=== PATIENT | female | born 1980 | race Two or more races ===

== ENCOUNTER → 2020-01-17 10:19 | Outpatient (BNVA) | payer MEDICARE, MEDICAID, SELFPAY | PROVIDERS: PCP Internal Medicine; Referring Provider Internal Medicine; Visit Provider Internal Medicine Endocrinology, Diabetes & Metabolism | DX: E10.65 Type 1 diabetes mellitus with hyperglycemia (principal); E10.21 Type 1 diabetes mellitus with diabetic nephropathy; E78.5 Hyperlipidemia, unspecified; E55.9 Vitamin D deficiency, unspecified; N91.2 Amenorrhea, unspecified; Z96.41 Presence of insulin pump (external) (internal) | CPT/HCPCS: 82947; 99214 ==

== ENCOUNTER → 2020-01-31 11:15 | Outpatient (BNVA) | payer MEDICARE, MEDICAID, SELFPAY | PROVIDERS: PCP Internal Medicine; Referring Provider Internal Medicine; Visit Provider Nurse Practitioner | DX: K58.2 Mixed irritable bowel syndrome (principal); K21.9 Gastro-esophageal reflux disease without esophagitis; R13.10 Dysphagia, unspecified; R63.4 Abnormal weight loss; Z79.899 Other long term (current) drug therapy | CPT/HCPCS: 99212 ==

== ENCOUNTER → 2020-02-08 11:01 | Outpatient (BNVA) | payer MEDICARE, MEDICAID, SELFPAY | PROVIDERS: PCP Internal Medicine; Referring Provider Internal Medicine; Visit Provider Dietitian, Registered | DX: Z76.89 Persons encountering health services in other specified circumstances (principal) ==

== ENCOUNTER → 2020-04-17 09:56 | Outpatient (BNVA) | payer MEDICARE, MEDICAID, SELFPAY | PROVIDERS: PCP Internal Medicine; Visit Provider Internal Medicine Endocrinology, Diabetes & Metabolism | DX: E10.65 Type 1 diabetes mellitus with hyperglycemia (principal); E10.21 Type 1 diabetes mellitus with diabetic nephropathy; E78.5 Hyperlipidemia, unspecified; E55.9 Vitamin D deficiency, unspecified; N91.2 Amenorrhea, unspecified | CPT/HCPCS: 82947; 99212 ==

== ENCOUNTER 2020-04-24 14:56 | Outpatient (REF) | payer MEDICARE, MEDICAID, SELFPAY ==
--- NOTE | 2020-04-24 | MM_ITS ---
EXAMINATION: MM SCREENING DIGITAL BREAST TOMOSYNTHESIS, BILATERAL CLINICAL INFORMATION: Screening. Asymptomatic. Baseline, no prior breast imaging. Age 39. No known family history breast cancer. History benign right breast excisional biopsy 1999. The lifetime risk of breast cancer based on the Tyrer-Cuzick Model is 7%. COMPARISON: None (current study represents initial baseline exam). TECHNIQUE: Digital breast tomosynthesis is performed in both the craniocaudal and mediolateral oblique views along with computer-aided detection (CAD). Synthesized 2D images are generated from the tomosynthesis. FINDINGS: The breasts are heterogeneously dense, which may obscure small masses (ACR BI-RADS breast composition Category c). There are no significant masses, abnormal calcifications, or other abnormalities. The axilla and skin contours are unremarkable. MM/MM tomosynthesis screening BI IMPRESSION: No mammographic evidence of malignancy. ASSESSMENT: BI-RADS 1: Negative RECOMMENDATION: Routine annual mammography screening. This patient's information was entered into a reminder system with a target due date for their next mammogram.
== END 2020-04-24 14:57 | disposition home or self-care (01) ==
LOC: HO.MAMMO 14:56
PROVIDERS: PCP Internal Medicine; Visit Provider Internal Medicine
DX: Z12.31 Encounter for screening mammogram for malignant neoplasm of breast (principal)
CPT/HCPCS: 77063; 77067

== ENCOUNTER → 2020-04-26 09:47 | Outpatient (BNVA) | payer MEDICARE, MEDICAID, SELFPAY | PROVIDERS: PCP Internal Medicine; Visit Provider Internal Medicine | DX: R00.2 Palpitations (principal); R06.02 Shortness of breath; R07.2 Precordial pain; R00.0 Tachycardia, unspecified; E10.65 Type 1 diabetes mellitus with hyperglycemia | CPT/HCPCS: 93005; 99202 ==

== ENCOUNTER → 2020-05-10 11:39 | Outpatient (BNVA) | payer MEDICARE, MEDICAID, SELFPAY | PROVIDERS: PCP Internal Medicine; Visit Provider Dietitian, Registered ==

== ENCOUNTER → 2020-05-15 11:04 | Outpatient (REF) | payer MEDICARE, MEDICAID, SELFPAY ==
--- NOTE | 2020-05-15 11:08 | CA_ITS ---
Acquisition Time: 2020-05-15 11:17:47 Total Exercise Time: 00:08:53 Test Indications: CP Medications: SEE CHART Protocol: YINKA Max HR: 157 BPM 87% of Pred: 180 BPM Max BP: 160/078 mmHG Max Work Load: 10.1 METS Exercise stress ECHO total of 8 min 53 sec. Pt tolerated well. METS 10.10 and TAPHR up to 87%. Pt denies any anginal sx, EKG without any arrhythmias. no ischemic changes seen during exercise or in recovery period. Images taken at rest and immediately after peak exercise. Definity contrast used. Normotensive response to exercise. Test reviewed with Dr. Barone Referred By: Donovan Barone Overread By: Blu Link
== END ==
LOC: HO.CARD 11:04
PROVIDERS: PCP Internal Medicine; Visit Provider Internal Medicine
DX: R07.2 Precordial pain (principal)
CPT/HCPCS: 93350; Q9957

== ENCOUNTER → 2020-05-30 09:34 | Outpatient (REF) | payer MEDICARE, MEDICAID, SELFPAY ==
--- NOTE | 2020-05-30 09:38 | CA_ITS ---
Transthoracic Echocardiogram Patient (Last, First, Middle): Renae Roman L Gender: Female Date of : 1980 Age: 39 Procedure Date: 05/30/2020 Procedure Type: Transthoracic Echocardiogram Location: OP Height: 157.48 cm Weight: 58.97 kg BSA: 1.59 m2 Heart Rate: bpm BP: 118 / 76 mmHg Associate Music Professor: DSKarla Referring MD: Donovan Barone MD Symptoms: R06.02 - Shortness of breath Study Quality: Good ECG Rhythm: Sinus Conclusions: - The left ventricular systolic function is mildly decreased. The visually estimated ejection fraction is between 45-50%. - No obvious valvular pathology seen on this study. Findings Left Ventricle Normal left ventricular cavity size. There is normal left ventricular wall thickness. The left ventricular systolic function is mildly decreased. The visually estimated ejection fraction is between 45-50%. There is no evidence of regional wall motion abnormalities. Diastolic function is normal for age. Right Ventricle Normal right ventricular cavity size and systolic function. Atria Both atria are normal in size. Aortic Valve There is a normal trileaflet aortic valve. There is no aortic valve stenosis. There is no aortic valve regurgitation. Mitral Valve There is mild anterior mitral leaflet thickening. There is trace mitral valve regurgitation. There is no mitral valve stenosis. Pulmonic Valve The pulmonic valve was not well visualized. Tricuspid Valve Normal tricuspid valve structure. There is trace tricuspid valve regurgitation. The pulmonary artery systolic pressure is normal. Great Vessels The aortic annulus, sinuses of valsalva, and asc aorta are normal in size. Venous The inferior vena cava is normal in size and collapses greater than 50% with inspiration. Pericardium/Pleural There is no evidence of pericardial effusion. Prior Study Comparison No prior study available for comparison. Recommendations, Care & Conclusions No obvious valvular pathology seen on this study. Measurements 2D Linear Measurements IVSd: 0.97 0.6-0.9/0.6-1.0 cm LVIDd: 4.58 3.9-5.3/4.2-5.9 cm LVIDd Index: 2.88 2.4-3.2/2.2-3.1 cm/m2 LVIDs: 3.42 2.0-3.6 cm LVPWd: 0.84 0.7-1.1 cm Ao Root: 2.80 2.1-3.5 cm LA Diam: 3.20 2.7-3.8/3.0-4.0 cm LAIDs Index: 2.01 1.5-2.3 cm/m2 LV Mass: 171.82 67-162/88-224 g LV Mass Index: 108.06 43-95/49-115 g/m2 LVOT Diam: 1.90 3.0+(-)1.3 cm 2D Systolic Function EF 4C: 56.70 >55% EF 2C: 61.40 >55% Mitral Valve MV PK A: 0.42 MV Decel Time: 67.00 E'Lateral: 7.83 E'Medial: 6.20 PHT: 19.00 MVA PHT: 11.58 Decel George: 12.05 Aortic Valve AoV Pk Zackary: 1.28 AoV Pk Grad: 7.00 LVOT LVOT Pk Zackary: 0.88 LVOT Mn Zackary: 0.59 LVOT VTI: 0.16 LVOT Pk Grad: 3.00 LVOT Mn Grad: 2.00 LVOT Diam: 1.90 LVOT Area: 2.84 Diastolic Function MV Pk A: 0.42 E'Medial: 6.20 E' Laterial: 7.83 Tricuspid Valve TR Pk Zackary: 2.24 TR Pk Grad: 20.00 RA Press: 3.00 RVSP: 23.00 Great Vessels Aorta Ao Root-2D: 2.80 2.0-3.7 cm Ao Asc: 3.10 2.1-3.4 cm Updated in Other Vendor System with Status of Final Donovan Barone MD electronically signed on 05/31/2020 12:02:22 PM with status of Final
--- NOTE | 2020-05-30 09:38 | ECG_ITS ---
Hook-up date: 2020-05-30 10:47:00 Duration: 26:18:00 Test Indications: PALPITATIONS Medications: [id number] QRS complexes 1 Ventricular ectopics which represent <1 % of total QRS comp. 3 Supraventricular ectopics which represent <1 % of total QRS comp. * Paced QRS complexs which represent % of total QRS comp. VENTRICULAR ECTOPY 1 Isolated 0 Bigeminal Cycles 0 Couplets 0 Runs 0 Beats in Runs * Beats LONGEST at * BPM at :: -- * Beats FASTEST at * BPM at :: -- SUPRAVENTRICULAR ECTOPY 3 Isolated 0 Couplets 0 Runs 0 Beats in Runs * Beats LONGEST at * BPM at :: -- * Beats FASTEST at * BPM at :: -- HEART RATES 87 MIN at 05:16:30 2020-05-31 105 AVG 130 MAX at 21:52:19 2020-05-30 LONGEST RR 0.7040 secs at 22:17:59 2020-05-30 S-T LEVELS Channel 1 - 128 mm at 10:47:00 2020-05-30 - 128 mm at 10:47:00 2020-05-30 Channel 2 - 128 mm at 10:47:00 2020-05-30 - 128 mm at 10:47:00 2020-05-30 Channel 3 - 128 mm at 03:00:61 -- - 128 mm at 03:00:61 Underlying rhythm is sinus; Average ventricular rate 105/min; range 87-130/min; About 75% of the time, ventricular rate >100/min; No other arrhythmias noted; Chest pain in patient diary without correlating findings on holter. Referred By: Tommy Julien Overread By: TOMMY JULIEN
== END ==
LOC: HO.CARD 09:34
PROVIDERS: Visit Provider Internal Medicine
DX: R07.2 Precordial pain (principal); R00.2 Palpitations; R06.02 Shortness of breath
CPT/HCPCS: 93225; 93226; 93306

== ENCOUNTER → 2020-06-04 15:02 | Outpatient (BNVA) | payer MEDICARE, MEDICAID, SELFPAY | PROVIDERS: PCP Internal Medicine; Visit Provider Nurse Practitioner | DX: Z13.89 Encounter for screening for other disorder (principal) | CPT/HCPCS: 99212 ==

== ENCOUNTER 2020-06-06 08:57 | Outpatient (REF) | payer MEDICARE, MEDICAID, SELFPAY ==
--- NOTE | ~2020-06-06 | CT_ITS ---
EXAMINATION: CT SINUS WITHOUT CONTRAST CLINICAL INFORMATION: Sinonasal polyposis. Deviated septum. COMPARISON: None TECHNIQUE: Axial 2 mm thin and reformatted 2 mm thin sagittal and coronal images of sinuses were obtained. DLP 112 mGy/cm. This CT examination was performed using dose optimization techniques as appropriate, variously including the following: *Automated exposure control *Adjustment of mA and/or kV according to patient size (this includes techniques or standardized protocols for targeted exams where dose is matched to indication/reason for exam; i.e. extremities or head) *Use of iterative reconstruction technique FINDINGS: FRONTAL SINUSES AND DRAINAGE PATHWAYS: Normal. MAXILLARY SINUSES AND DRAINAGE PATHWAYS: There is mild mucoperiosteal thickening left maxillary sinus. Rest of the paranasal sinuses are well aerated. Bilateral ostiomeatal complexes are well aerated as well. ETHMOID SINUSES: Normal. The ethmoid roofs are symmetric, with olfactory fossa depth of 0.5 cm on the right and 0.4 cm on the left. SPHENOID SINUSES AND DRAINAGE PATHWAYS: Normal. The sphenoid ostia are patent. The carotid canals are covered by bone. NASAL CAVITY/NASOPHARYNX: The nasal cavity is clear. There is mild anterior nasal septal deviation to the left. The nasopharynx is symmetric. ADDITIONAL RELEVANT FINDINGS: No periapical disease is seen. The TMJs articulate normally. The orbits and skull base soft tissues are unremarkable. The middle ear cavities and mastoid air cells are clear. Limited evaluation demonstrates no acute intracranial findings. CT/CT sinus wo con IMPRESSION: Mild mucoperiosteal thickening left maxillary sinus. Otherwise the rest of the paranasal sinuses and mastoid air cells are well aerated. The drainage pathways are widely patent. There is no nasal polyps
== END 2020-06-06 08:58 | disposition home or self-care (01) ==
LOC: HO.CT 08:57
PROVIDERS: PCP Internal Medicine; Visit Provider Otolaryngology
DX: J33.0 Polyp of nasal cavity (principal); J34.2 Deviated nasal septum
CPT/HCPCS: 70486

== ENCOUNTER → 2020-06-07 10:03 | Outpatient (BNVA) | payer MEDICARE, MEDICAID, SELFPAY | PROVIDERS: PCP Internal Medicine; Visit Provider Internal Medicine | DX: R00.0 Tachycardia, unspecified (principal); I42.8 Other cardiomyopathies; E10.65 Type 1 diabetes mellitus with hyperglycemia; Z79.899 Other long term (current) drug therapy; Z79.4 Long term (current) use of insulin | CPT/HCPCS: 99212 ==

== ENCOUNTER → 2020-08-15 11:17 | Outpatient (BNVA) | payer MEDICARE, MEDICAID, SELFPAY | PROVIDERS: PCP Internal Medicine; Visit Provider Internal Medicine Endocrinology, Diabetes & Metabolism | DX: E10.65 Type 1 diabetes mellitus with hyperglycemia (principal); E10.21 Type 1 diabetes mellitus with diabetic nephropathy; E78.5 Hyperlipidemia, unspecified; E55.9 Vitamin D deficiency, unspecified; N91.2 Amenorrhea, unspecified | CPT/HCPCS: 82947; 99212 ==

== ENCOUNTER 2020-08-22 06:37 | Outpatient (REF) | payer MEDICARE, MEDICAID, SELFPAY ==
[2020-08-22 08:10] LABS: Alanine Aminotransferase 9 U/L (0-31); Albumin Level 3.9 g/dL (3.5-5.0); Alkaline Phosphatase 102 U/L (39-117); Anion Gap 11 (12-20); Aspartate Amino Transferase 13 U/L (5-31); Bilirubin Total 0.4 mg/dL (0.0-1.0); Blood Urea Nitrogen 22 mg/dL (9-16); Calcium 8.8 mg/dL (8.4-10.2); Carbon Dioxide 25 mmol/L (22-29); Chloride 107 mmol/L (96-108); Cholesterol 95 mg/dL; Estimated Glomerular Filt Rate 47; Glucose Fasting 160 mg/dL (60-99); HDL Cholesterol 31 mg/dL; LDL Cholesterol Calculated 51 mg/dl; Potassium 4.5 mmol/L (3.3-5.1); Sodium 138 mmol/L (135-145); Total Protein 6.7 g/dL (6.5-8.0); Triglycerides 65 mg/dL
[2020-08-22 08:30] LABS: Free T4 (Free Thyroxine) 0.91 ng/dL (0.71-1.85)
[2020-08-22 08:43] LABS: Creatinine Urine 283.73 mg/dL; Microalbum/Creatinine Ratio Ur 127.5 ug/mg cr
[2020-08-22 08:52] LABS: Vitamin B12 344 pg/mL (200-900)
[2020-08-23 05:42] LABS: Follicle Stimulating Hormone 7.4 mIU/mL; LDL Cholesterol Direct 50 mg/dL (<100); Lutenizing Hormone 2.5 mIU/mL; Prolactin 19.3 ng/mL
[2020-08-23 09:41] LABS: DHEA Sulfate 17 mcg/dL (23-266); Sex Hormone Binding Globulin 51 nmol/L (17-124)
[2020-08-28 16:47] LABS: Testosterone, Free 0.4 pg/mL (0.1-6.4); Testosterone, Total 4 ng/dL (2-45)
[2020-08-29 20:07] LABS: Estrogen 141.1 pg/mL
[2020-08-30 12:37] LABS: Androstenedione 19 ng/dL
[2020-08-30 18:42] LABS: Estradiol Ultra Sensitive 39 pg/mL
[2020-08-30 21:57] LABS: Estradiol Free 0.78 pg/mL; Estradiol, Ultrasensitive 36 pg/mL
== END 2020-08-22 06:38 | disposition home or self-care (01) ==
LOC: HO.LAB 06:37
PROVIDERS: PCP Internal Medicine; Visit Provider Internal Medicine Endocrinology, Diabetes & Metabolism
DX: E10.65 Type 1 diabetes mellitus with hyperglycemia (principal); N91.2 Amenorrhea, unspecified
CPT/HCPCS: 36415; 80053; 80061; 82043; 82157; 82607; 82627; 82670; 82672; 82681; 83001; 83002; 83498; 83721; 84146; 84270; 84402; 84403; 84439; 84443

== ENCOUNTER 2020-09-13 09:50 | Outpatient (REF) | payer MEDICARE, MEDICAID, SELFPAY ==
[2020-09-13 15:54] LABS: CT PCR NOT DETECTED (Not Detect.); NG PCR NOT DETECTED (Not Detect.)
[2020-09-14 08:40] LABS: BV Int Neg Control Negative (Negative); BV Int Pos Control Positive (Positive)
== END 2020-09-13 09:51 | disposition home or self-care (01) ==
LOC: HO.LAB 09:50
PROVIDERS: PCP Internal Medicine; Visit Provider Advanced Practice Midwife
DX: Z01.411 Encounter for gynecological examination (general) (routine) with abnormal findings (principal); Z11.3 Encounter for screening for infections with a predominantly sexual mode of transmission; R10.2 Pelvic and perineal pain; R25.2 Cramp and spasm; R35.0 Frequency of micturition; Z20.2 Contact with and (suspected) exposure to infections with a predominantly sexual mode of transmission
CPT/HCPCS: 87480; 87491; 87510; 87591; 87660

== ENCOUNTER 2020-09-14 11:10 | Outpatient (REF) | payer MEDICARE, MEDICAID, SELFPAY ==
[2020-09-14 14:27] LABS: Syphilis Screen Nonreactive (Nonreactive)
[2020-09-17 07:57] LABS: HIV AB/AG Nonreactive (Nonreactive); HIV Num 1 0.06 S/CO (0.00-0.99); Hepatitis B Core Antibody Nonreactive (Nonreactive); ~HepC Num1 0.15 S/CO (0.00-0.79); ~Hepatitis C Antibody Nonreactive (Nonreactive)
== END 2020-09-14 11:11 | disposition home or self-care (01) ==
LOC: HO.10HDL 11:10
PROVIDERS: Internal Medicine Endocrinology, Diabetes & Metabolism; Visit Provider Advanced Practice Midwife
DX: Z01.84 Encounter for antibody response examination (principal); Z11.4 Encounter for screening for human immunodeficiency virus [HIV]; Z11.59 Encounter for screening for other viral diseases; N92.1 Excessive and frequent menstruation with irregular cycle; E10.65 Type 1 diabetes mellitus with hyperglycemia; Z20.2 Contact with and (suspected) exposure to infections with a predominantly sexual mode of transmission
CPT/HCPCS: 36415; 80053; 80061; 86704; 86780; 86803; 87389; G0499

== ENCOUNTER 2020-09-25 10:51 | Outpatient (REF) | payer MEDICARE, MEDICAID, SELFPAY ==
--- NOTE | ~2020-09-25 | US_ITS ---
EXAMINATION: US DIAGNOSTIC ULTRASOUND BREAST, LEFT CLINICAL INFORMATION: Pain upper outer quadrant and axilla. COMPARISON: Mammography of same day and April 24, 2020. TECHNIQUE: Ultrasound of the breast is performed with real-time monahan scale imaging and color Doppler. FINDINGS: There is no focal suspicious finding. There is no solid mass, architectural abnormality, duct ectasia, or edema in the soft tissue planes. Results are discussed with the patient at time of visit. US/US breast LT limited IMPRESSION: No ultrasound findings to suggest malignancy. ASSESSMENT: BI-RADS 1: Negative RECOMMENDATION: Routine annual mammography screening. This patient's information was entered into a reminder system with a target due date for their next mammogram.
--- NOTE | ~2020-09-25 | MM_ITS ---
EXAMINATION: MM DIAGNOSTIC DIGITAL BREAST TOMOSYNTHESIS, LEFT CLINICAL INFORMATION: Mastodynia COMPARISON: Mammography: April 24, 2020 TECHNIQUE: Digital breast tomosynthesis is performed in both the craniocaudal and mediolateral oblique views along with computer-aided detection (CAD). Synthesized 2D images are generated from the tomosynthesis. Targeted left breast ultrasound FINDINGS: The breasts are extremely dense, which lowers the sensitivity of mammography (ACR BI-RADS breast composition Category d). There are no significant masses, abnormal calcifications, or other abnormalities. Targeted left breast ultrasound to region of pain was performed. No abnormal cystic or solid masses identified. No region of abnormal distal sound shadowing. No edematous change within the tissues noted. Results are discussed with the patient at time of visit. MM/MM tomosynthesis diagnostic LT IMPRESSION: No specific mammographic or ultrasound findings to suggest malignancy of the left breast. ASSESSMENT: BI-RADS 1: Negative RECOMMENDATION: Routine annual mammography screening. This patient's information was entered into a reminder system with a target due date for their next mammogram.
== END 2020-09-25 10:52 | disposition home or self-care (01) ==
LOC: HO.MAMMO 10:51
PROVIDERS: Visit Provider Advanced Practice Midwife
DX: N63.21 Unspecified lump in the left breast, upper outer quadrant (principal)
CPT/HCPCS: 76642; 77061; 77065

== ENCOUNTER 2020-09-26 16:30 | Outpatient (REF) | payer MEDICARE, MEDICAID, SELFPAY ==
--- NOTE | ~2020-09-26 | MR_ITS ---
EXAMINATION: MR BRAIN WITHOUT AND WITH CONTRAST CLINICAL INFORMATION: Hypopituitarism. COMPARISON: CT scan of the sinuses 06/06/2020. TECHNIQUE: Multiplanar MR imaging of the brain was performed without and with contrast. A total of 3 mL Gadavist was utilized for this examination. FINDINGS: Dedicated imaging through the sella turcica reveals no identifiable intrasellar mass. There is no suprasellar mass effect or chiasmatic compression. The pituitary stalk is midline and there is no abnormal infundibular thickening. Cavernous sinuses enhance symmetrically. Cavernous internal carotid artery flow voids are maintained. Postcontrast images of the whole brain reveal no abnormal mass or enhancement within the intracranial compartment. No intracranial mass effect or midline shift. No abnormal extra-axial collection. Lateral and third ventricles are proportionate to the subarachnoid spaces. No hydrocephalus. Midline structures including the cervicomedullary junction are normal. No acute bone marrow signal changes. There are a few scattered nonspecific foci of T2 FLAIR signal hyperintensity within the periventricular white matter. No acute territorial infarct. Intracranial vascular flow voids are maintained. There is no mastoid or middle ear effusion. Mild mucosal thickening within ethmoid air cells. Globes and orbits are symmetric. MR/MR head/brain wo/w con IMPRESSION: Unremarkable brain MRI.
== END 2020-09-26 16:31 | disposition home or self-care (01) ==
LOC: HO.MRI 16:30
PROVIDERS: PCP Internal Medicine; Visit Provider Internal Medicine Endocrinology, Diabetes & Metabolism
DX: E23.0 Hypopituitarism (principal)
CPT/HCPCS: 70553; A9585

== ENCOUNTER → 2020-10-09 11:28 | Outpatient (BNVA) | payer MEDICARE, MEDICAID, SELFPAY | PROVIDERS: PCP Internal Medicine; Visit Provider Advanced Practice Midwife | DX: N64.4 Mastodynia (principal); R10.2 Pelvic and perineal pain; E22.1 Hyperprolactinemia; M79.605 Pain in left leg; E10.65 Type 1 diabetes mellitus with hyperglycemia; E10.21 Type 1 diabetes mellitus with diabetic nephropathy; E55.9 Vitamin D deficiency, unspecified; Z98.51 Tubal ligation status; Z71.2 Person consulting for explanation of examination or test findings | CPT/HCPCS: Q3014 ==

== ENCOUNTER → 2020-11-05 08:51 | Outpatient (REF) | payer MEDICARE, MEDICAID, SELFPAY ==
--- NOTE | 2020-11-05 11:33 | ECG_ITS ---
Hook-up date: 2020-11-05 09:08:00 Duration: 47:59:00 Test Indications: PAF Medications: [id number] QRS complexes * Ventricular ectopics which represent % of total QRS comp. 2 Supraventricular ectopics which represent <1 % of total QRS comp. * Paced QRS complexs which represent % of total QRS comp. VENTRICULAR ECTOPY * Isolated * Bigeminal Cycles * Couplets * Runs * Beats in Runs * Beats LONGEST at * BPM at :: -- * Beats FASTEST at * BPM at :: -- SUPRAVENTRICULAR ECTOPY 2 Isolated 0 Couplets 0 Runs 0 Beats in Runs * Beats LONGEST at * BPM at :: -- * Beats FASTEST at * BPM at :: -- HEART RATES 87 MIN at 08:06:48 2020-11-06 99 AVG 123 MAX at 12:56:52 2020-11-05 LONGEST RR 0.6880 secs at 09:39:17 2020-11-06 S-T LEVELS Channel 1 - 128 mm at 09:08:00 2020-11-05 - 128 mm at 09:08:00 2020-11-05 Channel 2 - 128 mm at 09:08:00 2020-11-05 - 128 mm at 09:08:00 2020-11-05 Channel 3 - 128 mm at 02:82:71 -- - 128 mm at 02:82:71 Underlying rhythm is sinus; Average ventricular rate 99/min; range 87-123/min; About 45% of the time, rate>100/min; No significant arrhythmias. Referred By: Tommy Julien Overread By: TOMMY JULIEN
== END ==
LOC: HO.CARD 08:51
PROVIDERS: PCP Internal Medicine; Referring Provider Internal Medicine; Visit Provider Internal Medicine
DX: E10.21 Type 1 diabetes mellitus with diabetic nephropathy (principal); R00.0 Tachycardia, unspecified; I48.0 Paroxysmal atrial fibrillation; Z71.3 Dietary counseling and surveillance
CPT/HCPCS: 93226; 97803

== ENCOUNTER 2020-11-07 16:09 | Outpatient (REF) | payer MEDICARE, MEDICAID, SELFPAY ==
--- NOTE | ~2020-11-07 | US_ITS ---
EXAMINATION: US PELVIS CLINICAL INFORMATION: Pelvic and perineal pain. COMPARISON: Ultrasound pelvis 10/25/2019. TECHNIQUE: Ultrasound of the pelvis is performed using both transabdominal and transvaginal transducers along with Doppler. Transvaginal imaging is performed due to inadequate visualization transabdominally. FINDINGS: Uterus: The uterus is anteverted and anteflexed and measures 6.5 cm in length, 4.0 cm AP and 4.5 cm in transverse dimension. The double wall endometrial thickness is 0.4 cm. The uterus is smooth in contour and has normal myometrial echogenicity. There are 2 lesions visualized. The lesion in the upper anterior body of the uterus measures 1.2 x 1.6 x 1.8 cm. The lesion in the upper posterior body of the uterus measures 1.1 x 1.2 x 1.2 cm. There are small anechoic nabothian cysts in the cervix. Adnexa: Both ovaries are visualized. There is normal color flow to the adnexa. There is no ovarian torsion. There is no pelvic ascites or fluid collection. There is no free fluid in the adnexa. Right ovary measures 2.2 x 1.6 x 1.1 cm and volume 2.0 mL. No focal lesion seen. Previously right ovary measured 1.7 x 2.2 x 1.5 cm and volume 3.0 mL. Left ovary measures 2.5 x 2.5 x 1.3 cm and volume 4.3 mL. No focal lesion seen. Previously left ovary measured 2. 601.6 x 2.1 cm and 4.7 mL volume. US/US pelvic and transvaginal IMPRESSION: Two small uterine fibroids as described above. Unremarkable endometrium. Small nabothian cysts in the cervix. The ovaries are unremarkable.
== END 2020-11-07 16:10 | disposition home or self-care (01) ==
LOC: HO.US 16:09
PROVIDERS: Visit Provider Advanced Practice Midwife
DX: R10.2 Pelvic and perineal pain (principal)
CPT/HCPCS: 76830; 76856

== ENCOUNTER → 2020-11-21 10:06 | Outpatient (BNVA) | payer MEDICARE, MEDICAID, SELFPAY | PROVIDERS: PCP Internal Medicine; Visit Provider Internal Medicine | DX: E10.65 Type 1 diabetes mellitus with hyperglycemia (principal); E10.21 Type 1 diabetes mellitus with diabetic nephropathy; I10 Essential (primary) hypertension; E78.5 Hyperlipidemia, unspecified; E55.9 Vitamin D deficiency, unspecified; N91.2 Amenorrhea, unspecified; Z87.891 Personal history of nicotine dependence; Z96.41 Presence of insulin pump (external) (internal); Z46.81 Encounter for fitting and adjustment of insulin pump; Z88.6 Allergy status to analgesic agent; Z79.4 Long term (current) use of insulin; Z79.899 Other long term (current) drug therapy | CPT/HCPCS: 82947; 99212 ==

== ENCOUNTER → 2020-11-22 15:21 | Outpatient (BNVA) | payer MEDICARE, MEDICAID, SELFPAY | PROVIDERS: Visit Provider Advanced Practice Midwife | DX: D21.9 Benign neoplasm of connective and other soft tissue, unspecified (principal); I10 Essential (primary) hypertension; E10.21 Type 1 diabetes mellitus with diabetic nephropathy; E10.65 Type 1 diabetes mellitus with hyperglycemia; E78.5 Hyperlipidemia, unspecified; E55.9 Vitamin D deficiency, unspecified; Z71.2 Person consulting for explanation of examination or test findings; Z87.891 Personal history of nicotine dependence | CPT/HCPCS: Q3014 ==

== ENCOUNTER → 2020-11-27 11:02 | Outpatient (BNVA) | payer MEDICARE, MEDICAID, SELFPAY | PROVIDERS: PCP Internal Medicine; Referring Provider Internal Medicine; Visit Provider Internal Medicine | DX: R00.2 Palpitations (principal); R07.9 Chest pain, unspecified; I42.8 Other cardiomyopathies; E10.65 Type 1 diabetes mellitus with hyperglycemia; E10.21 Type 1 diabetes mellitus with diabetic nephropathy; E78.5 Hyperlipidemia, unspecified; E55.9 Vitamin D deficiency, unspecified | CPT/HCPCS: 99212 ==

== ENCOUNTER → 2020-12-07 13:13 | Outpatient (BNVA) | payer MEDICARE, MEDICAID, SELFPAY | PROVIDERS: PCP Internal Medicine; Visit Provider Nurse Practitioner | CPT/HCPCS: Q3014 ==

== ENCOUNTER 2020-12-26 10:21 | Outpatient (REF) | payer MEDICARE, MEDICAID, SELFPAY ==
--- NOTE | ~2020-12-26 | US_ITS ---
EXAMINATION: US THYROID CLINICAL INFORMATION: Nontoxic goiter, unspecified COMPARISON: None TECHNIQUE: Linear transducer grayscale and color Doppler examination with attention to the region of the thyroid. FINDINGS: SIZE: Measurements of the thyroid lobes and nodules are given in sagittal, anteroposterior and transverse dimensions respectively. Right Thyroid Lobe: 5.0 x 1.3 x 1.6 cm, volume 5.5 mL. Parenchyma: The gland echotexture is homogeneous. Thyroid vascularity is normal. Left Thyroid Lobe: 4.8 x 1.4 x 1.5 cm, volume 5.3 mL. Parenchyma: The gland echotexture is homogeneous. Thyroid vascularity is normal. Isthmus: 0.2 cm in maximum AP dimension. No focal thyroid nodule is seen. NODES: No lymphadenopathy is seen in the tissue surrounding the thyroid gland. US/US thyroid IMPRESSION: Unremarkable examination. ACR TI-RADS RECOMMENDATION REFERENCE: Ultrasound-guided fine-needle aspiration, followup ultrasound, no further follow up. * TR1 (0 point) and TR 2 (2 points): No FNA or follow up * TR3 (3 points): FNA if more than or equal to 2.5 cm in maximum dimension, followup ultrasound in 1, 3 and 5 years if 1.5 to 2.4 cm in maximum dimension. * TR4 (4-6 points): FNA if more than or equal to 1.5 cm in maximum dimension, followup ultrasound in 1, 2, 3 and 5 years if 1 to 1.4 cm in maximum dimension. * TR5 (more than or equal to 7 points): FNA if more than or equal to 1 cm in maximum dimension, followup ultrasound every year for 5 years if 0.5 to 0.9 cm in maximum dimension. * TR3, TR4 or TR5 nodules that are below the size threshold for follow up receive no follow up.
== END 2020-12-26 10:22 | disposition home or self-care (01) ==
LOC: HO.US 10:21
PROVIDERS: Visit Provider Internal Medicine
DX: E04.9 Nontoxic goiter, unspecified (principal)
CPT/HCPCS: 76536

== ENCOUNTER → 2021-05-01 12:08 | Outpatient (BNVA) | payer MEDICARE, MEDICAID, SELFPAY | PROVIDERS: PCP Internal Medicine; Visit Provider Internal Medicine | DX: E10.9 Type 1 diabetes mellitus without complications (principal); E78.5 Hyperlipidemia, unspecified; E55.9 Vitamin D deficiency, unspecified; I10 Essential (primary) hypertension; N91.2 Amenorrhea, unspecified | CPT/HCPCS: 82947; 83036; 99212 ==

== ENCOUNTER → 2021-05-08 09:31 | Outpatient (BNVA) | payer MEDICARE, MEDICAID, SELFPAY | PROVIDERS: PCP Internal Medicine; Visit Provider Dietitian, Registered | DX: E10.21 Type 1 diabetes mellitus with diabetic nephropathy (principal) | CPT/HCPCS: 97803 ==

== ENCOUNTER → 2021-05-09 08:48 | Outpatient (REF) | payer MEDICARE, MEDICAID, SELFPAY ==
--- NOTE | 2021-05-09 08:52 | HM_ITS ---
Total monitoring time 3 days and 2 hours. Underlying rhythm is sinus. Average heart rate 100/Min. Ranged 83-133/Min. About 52% of the time, rate greater than 100/Min. No atrial fibrillation or flutter or AV blocks or pauses. Very rare supraventricular/ventricular ectopy with minimal burden. No patient events. MTDD
--- NOTE | 2021-05-09 08:52 | CA_ITS ---
Transthoracic Echocardiogram Patient (Last, First, Middle): Renae Roman L Gender: Female Date of : 1980 Age: 40 Procedure Date: 05/09/2021 Procedure Type: Transthoracic Echocardiogram Location: OP Height: 157.48 cm Weight: 64.41 kg BSA: 1.65 m2 Heart Rate: bpm BP: 120 / 80 mmHg Credit Correspondence Clerk: SAMMY Collazo MD: Donovan Barone MD Bin Operator: Shiv Ch MD Symptoms: I42.8 - Other cardiomyopathies Study Quality: Fair ECG Rhythm: Sinus Conclusions: - 1. Mild LV systolic dysfunction with LVEF of 45-50% with impaired relaxation filling pattern 2. Normal cardiac valvular Doppler 3. No gross pericardial effusion Findings Left Ventricle Normal left ventricular cavity size. There is normal left ventricular wall thickness. The left ventricular systolic function is mildly decreased. The visually estimated ejection fraction is between 45-50%. There is mild global hypokinesis. Spectral Doppler is indicative of an impaired relaxation filling pattern. E/E prime ratio is <8, consistent with normal filling pressures. Evidence suggests grade I (mild) diastolic dysfunction. Right Ventricle Normal right ventricular cavity size and systolic function. Atria Both atria are normal in size. There is no evidence of interatrial shunt. Aortic Valve Normal aortic valve structure and function. There is no aortic valve stenosis. There is no aortic valve regurgitation. Mitral Valve Normal mitral valve structure and function. There is trace mitral valve regurgitation. There is no mitral valve stenosis. Pulmonic Valve The pulmonic valve is likely normal. Tricuspid Valve Normal tricuspid valve structure. There is trace tricuspid valve regurgitation. The right ventricular systolic pressure is normal. The right ventricular systolic pressure is 10 mmHg. Normal right atrial pressure. There is no evidence of pulmonary hypertension. Great Vessels All visible segments of the aorta are normal in size. The pulmonary artery was not well visualized. Venous The inferior vena cava is normal in size and collapses greater than 50% with inspiration. Pericardium/Pleural There is no evidence of pericardial effusion. Prior Study Comparison No significant change compared to prior study dated: 05/30/2020. Measurements 2D Linear Measurements IVSd: 0.93 0.6-0.9/0.6-1.0 cm LVIDd: 4.73 3.9-5.3/4.2-5.9 cm LVIDd Index: 2.87 2.4-3.2/2.2-3.1 cm/m2 LVIDs: 3.33 2.0-3.6 cm LVPWd: 0.86 0.7-1.1 cm Ao Root: 2.70 2.1-3.5 cm LA Diam: 3.10 2.7-3.8/3.0-4.0 cm LAIDs Index: 1.88 1.5-2.3 cm/m2 LV Mass: 177.40 67-162/88-224 g LV Mass Index: 107.52 43-95/49-115 g/m2 LVOT Diam: 2.00 3.0+(-)1.3 cm 2D Systolic Function EF 4C: 45.00 >55% EF 2C: 54.10 >55% EF BiP: 48.10 >55% Mitral Valve MV Pk E: 0.51 MV PK A: 0.53 MV Decel Time: 177.00 E/A: 1.00 E'Lateral: 7.83 E'Medial: 4.68 E/E' Med: 10.80 E/E' Lat: 6.50 PHT: 52.00 MVA PHT: 4.23 Decel [place]: 2.86 Aortic Valve AoV Pk Zackary: 1.08 AoV Mn Zackary: 0.73 AoV VTI: 0.19 AoV Pk Grad: 5.00 Aov Mn Grad: 3.00 ALVARO Cont.VTI: 2.38 LVOT LVOT Pk Zackary: 0.68 LVOT Mn Zackary: 0.54 LVOT VTI: 0.14 LVOT Pk Grad: 2.00 LVOT Mn Grad: 1.00 LVOT Diam: 2.00 LVOT Area: 3.14 Diastolic Function MV Pk E: 0.51 MV Pk A: 0.53 E/A: 1.00 E'Medial: 4.68 E/E' Med: 10.80 E' Laterial: 7.83 E/E' Lat: 6.50 Right Ventricle TAPSE (mm): 21.00 TVS' Zackary: 9.68 Tricuspid Valve TR Pk Zackary: 1.32 TR Pk Grad: 7.00 RA Press: 3.00 RVSP: 10.00 Great Vessels Aorta Ao Root-2D: 2.70 2.0-3.7 cm Ao Asc: 3.10 2.1-3.4 cm Ao Arch: 2.60 Updated in Other Vendor System with Status of Final Shiv Ch MD electronically signed on 05/09/2021 1:38:10 PM with status of Final
== END ==
LOC: HO.CARD 08:48
PROVIDERS: PCP Internal Medicine; Visit Provider Internal Medicine
DX: I42.8 Other cardiomyopathies (principal); R00.0 Tachycardia, unspecified
CPT/HCPCS: 93242; 93306

== ENCOUNTER → 2021-05-15 10:55 | Outpatient (BNVA) | payer MEDICARE, MEDICAID, SELFPAY | PROVIDERS: PCP Internal Medicine; Visit Provider Registered Nurse Diabetes Educator | DX: E10.9 Type 1 diabetes mellitus without complications (principal); Z79.4 Long term (current) use of insulin; Z96.41 Presence of insulin pump (external) (internal) | CPT/HCPCS: 99211 ==

== ENCOUNTER → 2021-05-27 10:05 | Outpatient (BNVA) | payer MEDICARE, MEDICAID, SELFPAY | PROVIDERS: PCP Internal Medicine; Referring Provider Internal Medicine; Visit Provider Internal Medicine | DX: I42.8 Other cardiomyopathies (principal); E10.65 Type 1 diabetes mellitus with hyperglycemia; R00.0 Tachycardia, unspecified | CPT/HCPCS: 93005; 99212 ==

== ENCOUNTER → 2021-06-06 10:04 | Outpatient (BNVA) | payer MEDICARE, MEDICAID, SELFPAY | PROVIDERS: PCP Internal Medicine; Referring Provider Internal Medicine; Visit Provider Nurse Practitioner | DX: K58.2 Mixed irritable bowel syndrome (principal); K21.9 Gastro-esophageal reflux disease without esophagitis; R13.11 Dysphagia, oral phase; R11.0 Nausea; Z79.899 Other long term (current) drug therapy | CPT/HCPCS: 99212 ==

== ENCOUNTER → 2021-06-10 13:25 | Outpatient (BNVA) | payer MEDICARE, MEDICAID, SELFPAY | PROVIDERS: PCP Internal Medicine; Visit Provider Registered Nurse Diabetes Educator | DX: E10.9 Type 1 diabetes mellitus without complications (principal) | CPT/HCPCS: 99211 ==

== ENCOUNTER 2021-06-18 09:24 | Outpatient (REF) | payer MEDICARE, MEDICAID, SELFPAY ==
[2021-06-18 10:18] LABS: Estimated Average Glucose 194 mg/dL; Hemoglobin A1c % 8.4 %
[2021-06-18 10:52] LABS: Alanine Aminotransferase 15 U/L (0-31); Alkaline Phosphatase 119 U/L (39-117); Anion Gap 15 (12-20); Aspartate Amino Transferase 14 U/L (5-31); Bilirubin Total 0.7 mg/dL (0.0-1.0); Blood Urea Nitrogen 13 mg/dL (9-16); Calcium 9.1 mg/dL (8.4-10.2); Carbon Dioxide 24 mmol/L (22-29); Chloride 104 mmol/L (96-108); Cholesterol 110 mg/dL; Estimated Glomerular Filt Rate 38; Glucose Random 248 mg/dL (60-115); HDL Cholesterol 29 mg/dL; LDL Cholesterol Calculated 59 mg/dl; Sodium 139 mmol/L (135-145); Total Protein 7.1 g/dL (6.5-8.0); Triglycerides 112 mg/dL
[2021-06-18 11:16] LABS: Free T4 (Free Thyroxine) 1.07 ng/dL (0.71-1.85); HCG Quantitative < 2 mIU/mL; Thyroid Stimulating Hormone 1.61 uIU/mL (0.32-4.0)
[2021-06-18 12:39] LABS: Creatinine Urine 176.91 mg/dL
[2021-06-18 12:43] LABS: Microalbum/Creatinine Ratio Ur 387.7 ug/mg cr
[2021-06-19 13:06] LABS: DHEA Sulfate 27 mcg/dL (15-205); Sex Hormone Binding Globulin 41 nmol/L (17-124)
[2021-06-19 15:37] LABS: Adrenocorticotropic Hormone 16 pg/mL (6-50)
[2021-06-19 16:01] LABS: LDL Cholesterol Direct 62 mg/dL (<100)
[2021-06-19 17:58] LABS: Lutenizing Hormone 16.1 mIU/mL; Prolactin 11.2 ng/mL
[2021-06-20 14:07] LABS: Vitamin D 25-OH Total 34.9 ng/mL (>30)
[2021-06-23 19:11] LABS: Testosterone, Free 1.5 pg/mL (0.1-6.4); Testosterone, Total 11 ng/dL (2-45)
[2021-06-24 14:36] LABS: Androstenedione 27 ng/dL
[2021-06-29 23:42] LABS: Estradiol Free 0.09 pg/mL; Estradiol, Ultrasensitive 5 pg/mL
== END 2021-06-18 09:25 | disposition home or self-care (01) ==
LOC: HO.LAB 09:24
PROVIDERS: PCP Internal Medicine; Visit Provider Internal Medicine
DX: N91.2 Amenorrhea, unspecified (principal); E55.9 Vitamin D deficiency, unspecified; E10.9 Type 1 diabetes mellitus without complications
CPT/HCPCS: 36415; 80053; 80061; 82024; 82043; 82157; 82306; 82627; 82670; 82681; 83001; 83002; 83036; 83498; 83721; 84146; 84270; 84402; 84403; 84439; 84443; 84702

== ENCOUNTER → 2021-06-19 12:12 | Outpatient (BNVA) | payer MEDICARE, MEDICAID, SELFPAY | PROVIDERS: PCP Internal Medicine; Visit Provider Internal Medicine | DX: E10.9 Type 1 diabetes mellitus without complications (principal) | CPT/HCPCS: 82947; 99212 ==

== ENCOUNTER → 2021-06-28 14:08 | Outpatient (BNVA) | payer MEDICARE, MEDICAID, SELFPAY | PROVIDERS: PCP Internal Medicine; Visit Provider Registered Nurse Diabetes Educator | DX: E10.9 Type 1 diabetes mellitus without complications (principal); Z79.4 Long term (current) use of insulin; Z46.81 Encounter for fitting and adjustment of insulin pump | CPT/HCPCS: 99211 ==

== ENCOUNTER → 2021-07-16 14:11 | Outpatient (BNVA) | payer MEDICARE, MEDICAID, SELFPAY | PROVIDERS: PCP Internal Medicine; Visit Provider Registered Nurse Diabetes Educator | DX: E10.65 Type 1 diabetes mellitus with hyperglycemia (principal); Z96.41 Presence of insulin pump (external) (internal); Z71.89 Other specified counseling | CPT/HCPCS: 99211 ==

== ENCOUNTER → 2021-07-18 08:49 | Outpatient (BNVA) | payer MEDICARE, MEDICAID, SELFPAY | PROVIDERS: PCP Internal Medicine; Visit Provider Internal Medicine Endocrinology, Diabetes & Metabolism | DX: E10.65 Type 1 diabetes mellitus with hyperglycemia (principal); E10.22 Type 1 diabetes mellitus with diabetic chronic kidney disease; G47.52 REM sleep behavior disorder; Z96.41 Presence of insulin pump (external) (internal) | CPT/HCPCS: 82947; 99212 ==

== ENCOUNTER 2021-07-22 08:29 | Outpatient (REF) | payer MEDICARE, MEDICAID, SELFPAY ==
--- NOTE | ~2021-07-22 | US_ITS ---
EXAMINATION: NONINVASIVE ASSESSMENT OF THE ARTERIES OF BOTH LOWER EXTREMITIES INCLUDING PVR EXAM CLINICAL INFORMATION: Peripheral vascular disease, unspecified COMPARISON: None TECHNIQUE: Ankle pulse volume recordings, ankle pressure measurements and ankle brachial indices were obtained of the lower extremity arterial system bilaterally. The study was performed only at rest. FINDINGS: RIGHT LEG 1. Right Ankle-Brachial Index: 1.14 (higher of the DP/PT) >0.97-1.25 = normal - no significant arterial disease 0.75-0.96 = mild peripheral arterial disease 0.5-0.74 = moderate peripheral arterial disease <0.50 = severe peripheral arterial disease <0.30 = critical arterial disease 2. Segmental Pressures (mmHg): Brachial: 138 Ankle: PT 153, DP 158 3. PVR Waveforms: Ankle: Normal LEFT LE. Left Ankle-Brachial Index: 1.16 (higher of the DP/PT) >0.97-1.25 = normal - no significant arterial disease 0.75-0.96 = mild peripheral arterial disease 0.5-0.74 = moderate peripheral arterial disease <0.50 = severe peripheral arterial disease <0.30 = critical arterial disease 2. Segmental Pressures: Brachial: 126 Ankle: PT 160, DP 154 3. PVR Waveforms: Ankle: Normal US/US ALPA complete IMPRESSION: The right ALPA is 1.14 and the left ALPA is 1.16. There is no ALPA or PVR evidence of significant vascular disease.
== END 2021-07-22 08:30 | disposition home or self-care (01) ==
LOC: HO.US 08:29
PROVIDERS: PCP Internal Medicine; Visit Provider Internal Medicine
DX: I73.9 Peripheral vascular disease, unspecified (principal)
CPT/HCPCS: 93923

== ENCOUNTER → 2021-08-05 10:21 | Outpatient (BNVA) | payer MEDICARE, MEDICAID, SELFPAY | PROVIDERS: PCP Internal Medicine; Visit Provider Dietitian, Registered | DX: E10.21 Type 1 diabetes mellitus with diabetic nephropathy (principal) | CPT/HCPCS: 97803 ==

== ENCOUNTER → 2021-08-15 09:31 | Outpatient (BNVA) | payer MEDICARE, MEDICAID, SELFPAY | PROVIDERS: PCP Internal Medicine; Visit Provider Registered Nurse Diabetes Educator | DX: E10.9 Type 1 diabetes mellitus without complications (principal); Z79.4 Long term (current) use of insulin; Z46.81 Encounter for fitting and adjustment of insulin pump | CPT/HCPCS: 99211 ==

== ENCOUNTER → 2021-10-11 08:56 | Outpatient (BNVA) | payer MEDICARE, MEDICAID, SELFPAY | PROVIDERS: PCP Internal Medicine; Visit Provider Registered Nurse Diabetes Educator | DX: E10.65 Type 1 diabetes mellitus with hyperglycemia (principal); Z79.4 Long term (current) use of insulin; Z46.81 Encounter for fitting and adjustment of insulin pump | CPT/HCPCS: 99211 ==

== ENCOUNTER → 2021-10-17 10:09 | Outpatient (BNVA) | payer MEDICARE, MEDICAID, SELFPAY | PROVIDERS: PCP Internal Medicine; Visit Provider Internal Medicine Endocrinology, Diabetes & Metabolism | DX: E10.65 Type 1 diabetes mellitus with hyperglycemia (principal); E10.21 Type 1 diabetes mellitus with diabetic nephropathy; G47.52 REM sleep behavior disorder; Z96.41 Presence of insulin pump (external) (internal) | CPT/HCPCS: 82947; 99212 ==

== ENCOUNTER → 2021-11-14 11:01 | Outpatient (BNVA) | payer MEDICARE, MEDICAID, SELFPAY | PROVIDERS: PCP Internal Medicine; Visit Provider Registered Nurse Diabetes Educator | DX: E10.65 Type 1 diabetes mellitus with hyperglycemia (principal) | CPT/HCPCS: 99211 ==

== ENCOUNTER → 2021-11-28 08:03 | Outpatient (BNVA) | payer MEDICARE, MEDICAID, SELFPAY | PROVIDERS: PCP Internal Medicine; Referring Provider Internal Medicine; Visit Provider Internal Medicine | DX: I42.8 Other cardiomyopathies (principal); R00.0 Tachycardia, unspecified; E10.65 Type 1 diabetes mellitus with hyperglycemia; Z79.899 Other long term (current) drug therapy | CPT/HCPCS: 99212 ==

== ENCOUNTER → 2021-12-18 08:53 | Outpatient (BNVA) | payer MEDICARE, MEDICAID, SELFPAY | PROVIDERS: PCP Internal Medicine; Visit Provider Dietitian, Registered | DX: E10.21 Type 1 diabetes mellitus with diabetic nephropathy (principal); Z96.41 Presence of insulin pump (external) (internal) | CPT/HCPCS: 97803 ==

== ENCOUNTER → 2021-12-26 10:32 | Outpatient (BNVA) | payer MEDICARE, MEDICAID, SELFPAY | PROVIDERS: PCP Internal Medicine; Visit Provider Registered Nurse Diabetes Educator | DX: E10.65 Type 1 diabetes mellitus with hyperglycemia (principal) | CPT/HCPCS: 99211 ==

== ENCOUNTER → 2022-01-28 10:44 | Outpatient (BNVA) | payer MEDICARE, MEDICAID, SELFPAY | PROVIDERS: PCP Internal Medicine; Visit Provider Internal Medicine Endocrinology, Diabetes & Metabolism | DX: E10.65 Type 1 diabetes mellitus with hyperglycemia (principal); Z79.4 Long term (current) use of insulin; Z96.41 Presence of insulin pump (external) (internal) | CPT/HCPCS: 82947; 83036; 99212 ==

== ENCOUNTER 2022-02-05 14:42 | Emergency (ER) | payer MEDICARE, MEDICAID, SELFPAY ==
[2022-02-05 15:07] VITALS: BP 108/67; PULSE 82; RESP 18; TEMP 36.9; O2SAT 97; BMI 26.5
[2022-02-05 15:41] LABS: Hematocrit 40.4 % (37.0-47.0); Hemoglobin 12.4 g/dl (12.0-16.0); Mean Corpuscular HGB Conc 30.7 g/dl (31.0-35.0); Mean Corpuscular Hemoglobin 26.1 pg (27.0-33.0); Mean Corpuscular Volume 85.1 fL (80.0-98.0); Mean Platelet Volume 10.1 fL (9.4-12.3); Platelet Count 255 X10*3/uL (160-400); Red Blood Count 4.75 X10*6/uL (4.20-5.50); Red Cell Distribution Width 13.2 % (11.0-16.0); White Blood Count 7.7 X10*3/uL (4.8-10.8)
[2022-02-05 16:04] LABS: Alanine Aminotransferase 19 U/L (0-31); Albumin Level 4.2 g/dL (3.5-5.0); Alkaline Phosphatase 125 U/L (39-117); Anion Gap 14 (12-20); Aspartate Amino Transferase 17 U/L (5-31); Bilirubin Total 0.5 mg/dL (0.0-1.0); Blood Urea Nitrogen 14 mg/dL (9-16); Calcium 9.1 mg/dL (8.4-10.2); Carbon Dioxide 26 mmol/L (22-29); Chloride 105 mmol/L (96-108); Creatinine Clr Calc Pharmacy 56.7; Estimated Glomerular Filt Rate 52; Glucose Random 294 mg/dL (60-115); Potassium 4.4 mmol/L (3.3-5.1); Sodium 141 mmol/L (135-145); Total Protein 7.3 g/dL (6.5-8.0)
[2022-02-05 16:10] LABS: Acetone, serum QL Negative (Negative)
[2022-02-05 18:58] LABS: Glucose, Whole Blood 262 mg/dL (60-115)
--- NOTE | 2022-02-05 21:16 | ED.GENADULT ---
HPI - General Adult General Chief complaint: General Medical Stated complaint: Ketoacidosis Time Seen by Provider: 02/05/22 20:42 Source: patient Mode of arrival: ambulatory Limitations: no limitations History of Present Illness HPI narrative: 41-year-old female with a past medical history of insulin-dependent diabetes presents to the emergency department today with complaints of feeling weak and tired, stating that she smelled her breath and she thought it was ketotic. This has been going on for approximately 1 day. Admits to occasional dark urine, and perhaps polyuria. Denies fevers, shaking chills, altered mental status, change in medications. Onset (ago): day(s) (1) Severity: moderate Associated symptoms: denies other symptoms Related Data Home Medications Medication Instructions Recorded Confirmed methylcellulose (laxative) 500 mg 500 mg PO BID 01/30/20 11/28/21 tablet (Citrucel) fluticasone propionate 50 1 spray intranasal DAILY 06/04/20 11/28/21 mcg/actuation nasal spray,suspension (Allergy Relief (fluticasone)) cetirizine 10 mg tablet 10 mg PO DAILY PRN allergies 08/15/20 11/28/21 Previous Rx's Medication Instructions Recorded simethicone 180 mg capsule (Gas 180 mg PO .Q.i.d. PRN abdominal 06/04/20 Relief (simethicone)) distention #90 caps lipase 3,000-protease 1 cap PO QID 30 days #140 caps 06/05/20 9,500-amylase 15,000 unit capsule, delayed rel (Creon) diltiazem HCl 120 mg 120 mg PO BEDTIME #90 caps 12/25/20 capsule,extended release 24 hr megestrol 40 mg tablet 40 mg PO DAILY #90 tabs 04/02/21 blood sugar diagnostic (Freestyle #200 ea 06/06/21 In[employer] Test Strips) docusate sodium 100 mg capsule 100 mg PO DAILY #30 caps 06/06/21 omeprazole 40 mg capsule,delayed 40 mg PO BID #180 caps 06/06/21 release sennosides 8.6 mg tablet (Senna 17.2 mg PO BEDTIME #60 tabs 06/17/21 Laxative) losartan 25 mg tablet 25 mg PO DAILY #30 tabs 07/03/21 atorvastatin 20 mg tablet 20 mg PO BEDTIME 90 days #90 tabs 07/18/21 Humalog U-100 Insulin 100 unit/mL See Rx Instructions subcut DAILY 09/04/21 subcutaneous solution (insulin 30 days #30 mL lispro) metoprolol succinate 100 mg 100 mg PO DAILY #90 tabs 09/25/21 tablet,extended release 24 hr glucagon 3 mg/actuation nasal 3 mg intranasal ONCE #2 ea 10/17/21 spray (Baqsimi) amitriptyline 150 mg tablet 150 mg PO BEDTIME #90 tabs 12/17/21 cholecalciferol (vitamin D3) 50 50 mcg PO DAILY 30 days #30 caps 01/22/22 mcg (2,000 unit) capsule Allergies Allergy/AdvReac Type Severity Reaction Status Date / Time oxycodone [Percocet] AdvReac Unknown chills Verified 01/28/22 10:53 Review of Systems Review of Systems: Yes all other systems are reviewed and are negative Constitutional: Constitutional: Denies chills, Denies fatigue, Denies fever(s), Denies increased appetite, Reports lethargy, Reports malaise, Denies weight gain and Denies weight loss Eyes: Eyes: Denies blurry vision, Denies change in vision and Denies loss of vision ENT: Reports system reviewed and no additional complaints, except as documented Cardiovascular: Cardiovascular: Denies chest pain, Denies lightheadedness, Denies Loss of Consciousness and Denies dyspnea Respiratory: Respiratory: Denies cough, Denies dyspnea and Denies wheezing Gastrointestinal: Gastrointestinal: Denies abdominal pain, Denies diarrhea and Denies vomiting Genitourinary: Genitourinary: Denies hematuria, Denies difficulty voiding and Denies urinary urgency Musculoskeletal: Musculoskeletal: Denies abnormal gait, Denies muscle cramps, Denies numbness and Denies tingling Neurologic: Denies Abnormal speech present, Denies abnormal gait, Denies focal weakness, Denies loss of vision, Denies numbness and Denies tingling Endocrine: Endocrine: Denies fatigue Hematologic/Lymphatic: Hematologic/Lymphatic: Reports no additional hematologic/lymphatic complaints Allergic/Immunologic: Allergic/Immunologic: Denies wheezing PMFSH Past Medical History Medical History Amenorrhea Depression Diabetes type 1, uncontrolled Diabetic nephropathy associated with type 1 diabetes mellitus Dyslipidemia Fibroids Goiter HLD (hyperlipidemia) Hypertension Hypogonadotropic hypogonadism Leg cramping Nausea and vomiting Oral phase dysphagia Premature ovarian failure Sinus tachycardia Sleep behavior disorder, REM Vitamin D deficiency Surgical History Hx of esophagogastroduodenoscopy Hx of tubal ligation Family History Family History Father No problems noted. Mother Hypertension Social History Social History Household Members: Children Household Members Other:: 2 children Housing: Apartment Alcohol intake: current Alcohol intake frequency: does not drink Patient Tobacco Use Status: Former Tobacco user Quit Date: 2018 e-Cigarette/Vaping Use: Never Used Advance Directives: No Advance Directives Information Provided: Yes service: No Current occupational status: unemployed Cognitive needs: No Hearing needs: No Vision needs: No Physical Exam ED Vital Signs: Vital Signs - 24 hr 02/05/22 15:07 Temperature 98.4 F Pulse Rate 82 Respiratory Rate 18 Blood Pressure 108/67 Pulse Oximetry 97 Oxygen Delivery Method Room Air BMI result Body Mass Index 26.5 Vital signs normal Const General: cooperative, healthy appearing, comfortable and no acute distress Nutritional Appearance: average body habitus Orientation/consciousness: patient oriented x3 HENMT Head: Yes normal to inspection, Yes normocephalic and Yes atraumatic Ears: hearing grossly normal bilaterally General nose exam: Normal external nose present Face and sinus: Yes normal facial exam Mouth: Normal oral and palatal mucosa present Eyes Eyelids: Yes eyelids normal Conjunctivae: conjunctivae normal Sclerae: sclerae normal Pupils: Equal, round and reactive pupils present EOM: EOMs intact bilaterally Neck Neck: Yes normal visual inspection and Yes full ROM Chest Chest palpation & inspection: normal inspection of the chest Resp Effort & Inspection: normal respiratory effort, no cough and not tachypneic Cardio Rate: regular rate Rhythm: regular rhythm Peripheral pulses: Peripheral pulses 2+ throughout GI Inspection: Yes normal to inspection, No Abdominal wall edema and No distended Back/Spine/Pelvis Cervical Spine: normal cervical lordosis and cervical ROM normal Thoracic/Lumbar Spine: thoracic and lumbar spine normal to inspection Skin General skin exam: skin not dry, no erythema and no mottling Neuro General: patient oriented x3, no focal motor deficits and CN's II-XI intact bilaterally Cranial nerves: Yes Equal, round and reactive pupils present and Yes Bilaterally intact EOM present Cognition (Neuro): normal cognition Speech: No Abnormal speech present Gait exam (Neuro): Normal gait present Medical Decision Making MDM Narrative Medical decision making narrative: 41-year-old female with a past medical history of diabetes on insulin, presents with multiple symptoms. Laboratory studies reviewed below. The patient was observed in the emergency department for several hours with no incidents. The patient does relate additionally that she has had some orthostatic dizziness, but also admits to drinking 8-10 oz of fluid per day. I encouraged her to follow up with her primary care doctor, and stated that she should be drinking at least 75-85 oz of fluids daily, sugar free. She understands this and will follow up with her primary care doctor tomorrow. Lab Data Lab results reviewed: Yes I reviewed the patient's lab results. Lab results narrative: Laboratory studies reviewed. Glucose noted to be 255, however the patient was eating breakfast shortly prior to obtaining this blood work. Additionally acetone and CO2 are negative or normal. Result diagrams: 02/05/22 15:34 02/05/22 15:34 Labs: Lab Results 02/05/22 02/05/22 02/05/22 Range/Units 15:16 15:34 15:34 WBC 7.7 (4.8-10.8) X10*3/uL RBC 4.75 (4.20-5.50) X10*6/uL Hgb 12.4 (12.0-16.0) g/dl Hct 40.4 (37.0-47.0) % MCV 85.1 (80.0-98.0) fL MCH 26.1 L (27.0-33.0) pg MCHC 30.7 L (31.0-35.0) g/dl RDW 13.2 (11.0-16.0) % Plt Count 255 (160-400) X10*3/uL MPV 10.1 (9.4-12.3) fL Absolute Nucleated RBC 0.000 (0.0-0.012) X10*3/uL Nucleated RBC % (auto) 0.0 (0.0-0.2) /100WBC Sodium 141 (135-145) mmol/L Potassium 4.4 (3.3-5.1) mmol/L Chloride 105 (96-108) mmol/L Carbon Dioxide 26 (22-29) mmol/L Anion Gap 14 (12-20) BUN 14 (9-16) mg/dL Creatinine 1.15 (0.5-1.4) mg/dL Estim Creat Clear Calc 56.7 Estimated GFR 52 POC Glucose 262 H (60-115) mg/dL Random Glucose 294 H (60-115) mg/dL Calcium 9.1 (8.4-10.2) mg/dL Total Bilirubin 0.5 (0.0-1.0) mg/dL AST 17 (5-31) U/L ALT 19 (0-31) U/L Alkaline Phosphatase 125 H (39-117) U/L Total Protein 7.3 (6.5-8.0) g/dL Albumin 4.2 (3.5-5.0) g/dL Acetone, Qual (Negative) 02/05/22 Range/Units 15:34 WBC (4.8-10.8) X10*3/uL RBC (4.20-5.50) X10*6/uL Hgb (12.0-16.0) g/dl Hct (37.0-47.0) % MCV (80.0-98.0) fL MCH (27.0-33.0) pg MCHC (31.0-35.0) g/dl RDW (11.0-16.0) % Plt Count (160-400) X10*3/uL MPV (9.4-12.3) fL Absolute Nucleated RBC (0.0-0.012) X10*3/uL Nucleated RBC % (auto) (0.0-0.2) /100WBC Sodium (135-145) mmol/L Potassium (3.3-5.1) mmol/L Chloride (96-108) mmol/L Carbon Dioxide (22-29) mmol/L Anion Gap (12-20) BUN (9-16) mg/dL Creatinine (0.5-1.4) mg/dL Estim Creat Clear Calc Estimated GFR POC Glucose (60-115) mg/dL Random Glucose (60-115) mg/dL Calcium (8.4-10.2) mg/dL Total Bilirubin (0.0-1.0) mg/dL AST (5-31) U/L ALT (0-31) U/L Alkaline Phosphatase (39-117) U/L Total Protein (6.5-8.0) g/dL Albumin (3.5-5.0) g/dL Acetone, Qual Negative (Negative) Discharge Plan Discharge Clinical Impression: Dehydration, Acute hyperglycemia Patient Disposition: Home, Self-Care Instructions: Diabetic Hyperglycemia (ED) Additional Instructions: Increase your daily fluid intake to at least 80 ounces a day of any sugar free drink/water/etc. Prescriptions: No Action Creon 3,000-9,500- 15,000 unit capsule,delayed release(DR/EC) 1 cap PO QID 30 Days Qty: 140 6RF diltiazem HCl 120 mg capsule,extended release 24hr 120 mg PO BEDTIME Qty: 90 2RF megestrol 40 mg tablet 40 mg PO DAILY Qty: 90 1RF (DME) Freestyle [employer] Test Strips Strip See Rx Instructions .Route Qty: 200 11RF Rx Instructions: 4x daily sennosides [Senna Laxative] 8.6 mg tablet 17.2 mg PO BEDTIME Qty: 60 6RF losartan 25 mg tablet 25 mg PO DAILY Qty: 30 5RF insulin lispro [Humalog U-100 Insulin] 100 unit/mL solution See Rx Instructions subcut DAILY 30 Days Qty: 30 6RF Rx Instructions: Up to 100 units daily via insulin pump subcut daily; metoprolol succinate 100 mg tablet extended release 24 hr 100 mg PO DAILY Qty: 90 3RF amitriptyline 150 mg tablet 150 mg PO BEDTIME Qty: 90 1RF cholecalciferol (vitamin D3) 50 mcg (2,000 unit) capsule 50 mcg PO DAILY 30 Days Qty: 30 6RF cetirizine 10 mg tablet 10 mg PO DAILY PRN (Reason: allergies) fluticasone propionate [Allergy Relief (fluticasone)] 50 mcg/actuation spray,suspension 1 spray intranasal DAILY Rx Instructions: administer into each nostril simethicone [Gas Relief (simethicone)] 180 mg capsule 180 mg PO .Q.i.d. PRN (Reason: abdominal distention) Qty: 90 6RF Citrucel 500 mg tablet 500 mg PO BID omeprazole 40 mg capsule,delayed release(DR/EC) 40 mg PO BID Qty: 180 6RF docusate sodium 100 mg capsule 100 mg PO DAILY Qty: 30 6RF atorvastatin 20 mg tablet 20 mg PO BEDTIME 90 Days Qty: 90 2RF Baqsimi 3 mg/actuation spray,non-aerosol 3 mg intranasal ONCE Qty: 2 5RF Referrals: Liv Soni MD [Primary Care Provider] - 1 day Interventions: ED Discharge Assessment Last Done: 02/05/22 21:25 Discharge Date/Time: 02/05/22 21:26
== END 2022-02-05 21:26 | disposition home or self-care (01) ==
PROVIDERS: Emergency Provider Emergency Medicine; PCP Internal Medicine
DX: E11.65 Type 2 diabetes mellitus with hyperglycemia (principal); E11.10 Type 2 diabetes mellitus with ketoacidosis without coma; E86.0 Dehydration; Z79.4 Long term (current) use of insulin; Z79.899 Other long term (current) drug therapy; Z87.891 Personal history of nicotine dependence
CPT/HCPCS: 36415; 80053; 82009; 82947; 85027; 99282; 99283

== ENCOUNTER 2022-03-17 11:43 | Outpatient (REF) | payer MEDICARE, MEDICAID, SELFPAY ==
[2022-03-17 14:19] LABS: CT PCR NOT DETECTED (Not Detect.); NG PCR NOT DETECTED (Not Detect.)
[2022-03-18 09:16] LABS: BV Int Neg Control Negative (Negative); BV Int Pos Control Positive (Positive)
[2022-03-20 07:20] LABS: HPV mRNA E6/E7 rflx Detected (Not Detected)
[2022-03-20 07:23] LABS: HPV 16 RNA NOT DETECTED (NOT DETECTED)
== END 2022-03-17 11:44 | disposition home or self-care (01) ==
LOC: HO.LNP 11:43
PROVIDERS: Visit Provider Advanced Practice Midwife
DX: Z01.419 Encounter for gynecological examination (general) (routine) without abnormal findings (principal); Z11.51 Encounter for screening for human papillomavirus (HPV); Z11.3 Encounter for screening for infections with a predominantly sexual mode of transmission; N64.4 Mastodynia
CPT/HCPCS: 87480; 87491; 87510; 87591; 87624; 87625; 87660; 88142; 99212

== ENCOUNTER 2022-03-19 12:45 | Outpatient (REF) | payer MEDICARE, MEDICAID, SELFPAY ==
--- NOTE | ~2022-03-19 | MM_ITS ---
EXAMINATION: MM DIAGNOSTIC DIGITAL BREAST TOMOSYNTHESIS, BILATERAL US TARGETED LEFT BREAST ULTRASOUND CLINICAL INFORMATION: Mastodynia. Left axillary pain. The lifetime risk of breast cancer based on the Tyrer-Cuzick Model is 5%. COMPARISON: Mammography: 09/25/2020 and 04/24/2020. TECHNIQUE: Digital breast tomosynthesis is performed in both the craniocaudal and mediolateral oblique views along with computer-aided detection (CAD). Synthesized 2D images are generated from the tomosynthesis. Targeted left breast ultrasound in region of pain within the left axilla. FINDINGS: The breasts are extremely dense, which lowers the sensitivity of mammography (ACR BI-RADS breast composition Category d). There are no significant masses, abnormal calcifications, or other abnormalities. Targeted left breast ultrasound to the left axilla did not demonstrate any abnormal cystic or solid masses. No region of abnormal distal sound shadowing. No edematous change seen. Results are discussed with the patient at time of visit. MM/MM tomosynthesis diagnostic BI IMPRESSION: There are no significant changes from prior study. ASSESSMENT: BI-RADS 1: Negative. RECOMMENDATION: Routine annual mammography screening due in 12 months. Clinical follow-up for left axillary complaints. This patient's information was entered into a reminder system with a target due date for their next mammogram.
== END 2022-03-19 12:46 | disposition home or self-care (01) ==
LOC: HO.MAMMO 12:45
PROVIDERS: PCP Internal Medicine; Visit Provider Advanced Practice Midwife
DX: N64.4 Mastodynia (principal)
CPT/HCPCS: 76642; 77062; 77066

== ENCOUNTER → 2022-03-27 11:12 | Outpatient (BNVA) | payer MEDICARE, MEDICAID, SELFPAY | PROVIDERS: PCP Internal Medicine; Visit Provider Registered Nurse Diabetes Educator | DX: Z46.81 Encounter for fitting and adjustment of insulin pump (principal); E10.65 Type 1 diabetes mellitus with hyperglycemia; Z79.4 Long term (current) use of insulin | CPT/HCPCS: 99211 ==

== ENCOUNTER 2022-04-16 15:23 | Emergency (ER) | payer MEDICARE, MEDICAID, SELFPAY ==
--- NOTE | ~2022-04-16 | CT_ITS ---
EXAMINATION: CT HEAD WITHOUT CONTRAST CLINICAL INFORMATION: Lightheadedness and headaches with visual changes. COMPARISON: MR brain 09/26/2020. CT head 10/20/2013. TECHNIQUE: Contiguous axial imaging was performed from the skull base to vertex without intravenous administration of contrast. This CT examination was performed using dose optimization techniques as appropriate, variously including the following: *Automated exposure control *Adjustment of mA and/or kV according to patient size (this includes techniques or standardized protocols for targeted exams where dose is matched to indication/reason for exam; i.e. extremities or head) *Use of iterative reconstruction technique DLP: 613 mGy-cm FINDINGS: There is no evidence of acute intracranial hemorrhage or edematous territorial infarction. A few foci of hypoattenuation in the periventricular and deep white matter are consistent with mild microangiopathy. [place]-white matter differentiation is preserved. The ventricles are normal in size and configuration. No evidence for obstructive hydrocephalus. No abnormal mass effect or midline shift. No extra-axial fluid collections. No acute soft tissue or osseous abnormalities. The mastoid air cells and paranasal sinuses are clear. CT/CT head/brain wo IV con IMPRESSION: No evidence of acute intracranial hemorrhage or edematous territorial infarction.
--- NOTE | ~2022-04-16 | CT_ITS ---
EXAMINATION: CT ANGIOGRAM HEAD CT ANGIOGRAM NECK CLINICAL INFORMATION: Headache. Intermittent vision changes/loss. COMPARISON: CT head from 04/16/2022. Brain MRI from 09/26/2020. TECHNIQUE: Initial noncontrast over short and damage clerk imaging of the head and neck was performed. Comparison is made with noncontrast head CT from earlier today. Test bolus sequences followed by intravenous administration 70 mL of Omnipaque 350. Helical imaging was performed in the axial plane from the aortic arch to the skull vertex. Delayed postcontrast imaging of the head was also performed. The data was processed at the learning technologist's workstation for generation of MIP sequences. Angled MIPs and volume rendered reformatted images were also generated at an offline 3D workstation. Stenoses are assessed in accordance with NASCET criteria unless otherwise indicated. This CT examination was performed using dose optimization techniques as appropriate, variously including the following: *Automated exposure control. *Adjustment of mA and/or kV according to patient size (this includes techniques or standardized protocols for targeted exams where dose is matched to indication/reason for exam; i.e. extremities or head). *Use of iterative reconstruction technique. DLP: 1416 mGy-cm FINDINGS: CT Head: There is no evidence of acute intracranial hemorrhage or edematous territorial infarction. Few nonspecific foci of hypoattenuation in the periventricular and deep white matter. No new parenchymal attenuation abnormalities. [place]re-white matter differentiation is preserved. The ventricles are normal in size and configuration. Chronic mild leftward deviation of the septum pellucidum. No evidence for obstructive hydrocephalus. No abnormal mass effect or midline shift. No extra-axial fluid collections. No pathologic intra-axial enhancement. No acute soft tissue or osseous abnormalities. Mild mucosal thickening of the paranasal sinuses. The mastoid air cells and middle ear cavities are clear. Moderate degenerative arthropathy of the right temporomandibular joint. The patient is edentulous. No demonstrated abnormalities of the orbits. CT Neck: The thyroid gland and remaining cervical soft tissues are within normal limits. Mild reversal the normal cervical lordosis. No additional significant abnormalities of the cervical spine. CT Upper Chest: The visualized lung apices and upper mediastinum are within normal limits. Neck CTA: Aortic Arch: Normal contour and caliber. Two vessel branching pattern of the arch with left common carotid artery arising from the brachiocephalic trunk. Great Vessel Origins: No significant stenosis of the branch origins. Right Common Carotid Artery: No focal stenosis or occlusion. Cervical Right Internal Carotid Artery: Normal opacification without focal stenosis or occlusion. Left Common Carotid Artery: No focal stenosis or occlusion. Cervical Left Internal Carotid Artery: Normal opacification without focal stenosis or occlusion. Cervical Right Vertebral Artery: Co-dominant. No focal stenosis or occlusion. Cervical Left Vertebral Artery: Co-dominant. No focal stenosis or occlusion. Brain CTA: Intracranial Internal Carotid Arteries: No focal stenosis or occlusion. This exam was not specifically tailored to evaluate the ophthalmic arteries. Within the limitations of this exam, there is normal opacification of the superior ophthalmic arteries bilaterally. Right Anterior Cerebral Artery: Normal A1 segment. Normal opacification of the distal TAZ segments. Left Anterior Cerebral Artery: Normal A1 segment. Normal opacification of the distal TAZ segments. Anterior Communicating Artery: Normal. Right Middle Cerebral Artery: Normal M1 segment of the MCA without focal stenosis or occlusion. Normal arborization of the distal segments. Left Middle Cerebral Artery: Normal M1 segment of the MCA without focal stenosis or occlusion. Normal arborization of the distal segments. Right Vertebral Artery: Normal V4 segment. Normal opacification of the proximal segments of the posterior inferior cerebellar artery. Left Vertebral Artery: Normal V4 segment. Normal opacification of the proximal segments of the posterior inferior cerebellar artery. Basilar Artery: Normal without focal stenosis or occlusion. Normal appearance of the proximal superior cerebellar arteries. Right Posterior Cerebral Artery: Normal P1 segment. Normal opacification of the distal [employer] segments. Left Posterior Cerebral Artery: Normal P1 segment. Normal opacification of the distal [employer] segments. Normal opacification of the superior sagittal, straight, transverse, and sigmoid sinuses. CT/CT angio head neck IMPRESSION: 1. No evidence of acute intracranial hemorrhage or edematous territorial infarction. Mild nonspecific white matter changes. 2. CTA of the head and neck without proximal occlusion or flow-limiting stenosis.
[2022-04-16 15:33] VITALS: BP 134/78; PULSE 86; RESP 18; TEMP 37; O2SAT 96; BMI 26.3
--- NOTE | 2022-04-16 15:43 | ED.GENADULT ---
HPI - General Adult General Chief complaint: Eye Problems <LYNDON Jones - Last Filed: 04/16/22 15:54> Stated complaint: Dizzy Lightheaded Sent by PCP <LYNDON Jones - Last Filed: 04/16/22 15:54> Time Seen by Provider: 04/16/22 16:07 <LYNDON Jones - Last Filed: 04/16/22 15:54> Source: patient <LYNDON Jacobo - Last Filed: 04/17/22 01:16> Mode of arrival: ambulatory <LYNDON Jacobo - Last Filed: 04/17/22 01:16> History of Present Illness HPI narrative: 41-year-old female with past medical history CKD, depression, diabetes, HLD, HTN, intermittent claudication, presenting to ED sent in by PCP/stem lead former for intermittent visual field blackouts and headaches since February. Describes visual loss as brief, bilateral, & with position changes, quickly returns. Admits saw her stem lead former today who diagnosed patient with cataracts, & recommended patient present to the ED, admit eye pressures/exam otherwise within normal limits. Reports intermittent lightheadedness/dizziness, not at present and nausea. Denies neck pain, CP/SOB, numbness/tingling, weakness, LOC. Denies take anticoagulation <LYNDON Jacobo Last Filed: 04/17/22 01:16> Onset (ago): month(s) <LYNDON Jacobo - Last Filed: 04/17/22 01:16> Related Data Home medications: Home Medications Medication Instructions Recorded Confirmed fluticasone propionate 50 1 spray intranasal DAILY 06/04/20 11/28/21 mcg/actuation nasal spray,suspension (Allergy Relief (fluticasone)) cetirizine 10 mg tablet 10 mg PO DAILY PRN allergies 08/15/20 11/28/21 Previous Rx's Medication Instructions Recorded megestrol 40 mg tablet 40 mg PO DAILY #90 tabs 04/02/21 blood sugar diagnostic (Freestyle #200 ea 06/06/21 InsuLinx Test Strips) Humalog U-100 Insulin 100 unit/mL See Rx Instructions subcut DAILY 09/04/21 subcutaneous solution (insulin 30 days #30 mL lispro) metoprolol succinate 100 mg 100 mg PO DAILY #90 tabs 09/25/21 tablet,extended release 24 hr glucagon 3 mg/actuation nasal 3 mg intranasal ONCE #2 ea 10/17/21 spray (Baqsimi) amitriptyline 150 mg tablet 150 mg PO BEDTIME #90 tabs 12/17/21 cholecalciferol (vitamin D3) 50 50 mcg PO DAILY 30 days #30 caps 01/22/22 mcg (2,000 unit) capsule diltiazem HCl 120 mg 120 mg PO BEDTIME #90 caps 02/19/22 capsule,extended release 24 hr docusate sodium 100 mg capsule 100 mg PO DAILY #30 caps 02/19/22 lipase 3,000-protease 1 cap PO QID 30 days #140 caps 02/19/22 9,500-amylase 15,000 unit capsule, delayed rel (Creon) methylcellulose (laxative) 500 mg 500 mg PO BID #60 tabs 02/19/22 tablet (Citrucel) omeprazole 40 mg capsule,delayed 40 mg PO BID #180 caps 02/19/22 release sennosides 8.6 mg tablet (Senna 17.2 mg PO BEDTIME #60 tabs 02/19/22 Laxative) simethicone 180 mg capsule (Gas 180 mg PO .Q.i.d. PRN abdominal 02/19/22 Relief (simethicone)) distention #90 caps atorvastatin 20 mg tablet 20 mg PO BEDTIME #90 tabs 03/03/22 losartan 25 mg tablet 25 mg PO DAILY #90 tabs 03/03/22 cephalexin 500 mg capsule 500 mg PO BID 5 days #10 caps 04/20/22 <LYNDON Jones - Last Filed: 04/16/22 15:54> Allergies/adverse reactions: Allergies Allergy/AdvReac Type Severity Reaction Status Date / Time oxycodone [Percocet] AdvReac Unknown chills Verified 03/17/22 11:19 <LYNDON Jones - Last Filed: 04/16/22 15:54> Review of Systems Review of Systems: Constitutional: No Fever, No Chills, No Fatigue, No Malaise ENT/Mouth: No Ear Pain, No Nasal Congestion, No Sinus Pain, No Hoarseness, No sore throat, No Rhinorrhea, No Swallowing Difficulty Eyes: No Eye Pain, No Swelling, No Redness, No Foreign Body, No Discharge, +Vision Changes Cardiovascular: No Chest Pain, No SOB, No Edema, No Palpitations Respiratory: No Cough, No Sputum, No Dyspnea Gastrointestinal: No Nausea, No Vomiting, No Diarrhea, No Constipation, No Abdominal pain Genitourinary: No Dysuria, No Urinary Frequency, No Hematuria, No Urinary Incontinence/retention, No Flank Pain, No Urinary Flow Changes, No Hesitancy Musculoskeletal: No joint pain, No Myalgias, No Joint Swelling Skin: No Skin Lesions, No rash Neuro: No Weakness, No Numbness, No Paresthesias, No Loss of Consciousness, +Lightheaded/ Dizziness(resolved), + Headache <LYNDON Jacobo - Last Filed: 04/17/22 01:16> Yes all other systems are reviewed and are negative <LYNDON Jacobo - Last Filed: 04/17/22 01:16> Constitutional: Constitutional: Reports as per HPI <LYNDON Jacobo - Last Filed: 04/17/22 01:16> Neurologic: Denies Abnormal speech present <LYNDON Jacobo - Last Filed: 04/17/22 01:16> [facility] Past Medical History Attestation statement: The following information was validated with the patient. <LYNDON Jacobo - Last Filed: 04/17/22 01:16> Medical History: Medical History Abnormal Pap smear of cervix Amenorrhea Chronic kidney disease, stage 3, mod decreased GFR Depression Diabetes type 1, uncontrolled Diabetic nephropathy associated with type 1 diabetes mellitus Dyslipidemia Fibroids Goiter HLD (hyperlipidemia) Hypertension Hypogonadotropic hypogonadism Intermittent claudication Leg cramping Nausea and vomiting Oral phase dysphagia Premature ovarian failure Sinus tachycardia Sleep behavior disorder, REM Vitamin D deficiency <LYNDON Jones - Last Filed: 04/16/22 15:54> Surgical History: Surgical History Hx of esophagogastroduodenoscopy Hx of tubal ligation <LYNDON Jones - Last Filed: 04/16/22 15:54> Family History Family History: Family History Father No problems noted. Mother Hypertension <LYNDON Jones - Last Filed: 04/16/22 15:54> Social History Social History: Social History Household Members: Children Household Members Other:: 2 children Housing: Apartment Alcohol intake: current Alcohol intake frequency: does not drink Patient Tobacco Use Status: Former Tobacco user Quit Date: 2018 e-Cigarette/Vaping Use: Never Used Advance Directives: No Advance Directives Information Provided: No service: No Current occupational status: unemployed Cognitive needs: No Hearing needs: No Vision needs: No <LYNDON Jones - Last Filed: 04/16/22 15:54> Physical Exam ED Vital Signs: Vital Signs - 24 hr 04/16/22 15:33 04/16/22 17:49 04/16/22 17:50 Temperature 98.6 F 98.3 F Pulse Rate 86 87 83 Respiratory Rate 18 14 Blood Pressure 134/78 127/77 135/76 Pulse Oximetry 96 98 Oxygen Delivery Method Room Air Room Air 04/16/22 17:51 04/16/22 17:53 Temperature Pulse Rate 84 87 Respiratory Rate Blood Pressure 136/81 121/81 Pulse Oximetry Oxygen Delivery Method BMI result Body Mass Index 26.3 <LYNDON Jones - Last Filed: 04/16/22 15:54> Vital Signs - 24 hr 04/16/22 15:33 04/16/22 17:49 04/16/22 17:50 Temperature 98.6 F 98.3 F Pulse Rate 86 87 83 Respiratory Rate 18 14 Blood Pressure 134/78 127/77 135/76 Pulse Oximetry 96 98 Oxygen Delivery Method Room Air Room Air 04/16/22 17:51 04/16/22 17:53 Temperature Pulse Rate 84 87 Respiratory Rate Blood Pressure 136/81 121/81 Pulse Oximetry Oxygen Delivery Method BMI result Body Mass Index 26.3 <LYNDON Jacobo - Last Filed: 04/17/22 01:16> Vital Signs - 24 hr 04/16/22 15:33 04/16/22 17:49 04/16/22 17:50 Temperature 98.6 F 98.3 F Pulse Rate 86 87 83 Respiratory Rate 18 14 Blood Pressure 134/78 127/77 135/76 Pulse Oximetry 96 98 Oxygen Delivery Method Room Air Room Air 04/16/22 17:51 04/16/22 17:53 Temperature Pulse Rate 84 87 Respiratory Rate Blood Pressure 136/81 121/81 Pulse Oximetry Oxygen Delivery Method BMI result Body Mass Index 26.3 <NARA Meza Last Filed: 04/20/22 09:36> Const General: cooperative, healthy appearing, comfortable, no acute distress, well developed, alert and awake <LYNDON Jacobo Last Filed: 04/17/22 01:16> Orientation/consciousness: patient oriented x3 <LYNDON Jacobo Last Filed: 04/17/22 01:16> Limitations: no limitations <LYNDON Jacobo Last Filed: 04/17/22 01:16> HENMT Head: Yes normal to inspection and Yes atraumatic <LYNDON Jacobo Last Filed: 04/17/22 01:16> Ears: hearing grossly normal bilaterally and external ears normal <LYNDON Jacobo - Last Filed: 04/17/22 01:16> General nose exam: Normal external nose present <LYNDON Jacobo Last Filed: 04/17/22 01:16> Face and sinus: Yes normal facial exam <LYNDON Jacobo Last Filed: 04/17/22 01:16> Mouth: Normal oral and palatal mucosa present <LYNDON Jacobo Last Filed: 04/17/22 01:16> Throat: Yes posterior oropharynx normal, Yes tonsils normal and Yes uvula midline <LYNDON Jacobo Last Filed: 04/17/22 01:16> Eyes Other: IOP wnl bilaterally <LYNDON Jacobo Last Filed: 04/17/22 01:16> General: appearance normal, both eyes and all related structures <LYNDON Jacobo Last Filed: 04/17/22 01:16> Periorbital: periorbital findings normal <LYNDON Jacobo Last Filed: 04/17/22 01:16> Eyelids: Yes eyelids normal <LYNDON Jacobo Last Filed: 04/17/22 01:16> Conjunctivae: conjunctivae normal <Era Robles PA - Last Filed: 04/17/22 01:16> Corneas: corneas normal <Era Robles PA - Last Filed: 04/17/22 01:16> Pupils: Equal, round and reactive pupils present <Era Robles PA - Last Filed: 04/17/22 01:16> EOM: EOMs intact bilaterally <Era Robles OR - Last Filed: 04/17/22 01:16> Direct Ophthalmoscopy: normal light reflex and no photophobia <Era Robles OR - Last Filed: 04/17/22 01:16> Neck Neck: Yes normal visual inspection, Yes no meningeal signs, Yes supple and No anterior neck swelling <Era Robles OR - Last Filed: 04/17/22 01:16> Resp Effort & Inspection: normal respiratory effort and no respiratory distress <Era Robles OR - Last Filed: 04/17/22 01:16> Auscultation: clear to auscultation bilaterally, no crackles, no rales, no rhonchi and no wheezes <Era Robles OR - Last Filed: 04/17/22 01:16> Cardio Rate: regular rate <Era Robles OR - Last Filed: 04/17/22 01:16> Heart sounds: S1 normal heart sound present and S2 normal heart sound present <Era Robles OR - Last Filed: 04/17/22 01:16> GI Inspection: Yes normal to inspection <Era Robles OR - Last Filed: 04/17/22 01:16> Palpation (GI): Soft to palpation, nontender, no guarding and not rigid <Era Robles OR - Last Filed: 04/17/22 01:16> Skin Rashes: no rashes <Era Robles PA - Last Filed: 04/17/22 01:16> Wounds: no wounds <Era Robles PA - Last Filed: 04/17/22 01:16> Neuro General: patient oriented x3, gait normal, tone normal, moves all extremities, no meningeal signs, no focal motor deficits and CN's II-XI intact bilaterally <LYNDON Jacobo - Last Filed: 04/17/22 01:16> Cranial nerves: Yes CN's II-XII intact bilaterally and Yes Equal, round and reactive pupils present <LYNDON Jacobo - Last Filed: 04/17/22 01:16> Cognition (Neuro): normal cognition <LYNDON Jacobo - Last Filed: 04/17/22 01:16> Speech: No Abnormal speech present <LYNDON Jcaobo - Last Filed: 04/17/22 01:16> Gait exam (Neuro): Normal gait present <LYNDON Jacobo - Last Filed: 04/17/22 01:16> Motor exam (neuro): 5/5 motor strength present throughout, Pronator motor function not present and no tremor noted <LYNDON Jacobo - Last Filed: 04/17/22 01:16> Coordination: [id number] test normal <LYNDON Jacobo - Last Filed: 04/17/22 01:16> Romberg Test: Negative <LYNDON Jacobo Last Filed: 04/17/22 01:16> Extrem General: Yes normal to inspection <LYNDON Jacobo - Last Filed: 04/17/22 01:16> Course Course Course Narrative: RME-15:43PM - 41yoF c PMHx of Type I DM on insulin pump, CKD and HTN who is presenting to the ER with complaints of lightheadedness, headaches, ?blacked out visual changes for the past few months since February. Reports that she went to her eye doctor and they told her that she has cataracts and they told her she should come here for further evaluation treatment. She reports taking her medications as prescribed. She reports she was just referred to a kidney doctor. She denies any other symptoms complaints or concerns at this time. Plan: Labs, CT scan of brain, EKG, chest x-ray patient will be sent back to the waiting room to be evaluated in the ED. <LYNDON Jones - Last Filed: 04/16/22 15:54> RME-15:43PM - 41yoF c PMHx of Type I DM on insulin pump, CKD and HTN who is presenting to the ER with complaints of lightheadedness, headaches, ?blacked out visual changes for the past few months since February. Reports that she went to her eye doctor and they told her that she has cataracts and they told her she should come here for further evaluation treatment. She reports taking her medications as prescribed. She reports she was just referred to a kidney doctor. She denies any other symptoms complaints or concerns at this time. Plan: Labs, CT scan of brain, EKG, chest x-ray patient will be sent back to the waiting room to be evaluated in the ED. -1655--no leukocytosis. H&H stable. ESR WNL. Labs otherwise reassuring - troponin negative CT head/brain wo IV con IMPRESSION: No evidence of acute intracranial hemorrhage or edematous territorial infarction. CT angio head neck IMPRESSION: 1.? No evidence of acute intracranial hemorrhage or edematous territorial infarction. Mild nonspecific white matter changes. 2.? CTA of the head and neck without proximal occlusion or flow-limiting stenosis. ? >> results discussed with patient. Recommended close follow-up with PCP/neurology. Results discussed with patient including worrisome signs and symptoms and strict return precautions, and when to return to the emergency department. They verbalized understanding and feel safe for discharge at this time. <LYNDON Jacobo - Last Filed: 04/17/22 01:16> RME-15:43PM - 41yoF c PMHx of Type I DM on insulin pump, CKD and HTN who is presenting to the ER with complaints of lightheadedness, headaches, ?blacked out visual changes for the past few months since February. Reports that she went to her eye doctor and they told her that she has cataracts and they told her she should come here for further evaluation treatment. She reports taking her medications as prescribed. She reports she was just referred to a kidney doctor. She denies any other symptoms complaints or concerns at this time. Plan: Labs, CT scan of brain, EKG, chest x-ray patient will be sent back to the waiting room to be evaluated in the ED. -1655--no leukocytosis. H&H stable. ESR WNL. Labs otherwise reassuring - troponin negative CT head/brain wo IV con IMPRESSION: No evidence of acute intracranial hemorrhage or edematous territorial infarction. CT angio head neck IMPRESSION: 1.? No evidence of acute intracranial hemorrhage or edematous territorial infarction. Mild nonspecific white matter changes. 2.? CTA of the head and neck without proximal occlusion or flow-limiting stenosis. ? >> results discussed with patient. Recommended close follow-up with PCP/neurology. Results discussed with patient including worrisome signs and symptoms and strict return precautions, and when to return to the emergency department. They verbalized understanding and feel safe for discharge at this time. 04/20/22 0930: Spoke with pt regarding urine culture results. Antibiotics sent to preferred pharmacy for coverage of UTI <Lanie Carrasco NP - Last Filed: 04/20/22 09:36> Medications Administered Discontinued Medications Generic Name Dose Route Start Last Admin Trade Name Freq PRN Reason Stop Dose Admin Sodium Chloride 500 mls @ 999 mls/hr 04/16/22 17:00 04/16/22 18:53 Ns IV 04/16/22 17:30 Infused .Q31M WARREN Infusion Iohexol 100 ml 04/16/22 17:41 04/16/22 17:41 Iohexol 350 Mg/Ml 100 Ml Infus..Btl IV 04/16/22 17:42 70 ml ONCE ONE Administration <LYNDON Jones - Last Filed: 04/16/22 15:54> Medications Administered Discontinued Medications Generic Name Dose Route Start Last Admin Trade Name Freq PRN Reason Stop Dose Admin Sodium Chloride 500 mls @ 999 mls/hr 04/16/22 17:00 04/16/22 18:53 Ns IV 04/16/22 17:30 Infused .Q31M WARREN Infusion Iohexol 100 ml 04/16/22 17:41 04/16/22 17:41 Iohexol 350 Mg/Ml 100 Ml Infus..Btl IV 04/16/22 17:42 70 ml ONCE ONE Administration <LYNDON Jacobo - Last Filed: 04/17/22 01:16> Medications Administered Discontinued Medications Generic Name Dose Route Start Last Admin Trade Name Freq PRN Reason Stop Dose Admin Sodium Chloride 500 mls @ 999 mls/hr 04/16/22 17:00 04/16/22 18:53 Ns IV 04/16/22 17:30 Infused .Q31M WARREN Infusion Iohexol 100 ml 04/16/22 17:41 04/16/22 17:41 Iohexol 350 Mg/Ml 100 Ml Infus..Btl IV 04/16/22 17:42 70 ml ONCE ONE Administration <Lanie Carrasco NP - Last Filed: 04/20/22 09:36> Medical Decision Making Medical Decision Making [facility] Narrative: 41-year-old female with past medical history CKD, depression, diabetes, HLD, HTN, intermittent claudication, presenting to ED sent in by PCP/stem lead former for intermittent visual field blackouts and headaches since February. On exam vital signs stable, NAD, nontoxic appearing, no focal neuro deficits, IOP's WNL. Concern for Amaurosis Fugax vs vertebral artery occlusion or dissection vs complicated migraine DA SILVA. Sx atypical for ACS/PE or CVA/TIA Plan: EKG, labs, UA, CTA head and neck, orthostatics Please refer to course for remaining clinical decision making, interpretation of labs/imaging results, and discussions with consultants and/or family members. <LYNDON Jacobo - Last Filed: 04/17/22 01:16> Differential Diagnosis Differential Diagnoses: The differential diagnosis associated with the presentation includes <LYNDON Jacobo - Last Filed: 04/17/22 01:16> as above <LYNDON Jacobo - Last Filed: 04/17/22 01:16> Admission/Observation Consideration of admission/observation: Escalation of care including admission/observation considered <LYNDON Jacobo - Last Filed: 04/17/22 01:16> Lab Data [facility] Lab Attestation statement: I reviewed the patient's lab results. <LYNDON Jacobo - Last Filed: 04/17/22 01:16> Result Diagrams: 04/16/22 16:06 04/16/22 16:06 <LYNDON Jones - Last Filed: 04/16/22 15:54> Labs: Lab Results 04/16/22 04/16/22 04/16/22 Range/Units 16:05 16:06 16:06 WBC 6.7 (4.8-10.8) X10*3/uL RBC 4.40 (4.20-5.50) X10*6/uL Hgb 11.7 L (12.0-16.0) g/dl Hct 37.3 (37.0-47.0) % MCV 84.8 (80.0-98.0) fL MCH 26.6 L (27.0-33.0) pg MCHC 31.4 (31.0-35.0) g/dl RDW 14.0 (11.0-16.0) % Plt Count 256 (160-400) X10*3/uL MPV 10.2 (9.4-12.3) fL Immature Gran % (Auto) 0.1 (0.0-0.4) % Neut % (Auto) 48.1 (45-73) % Lymph % (Auto) 41.8 H (20-40) % [place] % (Auto) 5.2 (2-11) % Eos % (Auto) 4.2 H (0-4) % Baso % (Auto) 0.6 (0-2) % Lymph # (Auto) 2.8 (1.2-4.9) X10*3/uL [place] # (Auto) 0.4 (0.1-1.2) X10*3/uL Eos # (Auto) 0.3 (0.0-0.4) X10*3/uL Baso # (Auto) 0.0 (0.0-0.2) X10*3/uL Abs Immat Gran (auto) 0.01 (0.00-0.03) X10*3/uL Absolute Neuts (auto) 3.2 (2.0-8.3) x10*3/uL Absolute Nucleated RBC 0.000 (0.0-0.012) X10*3/uL Nucleated RBC % (auto) 0.0 (0.0-0.2) /100WBC ESR 14 (0-20) MM/HR PT 12.3 (10.0-13.1) SEC INR 1.1 (0.9-1.1) Sodium (135-145) mmol/L Potassium (3.3-5.1) mmol/L Chloride (96-108) mmol/L Carbon Dioxide (22-29) mmol/L Anion Gap (12-20) BUN (9-16) mg/dL Creatinine (0.5-1.4) mg/dL Estim Creat Clear Calc Estimated GFR Random Glucose (60-115) mg/dL Estimat Average Glucose mg/dL Hemoglobin A1c % % Calcium (8.4-10.2) mg/dL Magnesium (1.6-2.6) mg/dL Total Bilirubin (0.0-1.0) mg/dL AST (5-31) U/L ALT (0-31) U/L Alkaline Phosphatase (39-117) U/L Troponin I High Sens (<3.5-17.0) ng/L C-Reactive Protein (< or = 0.50) mg/dL Total Protein (6.5-8.0) g/dL Albumin (3.5-5.0) g/dL Beta HCG, Quant mIU/mL Urine Color Urine Appearance Urine pH (5.0-9.0) Ur Specific [place] (1.005-1.025) Urine Protein (Neg-Trace) mg/dL Urine Glucose (UA) (Negative) mg/dL Urine Ketones (Negative) mg/dL Urine Blood (Negative) Urine Nitrite (Negative) Ur Leukocyte Esterase (Negative) Urine RBC (0-2) /HPF Urine WBC (0-5) /HPF Ur Squamous Epith Cells (0-2) /HPF Urine Bacteria (None Seen) Hyaline Casts (0-2) /LPF 04/16/22 04/16/22 04/16/22 Range/Units 16:06 16:06 17:16 WBC (4.8-10.8) X10*3/uL RBC (4.20-5.50) X10*6/uL Hgb (12.0-16.0) g/dl Hct (37.0-47.0) % MCV (80.0-98.0) fL MCH (27.0-33.0) pg MCHC (31.0-35.0) g/dl RDW (11.0-16.0) % Plt Count (160-400) X10*3/uL MPV (9.4-12.3) fL Immature Gran % (Auto) (0.0-0.4) % Neut % (Auto) (45-73) % Lymph % (Auto) (20-40) % [place] % (Auto) (2-11) % Eos % (Auto) (0-4) % Baso % (Auto) (0-2) % Lymph # (Auto) (1.2-4.9) X10*3/uL [place] # (Auto) (0.1-1.2) X10*3/uL Eos # (Auto) (0.0-0.4) X10*3/uL Baso # (Auto) (0.0-0.2) X10*3/uL Abs Immat Gran (auto) (0.00-0.03) X10*3/uL Absolute Neuts (auto) (2.0-8.3) x10*3/uL Absolute Nucleated RBC (0.0-0.012) X10*3/uL Nucleated RBC % (auto) (0.0-0.2) /100WBC ESR (0-20) MM/HR PT (10.0-13.1) SEC INR (0.9-1.1) Sodium 138 (135-145) mmol/L Potassium 3.8 (3.3-5.1) mmol/L Chloride 103 (96-108) mmol/L Carbon Dioxide 29 (22-29) mmol/L Anion Gap 10 L (12-20) BUN 12 (9-16) mg/dL Creatinine 0.85 (0.5-1.4) mg/dL Estim Creat Clear Calc 76.4 Estimated GFR > 60 Random Glucose 155 H (60-115) mg/dL Estimat Average Glucose 154 mg/dL Hemoglobin A1c % 7.0 % Calcium 8.6 (8.4-10.2) mg/dL Magnesium 1.8 (1.6-2.6) mg/dL Total Bilirubin 0.4 (0.0-1.0) mg/dL AST 18 (5-31) U/L ALT 18 (0-31) U/L Alkaline Phosphatase 129 H (39-117) U/L Troponin I High Sens < 3.5 (<3.5-17.0) ng/L C-Reactive Protein < 0.10 (< or = 0.50) mg/dL Total Protein 6.6 (6.5-8.0) g/dL Albumin 3.9 (3.5-5.0) g/dL Beta HCG, Quant < 2 mIU/mL Urine Color Urine Appearance Urine pH (5.0-9.0) Ur Specific [place] (1.005-1.025) Urine Protein (Neg-Trace) mg/dL Urine Glucose (UA) (Negative) mg/dL Urine Ketones (Negative) mg/dL Urine Blood (Negative) Urine Nitrite (Negative) Ur Leukocyte Esterase (Negative) Urine RBC (0-2) /HPF Urine WBC (0-5) /HPF Ur Squamous Epith Cells (0-2) /HPF Urine Bacteria (None Seen) Hyaline Casts (0-2) /LPF 04/16/22 Range/Units 17:16 WBC (4.8-10.8) X10*3/uL RBC (4.20-5.50) X10*6/uL Hgb (12.0-16.0) g/dl Hct (37.0-47.0) % MCV (80.0-98.0) fL MCH (27.0-33.0) pg MCHC (31.0-35.0) g/dl RDW (11.0-16.0) % Plt Count (160-400) X10*3/uL MPV (9.4-12.3) fL Immature Gran % (Auto) (0.0-0.4) % Neut % (Auto) (45-73) % Lymph % (Auto) (20-40) % [place] % (Auto) (2-11) % Eos % (Auto) (0-4) % Baso % (Auto) (0-2) % Lymph # (Auto) (1.2-4.9) X10*3/uL [place] # (Auto) (0.1-1.2) X10*3/uL Eos # (Auto) (0.0-0.4) X10*3/uL Baso # (Auto) (0.0-0.2) X10*3/uL Abs Immat Gran (auto) (0.00-0.03) X10*3/uL Absolute Neuts (auto) (2.0-8.3) x10*3/uL Absolute Nucleated RBC (0.0-0.012) X10*3/uL Nucleated RBC % (auto) (0.0-0.2) /100WBC ESR (0-20) MM/HR PT (10.0-13.1) SEC INR (0.9-1.1) Sodium (135-145) mmol/L Potassium (3.3-5.1) mmol/L Chloride (96-108) mmol/L Carbon Dioxide (22-29) mmol/L Anion Gap (12-20) BUN (9-16) mg/dL Creatinine (0.5-1.4) mg/dL Estim Creat Clear Calc Estimated GFR Random Glucose (60-115) mg/dL Estimat Average Glucose mg/dL Hemoglobin A1c % % Calcium (8.4-10.2) mg/dL Magnesium (1.6-2.6) mg/dL Total Bilirubin (0.0-1.0) mg/dL AST (5-31) U/L ALT (0-31) U/L Alkaline Phosphatase (39-117) U/L Troponin I High Sens (<3.5-17.0) ng/L C-Reactive Protein (< or = 0.50) mg/dL Total Protein (6.5-8.0) g/dL Albumin (3.5-5.0) g/dL Beta HCG, Quant mIU/mL Urine Color Yellow Urine Appearance Clear Urine pH 7.0 (5.0-9.0) Ur Specific [place] 1.020 (1.005-1.025) Urine Protein Trace (Neg-Trace) mg/dL Urine Glucose (UA) Negative (Negative) mg/dL Urine Ketones Negative (Negative) mg/dL Urine Blood Negative (Negative) Urine Nitrite Negative (Negative) Ur Leukocyte Esterase Trace H (Negative) Urine RBC 3-5 H (0-2) /HPF Urine WBC 11-20 H (0-5) /HPF Ur Squamous Epith Cells 6-10 (0-2) /HPF Urine Bacteria 2+ (None Seen) Hyaline Casts 0-2 (0-2) /LPF <LYNDON Jones - Last Filed: 04/16/22 15:54> Lab Results 04/16/22 04/16/22 04/16/22 Range/Units 16:05 16:06 16:06 WBC 6.7 (4.8-10.8) X10*3/uL RBC 4.40 (4.20-5.50) X10*6/uL Hgb 11.7 L (12.0-16.0) g/dl Hct 37.3 (37.0-47.0) % MCV 84.8 (80.0-98.0) fL MCH 26.6 L (27.0-33.0) pg MCHC 31.4 (31.0-35.0) g/dl RDW 14.0 (11.0-16.0) % Plt Count 256 (160-400) X10*3/uL MPV 10.2 (9.4-12.3) fL Immature Gran % (Auto) 0.1 (0.0-0.4) % Neut % (Auto) 48.1 (45-73) % Lymph % (Auto) 41.8 H (20-40) % [place] % (Auto) 5.2 (2-11) % Eos % (Auto) 4.2 H (0-4) % Baso % (Auto) 0.6 (0-2) % Lymph # (Auto) 2.8 (1.2-4.9) X10*3/uL [place] # (Auto) 0.4 (0.1-1.2) X10*3/uL Eos # (Auto) 0.3 (0.0-0.4) X10*3/uL Baso # (Auto) 0.0 (0.0-0.2) X10*3/uL Abs Immat Gran (auto) 0.01 (0.00-0.03) X10*3/uL Absolute Neuts (auto) 3.2 (2.0-8.3) x10*3/uL Absolute Nucleated RBC 0.000 (0.0-0.012) X10*3/uL Nucleated RBC % (auto) 0.0 (0.0-0.2) /100WBC ESR 14 (0-20) MM/HR PT 12.3 (10.0-13.1) SEC INR 1.1 (0.9-1.1) Sodium (135-145) mmol/L Potassium (3.3-5.1) mmol/L Chloride (96-108) mmol/L Carbon Dioxide (22-29) mmol/L Anion Gap (12-20) BUN (9-16) mg/dL Creatinine (0.5-1.4) mg/dL Estim Creat Clear Calc Estimated GFR Random Glucose (60-115) mg/dL Estimat Average Glucose mg/dL Hemoglobin A1c % % Calcium (8.4-10.2) mg/dL Magnesium (1.6-2.6) mg/dL Total Bilirubin (0.0-1.0) mg/dL AST (5-31) U/L ALT (0-31) U/L Alkaline Phosphatase (39-117) U/L Troponin I High Sens (<3.5-17.0) ng/L C-Reactive Protein (< or = 0.50) mg/dL Total Protein (6.5-8.0) g/dL Albumin (3.5-5.0) g/dL Beta HCG, Quant mIU/mL Urine Color Urine Appearance Urine pH (5.0-9.0) Ur Specific [place] (1.005-1.025) Urine Protein (Neg-Trace) mg/dL Urine Glucose (UA) (Negative) mg/dL Urine Ketones (Negative) mg/dL Urine Blood (Negative) Urine Nitrite (Negative) Ur Leukocyte Esterase (Negative) Urine RBC (0-2) /HPF Urine WBC (0-5) /HPF Ur Squamous Epith Cells (0-2) /HPF Urine Bacteria (None Seen) Hyaline Casts (0-2) /LPF 04/16/22 04/16/22 04/16/22 Range/Units 16:06 16:06 17:16 WBC (4.8-10.8) X10*3/uL RBC (4.20-5.50) X10*6/uL Hgb (12.0-16.0) g/dl Hct (37.0-47.0) % MCV (80.0-98.0) fL MCH (27.0-33.0) pg MCHC (31.0-35.0) g/dl RDW (11.0-16.0) % Plt Count (160-400) X10*3/uL MPV (9.4-12.3) fL Immature Gran % (Auto) (0.0-0.4) % Neut % (Auto) (45-73) % Lymph % (Auto) (20-40) % [place] % (Auto) (2-11) % Eos % (Auto) (0-4) % Baso % (Auto) (0-2) % Lymph # (Auto) (1.2-4.9) X10*3/uL [place] # (Auto) (0.1-1.2) X10*3/uL Eos # (Auto) (0.0-0.4) X10*3/uL Baso # (Auto) (0.0-0.2) X10*3/uL Abs Immat Gran (auto) (0.00-0.03) X10*3/uL Absolute Neuts (auto) (2.0-8.3) x10*3/uL Absolute Nucleated RBC (0.0-0.012) X10*3/uL Nucleated RBC % (auto) (0.0-0.2) /100WBC ESR (0-20) MM/HR PT (10.0-13.1) SEC INR (0.9-1.1) Sodium 138 (135-145) mmol/L Potassium 3.8 (3.3-5.1) mmol/L Chloride 103 (96-108) mmol/L Carbon Dioxide 29 (22-29) mmol/L Anion Gap 10 L (12-20) BUN 12 (9-16) mg/dL Creatinine 0.85 (0.5-1.4) mg/dL Estim Creat Clear Calc 76.4 Estimated GFR > 60 Random Glucose 155 H (60-115) mg/dL Estimat Average Glucose 154 mg/dL Hemoglobin A1c % 7.0 % Calcium 8.6 (8.4-10.2) mg/dL Magnesium 1.8 (1.6-2.6) mg/dL Total Bilirubin 0.4 (0.0-1.0) mg/dL AST 18 (5-31) U/L ALT 18 (0-31) U/L Alkaline Phosphatase 129 H (39-117) U/L Troponin I High Sens < 3.5 (<3.5-17.0) ng/L C-Reactive Protein < 0.10 (< or = 0.50) mg/dL Total Protein 6.6 (6.5-8.0) g/dL Albumin 3.9 (3.5-5.0) g/dL Beta HCG, Quant < 2 mIU/mL Urine Color Urine Appearance Urine pH (5.0-9.0) Ur Specific [place] (1.005-1.025) Urine Protein (Neg-Trace) mg/dL Urine Glucose (UA) (Negative) mg/dL Urine Ketones (Negative) mg/dL Urine Blood (Negative) Urine Nitrite (Negative) Ur Leukocyte Esterase (Negative) Urine RBC (0-2) /HPF Urine WBC (0-5) /HPF Ur Squamous Epith Cells (0-2) /HPF Urine Bacteria (None Seen) Hyaline Casts (0-2) /LPF 04/16/22 Range/Units 17:16 WBC (4.8-10.8) X10*3/uL RBC (4.20-5.50) X10*6/uL Hgb (12.0-16.0) g/dl Hct (37.0-47.0) % MCV (80.0-98.0) fL MCH (27.0-33.0) pg MCHC (31.0-35.0) g/dl RDW (11.0-16.0) % Plt Count (160-400) X10*3/uL MPV (9.4-12.3) fL Immature Gran % (Auto) (0.0-0.4) % Neut % (Auto) (45-73) % Lymph % (Auto) (20-40) % [place] % (Auto) (2-11) % Eos % (Auto) (0-4) % Baso % (Auto) (0-2) % Lymph # (Auto) (1.2-4.9) X10*3/uL [place] # (Auto) (0.1-1.2) X10*3/uL Eos # (Auto) (0.0-0.4) X10*3/uL Baso # (Auto) (0.0-0.2) X10*3/uL Abs Immat Gran (auto) (0.00-0.03) X10*3/uL Absolute Neuts (auto) (2.0-8.3) x10*3/uL Absolute Nucleated RBC (0.0-0.012) X10*3/uL Nucleated RBC % (auto) (0.0-0.2) /100WBC ESR (0-20) MM/HR PT (10.0-13.1) SEC INR (0.9-1.1) Sodium (135-145) mmol/L Potassium (3.3-5.1) mmol/L Chloride (96-108) mmol/L Carbon Dioxide (22-29) mmol/L Anion Gap (12-20) BUN (9-16) mg/dL Creatinine (0.5-1.4) mg/dL Estim Creat Clear Calc Estimated GFR Random Glucose (60-115) mg/dL Estimat Average Glucose mg/dL Hemoglobin A1c % % Calcium (8.4-10.2) mg/dL Magnesium (1.6-2.6) mg/dL Total Bilirubin (0.0-1.0) mg/dL AST (5-31) U/L ALT (0-31) U/L Alkaline Phosphatase (39-117) U/L Troponin I High Sens (<3.5-17.0) ng/L C-Reactive Protein (< or = 0.50) mg/dL Total Protein (6.5-8.0) g/dL Albumin (3.5-5.0) g/dL Beta HCG, Quant mIU/mL Urine Color Yellow Urine Appearance Clear Urine pH 7.0 (5.0-9.0) Ur Specific [place] 1.020 (1.005-1.025) Urine Protein Trace (Neg-Trace) mg/dL Urine Glucose (UA) Negative (Negative) mg/dL Urine Ketones Negative (Negative) mg/dL Urine Blood Negative (Negative) Urine Nitrite Negative (Negative) Ur Leukocyte Esterase Trace H (Negative) Urine RBC 3-5 H (0-2) /HPF Urine WBC 11-20 H (0-5) /HPF Ur Squamous Epith Cells 6-10 (0-2) /HPF Urine Bacteria 2+ (None Seen) Hyaline Casts 0-2 (0-2) /LPF <LYNDON Jacobo - Last Filed: 04/17/22 01:16> Lab Results 04/16/22 04/16/22 04/16/22 Range/Units 16:05 16:06 16:06 WBC 6.7 (4.8-10.8) X10*3/uL RBC 4.40 (4.20-5.50) X10*6/uL Hgb 11.7 L (12.0-16.0) g/dl Hct 37.3 (37.0-47.0) % MCV 84.8 (80.0-98.0) fL MCH 26.6 L (27.0-33.0) pg MCHC 31.4 (31.0-35.0) g/dl RDW 14.0 (11.0-16.0) % Plt Count 256 (160-400) X10*3/uL MPV 10.2 (9.4-12.3) fL Immature Gran % (Auto) 0.1 (0.0-0.4) % Neut % (Auto) 48.1 (45-73) % Lymph % (Auto) 41.8 H (20-40) % [place] % (Auto) 5.2 (2-11) % Eos % (Auto) 4.2 H (0-4) % Baso % (Auto) 0.6 (0-2) % Lymph # (Auto) 2.8 (1.2-4.9) X10*3/uL [place] # (Auto) 0.4 (0.1-1.2) X10*3/uL Eos # (Auto) 0.3 (0.0-0.4) X10*3/uL Baso # (Auto) 0.0 (0.0-0.2) X10*3/uL Abs Immat Gran (auto) 0.01 (0.00-0.03) X10*3/uL Absolute Neuts (auto) 3.2 (2.0-8.3) x10*3/uL Absolute Nucleated RBC 0.000 (0.0-0.012) X10*3/uL Nucleated RBC % (auto) 0.0 (0.0-0.2) /100WBC ESR 14 (0-20) MM/HR PT 12.3 (10.0-13.1) SEC INR 1.1 (0.9-1.1) Sodium (135-145) mmol/L Potassium (3.3-5.1) mmol/L Chloride (96-108) mmol/L Carbon Dioxide (22-29) mmol/L Anion Gap (12-20) BUN (9-16) mg/dL Creatinine (0.5-1.4) mg/dL Estim Creat Clear Calc Estimated GFR Random Glucose (60-115) mg/dL Estimat Average Glucose mg/dL Hemoglobin A1c % % Calcium (8.4-10.2) mg/dL Magnesium (1.6-2.6) mg/dL Total Bilirubin (0.0-1.0) mg/dL AST (5-31) U/L ALT (0-31) U/L Alkaline Phosphatase (39-117) U/L Troponin I High Sens (<3.5-17.0) ng/L C-Reactive Protein (< or = 0.50) mg/dL Total Protein (6.5-8.0) g/dL Albumin (3.5-5.0) g/dL Beta HCG, Quant mIU/mL Urine Color Urine Appearance Urine pH (5.0-9.0) Ur Specific [place] (1.005-1.025) Urine Protein (Neg-Trace) mg/dL Urine Glucose (UA) (Negative) mg/dL Urine Ketones (Negative) mg/dL Urine Blood (Negative) Urine Nitrite (Negative) Ur Leukocyte Esterase (Negative) Urine RBC (0-2) /HPF Urine WBC (0-5) /HPF Ur Squamous Epith Cells (0-2) /HPF Urine Bacteria (None Seen) Hyaline Casts (0-2) /LPF 04/16/22 04/16/22 04/16/22 Range/Units 16:06 16:06 17:16 WBC (4.8-10.8) X10*3/uL RBC (4.20-5.50) X10*6/uL Hgb (12.0-16.0) g/dl Hct (37.0-47.0) % MCV (80.0-98.0) fL MCH (27.0-33.0) pg MCHC (31.0-35.0) g/dl RDW (11.0-16.0) % Plt Count (160-400) X10*3/uL MPV (9.4-12.3) fL Immature Gran % (Auto) (0.0-0.4) % Neut % (Auto) (45-73) % Lymph % (Auto) (20-40) % [place] % (Auto) (2-11) % Eos % (Auto) (0-4) % Baso % (Auto) (0-2) % Lymph # (Auto) (1.2-4.9) X10*3/uL [place] # (Auto) (0.1-1.2) X10*3/uL Eos # (Auto) (0.0-0.4) X10*3/uL Baso # (Auto) (0.0-0.2) X10*3/uL Abs Immat Gran (auto) (0.00-0.03) X10*3/uL Absolute Neuts (auto) (2.0-8.3) x10*3/uL Absolute Nucleated RBC (0.0-0.012) X10*3/uL Nucleated RBC % (auto) (0.0-0.2) /100WBC ESR (0-20) MM/HR PT (10.0-13.1) SEC INR (0.9-1.1) Sodium 138 (135-145) mmol/L Potassium 3.8 (3.3-5.1) mmol/L Chloride 103 (96-108) mmol/L Carbon Dioxide 29 (22-29) mmol/L Anion Gap 10 L (12-20) BUN 12 (9-16) mg/dL Creatinine 0.85 (0.5-1.4) mg/dL Estim Creat Clear Calc 76.4 Estimated GFR > 60 Random Glucose 155 H (60-115) mg/dL Estimat Average Glucose 154 mg/dL Hemoglobin A1c % 7.0 % Calcium 8.6 (8.4-10.2) mg/dL Magnesium 1.8 (1.6-2.6) mg/dL Total Bilirubin 0.4 (0.0-1.0) mg/dL AST 18 (5-31) U/L ALT 18 (0-31) U/L Alkaline Phosphatase 129 H (39-117) U/L Troponin I High Sens < 3.5 (<3.5-17.0) ng/L C-Reactive Protein < 0.10 (< or = 0.50) mg/dL Total Protein 6.6 (6.5-8.0) g/dL Albumin 3.9 (3.5-5.0) g/dL Beta HCG, Quant < 2 mIU/mL Urine Color Urine Appearance Urine pH (5.0-9.0) Ur Specific [place] (1.005-1.025) Urine Protein (Neg-Trace) mg/dL Urine Glucose (UA) (Negative) mg/dL Urine Ketones (Negative) mg/dL Urine Blood (Negative) Urine Nitrite (Negative) Ur Leukocyte Esterase (Negative) Urine RBC (0-2) /HPF Urine WBC (0-5) /HPF Ur Squamous Epith Cells (0-2) /HPF Urine Bacteria (None Seen) Hyaline Casts (0-2) /LPF 04/16/22 Range/Units 17:16 WBC (4.8-10.8) X10*3/uL RBC (4.20-5.50) X10*6/uL Hgb (12.0-16.0) g/dl Hct (37.0-47.0) % MCV (80.0-98.0) fL MCH (27.0-33.0) pg MCHC (31.0-35.0) g/dl RDW (11.0-16.0) % Plt Count (160-400) X10*3/uL MPV (9.4-12.3) fL Immature Gran % (Auto) (0.0-0.4) % Neut % (Auto) (45-73) % Lymph % (Auto) (20-40) % [place] % (Auto) (2-11) % Eos % (Auto) (0-4) % Baso % (Auto) (0-2) % Lymph # (Auto) (1.2-4.9) X10*3/uL [place] # (Auto) (0.1-1.2) X10*3/uL Eos # (Auto) (0.0-0.4) X10*3/uL Baso # (Auto) (0.0-0.2) X10*3/uL Abs Immat Gran (auto) (0.00-0.03) X10*3/uL Absolute Neuts (auto) (2.0-8.3) x10*3/uL Absolute Nucleated RBC (0.0-0.012) X10*3/uL Nucleated RBC % (auto) (0.0-0.2) /100WBC ESR (0-20) MM/HR PT (10.0-13.1) SEC INR (0.9-1.1) Sodium (135-145) mmol/L Potassium (3.3-5.1) mmol/L Chloride (96-108) mmol/L Carbon Dioxide (22-29) mmol/L Anion Gap (12-20) BUN (9-16) mg/dL Creatinine (0.5-1.4) mg/dL Estim Creat Clear Calc Estimated GFR Random Glucose (60-115) mg/dL Estimat Average Glucose mg/dL Hemoglobin A1c % % Calcium (8.4-10.2) mg/dL Magnesium (1.6-2.6) mg/dL Total Bilirubin (0.0-1.0) mg/dL AST (5-31) U/L ALT (0-31) U/L Alkaline Phosphatase (39-117) U/L Troponin I High Sens (<3.5-17.0) ng/L C-Reactive Protein (< or = 0.50) mg/dL Total Protein (6.5-8.0) g/dL Albumin (3.5-5.0) g/dL Beta HCG, Quant mIU/mL Urine Color Yellow Urine Appearance Clear Urine pH 7.0 (5.0-9.0) Ur Specific [place] 1.020 (1.005-1.025) Urine Protein Trace (Neg-Trace) mg/dL Urine Glucose (UA) Negative (Negative) mg/dL Urine Ketones Negative (Negative) mg/dL Urine Blood Negative (Negative) Urine Nitrite Negative (Negative) Ur Leukocyte Esterase Trace H (Negative) Urine RBC 3-5 H (0-2) /HPF Urine WBC 11-20 H (0-5) /HPF Ur Squamous Epith Cells 6-10 (0-2) /HPF Urine Bacteria 2+ (None Seen) Hyaline Casts 0-2 (0-2) /LPF <Lanie Carrasco NP - Last Filed: 04/20/22 09:36> Independent Interpretation I performed an independent interpretation of an: EKG <LYNDON Jacobo - Last Filed: 04/17/22 01:16> Radiology Impression Discussion of test interpretation with radiology: I have reviewed the radiologist's reading. <LYNDON Jacobo - Last Filed: 04/17/22 01:16> External Record Review External record reviewed: Office record, Outpatient record and Prior outpatient labs <LYNDON Jacobo - Last Filed: 04/17/22 01:16> Chronic Conditions Patient?s care impacted by: Diabetes and Hypertension <LYNDON Jacobo - Last Filed: 04/17/22 01:16> Discharge Plan Discharge Clinical Impression: Changes in vision, Headache <LYNDON Jones - Last Filed: 04/16/22 15:54> Patient Disposition: Home, Self-Care <LYNDON Jones - Last Filed: 04/16/22 15:54> Instructions: Acute Headache (ED) <LYNDON Jones - Last Filed: 04/16/22 15:54> Additional Instructions: Your blood work and imaging studies are reassuring today in the emergency department. Please close follow-up with her doctor and Neurology If symptoms persist or worsen, become more constant, you develop weakness, numbness please return to the emergency department <LYNDON Jones - Last Filed: 04/16/22 15:54> Prescriptions: New cephalexin 500 mg capsule 500 mg PO BID 5 Days Qty: 10 0RF No Action megestrol 40 mg tablet 40 mg PO DAILY Qty: 90 1RF (DME) Freestyle [employer] Test Strips Strip See Rx Instructions .Route Qty: 200 11RF Rx Instructions: 4x daily insulin lispro [Humalog U-100 Insulin] 100 unit/mL solution See Rx Instructions subcut DAILY 30 Days Qty: 30 6RF Rx Instructions: Up to 100 units daily via insulin pump subcut daily; metoprolol succinate 100 mg tablet extended release 24 hr 100 mg PO DAILY Qty: 90 3RF amitriptyline 150 mg tablet 150 mg PO BEDTIME Qty: 90 1RF cholecalciferol (vitamin D3) 50 mcg (2,000 unit) capsule 50 mcg PO DAILY 30 Days Qty: 30 6RF Creon 3,000-9,500- 15,000 unit capsule,delayed release(DR/EC) 1 cap PO QID 30 Days Qty: 140 6RF omeprazole 40 mg capsule,delayed release(DR/EC) 40 mg PO BID Qty: 180 6RF Citrucel 500 mg tablet 500 mg PO BID Qty: 60 6RF sennosides [Senna Laxative] 8.6 mg tablet 17.2 mg PO BEDTIME Qty: 60 6RF simethicone [Gas Relief (simethicone)] 180 mg capsule 180 mg PO .Q.i.d. PRN (Reason: abdominal distention) Qty: 90 6RF docusate sodium 100 mg capsule 100 mg PO DAILY Qty: 30 6RF diltiazem HCl 120 mg capsule,extended release 24hr 120 mg PO BEDTIME Qty: 90 2RF atorvastatin 20 mg tablet 20 mg PO BEDTIME Qty: 90 2RF losartan 25 mg tablet 25 mg PO DAILY Qty: 90 1RF cetirizine 10 mg tablet 10 mg PO DAILY PRN (Reason: allergies) fluticasone propionate [Allergy Relief (fluticasone)] 50 mcg/actuation spray,suspension 1 spray intranasal DAILY Rx Instructions: administer into each nostril Baqsimi 3 mg/actuation spray,non-aerosol 3 mg intranasal ONCE Qty: 2 5RF <LYNDON Jones - Last Filed: 04/16/22 15:54> Referrals: [facility] [place] Neuro/Sleep [Provider Group] Liv Soni MD [Primary Care Provider] - <LYNDON Jones - Last Filed: 04/16/22 15:54> Interventions: ED Discharge Assessment Last Done: 04/16/22 18:53 <LYNDON Jones - Last Filed: 04/16/22 15:54> Discharge Date/Time: 04/16/22 18:54 <LYNDON Jones - Last Filed: 04/16/22 15:54>
--- NOTE | 2022-04-16 15:48 | ECG_ITS ---
Test Reason : lightheadness Blood Pressure : / mmHG Vent. Rate : 087 BPM Atrial Rate : 087 BPM P-R Int : 152 ms QRS Dur : 076 ms QT Int : 362 ms P-R-T Axes : 043 033 051 degrees QTc Int : 435 ms Normal sinus rhythm Normal ECG When compared to the previous EKG of No significant changes seen Referred By: Crissy Colvin Electronically Signed By:GOPI OCASIO MD
[2022-04-16 16:18] LABS: MANUAL DIFF FLAG NO
[2022-04-16 16:21] LABS: Basophils Percent Auto 0.6 % (0-2); Eosinophils Absolute Auto 0.3 X10*3/uL (0.0-0.4); Eosinophils Percent Auto 4.2 % (0-4); Hematocrit 37.3 % (37.0-47.0); Hemoglobin 11.7 g/dl (12.0-16.0); Imm Gran Abs Auto 0.01 X10*3/uL (0.00-0.03); Imm Gran Pct Auto 0.1 % (0.0-0.4); Lymphocytes Absolute Auto 2.8 X10*3/uL (1.2-4.9); Lymphocytes Percent Auto 41.8 % (20-40); Mean Corpuscular HGB Conc 31.4 g/dl (31.0-35.0); Mean Corpuscular Hemoglobin 26.6 pg (27.0-33.0); Mean Corpuscular Volume 84.8 fL (80.0-98.0); Mean Platelet Volume 10.2 fL (9.4-12.3); Monocytes Absolute Auto 0.4 X10*3/uL (0.1-1.2); Monocytes Percent Auto 5.2 % (2-11); Neutrophils Absolute Auto 3.2 x10*3/uL (2.0-8.3); Neutrophils Percent Auto 48.1 % (45-73); Platelet Count 256 X10*3/uL (160-400); White Blood Count 6.7 X10*3/uL (4.8-10.8)
[2022-04-16 16:29] LABS: Estimated Average Glucose 154 mg/dL; INTERNATIONAL NORM RATIO 1.1 (0.9-1.1); Prothrombin Time 12.3 SEC (10.0-13.1)
[2022-04-16 16:41] LABS: Alanine Aminotransferase 18 U/L (0-31); Albumin Level 3.9 g/dL (3.5-5.0); Alkaline Phosphatase 129 U/L (39-117); Anion Gap 10 (12-20); Aspartate Amino Transferase 18 U/L (5-31); Bilirubin Total 0.4 mg/dL (0.0-1.0); Blood Urea Nitrogen 12 mg/dL (9-16); C Reactive Protein < 0.10 mg/dL (< or = 0.50); Calcium 8.6 mg/dL (8.4-10.2); Carbon Dioxide 29 mmol/L (22-29); Chloride 103 mmol/L (96-108); Creatinine Clr Calc Pharmacy 76.4; Estimated Glomerular Filt Rate > 60; Glucose Random 155 mg/dL (60-115); Magnesium 1.8 mg/dL (1.6-2.6); Potassium 3.8 mmol/L (3.3-5.1); Sodium 138 mmol/L (135-145); Total Protein 6.6 g/dL (6.5-8.0)
[2022-04-16 16:46] LABS: HCG Quantitative < 2 mIU/mL
[2022-04-16 16:54] LABS: Erythrocyte Sedimentation Rate 14 MM/HR (0-20)
[2022-04-16 17:25] LABS: Appearance Urine Clear; Color Urine Yellow; Glucose Urine UA Negative (Negative); Leukocyte Esterase Urine Trace (Negative); Nitrite Urine Negative (Negative); UMIC TRIGGER UACC YES; Urine Blood Negative (Negative); Urine Ketones Negative (Negative); Urine Protein Trace mg/dL (Neg-Trace)
[2022-04-16 17:30] LABS: Bacteria Urine 2+ (None Seen); Hyaline Casts Urine 0-2 /LPF (0-2); UACC Culture Trigger YES
[2022-04-16] MEDS: iohexoL 350 MG/ML 100 ML INFUS..BTL IV (17:41)
[2022-04-16] MEDS: 0.9 % Sodium Chloride 500 ML 999 ML IV (17:42)
[2022-04-16 17:49] VITALS: BP 127/77; PULSE 87; RESP 14; TEMP 36.8; O2SAT 98
[2022-04-16 17:50] VITALS: BP 135/76; PULSE 83
[2022-04-16 17:51] VITALS: BP 136/81; PULSE 84
[2022-04-16 17:53] VITALS: BP 121/81; PULSE 87
[2022-04-16 17:54] LABS: Troponin-I High Sensitivity < 3.5 ng/L (<3.5-17.0)
--- NOTE | 2022-04-16 18:20 | PC.NURSE ---
IV established, fluids running. Awaiting ct scan results. Ambulating with steady gait.
== END 2022-04-16 18:54 | disposition home or self-care (01) ==
PROVIDERS: Physician Assistant; Physician Assistant Medical; Emergency Provider Emergency Medicine Emergency Medical Services; PCP Internal Medicine
DX: H53.8 Other visual disturbances (principal); R51.9 Headache, unspecified; R42 Dizziness and giddiness; N39.0 Urinary tract infection, site not specified; B96.1 Klebsiella pneumoniae [K. pneumoniae] as the cause of diseases classified elsewhere; E10.22 Type 1 diabetes mellitus with diabetic chronic kidney disease; I12.9 Hypertensive chronic kidney disease with stage 1 through stage 4 chronic kidney disease, or unspecified chronic kidney disease; N18.30 Chronic kidney disease, stage 3 unspecified; E78.5 Hyperlipidemia, unspecified; Z87.891 Personal history of nicotine dependence; Z79.4 Long term (current) use of insulin; Z79.02 Long term (current) use of antithrombotics/antiplatelets; Z79.899 Other long term (current) drug therapy; Z96.41 Presence of insulin pump (external) (internal)
CPT/HCPCS: 36415; 70450; 70496; 70498; 80053; 81001; 83036; 83735; 84484; 84702; 85025; 85610; 85652; 86140; 87086; 87088; 87186; 93005; 96360; 99284; 99285; Q9967

== ENCOUNTER 2022-04-29 10:23 | Outpatient (REF) | payer MEDICARE, MEDICAID, SELFPAY | END 2022-04-29 10:24 | disposition home or self-care (01) | LOC: HO.LNP 10:23 | PROVIDERS: PCP Internal Medicine; Visit Provider Obstetrics & Gynecology | DX: R87.610 Atypical squamous cells of undetermined significance on cytologic smear of cervix (ASC-US) (principal); R87.810 Cervical high risk human papillomavirus (HPV) DNA test positive | CPT/HCPCS: 57456; 88305 ==

== ENCOUNTER 2022-05-02 17:30 | Emergency (ER) | payer MEDICARE, MEDICAID, SELFPAY ==
[2022-05-02 18:01] VITALS: BP 123/79; PULSE 80; RESP 16; TEMP 36.6; O2SAT 98; BMI 26.5
--- NOTE | 2022-05-02 18:14 | ED.GENADULT ---
HPI - General Adult General Chief complaint: Wound/Laceration Stated complaint: Lac to L pinky/Diabetic Time Seen by Provider: 05/02/22 18:18 Source: patient Mode of arrival: ambulatory Limitations: no limitations History of Present Illness HPI narrative: Patient is a 41 year old assigned female at with a history of CKD and DM presenting to the emergency department today with a laceration to her left 5th finger. Patient states that she cut her left 5th finger on a broken coffee mug. Patient states that she does not know when her last tetanus shot was. Patient denies any dizziness, lightheadedness, abdominal pain, nausea, vomiting, fever, chills, blurry vision, double vision, loss of vision, chest pain, difficulty breathing, shortness of breath, back pain, night sweats, pain with urination, increased urinary frequency, increased urinary urgency, blood in her urine or stool, syncope or a near syncopal episode, bowel incontinence, bladder incontinence, bowel retention, bladder retention, or any other complaints at this time. Onset (ago): minute(s) Location: left (5th finger) Radiation: non-radiation Severity: mild Severity scale (1-10): 2 Quality: dull Pain Consistency: constant Relieving factors: none Exacerbating factors: none Associated symptoms: denies other symptoms Treatments prior to arrival: none Related Data Home Medications Medication Instructions Recorded Confirmed fluticasone propionate 50 1 spray intranasal DAILY 06/04/20 11/28/21 mcg/actuation nasal spray,suspension (Allergy Relief (fluticasone)) cetirizine 10 mg tablet 10 mg PO DAILY PRN allergies 08/15/20 11/28/21 Previous Rx's Medication Instructions Recorded megestrol 40 mg tablet 40 mg PO DAILY #90 tabs 04/02/21 blood sugar diagnostic (Freestyle #200 ea 06/06/21 Insu[employer]x Test Strips) Humalog U-100 Insulin 100 unit/mL See Rx Instructions subcut DAILY 09/04/21 subcutaneous solution (insulin 30 days #30 mL lispro) metoprolol succinate 100 mg 100 mg PO DAILY #90 tabs 09/25/21 tablet,extended release 24 hr glucagon 3 mg/actuation nasal 3 mg intranasal ONCE #2 ea 10/17/21 spray (Baqsimi) amitriptyline 150 mg tablet 150 mg PO BEDTIME #90 tabs 12/17/21 cholecalciferol (vitamin D3) 50 50 mcg PO DAILY 30 days #30 caps 01/22/22 mcg (2,000 unit) capsule diltiazem HCl 120 mg 120 mg PO BEDTIME #90 caps 02/19/22 capsule,extended release 24 hr docusate sodium 100 mg capsule 100 mg PO DAILY #30 caps 02/19/22 lipase 3,000-protease 1 cap PO QID 30 days #140 caps 02/19/22 9,500-amylase 15,000 unit capsule, delayed rel (Creon) methylcellulose (laxative) 500 mg 500 mg PO BID #60 tabs 02/19/22 tablet (Citrucel) omeprazole 40 mg capsule,delayed 40 mg PO BID #180 caps 02/19/22 release sennosides 8.6 mg tablet (Senna 17.2 mg PO BEDTIME #60 tabs 02/19/22 Laxative) simethicone 180 mg capsule (Gas 180 mg PO .Q.i.d. PRN abdominal 02/19/22 Relief (simethicone)) distention #90 caps atorvastatin 20 mg tablet 20 mg PO BEDTIME #90 tabs 03/03/22 losartan 25 mg tablet 25 mg PO DAILY #90 tabs 03/03/22 cephalexin 500 mg capsule 500 mg PO Q6H 7 days #28 caps 05/02/22 Allergies Allergy/AdvReac Type Severity Reaction Status Date / Time oxycodone [Percocet] AdvReac Unknown chills Verified 05/02/22 18:03 Review of Systems Constitutional: Constitutional: Reports no additional constitutional complaints, Denies chills, Denies fever(s) and Denies night sweats Eyes: Eyes: Reports no additional eye complaints, Denies blurry vision, Denies change in vision, Denies diplopia, Denies eye discharge, Denies loss of vision and Denies eye pain ENT: Denies dizziness Cardiovascular: Cardiovascular: Reports no additional cardiovascular complaints, Denies chest pain, Denies lightheadedness, Denies Loss of Consciousness and Denies dyspnea Respiratory: Respiratory: Reports no additional respiratory complaints and Denies dyspnea Gastrointestinal: Gastrointestinal: Reports no additional gastrointestinal complaints, Denies abdominal pain, Denies melena, Denies hematochezia, Denies change in bowel habits and Denies change in stool character Genitourinary: Genitourinary: Denies hematuria, Denies urinary frequency, Denies dysuria, Denies urinary incontinence, Denies urinary hesitancy and Denies urinary urgency Musculoskeletal: Musculoskeletal: Reports no additional musculoskeletal complaints, Denies numbness and Denies tingling Integumentary/Breasts: Comments: laceration to the left 5th finger Neurologic: Denies dizziness, Denies loss of vision, Denies numbness and Denies tingling Psychiatric: Psychiatric: Reports no additional psychiatric complaints Endocrine: Endocrine: Reports no additional endocrine complaints Hematologic/Lymphatic: Hematologic/Lymphatic: Reports no additional hematologic/lymphatic complaints Allergic/Immunologic: Allergic/Immunologic: Reports no additional allergic/immunologic complaints PMFSH Past Medical History Attestation statement: The following information was validated with the patient. Source: old records reviewed and nursing notes reviewed Medical History Abnormal Pap smear of cervix Amenorrhea Chronic kidney disease, stage 3, mod decreased GFR Depression Diabetes type 1, uncontrolled Diabetic nephropathy associated with type 1 diabetes mellitus Dyslipidemia Fibroids Goiter HLD (hyperlipidemia) Hypertension Hypogonadotropic hypogonadism Intermittent claudication Leg cramping Nausea and vomiting Oral phase dysphagia Premature ovarian failure Sinus tachycardia Sleep behavior disorder, REM Vitamin D deficiency Surgical History Hx of esophagogastroduodenoscopy Hx of tubal ligation Family History Family History Father No problems noted. Mother Hypertension Social History Social History Household Members: Children Household Members Other:: 2 children Housing: Apartment Alcohol intake: current Alcohol intake frequency: does not drink Patient Tobacco Use Status: Former Tobacco user Quit Date: 2018 e-Cigarette/Vaping Use: Never Used Advance Directives: No Advance Directives Information Provided: No service: No Current occupational status: unemployed Cognitive needs: No Hearing needs: No Vision needs: No Physical Exam ED Vital Signs: Vital Signs - 24 hr 05/02/22 18:01 Temperature 98 F Pulse Rate 80 Respiratory Rate 16 Blood Pressure 123/79 Pulse Oximetry 98 Oxygen Delivery Method Room Air BMI result Body Mass Index 26.5 Const General: cooperative, no acute distress, alert and awake Nutritional Appearance: well nourished Orientation/consciousness: patient oriented x3 Limitations: no limitations HENMT Head: Yes normal to inspection and Yes atraumatic Ears: hearing grossly normal bilaterally and external ears normal General nose exam: Normal external nose present, no nasal discharge noted and no epistaxis Face and sinus: Yes normal facial exam, No abrasion and No laceration Mouth: Normal oral and palatal mucosa present, no drooling and no muffled voice Eyes General: appearance normal, both eyes and all related structures Periorbital: periorbital findings normal Eyelids: Yes eyelids normal Conjunctivae: conjunctivae normal Pupils: Equal, round and reactive pupils present EOM: EOMs intact bilaterally Neck Neck: Yes normal visual inspection, Yes full ROM and Yes no lymphadenopathy Chest Chest palpation & inspection: normal inspection of the chest Resp Effort & Inspection: normal respiratory effort and able to speak in complete sentences Auscultation: clear to auscultation bilaterally Cardio Rate: regular rate Rhythm: regular rhythm GI Inspection: Yes normal to inspection Skin Other: 2cm superficial laceration to the ulnar dorsal aspect of the left 5th finger with no active bleeding or gaping areas Neuro General: patient oriented x3 and moves all extremities Cranial nerves: Yes Equal, round and reactive pupils present Cognition (Neuro): normal cognition Motor exam (neuro): 5/5 motor strength present throughout Sensory Exam: Normal double simultaneous stimulation for sensation Coordination: [id number] test normal Extrem General: Yes normal to inspection, Yes full ROM and Yes capillary refill normal Psych Appearance: grossly normal Mental Status: mental status grossly normal Affect: normal affect Attitude: cooperative Thought process: Normal thought process present Thought content: Normal thought content present Insight: Good insight present (Psych) Medications Administered Discontinued Medications Generic Name Dose Route Start Last Admin Trade Name Freq PRN Reason Stop Dose Admin Diphtheria/Tetanus/Acell Pertussis 0.5 ml 05/02/22 18:15 05/02/22 18:20 Diphth,Pertus(Acell),Tet Adult 0.5 Ml Syringe IM 05/02/22 18:16 0.5 ml .ONCE ONE Administration Procedures Laceration Laceration 1: Site: other (5th finger) Side (If applicable): left Size (cm): 2 Description: linear Depth: simple, single layer Pre-repair: deep structures intact Skin layer closed with: other (dermabond) Technique: other (dermabond) Medical Decision Making Medical Decision Making MDM Narrative: Patient is a 41 year old assigned female at with a history of CKD and DM presenting to the emergency department today with a left 5th finger laceration. Patient's physical exam showed a 2cm superficial laceration to the ulnar dorsal aspect of the left 5th finger with no active bleeding. I explained my physical exam findings to the patient. I answered all questions asked by the patient. Patient's laceration was repaired with dermabond, without incident. Patient's PMS was in tact prior to and after laceration repair. Patient's wound was dressed with non-adherent gauze and loose gauze roll. Patient was brought up to date on tetanus. Antibiotics were sent to prophylactically. I stressed the importance of the patient taking her medication as prescribed. I stressed the importance of the patient following up with her primary care provider. I stressed the importance of the patient performing daily wound checks and dressing changes. I stressed the importance of the patient not getting the repaired area wet for AT LEAST 7 days. I stressed the importance of the patient returning to the emergency department immediately if her symptoms were to worsen or if she were to develop any dizziness, shortness of breath, difficulty breathing, chest pain, blurry vision, loss of vision, nausea, vomiting, abdominal pain, fever, chills, back pain, or any other complaints. Patient verbalized agreement and understanding with this treatment plan and discharge. Differential Diagnosis Differential Diagnoses: The differential diagnosis associated with the presentation includes laceration, abrasion Chronic Conditions Patient?s care impacted by: Diabetes Discharge Plan Discharge Clinical Impression: Finger laceration Patient Disposition: Home, Self-Care Instructions: Finger Laceration (ED), Skin Adhesive Care (ED) Additional Instructions: Keep the area dry for 7 days. Perform daily wound checks and dressing changes. Take your ABX as perscribed. Follow up with your primary care provider. Return to the emergency department immediately if your symptoms worsen or if you develop any dizziness, shortness of breath, difficulty breathing, chest pain, blurry vision, loss of vision, nausea, vomiting, abdominal pain, fever, chills, back pain, or any other complaints. Prescriptions: New cephalexin 500 mg capsule 500 mg PO Q6H 7 Days Qty: 28 0RF No Action megestrol 40 mg tablet 40 mg PO DAILY Qty: 90 1RF (DME) Freestyle [employer] Test Strips Strip See Rx Instructions .Route Qty: 200 11RF Rx Instructions: 4x daily insulin lispro [Humalog U-100 Insulin] 100 unit/mL solution See Rx Instructions subcut DAILY 30 Days Qty: 30 6RF Rx Instructions: Up to 100 units daily via insulin pump subcut daily; metoprolol succinate 100 mg tablet extended release 24 hr 100 mg PO DAILY Qty: 90 3RF amitriptyline 150 mg tablet 150 mg PO BEDTIME Qty: 90 1RF cholecalciferol (vitamin D3) 50 mcg (2,000 unit) capsule 50 mcg PO DAILY 30 Days Qty: 30 6RF Creon 3,000-9,500- 15,000 unit capsule,delayed release(DR/EC) 1 cap PO QID 30 Days Qty: 140 6RF omeprazole 40 mg capsule,delayed release(DR/EC) 40 mg PO BID Qty: 180 6RF Citrucel 500 mg tablet 500 mg PO BID Qty: 60 6RF sennosides [Senna Laxative] 8.6 mg tablet 17.2 mg PO BEDTIME Qty: 60 6RF simethicone [Gas Relief (simethicone)] 180 mg capsule 180 mg PO .Q.i.d. PRN (Reason: abdominal distention) Qty: 90 6RF docusate sodium 100 mg capsule 100 mg PO DAILY Qty: 30 6RF diltiazem HCl 120 mg capsule,extended release 24hr 120 mg PO BEDTIME Qty: 90 2RF atorvastatin 20 mg tablet 20 mg PO BEDTIME Qty: 90 2RF losartan 25 mg tablet 25 mg PO DAILY Qty: 90 1RF cetirizine 10 mg tablet 10 mg PO DAILY PRN (Reason: allergies) fluticasone propionate [Allergy Relief (fluticasone)] 50 mcg/actuation spray,suspension 1 spray intranasal DAILY Rx Instructions: administer into each nostril Baqsimi 3 mg/actuation spray,non-aerosol 3 mg intranasal ONCE Qty: 2 5RF Referrals: Liv Soni MD [Primary Care Provider] - Interventions: ED Discharge Assessment Last Done: 05/02/22 18:38 Discharge Date/Time: 05/02/22 18:39 Print Language: Cameroonian
[2022-05-02] MEDS: Diphth,Pertus(ACell),Tet Adult 0.5 ML SYRINGE IM (18:20)
== END 2022-05-02 18:39 | disposition home or self-care (01) ==
PROVIDERS: Emergency Provider Internal Medicine; PCP Internal Medicine
DX: S61.217A Laceration without foreign body of left little finger without damage to nail, initial encounter (principal); S60.512A Abrasion of left hand, initial encounter; W26.9XXA Contact with unspecified sharp object(s), initial encounter; Y93.9 Activity, unspecified; Y92.9 Unspecified place or not applicable; Y99.9 Unspecified external cause status; Z79.899 Other long term (current) drug therapy; Z23 Encounter for immunization
CPT/HCPCS: 12001; 90471; 90715; 99282; 99284

== ENCOUNTER 2022-05-26 14:11 | Outpatient (REF) | payer MEDICARE, MEDICAID, SELFPAY ==
--- NOTE | ~2022-05-26 | FL_ITS ---
EXAMINATION: XR BARIUM SWALLOW CLINICAL INFORMATION: Dysphagia. COMPARISON: None. TECHNIQUE: Modified barium swallow was performed in presence of speech therapist. FINDINGS: On oral administration of various consistencies of barium under lateral fluoroscopy there is normal propagation of bolus from the oral cavity through the pharynx into esophagus without obstruction or narrowing. No retention of barium in the valleculae or piriform sinuses. No laryngeal penetration or aspiration. FLUOROSCOPY TIME: 2.0 minutes DOSE AREA PRODUCT: 1.688 uGy-m2 (microgray-meter squared) FL/FL barium swallow modified IMPRESSION: 1. Unremarkable modified barium swallow exam. 2. Correlate with speech therapy results.
[2022-05-26 16:44] LABS: Free T4 (Free Thyroxine) 1.11 ng/dL (0.71-1.85); Thyroid Stimulating Hormone 0.86 uIU/mL (0.32-4.0)
[2022-05-26 16:46] LABS: Cortisol Random 5.3 ug/dL
[2022-05-27 14:06] LABS: HBc Num1 0.11 S/CO (0.00-0.79); HIV AB/AG Nonreactive (Nonreactive); HIV Num 1 0.07 S/CO (0.00-0.99); Hepatitis B Core Antibody Nonreactive (Nonreactive); ~Hepatitis C Antibody Nonreactive (Nonreactive)
[2022-05-27 14:26] LABS: Syphilis Screen Nonreactive (Nonreactive)
--- NOTE | 2022-05-27 15:12 | MHC.SL.IMP ---
Date of Plan of Treatment: 05/26/22 Onset of Symptoms/Illness: 06/06/21 Date Treatment Started: 05/26/22 Admitting Diagnosis: Medical History Abnormal Pap smear of cervix Amenorrhea Chronic kidney disease, stage 3, mod decreased GFR Depression Diabetes type 1, uncontrolled Diabetic nephropathy associated with type 1 diabetes mellitus Dyslipidemia Fibroids Goiter HLD (hyperlipidemia) Hypertension Hypogonadotropic hypogonadism Intermittent claudication Leg cramping Nausea and vomiting Oral phase dysphagia Premature ovarian failure Sinus tachycardia Sleep behavior disorder, REM Vitamin D deficiency Primary Speech & Language Diagnosis: R13.12 Oropharyngeal Phase Dysphagia Reason for Today's Visit: 30676 Modified Barium Swallow Study Pre-evaluation Dietary Consistencies: Regular Pre-evaluation Liquid Consistency: Thin Pre-evaluation Medication Administration: Whole with Liquid Medical History: Modified Barium Swallow Study Fluoroscopic Evaluation of Swallowing Function CPT Code 08640 Evaluation Year: 2022 Reason for Study: Patient reports globus sensation and coughing when eating. Referring Physician: Carline Keller NP Evaluating Clinician: Batool Enriquez MA, CCC-GEOPHYSICAL DRAFTER Study Number: 1 Patient Name: Renae Gudino Status: Outpatient, Ambulatory Age: 41 Gender: Female MEDICAL HISTORY: Medical History Abnormal Pap smear of cervix Amenorrhea Chronic kidney disease, stage 3, mod decreased GFR Depression Diabetes type 1, uncontrolled Diabetic nephropathy associated with type 1 diabetes mellitus Dyslipidemia Fibroids Goiter HLD (hyperlipidemia) Hypertension Hypogonadotropic hypogonadism Intermittent claudication Leg cramping Nausea and vomiting Oral phase dysphagia Premature ovarian failure Sinus tachycardia Sleep behavior disorder, REM Vitamin D deficiency Surgical History Hx of esophagogastroduodenoscopy Hx of tubal ligation Current (pre-evaluation) Intake/Diet: Route: PO Diet Grade: Regular Liquid Consistencies: Thin Pre-Study Functional Oral Intake Scale (FOIS): 7- Total oral intake with no restrictions Pain: None reported at time of study SUBJECTIVE: Pt is a 41 year old female referred for a modified barium swallow study by Carline Keller NP of [facility]. When seen by G.I. specialists, pt reported that she coughs and gags when swallowing. She reported these difficulties recently worsened, with liquids not ?passing the glottis.? Pt reported that the type and temperature of liquid does not seem to matter. Pt reported having difficulty swallowing very dry foods. If foods touch the back of her throat, she stated she cannot stop coughing. During today?s exam, pt endorsed that she has not had relief from these symptoms and that it seems to occur at random with both solids and liquids. Oral Motor Exam Facial Symmetry: Symmetrical Mouth Occlusion: Normal Oral-Facial Teeth Characteristics: Dentures Oral-Facial Lip Pucker Description: Normal Oral-Facial Smile (Lips) Description: Normal Oral-Facial Puff Cheeks Description: Normal Tongue Size: Normal Tongue Excursion Description: Normal Tongue Range of Movement Description: Normal Tongue Speed of Movement Description: Normal Tongue Strength of Movement (against opposing pressure): Normal Tongue Movement Characteristics: Normal/Absent Is patient able to manage secretions?: Yes Food and Liquid Trials: Oral Impairment: Lip Closure: 0=No labial escape Oral Impairment: Tongue Control During Bolus Hold: 1=Escape to lateral buccal cavity/floor of mouth (FOM) Oral Impairment: Bolus Preparation/Mastication: 1=Slow prolonged chewing/mashing with complete re-collection Oral Impairment: Bolus Transport/Lingual Motion: 0=Brisk tongue motion Oral Impairment: Oral Residue: 2=Residue collection on oral structures Oral Impairment:Initiation of Pharyngeal Swallow: 0=Bolus head at posterior angle of ramus (first hyoid excursion) Pharyngeal Impairment: Soft Palate Elevation: 0=No bolus between soft palate (SP)/pharyngeal wall (PW) Pharyngeal Impairment: Laryngeal Elevation: 1=Partial thyroid cartilage/arytenoids to epiglottic petiole movement Pharyngeal Impairment: Anterior Hyoid Excursion: 1=Partial anterior movement Pharyngeal Impairment: Epiglottic Movement: 0=Complete inversion Pharyngeal Impairment: Laryngeal Vestibular Closure:: 0=Complete: no air/contrast in laryngeal vestibule Pharyngeal Impairment: Pharyngeal Stripping Wave: 0=Present: complete Pharyngeal Impairment: Pharyngeal Contraction: Did not test Pharyngeal Impairment: Pharyngoesophageal Segment Openin=Partial distention/partial duration: partial obstruction of flow Pharyngeal Impairment: Tongue Base (TB) Retraction: 1=Trace column of contrast/air between TB and posterior PW Pharyngeal Impairment: Pharyngeal Residue: 2=Collection of residue within or on pharyngeal structures Pharyngeal Impairment: Esophageal Clearance Upright Position: Did not test Impressions and Recommendations OBJECTIVE: Time-out: performed at 02:45 Evaluation Start: 02:30; Stop: 02:36 Patient Positioning: Seated 70-90 degrees Viewing Planes: LATERAL ONLY Contrast: MBSImP? Standardized Protocol using commercially prepared, standardized Barium viscosities, including: Varibar? THIN LIQUID (40% w/v, <15 cps) , 1/2 Shortbread Cookie (1 x1 x.25 ) MBSImP ID: [id number] MBSImP Results: Lip closure for intraoral bolus containment resulted in no labial escape. Tongue control during bolus hold allowed bolus escape to the lateral buccal cavity/floor of mouth. Bolus preparation and mastication resulted in slow, prolonged chewing/mashing but with complete re-collection. Bolus transport/lingual motion was with brisk tongue motion. Oral residue was a collection on oral structures. Initiation of the pharyngeal swallow occurred as the bolus head reached the posterior angle of the mandibular ramus. Soft palate elevation resulted in no bolus between the soft palate and the pharyngeal wall. Laryngeal elevation was decreased, with partial superior movement of the thyroid cartilage/partial approximation of the arytenoids to the epiglottic petiole. Anterior hyoid excursion demonstrated partial anterior movement. Epiglottic movement resulted in complete inversion. Laryngeal vestibular closure was complete, as indicated by no air or contrast within the laryngeal vestibule at the height of the swallow. Pharyngeal stripping wave was present and complete. Pharyngeal contraction could not be determined due to logistical reasons not related to physiologic impairment. Pharyngoesophageal segment opening demonstrated partial distension/partial duration, with partial obstruction of bolus flow. Tongue base retraction allowed a trace column of contrast or air between the retracted tongue base and the posterior pharyngeal wall. Pharyngeal residue was a collection of residue within or on pharyngeal structures. Esophageal clearance in the upright position could not be assessed due to logistical reasons not related to physiologic impairment. Oral Impairment Score: 4 Pharyngeal Impairment Score: 5 (absence of score, component 13) Esophageal Impairment Score: --- (absence of score, component 17) Laryngeal Penetration and Aspiration: Neither penetration nor aspiration was observed in today's study with Cookie, Thin. ASSESSMENT: Clinician Assessment: This exam was conducted by a multidisciplinary team, which included a speech pathologist, radiologist, and optics test technician. Pt was able to feed herself without difficulty. Pt trialed the following liquid and solid consistencies: 5 mL thin liquid barium, individual cup sip with bolus hold thin liquid barium, sequential cup sips thin liquid barium, pureed solid (mixture applesauce with barium paste), ground solid (mixture chicken salad with barium paste), regular solid (Fannie Doone cookie coated with barium paste), whole barium pill tablet with sips of water by cup. Pt demonstrated good labial seal. There was escape of bolus to the floor of mouth. No premature posterior escape prior to productive lingual movement. Posterior lingual movements were brisk and timely for the transport of bolus. Mastication was mildly slowed and prolonged. There was mild residue on the palate and tongue. Oral residue was cleared with dry swallow and liquid wash. Pharyngeal swallow trigger was timely, initiated as bolus head reached the posterior angle of ramus. There was no nasopharyngeal reflux. Partial laryngeal elevation with partial anterior hyoid excursion. Epiglottic inversion was complete. Complete laryngeal vestibular closure. There was no evidence of aspiration or penetration during this exam. There was trace residue on the tongue base with liquids and pureed solids, which cleared with a dry swallow. With harder solids (ground and regular textures), there was an increase in pharyngeal residue, with mild collection on the tongue base, in the valleculae, and on the posterior pharyngeal wall after the initial swallow. Pt reduced residue with multiple dry swallows. After dry swallows, pt took sip of thin liquid, which was even more effective in reducing pharyngeal residue. Pt swallowed barium pill tablet with sips of water. Tablet passed through the pharynx and esophagus with no hang up. Liquid Intake Recommendation: Thin Liquid Intake Strategies: Small Sips, Double Swallow Dietary Recommendations: Regular Medication Administration: Whole with Liquid Please contact the pharmacy regarding appropriate crushable or liquid drug formulations that are available whenever modified delivery is recommended. Compensatory Strategies Recommended: Sitting Upright (90 deg), Double Swallow, Small Bites and Sips, Alternate Liquids/Solids, Rate of Ingestion Change Supervision during eating and or drinking: None Needed Recommendation for Speech Therapy: NA:Typical Evaluation PLAN: Intake Recommendations: Route: PO Diet Grade: Regular Liquid Consistencies: Thin Post-Study Functional Oral Intake Scale (FOIS): 7- Total oral intake with no restrictions This exam revealed mild oropharyngeal phase dysphagia, characterized by mildly prolonged oral preparatory phase and mild oral and pharyngeal residuals, which could be possibly contributing to pt?s complaints of feeling globus sensation. Pt was able to reduce pharyngeal retention with multiple dry swallows and sips of liquid. No evidence of aspiration or penetration during this exam. After the exam, GEOPHYSICAL DRAFTER discussed with pt recommended compensatory strategies to promote oral and pharyngeal clearance: -Take small bites of food, chew well -Moisten food with sauces and gravies, ensuring sauces are mixed and blended in well with food -Avoid sticky textures and dry foods -Follow each bite with additional dry swallows -Alternate bites of food with sips of liquid -Maintain upright 90 degree position while eating and drinking Further ST intervention is not indicated at this time. Recommend pt to follow-up with G.I. Recommend pt to continue monitoring her dysphagia. If there are any changes or worsening of symptoms, consult with hospitalist or PCP, at which point a re-evaluation may be indicated. Therapy Recommendations: Therapy will be discontinued Prognosis for Improvement: The prognosis for the patient to meet nutritional needs by mouth is excellent based on degree of impairment. Clinician - Supplemental, Miscellaneous Communication: It is important to note MBSS objective studies are snapshots in time and Patient function might vary with factors such as time of day or concomitant medical conditions. For this reason, the final treatment plan for this patient should rest with their medical care team. Additional recommendations should be considered with the totality of the Patient in mind. Thank for the opportunity to participate in the care of this patient. If you have any questions about the content of this report, please contact the [facility] at [facility]. Education: Education regarding findings from today's study and plans for therapy were provided to Patient only through Verbal Instruction. Understanding was expressed by the Patient only. Chimney Builder Helper Clinician/Clinical Fellow: No Supervisory Statement: N/A Speech Language Pathologist: Batool Enriquez M.A., [facility]-GEOPHYSICAL DRAFTER
== END 2022-05-26 14:12 | disposition home or self-care (01) ==
LOC: HO.XRAY 14:11
PROVIDERS: Advanced Practice Midwife; Absent Provider Internal Medicine Endocrinology, Diabetes & Metabolism; PCP Internal Medicine; Visit Provider Nurse Practitioner
DX: E10.65 Type 1 diabetes mellitus with hyperglycemia (principal); R13.12 Dysphagia, oropharyngeal phase; Z20.2 Contact with and (suspected) exposure to infections with a predominantly sexual mode of transmission
CPT/HCPCS: 36415; 74230; 82533; 84439; 84443; 86704; 86780; 86803; 87389; 92611

== ENCOUNTER → 2022-05-30 10:55 | Outpatient (BNVA) | payer MEDICARE, MEDICAID, SELFPAY | PROVIDERS: PCP Internal Medicine; Visit Provider Internal Medicine Endocrinology, Diabetes & Metabolism | DX: E10.65 Type 1 diabetes mellitus with hyperglycemia (principal); E10.21 Type 1 diabetes mellitus with diabetic nephropathy; E10.22 Type 1 diabetes mellitus with diabetic chronic kidney disease; I12.9 Hypertensive chronic kidney disease with stage 1 through stage 4 chronic kidney disease, or unspecified chronic kidney disease; N18.30 Chronic kidney disease, stage 3 unspecified; Z79.4 Long term (current) use of insulin; Z96.41 Presence of insulin pump (external) (internal) | CPT/HCPCS: 82947; 99212 ==

== ENCOUNTER 2022-06-04 11:45 | Outpatient (REF) | payer MEDICARE, MEDICAID, SELFPAY ==
[2022-06-04 15:50] LABS: CT PCR NOT DETECTED (Not Detect.); NG PCR NOT DETECTED (Not Detect.)
== END 2022-06-04 11:46 | disposition home or self-care (01) ==
LOC: HO.LNP 11:45
PROVIDERS: PCP Internal Medicine; Visit Provider Obstetrics & Gynecology
DX: R10.2 Pelvic and perineal pain (principal); R87.610 Atypical squamous cells of undetermined significance on cytologic smear of cervix (ASC-US); R87.810 Cervical high risk human papillomavirus (HPV) DNA test positive
CPT/HCPCS: 0353U; 81025; 99212

== ENCOUNTER 2022-06-18 08:04 | Outpatient (REF) | payer MEDICARE, MEDICAID, SELFPAY ==
[2022-06-21 02:14] LABS: Cortisol 30 Minute 17.1 mcg/dL; Cortisol 60 Minute Time 3 1025; Cortisol Baseline 6.1 mcg/dL
== END 2022-06-18 08:05 | disposition home or self-care (01) ==
LOC: HO.MDS 08:04
PROVIDERS: Visit Provider Internal Medicine Endocrinology, Diabetes & Metabolism
DX: E27.40 Unspecified adrenocortical insufficiency (principal)
CPT/HCPCS: 36415; 82533; 96374; J0834

== ENCOUNTER → 2022-06-20 09:20 | Outpatient (BNVA) | payer MEDICARE, MEDICAID, SELFPAY | PROVIDERS: PCP Internal Medicine; Visit Provider Dietitian, Registered | DX: E10.65 Type 1 diabetes mellitus with hyperglycemia (principal); Z96.41 Presence of insulin pump (external) (internal); Z79.4 Long term (current) use of insulin | CPT/HCPCS: 97803 ==

== ENCOUNTER 2022-07-31 10:38 | Outpatient (REF) | payer MEDICARE, MEDICAID, SELFPAY ==
[2022-07-31 10:47] LABS: MANUAL DIFF FLAG NO
--- NOTE | 2022-07-31 10:48 | ECG_ITS ---
Test Reason : PREOP Blood Pressure : / mmHG Vent. Rate : 082 BPM Atrial Rate : 082 BPM P-R Int : 146 ms QRS Dur : 074 ms QT Int : 360 ms P-R-T Axes : 057 060 053 degrees QTc Int : 420 ms Normal sinus rhythm Normal ECG When compared with ECG of 16-APR-2022 15:52, No significant change was found Referred By: Liv Soni Electronically Signed By:GOPI OCASIO MD
[2022-07-31 11:02] LABS: Basophils Absolute Auto 0.1 X10*3/uL (0.0-0.2); Basophils Percent Auto 0.8 % (0-2); Eosinophils Absolute Auto 0.3 X10*3/uL (0.0-0.4); Hematocrit 38.9 % (37.0-47.0); Imm Gran Abs Auto 0.02 X10*3/uL (0.00-0.03); Imm Gran Pct Auto 0.3 % (0.0-0.4); Lymphocytes Percent Auto 38.5 % (20-40); Mean Corpuscular HGB Conc 30.8 g/dl (31.0-35.0); Mean Corpuscular Hemoglobin 26.7 pg (27.0-33.0); Mean Corpuscular Volume 86.4 fL (80.0-98.0); Mean Platelet Volume 10.1 fL (9.4-12.3); Monocytes Absolute Auto 0.5 X10*3/uL (0.1-1.2); Monocytes Percent Auto 6.2 % (2-11); Neutrophils Absolute Auto 3.9 x10*3/uL (2.0-8.3); Neutrophils Percent Auto 50.2 % (45-73); Platelet Count 294 X10*3/uL (160-400); Red Cell Distribution Width 14.5 % (11.0-16.0); White Blood Count 7.8 X10*3/uL (4.8-10.8)
[2022-07-31 12:27] LABS: Alanine Aminotransferase 10 U/L (0-31); Albumin Level 4.1 g/dL (3.5-5.0); Alkaline Phosphatase 107 U/L (39-117); Anion Gap 8 (12-20); Aspartate Amino Transferase 13 U/L (5-31); Bilirubin Total 0.5 mg/dL (0.0-1.0); Blood Urea Nitrogen 17 mg/dL (9-16); Carbon Dioxide 28 mmol/L (22-29); Chloride 108 mmol/L (96-108); Cholesterol 89 mg/dL; Estimated Glomerular Filt Rate 54; Glucose Fasting 183 mg/dL (60-99); HDL Cholesterol 29 mg/dL; LDL Cholesterol Calculated 52 mg/dl; Potassium 4.1 mmol/L (3.3-5.1); Sodium 140 mmol/L (135-145); Total Protein 6.8 g/dL (6.5-8.0); Triglycerides 41 mg/dL
[2022-07-31 12:54] LABS: Vitamin D 25-OH Total 42.1 ng/mL (>30)
== END 2022-07-31 10:39 | disposition home or self-care (01) ==
LOC: HO.LAB 10:38
PROVIDERS: PCP Internal Medicine; Visit Provider Internal Medicine
DX: Z01.818 Encounter for other preprocedural examination (principal); K21.9 Gastro-esophageal reflux disease without esophagitis; E10.65 Type 1 diabetes mellitus with hyperglycemia; I42.8 Other cardiomyopathies; E78.5 Hyperlipidemia, unspecified
CPT/HCPCS: 36415; 80053; 80061; 82306; 85025; 93005

== ENCOUNTER → 2022-09-03 09:08 | Outpatient (BNVA) | payer MEDICARE, MEDICAID, SELFPAY | PROVIDERS: PCP Internal Medicine; Visit Provider Internal Medicine Endocrinology, Diabetes & Metabolism ==

== ENCOUNTER → 2022-09-12 10:11 | Outpatient (BNVA) | payer MEDICARE, MEDICAID, SELFPAY | PROVIDERS: PCP Internal Medicine; Visit Provider Registered Nurse Diabetes Educator | DX: Z46.81 Encounter for fitting and adjustment of insulin pump (principal); E10.65 Type 1 diabetes mellitus with hyperglycemia | CPT/HCPCS: 99211 ==

== ENCOUNTER 2022-10-07 08:51 | Outpatient (AMB) | payer MEDICARE, MEDICAID, SELFPAY ==
--- NOTE | 2022-10-07 08:53 | A.OFFVIS_ITS ---
Intake Vital Signs 10/07/22 08:54 Height 5 ft 2 in Weight 147 lb 7.828 oz BMI 27.0 BP 104/66 Blood Pressure Location Rt brachial Position Sitting Pulse 81 Pulse Source Pulse Oximeter Pulse Oximetry (%) 99 Oxygen Delivery Method Room Air Intake Visit Reasons: f/UP T1DM Intake Note: Patient present today to follow up on Type 1 Diabetes Mellitus. Patient receives DME and pump supplies through: [facility] Medical Last Diabetic Eye exam: 2022 Last Podiatry Visit: September 09, 2022 Random Glucose: 95 mg/dl HgA1C: 7.5% 08/06/2022 Allergies oxycodone [Percocet] Adverse Reaction (Unknown, Verified 10/07/22 08:57) chills HPI HPI Comments History of Present Illness Details 41 YO F with PMHx T1DM who is seen in F/U for T1DM. Initially diagnosed with T1DM at the age of 24. Current regimen: Humalog via Tandem insulin pump. Pump/Sensor: Currently using the Tandem insulin pump with DEXCOM G6. Basal rate(s) (units/hour) : 12 AM to 4A 1.2 units / hr 4AM to 8 AM ? 1.2 units / hr 8A-12P?? 1.1 12 P 0.7 4 P 1.2 8 P 1.5 9P 1.3 11 P 1.5 Bolus setting Insulin Carbohydrate Ratio (s) 12 AM to 4 AM 1:13 4 AM to 4 PM 1:12 4 PM to 8PM 1:14?New 4 PM to 8PM 1:12 8 PM to 9 PM 1:15?New 8 PM to 9 PM 1:13 9 PM to 11P 1:13 11 P 1:14 Correction Factor / Sensitivity Factor 12 AM to 8 AM 1:50 8 AM to 12 AM 1:40 Active Insulin Time:? 5 hours Target(s): 12 AM to 12 AM 110 mg/dL ISF: 12 am - 60 4A- 60 8AM = 50 8P =53 9P =50 Target: 110 Duration of insulin action: 5 hours Her average daily dose of insulin is 54.2 units/day, with 61% basal, and 39% bolus. Correction bolus is 98% and Control-IQ order bolus 0.5 % She changes her site every 4 days. She is using the Control IQ setting 98% of the time. 14 days of DEXCOM Data reviewed from 09/24/2022 to 10/07/2022 This reveals an average blood glucose of 204 ., GMI of 8.2 with a range of -. She is at goal 47% of the time, above goal 52% of the time, and below goal 1% of the time. Pattern involves rising blood sugars overnight and after dinner Reports no low sugars Treats lows with juice and fruit. Checks sugar after to ensure it is rising. Follows the rule of 15's. Does not have eyes checked yearly, last eye exam yr ago , denies retinopathy.Needs to make appt Denies neuropathy. Has nephropathy, on Losartan 12.5 mg PO daily. No recent UAC on file. Has HLD, on Atorvastatin 20 mg PO daily. No recent LDL on file. Denies history of CAD. Had diabetes education. Diet/Carb counting: Does not count carbs accurately. had optho appt on 06/02/2022 Labs: Laboratory Tests 06/18/21 06/18/21 06/18/21 10:03 10:03 10:04 Creatinine 1.52 H Estimated GFR 38 Hemoglobin A1c % 8.4 LDL Cholesterol, C alc 59 TSH 1.61 Free T4 1.07 Microalb/Creat Rat io 387.7 PFSH Medical History Abnormal Pap smear of cervix Amenorrhea Depression Diabetes type 1, uncontrolled Diabetic nephropathy associated with type 1 diabetes mellitus Dyslipidemia Fibroids Goiter HLD (hyperlipidemia) Hypertension Hypogonadotropic hypogonadism Intermittent claudication Nausea and vomiting Oral phase dysphagia Premature ovarian failure Sinus tachycardia Sleep behavior disorder, REM Vitamin D deficiency Surgical History Hx of esophagogastroduodenoscopy Hx of tubal ligation Family History Father No problems noted. Mother Hypertension Social History Household Members: Children Household Members Other:: 2 children Housing: Apartment Alcohol intake: current Alcohol intake frequency: does not drink Patient Tobacco Use Status: Former Tobacco user Quit Date: 2018 e-Cigarette/Vaping Use: Never Used service: No Current occupational status: unemployed Cognitive needs: No Hearing needs: No Vision needs: No Female Reproductive History Menstrual Age of Menarche: 13 Physical Exam Vital Signs: Last Vital Signs Pulse 81 10/07/22 08:54 BP 104/66 10/07/22 08:54 Pulse Ox 99 10/07/22 08:54 Oxygen Delivery Method Room Air 10/07/22 08:54 BMI result Body Mass Index 27.0 Absence of Cushingoid features. Absence of acromegalic features. Neck exam reveals nl size thyroid about 15 gms. No thyroid nodules palpable. No carotid bruits present. Lungs CTA. Heart S1 S2, Reg R/R. No M/R/ G. Skin exam reveals absence of vitiligo or acanthosis nigricans. Abdominal exam reveals Soft NT/ND with NA BS. No organomegaly present. Extrem Other: Visual exam of foot performed. No ulcerations or open lesions. No onchomycosis, no callouses.Pulses 2 + distally. Sensation intact to monofilament exam. Vibratory sensation sensed 10 seconds in right, 10 seconds in left with 128 Hz tuning fork Assessment & Plan Assessment & Plan (1) Diabetes type 1, uncontrolled: Code(s): E10.65 - Type 1 diabetes mellitus with hyperglycemia Qualifiers: Glycemic state: with hyperglycemia Qualified Code(s): E10.65 - Type 1 diabetes mellitus with hyperglycemia Plan: This is a 41-year-old female with a history of longstanding type 1 diabetes being managed with the tandem pump with less than optimal glycemic control and known microvascular complications namely CKD. The plan is to increase the basal rate at 00:00 to 1.4 units per hr and at 12:00 to 1.0 units per hr . Patient was told to call to report frequent episodes of hypoglycemia. She will follow-up with the childbirth educator Coding Level of Care Code Est Pt Level 4 (73911) Diagnoses Diabetes type 1, uncontrolled E10.65 Glycemic state: with hyperglycemia
[2022-10-07 08:54] VITALS: BP 104/66; PULSE 81; O2SAT 99; BMI 27.0
[2022-10-07 09:04] LABS: Glucose, Whole Blood 95 mg/dL (60-115)
== END 2022-10-07 09:34 | disposition home or self-care (01) ==
PROVIDERS: PCP Internal Medicine; Visit Provider Internal Medicine Endocrinology, Diabetes & Metabolism
DX: E10.65 Type 1 diabetes mellitus with hyperglycemia (principal)
CPT/HCPCS: 99214

== ENCOUNTER → 2022-10-07 08:51 | Outpatient (BNVA) | payer MEDICARE, MEDICAID, SELFPAY | PROVIDERS: PCP Internal Medicine; Visit Provider Internal Medicine Endocrinology, Diabetes & Metabolism | DX: E10.65 Type 1 diabetes mellitus with hyperglycemia (principal); Z96.41 Presence of insulin pump (external) (internal) | CPT/HCPCS: 82947; 99212 ==

== ENCOUNTER 2022-10-23 15:13 | Outpatient (REF) | payer MEDICARE, MEDICAID, SELFPAY ==
[2022-10-23 16:39] LABS: Anion Gap 12 (12-20); Calcium 8.8 mg/dL (8.4-10.2); Carbon Dioxide 23 mmol/L (22-29); Chloride 108 mmol/L (96-108); Estimated Glomerular Filt Rate 49; Glucose Random 192 mg/dL (60-115); Sodium 139 mmol/L (135-145)
[2022-10-23 17:16] LABS: Blood Urea Nitrogen 19 mg/dL (9-16)
== END 2022-10-23 15:14 | disposition home or self-care (01) ==
LOC: HO.LAB 15:13
PROVIDERS: PCP Internal Medicine; Visit Provider Internal Medicine Hypertension Specialist
DX: N18.31 Chronic kidney disease, stage 3a (principal)
CPT/HCPCS: 36415; 80048

== ENCOUNTER → 2022-11-20 07:36 | Outpatient (REF) | payer MEDICARE, MEDICAID, SELFPAY ==
--- NOTE | 2022-11-20 07:39 | CA_ITS ---
Transthoracic Echocardiogram Patient (Last, First, Middle): Renae Roman L Gender: Female Date of : 1980 Age: 42 Procedure Date: 11/20/2022 Procedure Type: Transthoracic Echocardiogram Location: OP Height: 157.48 cm Weight: 67.59 kg BSA: 1.69 m2 Heart Rate: bpm BP: 120 / 76 mmHg Caterer'S Aide: TO Referring MD: Donovan Barone MD Symptoms: I42.8 - Other cardiomyopathies Study Quality: Adequate Conclusions: - The left ventricular systolic function is mildly decreased. The calculated ejection fraction is 50% by biplane method. - No obvious valvular pathology seen on this study. Findings Left Ventricle Normal left ventricular cavity size. There is normal left ventricular wall thickness. The left ventricular systolic function is mildly decreased. The calculated ejection fraction is 50% by biplane method. There is mild global hypokinesis. Diastolic function is normal for age. LV peak GLS -15.9%. Right Ventricle Normal right ventricular cavity size and systolic function. Atria Both atria are normal in size. Aortic Valve There is a normal trileaflet aortic valve. There is no aortic valve stenosis. There is no aortic valve regurgitation. Mitral Valve The mitral valve appears normal. There is no mitral valve regurgitation. There is no mitral valve stenosis. Pulmonic Valve The pulmonic valve is likely normal. Tricuspid Valve Normal tricuspid valve structure. There is trace tricuspid valve regurgitation. There is no evidence of pulmonary hypertension. Great Vessels The asc aorta is normal in size. Venous The inferior vena cava is normal in size and collapses greater than 50% with inspiration. Pericardium/Pleural There is a trivial pericardial effusion. Prior Study Comparison No significant change compared to prior study dated: 05/09/2021. Recommendations, Care & Conclusions No obvious valvular pathology seen on this study. Measurements 2D Linear Measurements IVSd: 0.81 0.6-0.9/0.6-1.0 cm LVIDd: 4.63 3.9-5.3/4.2-5.9 cm LVIDd Index: 2.74 2.4-3.2/2.2-3.1 cm/m2 LVIDs: 3.39 2.0-3.6 cm LVPWd: 0.87 0.7-1.1 cm LA Diam: 3.20 2.7-3.8/3.0-4.0 cm LAIDs Index: 1.89 1.5-2.3 cm/m2 LV Mass: 158.69 67-162/88-224 g LV Mass Index: 93.90 43-95/49-115 g/m2 LVOT Diam: 2.00 3.0+(-)1.3 cm 2D Systolic Function EF 4C: 52.10 >55% EF 2C: 50.50 >55% EF BiP: 50.00 >55% Mitral Valve MV Pk E: 0.59 MV PK A: 0.51 MV Decel Time: 189.00 E/A: 1.20 E'Lateral: 9.57 E'Medial: 5.22 E/E' Med: 11.20 E/E' Lat: 6.10 PHT: 64.00 MVA PHT: 3.44 Decel Warrick: 2.40 Aortic Valve AoV Pk Zackary: 1.22 AoV Mn Zackary: 0.88 AoV VTI: 0.25 AoV Pk Grad: 6.00 Aov Mn Grad: 3.00 ALVARO Cont.VTI: 2.00 LVOT LVOT Pk Zackary: 0.74 LVOT Mn Zackary: 0.54 LVOT VTI: 0.16 LVOT Pk Grad: 2.00 LVOT Mn Grad: 1.00 LVOT Diam: 2.00 LVOT Area: 3.14 Diastolic Function MV Pk E: 0.59 MV Pk A: 0.51 E/A: 1.20 E'Medial: 5.22 E/E' Med: 11.20 E' Laterial: 9.57 E/E' Lat: 6.10 Right Ventricle TAPSE (mm): 19.20 TVS' Zackary: 10.60 Tricuspid Valve TR Pk Zackary: 1.87 TR Pk Grad: 14.00 RA Press: 3.00 RVSP: 17.00 Great Vessels Aorta Sinus of Valsalva: 2.96 2.0-3.5 cm Ao Asc: 3.20 2.1-3.4 cm Ao Arch: 2.70 Updated in Other Vendor System with Status of Final Donovan Barone MD electronically signed on 11/22/2022 10:22:06 AM with status of Final
== END ==
LOC: HO.CARD 07:36
PROVIDERS: PCP Internal Medicine; Visit Provider Internal Medicine
DX: I42.8 Other cardiomyopathies (principal); Z13.9 Encounter for screening, unspecified
CPT/HCPCS: 87086; 87088; 87186; 93306; 93356

== ENCOUNTER → 2022-11-20 07:39 | Outpatient (BNV) | payer MEDICARE, MEDICAID, SELFPAY | PROVIDERS: PCP Internal Medicine; Visit Provider Internal Medicine | DX: I42.8 Other cardiomyopathies (principal) | CPT/HCPCS: 93306 ==

== ENCOUNTER 2022-11-20 09:06 | Outpatient (AMB) | payer MEDICARE, MEDICAID, SELFPAY ==
--- NOTE | 2022-11-20 09:17 | A.OFFPC_ITS ---
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 [employer] Skins Required: No Accompanied by: Self / Same As Patient Allergies oxycodone [Percocet] Adverse Reaction (Unknown, Verified 01/13/23 02:17) chills Medication List - Last Reconciled 11/20/22 by Liv Soni MD amitriptyline 150 mg PO BEDTIME atorvastatin 20 mg PO BEDTIME blood sugar diagnostic (Freestyle InsuLinx Test Strips) 4x daily cetirizine 10 mg PO DAILY PRN cholecalciferol (vitamin D3) 50 mcg PO DAILY 30 days diltiazem HCl 120 mg PO BEDTIME docusate sodium 100 mg PO DAILY fluticasone propionate 50 mcg/actuation (Allergy Relief (fluticasone)) 1 spray intranasal DAILY glucagon 3 mg/actuation (Baqsimi) 3 mg intranasal ONCE Humalog U-100 Insulin (insulin lispro) Up to 130 units per day via insulin pump subcutaneously subcutaneously; NS lancing device with lancets (Accu-Chek Multiclix Lancet kit) As directed checks 6X/day [id number] 3,000-9,500- 15,000 unit (Creon) 1 cap PO QID 30 days losartan 25 mg PO DAILY megestrol 40 mg PO DAILY methylcellulose (laxative) (Citrucel) 500 mg PO BID metoprolol succinate ER 100 mg PO DAILY omeprazole 40 mg PO BID sennosides (Senna Laxative) 17.2 mg (2 x 8.6 mg) PO BEDTIME simethicone (Gas Relief (simethicone)) 180 mg PO .Q.i.d. PRN Tobacco use date assessed: 08/06/22 Dental Screening Dental Screen Date: 11/20/22 Did you have a dental visit in the last 12 months?: Yes Did you have a dental problem in the last 6 months where you did not have access to dental care?: No Was dental information given to patient?: Patient has dentist HPI Annual Physical HPI Details 42-year-old lady here today for physical exam. She has type 1 diabetes mellitus, currently insulin pump, followed by endocrine clinic at [facility]. She has chronic GERD and irritable bowel syndrome, currently controlled on omeprazole and simethicone respectively. She has history of abnormal Pap smears, currently being followed by [facility] for her routine Pap pelvic exam.. She is up-to-date with her screening mammogram due again later this year. Complains low back pain accompanied by dysuria and urinary frequency present now for the last 2 weeks. No accompanying fever, no nausea or vomiting reported. [facility] Medical History UTI (urinary tract infection) Abnormal Pap smear of cervix Intermittent claudication Sleep behavior disorder, REM Oral phase dysphagia Fibroids Goiter HLD (hyperlipidemia) Hypogonadotropic hypogonadism Premature ovarian failure Sinus tachycardia Nausea and vomiting Amenorrhea Depression Vitamin D deficiency Dyslipidemia Diabetic nephropathy associated with type 1 diabetes mellitus Diabetes type 1, uncontrolled Hypertension Surgical History S/P bunionectomy S/P cataract surgery Hx of esophagogastroduodenoscopy Hx of tubal ligation Family History Father No problems noted. Mother Hypertension Social History Household Members: Children Household Members Other:: 2 children Housing: Apartment Alcohol intake: current Alcohol intake frequency: does not drink Patient Tobacco Use Status: Former Tobacco user Quit Date: 2018 e-Cigarette/Vaping Use: Never Used service: No Current occupational status: unemployed Cognitive needs: No Hearing needs: No Vision needs: No Female Reproductive History Menstrual Age of Menarche: 13 Questionnaire Thrive Questionnaire Date Thrive assessed: 06/30/22 JUVENTINO-7 AMB Questionnaire JUVENTINO-7 Date JUVENTINO - 7 assessed: 06/30/22 Source: Developed by Drs. Kelton Dixon, Kim Powell, Junior Adan and colleagues, with an educational marlene from [employer] Review of Systems Const Denies fatigue, Denies fever(s), Denies frequent falls and Denies headache(s) Eyes Details: Has blurred vision, currently sees eye doctor who referred her to [facility] for further evaluation, has an appointment scheduled for February 2023 ENT Denies dizziness, Denies dry mouth, Denies headache(s), Denies nasal congestion, Denies nasal discharge, Denies sinus pain, Denies sinus pressure and Denies sore throat Card Denies chest pain, Denies lightheadedness, Denies palpitations and Denies dyspnea Resp Denies cough and Denies dyspnea GI Denies change in bowel habits Reports as per HPI Musc Denies abnormal gait, Denies numbness, Reports stiffness and Denies tingling Skin/Breast Denies breast pain and Denies breast mass Neuro Denies abnormal gait, Denies dizziness, Denies frequent falls, Denies headache(s), Denies numbness and Denies tingling Psych Details: Currently being followed by Psychiatry and therapist regularly Reports no additional complaints Endo Denies fatigue and Denies palpitations Garry/Lymph Reports no additional complaints Aller/Immun Reports no additional complaints Physical exam (Primary Care) Vital Signs: Last Vital Signs Pulse 80 11/20/22 09:18 BP 102/64 11/20/22 09:18 Pulse Ox 98 11/20/22 09:18 BMI result Body Mass Index 26.7 Tobacco/Smoking Status: Tobacco use Status Tobacco use date assessed 08/06/22 11/20/22 09:20 Patient Tobacco Use Status Former Tobacco user 11/20/22 09:20 e-Cigarette/Vaping Use Never Used 11/20/22 09:20 Thrive Assessment: Date of Thrive Assessment Date Thrive assessed 06/30/22 11/20/22 09:20 Const Other: Alert oriented x3, no acute distress noted ambulatory with normal gait [facility] Mouth: Normal oral and palatal mucosa present and moist mucous membranes Eyes General: appearance normal, both eyes and all related structures Neck Neck: Yes full ROM, Yes no lymphadenopathy and Yes supple Chest Chest palpation & inspection: normal inspection of the chest Breast/axilla palpation: normal palpation of the breasts Resp Auscultation: clear to auscultation bilaterally Cardio Other: S1-S2 present regular rate and rhythm GI Palpation (GI): Soft to palpation, nontender and no guarding General: Yes no CVA tenderness Back/Spine/Pelvis Back: no CVA tenderness and No back tenderness Skin General skin exam: no rashes or lesions noted Neuro General: gait normal, moves all extremities, Normal light touch and pain sensation, no focal motor deficits and CN's II-XI intact bilaterally Extrem Other: Bunion right big toe General: Yes full ROM, Yes no pedal edema, Yes no calf tenderness and Yes normal gait Psych Appearance: grossly normal and well kempt Mental Status: mental status grossly normal Speech and movement: Normal speech and movement present Affect: normal affect Attitude: cooperative Thought process: Normal thought process present Thought content: Normal thought content present Results AMB Urinalysis, Automated UA Leukoctes 125 Arnol/uL Last Edit by Shoaib Ojeda CMA on 11/20/22 09:4 2 UA Nitrite Positive Last Edit by Shoaib Ojeda CMA on 11/20/22 09:42 UA Urobilinogen 0.2 mg/dL Last Edit by Shoaib Ojeda CMA on 11/20/22 09 :42 UA Protein 30 mg/dL Last Edit by Shoaib Ojeda CMA on 11/20/22 09:42 UA pH 6.0 Last Edit by Shoaib Ojeda CMA on 11/20/22 09:42 UA Blood 10 Joshua/uL Last Edit by Shoaib Ojeda CMA on 11/20/22 09:42 UA Specific Tyner 1.030 Last Edit by Shoaib Ojeda CMA on 11/20/22 09:42 UA Ketone Negative Last Edit by Shoaib Ojeda CMA on 11/20/22 09:42 UA Bilirubin 1 mg/dL Last Edit by Shoaib Ojeda CMA on 11/20/22 09:42 UA Glucose 0 mg/dL Last Edit by Shoaib Ojeda CMA on 11/20/22 09:42 Results Reviewed Results Reviewed: Laboratory Last Values Urine pH (Auto) 6.0 11/20/22 09:41 Specific Tyner (Auto) 1.030 11/20/22 09:41 Urine Protein (Auto) 30 mg/dL 11/20/22 09:41 Glucose (UA)(Auto) 0 mg/dL 11/20/22 09:41 Urine Ketones (Auto) Negative 11/20/22 09:41 Urine Blood (Auto) 10 Joshua/uL 11/20/22 09:41 Urine Nitrite (Auto) Positive 11/20/22 09:41 Urine Bilirubin (Auto) 1 mg/dL 11/20/22 09:41 Urine Urobilinogen (Auto) 0.2 mg/dL 11/20/22 09:41 Leukocyte Esterase (Auto) 125 Arnol/uL 11/20/22 09:41 ENTERED: 10/23/22-1516 HR AGUILAR: ORDERED: BMP Test Result Flag Reference Site Sodium 139 135-145 mmol/L Potassium 4.0 3.3-5.1 mmol/L CL 108 96-108 mmol/L CO2 23 22-29 mmol/L Gap 12 12-20 BUN 19 H 9-16 mg/dL Creat 1.20 0.5-1.4 mg/dL EGFR 49 NOTE: For -Citizen Of [place] individuals, multiply the result by 1.210. Chronic Kidney Disease: Estimated GFR < 60 mL/min/1.73m2 Severe Kidney Disease: Estimated GFR < 15 mL/m in/1.73m2 Glucose, Random 192 H 60-115 mg/dL CA 8.8 8.4-10.2 mg/dL ORDERED: CMP Fast, Lipid Panel, Vitamin D 25-OH Test Result Flag Reference Site Sodium 140 135-145 mmol/L Potassium 4.1 3.3-5.1 mmol/L CL 108 96-108 mmol/L CO2 28 22-29 mmol/L Gap 8 L 12-20 BUN 17 H 9-16 mg/dL Creat 1.11 0.5-1.4 mg/dL EGFR 54 NOTE: For -Citizen Of [place] individuals, multiply the result by 1.210. Chronic Kidney Disease: Estimated GFR < 60 mL/min/1.73m2 Severe Kidney Disease: Estimated GFR < 15 mL/min/1.73m2 FBS 183 H 60-99 mg/dL A fasting glucose of 126 mg/dl or greater on more than one occasion is considered diagnostic of diabetes. CA 9.0 8.4-10.2 mg/dL Total Bili 0.5 0.0-1.0 mg/dL AST (GOT) 13 5-31 U/L ALT (GPT) 10 0-31 U/L Protein, Total 6.8 6.5-8.0 g/dL Alb 4.1 3.5-5.0 g/dL Triglyceride 41 mg/dL Desirable Triglyceride: less than 150 mg/dL Borderline High Triglyceride 150-199 mg/dL High Triglyceride: 200-499 mg/dL Very High Triglyceride: greater than or equal to 5OO mg/dL Chol 89 mg/dL Desirable Cholesterol: less than 200 mg/dL Borderline High Cholesterol: 200-239 mg/dL High Cholesterol: greater than 239 mg/dL LDL Calculated 52 mg/dl Desirable LDL: less than 100 mg/dL Near Optimal/Above Optimal LDL: 110-129 mg/dL Borderline High LDL: 130-159 mg/dL High LDL: 160-189 mg/dL Very High LDL: greater than or equal to 190 mg/dL HDL 29 mg/dL Desirable HDL: greater than 40 mg/dL Note: This HDL assay may give artificially low results in patients with liver disease. Alk Phos 107 39-117 U/L Vit D 25-OH Tot 42.1 >30 ng/mL Health Based Reference Values* < 20 ng/mL Deficient 20-30 ng/mL Insufficient > 30 ng/mL Sufficient Laboratory Tests 08/06/22 10/07/22 12:51 09:01 Glucose (Clinic) 95 Hgb A1c (Clinic) 7.5 H Assessment and Plan Assessment & Plan (1) Annual visit for general adult medical examination with abnormal findings: Code(s): Z00.01 - Encounter for general adult medical examination with abnormal findings Plan: Reviewed recent fasting labs with patient. Recommended dental visit every 6 months and currently being seen by her eye doctor, who has referred her to [facility] for further evaluation. Take adequate calcium in diet and vitamin-D 3 at 2000 IU per cap once a day, in addition to weight-bearing exercises to help maintain good muscle tone and weight control. Instructed to do self-breast exam, and continue to get yearly mammogram, due again in February 2023. Reminded to get her COVID booster and yearly flu vaccine, up-to-date with Tdap and pneumococcal vaccination. (2) UTI (urinary tract infection): Code(s): N39.0 - Urinary tract infection, site not specified Qualifiers: Urinary tract infection type: acute cystitis Hematuria presence: with hematuria Qualified Code(s): N30.01 - Acute cystitis with hematuria Plan: Started on nitrofurantoin 100 mg per capsule to take 1 every 12 hours for 10 day s. Urine culture sent (3) ASCUS with positive high risk HPV cervical: Code(s): R87.610 - Atypical squamous cells of undetermined significance on cytologic smear of cervix (ASC-US); R87.810 - Cervical high risk human papillomavirus (HPV) DNA test positive Plan: Followed by Dr. Wen (4) Diabetes type 1, uncontrolled: Code(s): E10.65 - Type 1 diabetes mellitus with hyperglycemia Qualifiers: Glycemic state: with hyperglycemia Qualified Code(s): E10.65 - Type 1 diabetes mellitus with hyperglycemia Plan: Followed by Dr. Eaton, currently on insulin pump, up-to-date with her diabetes retinopathy screening, has been referred to [facility] for further evaluation by her eye doctor, up-to-date with her pneumococcal vaccination, reminded to get her COVID booster and her yearly flu vaccine. (5) Irritable bowel syndrome with both constipation and diarrhea: Code(s): K58.2 - Mixed irritable bowel syndrome Plan: Followed by GI clinic, currently on simethicone (6) GERD (gastroesophageal reflux disease): Code(s): K21.9 - Gastro-esophageal reflux disease without esophagitis Qualifiers: Esophagitis presence: without esophagitis Qualified Code(s): K21.9 - Gastro-esophageal reflux disease without esophagitis Plan: Followed by GI, currently on omeprazole (7) Dyslipidemia: Code(s): E78.5 - Hyperlipidemia, unspecified Plan: Reviewed recent fasting lipid profile with patient with levels within normal . Continue with atorvastatin , in addition to adherence to low-cholesterol diet and regular exercise, at least 30 minutes 3 to 4 times a week. Advised patient to make healthy food choices, eat more fruits, vegetables, whole grains, wild caught fish and low-fat dairy. Limit amount of meat and fried or fatty food products, as well as processed foods and fast foods. Orders: Orders AMB Urinalysis Automated 11/20/22 Z13.9 - Encounter for screening, unspecified Urine Culture 11/20/22 N39.0 - Urinary tract infection, site not specified Medications: New nitrofurantoin monohyd/m-cryst 100 mg must administer with a meal/food 100 mg PO Q12H 20 caps 0RF 10 days Coding Level of Care Code Est Pt Prev Care 40-64y(78369) Diagnoses Annual visit for general adult medical examination with abnormal findings Z00.01 Acute cystitis with hematuria N30.01 Urinary tract infection type: acute cystitis Hematuria presence: with hematuria ASCUS with positive high risk HPV cervical R87.610; R87.810 Uncontrolled type 1 diabetes mellitus with hyperglycemia E10.65 Glycemic state: with hyperglycemia Irritable bowel syndrome with both constipation and diarrhea K58.2 Gastroesophageal reflux disease without esophagitis K21.9 Esophagitis presence: without esophagitis Dyslipidemia E78.5
[2022-11-20 09:18] VITALS: BP 102/64; PULSE 80; O2SAT 98; BMI 26.7
== END 2022-11-20 10:38 | disposition home or self-care (01) ==
PROVIDERS: PCP Internal Medicine; Visit Provider Internal Medicine
DX: Z00.00 Encounter for general adult medical examination without abnormal findings (principal); E10.65 Type 1 diabetes mellitus with hyperglycemia; R87.610 Atypical squamous cells of undetermined significance on cytologic smear of cervix (ASC-US); R87.810 Cervical high risk human papillomavirus (HPV) DNA test positive; N30.01 Acute cystitis with hematuria; K58.2 Mixed irritable bowel syndrome; K21.9 Gastro-esophageal reflux disease without esophagitis; E78.5 Hyperlipidemia, unspecified
CPT/HCPCS: 81003; 99396

== ENCOUNTER 2022-11-20 10:28 | Outpatient (REF) | payer MEDICARE, MEDICAID, SELFPAY | END 2022-11-20 10:29 | disposition home or self-care (01) | LOC: HO.LAB 10:28 | PROVIDERS: Visit Provider Internal Medicine | DX: Z13.89 Encounter for screening for other disorder (principal) | CPT/HCPCS: 87086 ==

== ENCOUNTER 2022-11-26 09:12 | Outpatient (AMB) | payer MEDICARE, MEDICAID, SELFPAY ==
--- NOTE | 2022-11-26 10:05 | A.OFFVIS_ITS ---
Intake Intake Visit Reasons: dm/CONFIRM Divorce Lawyer Required: No Allergies oxycodone [Percocet] Adverse Reaction (Unknown, Verified 11/26/22 10:32) chills HPI Comprehensive Diabetes Asmnt Most Recent Diabetes Results: Creatinine 1.20 mg/dL (0.5-1.4) 10/23/22 Blood Urea Nitrogen 19 mg/dL (9-16) H 10/23/22 Sodium 139 mmol/L (135-145) 10/23/22 Potassium 4.0 mmol/L (3.3-5.1) 10/23/22 Chloride 108 mmol/L (96-108) 10/23/22 Carbon Dioxide 23 mmol/L (22-29) 10/23/22 Calcium 8.8 mg/dL (8.4-10.2) 10/23/22 [facility] Medical History (Updated 11/26/22 @ 11:30 by GABRIEL Pond) Abnormal Pap smear of cervix Amenorrhea Depression Diabetes type 1, uncontrolled Diabetic nephropathy associated with type 1 diabetes mellitus Dyslipidemia Fibroids Goiter HLD (hyperlipidemia) Hypertension Hypogonadotropic hypogonadism Intermittent claudication Nausea and vomiting Oral phase dysphagia Premature ovarian failure Sinus tachycardia Sleep behavior disorder, REM UTI (urinary tract infection) Vitamin D deficiency Surgical History Hx of esophagogastroduodenoscopy Hx of tubal ligation S/P bunionectomy S/P cataract surgery Family History Father No problems noted. Mother Hypertension Social History Household Members: Children Household Members Other:: 2 children Housing: Apartment Alcohol intake: current Alcohol intake frequency: does not drink Patient Tobacco Use Status: Former Tobacco user Quit Date: 2018 e-Cigarette/Vaping Use: Never Used service: No Current occupational status: unemployed Cognitive needs: No Hearing needs: No Vision needs: No Female Reproductive History Menstrual Age of Menarche: 13 Assessment & Plan Assessment & Plan (1) Diabetes type 1, uncontrolled: Code(s): E10.65 - Type 1 diabetes mellitus with hyperglycemia Qualifiers: Glycemic state: with hyperglycemia Qualified Code(s): E10.65 - Type 1 diabetes mellitus with hyperglycemia Plan: Patient presents for pump training for Ashley [place] with control IQ and Dexcom G6 The following topics were reviewed today: - Inserting infusion set or Pod site rotation - extended bolus, manual corrections ?Sensor setting (if applicable) CGM settings ??? High Alert:? 180 mg/dl ??? Low Alert:? 80? mg/dl Patient above target 40% Patient at target 59% Patient below target 1% ?Average glucose for the last 2 weeks is 176 mg/dL Patient continues to have hyperglycemia overnight, this is contributed to alistair ent eating overnight and not bolusing. This has been a result medication that she takes for sleep Safety information Patient understands the basic concepts of pump therapy, how to give insulin for meals and snacks, how to troubleshoot for hyper and hypoglycemia. Setting verified by CDCES,?no changes made to pump settings at today's visit Basal rate(s) (units/hour) : 12 AM to 12 1.1 units / hr New 12 AM to 4 AM 1.5 units/hr New 4 AM to 8 AM 1.3 units/hr 8 AM to 4 PM ? 0.7 units / hr 4 PM? to 8 PM? 1.5 units / hr 8 PM to 9 PM 1.3 units / hr 9 PM to 12 AM 1.5 units / hr?? Bolus setting Insulin Carbohydrate Ratio (s) 12 AM to 4 AM 1:13 4 AM to 4 PM 1:12 4 PM to 8PM 1:12 8 PM to 9 PM 1:13 9 PM to 12 AM 1:14 Correction Factor / Sensitivity Factor 12 AM to 8 AM 1:50 8 AM to 12 AM 1:40 Active Insulin Time:? 5 hours Target(s): 12 AM to 12 AM 110 mg/dL Coding Level of Care Code Est Pt Level 1 (79809) Diagnoses Diabetes type 1, uncontrolled E10.65 Glycemic state: with hyperglycemia
== END 2022-11-26 10:09 | disposition home or self-care (01) ==
PROVIDERS: PCP Internal Medicine; Visit Provider Registered Nurse Diabetes Educator
DX: E10.65 Type 1 diabetes mellitus with hyperglycemia (principal)

== ENCOUNTER → 2022-11-26 09:12 | Outpatient (BNVA) | payer MEDICARE, MEDICAID, SELFPAY | PROVIDERS: PCP Internal Medicine; Visit Provider Registered Nurse Diabetes Educator | DX: R13.10 Dysphagia, unspecified (principal); K58.2 Mixed irritable bowel syndrome; K21.9 Gastro-esophageal reflux disease without esophagitis; Z79.899 Other long term (current) drug therapy; Z46.81 Encounter for fitting and adjustment of insulin pump; E10.65 Type 1 diabetes mellitus with hyperglycemia | CPT/HCPCS: 99211; 99212 ==

== ENCOUNTER 2022-11-26 10:13 | Outpatient (AMB) | payer MEDICARE, MEDICAID, SELFPAY ==
[2022-11-26 10:29] VITALS: BP 116/73; PULSE 84; BMI 27.0
--- NOTE | 2022-11-26 10:29 | MHC.OFFVIS ---
Intake Vital Signs 11/26/22 10:29 Height 5 ft 2 in Weight 147 lb 11.355 oz BMI 27.0 BP 116/73 Blood Pressure Location Rt brachial Position Sitting Pulse 84 Intake Visit Reasons: Follow up dysphagia last seen 05/2021 Intake Note: Patient returns to in office visit today in follow up of dysphagia. CC: chocking with solids and liquids, and constipation. She reports she continues to have same symptoms as last time she came last year. Allergies oxycodone [Percocet] Adverse Reaction (Unknown, Verified 12/04/22 08:28) chills HPI Follow up dysphagia last seen 05/2021 HPI Details Assessment & Plan (1) Esophageal dysphagia: ?Code(s): R13.10 - Dysphagia, unspecified ?Plan: She tells me that her swallowing is worse and now in the oral phase, and liquids will no pass past the glottis.? The temperature of the liquid does not seem to matter nor the type.? She also has a problem with very dry food, if it touches the back of her throat she will not be able to stop coughing. She will have pain in the frontal sinuses at times when she breaths, this seems to morph into a severe DA SILVA be joselin her eyes and goes to the back of her neck. Her nausea persists, and we discussed possible abdominal variant migraines. She was given a nasal spray for this but its nasty. She also says she was given little red pills which sounds like they may be Sudafed. I will increase her omeprazole to 40mg bid to see if this has any impact. she is not experiencing outright HB. She si doing well with the CIC and the senna, colace and simethicone continue to be helpful. I will get a modified barium swallow with speech therap to see if there is any neural coordination problems.? She has had a problem with esophageal spasm that has not resolved well with hyoscyamine or dicyclomine and she is already on a calcium channel diana for her cardiomyopathy.? ROV after barium swallow. (2) GERD (gastroesophageal reflux disease): ?Code(s): K21.9 - Gastro-esophageal reflux disease without esophagitis ?Qualifiers: ?Esophagitis presence:?without esophagitis? Qualified Code(s):?K21.9 - Gastro-esophageal reflux disease without esophagitis (3) Irritable bowel syndrome with both constipation and diarrhea: ?Code(s): K58.2 - Mixed irritable bowel syndrome (4) Nausea: ?Comment: She tells me that her nausea continues intermittently and as always, is accompanied by headache.? The nausea seems to happen before the headache rather than vice versa.? She did see Neurology and they put her on a nasal spray for allergies.? When she follows up with them I asked her to ask them about the possibility of abdominal migraines since she has had a pretty thorough GI workup without any distinct cause being found. aeb ?Code(s): R11.0 - Nausea (5) Oral phase dysphagia: ?Comment: Worse with liquids ?Code(s): R13.11 - Dysphagia, oral phase ?Plan: She tells me that her swallowing is worse and now in maritza oral phase, and liquids will no pass past the glottis. She also has a problem with very dry food, if it touches the back of her throat she will not be able to stop coughing. She will have pain int he frontal sinuses at times when she breaths, this seems to morph into a severe DA SILVA be joselin her eyes and goes to the back of her neck. Her nausea persists, and we discussed possible abdominal variant migraines. She was given a nasal spray forthis but its nasty. I will increase her o2o to 40mg bid to see if this has any impact. she is not experiencing outright HB. She si doing well with the CIC and the senna, colace and simethicone continue to be helpful. I will get a modified barium swallow to see if there is any neuro coordination problems with speech therapy. ROV after barium swallow ? ? ? Orders: Orders FL barium swallow modified Today R13.11 - Dysphagia , oral phase ? Medications: Changed From omeprazole 40 mg? PO DAILY 90 caps 0RF K21.9 - Gastro-eso phageal reflux dis ease without esoph agitis ? To omeprazole 40 mg? PO BID 180 caps 6RF K21.9 - Gastro-eso phageal reflux dis ease without esoph agitis ? Refilled docusate sodium 100 mg? PO DAILY 3 0 caps 6RF K58.2 - Mixed irri table bowel syndro me ? Discontinued dicyclomine ?? Dis continued Reason:? Doctor's Order 20 mg? PO BID 180 tabs 0RF K58.2 - Mixed irri table bowel syndro me ? BARIUM SWALLOW MODIFIED??06/06/22? FINDINGS: On oral administration of various consistencies of barium under lateral fluoroscopy there is normal propagation of bolus from the oral cavity through the pharynx into esophagus without obstruction or narrowing. No retention of barium in the valleculae or piriform sinuses. No laryngeal penetration or aspiration.? FLUOROSCOPY TIME: 2.0 minutes DOSE AREA PRODUCT: 1.688 uGy-m2 (microgray-meter squared) FL/FL barium swallow modified IMPRESSION: 1.? Unremarkable modified barium swallow exam. ? 2.? Correlate with speech therapy results. ? SPEECH PATHOLOGY REPORT Liquid Intake Recommendation: Thin Liquid Intake Strategies:?Small Sips, Double Swallow Dietary Recommendations:?Regular Medication Administration:?Whole with Liquid?Please contact the pharmacy regarding appropriate crushable or liquid drug formulations that are available whenever modified delivery is recommended. Compensatory Strategies Recommended:?Sitting Upright (90 deg), Double Swallow, Small Bites and Sips, Alternate Liquids/Solids, Rate of Ingestion Change Supervision during eating and or drinking:?None Needed Recommendation for Speech Therapy:?NA:Typical Evaluation ?PLAN: Intake Recommendations: Route: PO Diet Grade: Regular Liquid Consistencies: Thin Post-Study Functional Oral Intake Scale (FOIS): 7- Total oral intake with no restrictions This exam revealed mild oropharyngeal phase dysphagia, characterized by mildly prolonged oral preparatory phase and mild oral and pharyngeal residuals, which could be possibly contributing to pt?s complaints of feeling globus sensation. Pt was able to reduce pharyngeal retention with multiple dry swallows and sips of liquid. No evidence of aspiration or penetration during this exam. After the exam, MOID MIDDLE SCHOOL TEACHER discussed with pt recommended compensatory strategies to promote oral and pharyngeal clearance: -Take small bites of food, chew well -Moisten food with sauces and gravies, ensuring sauces are mixed and blended in well with food -Avoid sticky textures and dry foods -Follow each bite with additional dry swallows -Alternate bites of food with sips of liquid -Maintain upright 90 degree position while eating and drinking Further ST intervention is not indicated at this time. Recommend pt to follow-up with [facility]. Recommend pt to continue monitoring her dysphagia. If there are any changes or worsening of symptoms, consult with hospitalist or PCP, at which point a re-evaluation may be indicated. Therapy Recommendations: Therapy will be discontinued Prognosis for Improvement: The prognosis for the patient to meet nutritional needs by mouth is excellent based on degree of impairment. TODAY'S VISIT Today with all of her studies no cause has been found for her swallowing issues, but swallowing continues to be bad with dry or powdery foods and she has to eat very slowly.. Will refer to ENT since her problems are all in the oropharyngeal area. She continues on omeprazole bid, creon, senna, simethicone and coalce with good control. Increasing omeprazole did not effect dysphagia. Cardizem also did not help; will stop this too. ROV 6 mos. [facility] Medical History (Updated 11/26/22 @ 11:30 by GABRIEL Pond) UTI (urinary tract infection) Abnormal Pap smear of cervix Intermittent claudication Sleep behavior disorder, REM Oral phase dysphagia Fibroids Goiter HLD (hyperlipidemia) Hypogonadotropic hypogonadism Premature ovarian failure Sinus tachycardia Nausea and vomiting Amenorrhea Depression Vitamin D deficiency Dyslipidemia Diabetic nephropathy associated with type 1 diabetes mellitus Diabetes type 1, uncontrolled Hypertension Surgical History S/P bunionectomy S/P cataract surgery Hx of esophagogastroduodenoscopy Hx of tubal ligation Family History Father No problems noted. Mother Hypertension Social History Household Members: Children Household Members Other:: 2 children Housing: Apartment Alcohol intake: current Alcohol intake frequency: does not drink Patient Tobacco Use Status: Former Tobacco user Quit Date: 2018 e-Cigarette/Vaping Use: Never Used service: No Current occupational status: unemployed Cognitive needs: No Hearing needs: No Vision needs: No Female Reproductive History Menstrual Age of Menarche: 13 Review of Systems Const Denies fatigue, Denies fever(s), Denies night sweats, Denies poor appetite and Denies weight loss ENT Reports Normal hearing present, Denies dental pain, Reports dysphagia, Denies hearing loss, Denies mouth pain, Denies odynophagia, Denies throat swelling, Denies tongue swelling and Reports other (Dentition adequate) Card Reports no additional complaints Resp Reports no additional complaints GI Denies abdominal pain, Denies melena, Denies bloating, Denies hematochezia, Reports constipation, Denies GI cramping, Reports dysphagia, Denies excessive flatus, Denies early satiety, Reports heartburn, Reports diarrhea, Denies nausea, Denies odynophagia, Denies vomiting and Denies hematemesis Skin/Breast Denies pruritus, Denies lesions, Denies rash and Denies jaundice Neuro Reports Normal hearing present and Denies Abnormal speech present Endo Denies fatigue Aller/Immun Denies throat swelling and Denies tongue swelling Physical Exam Vital Signs: Last Vital Signs Pulse 84 11/26/22 10:29 BP 116/73 11/26/22 10:29 BMI result Body Mass Index 27.0 Const General: cooperative, no acute distress, well developed and well groomed Nutritional Appearance: average body habitus and well nourished Orientation/consciousness: oriented to person, oriented to place and oriented to time Limitations: language barrier HEENT Head: Yes normocephalic and Yes atraumatic Eyes General: appearance normal, both eyes and all related structures Pupils: Equal, round and reactive pupils present Neck Neck: Yes normal visual inspection and Yes no lymphadenopathy Thyroid: Thyroid normal Resp Effort & Inspection: normal respiratory effort and able to speak in complete sentences Auscultation: clear to auscultation bilaterally Cardio Rate: regular rate Rhythm: regular rhythm Heart sounds: Normal, physiologic split S2 sound present Peripheral pulses: radial pulses present and posterior tibial pulses present GI Inspection: No distended and No Abdominal panniculus present Palpation (GI): Soft to palpation, nontender, no guarding, not rigid and No hepatosplenomegaly present Percussion: Yes normal to percussion Auscultation: normal bowel sounds Rectal Exam - Female: deferred Skin General skin exam: no rashes or lesions noted, turgor normal, skin not dry, no jaundice, No spider nevi and no striae Rashes: no rashes Nails: normal Neuro General: oriented to person, oriented to place and oriented to time Cranial nerves: Yes Equal, round and reactive pupils present and Yes Normal hearing present Speech: No Abnormal speech present Extrem General: Yes normal to inspection, No clubbing, No cyanosis and No edema Psych Appearance: grossly normal and well kempt Mental Status: mental status grossly normal Speech and movement: Normal speech and movement present Affect: normal affect Attitude: cooperative Thought process: Normal thought process present and not confabulating Thought content: Normal thought content present Insight: Limited insight present (Psych) Judgement: Limited judgement present (Psych) Results Reviewed Results Reviewed: BARIUM SWALLOW MODIFIED??06/06/22? FINDINGS: On oral administration of various consistencies of barium under lateral fluoroscopy there is normal propagation of bolus from the oral cavity through the pharynx into esophagus without obstruction or narrowing. No retention of barium in the valleculae or piriform sinuses. No laryngeal penetration or aspiration.? FLUOROSCOPY TIME: 2.0 minutes DOSE AREA PRODUCT: 1.688 uGy-m2 (microgray-meter squared) FL/FL barium swallow modified IMPRESSION: 1.? Unremarkable modified barium swallow exam. ? 2.? Correlate with speech therapy results. ? SPEECH PATHOLOGY REPORT Liquid Intake Recommendation: Thin Liquid Intake Strategies:?Small Sips, Double Swallow Dietary Recommendations:?Regular Medication Administration:?Whole with Liquid?Please contact the pharmacy regarding appropriate crushable or liquid drug formulations that are available whenever modified delivery is recommended. Compensatory Strategies Recommended:?Sitting Upright (90 deg), Double Swallow, Small Bites and Sips, Alternate Liquids/Solids, Rate of Ingestion Change Supervision during eating and or drinking:?None Needed Recommendation for Speech Therapy:?NA:Typical Evaluation ?PLAN: Intake Recommendations: Route: PO Diet Grade: Regular Liquid Consistencies: Thin Post-Study Functional Oral Intake Scale (FOIS): 7- Total oral intake with no restrictions This exam revealed mild oropharyngeal phase dysphagia, characterized by mildly prolonged oral preparatory phase and mild oral and pharyngeal residuals, which could be possibly contributing to pt?s complaints of feeling globus sensation. Pt was able to reduce pharyngeal retention with multiple dry swallows and sips of liquid. No evidence of aspiration or penetration during this exam. After the exam, [employer]ER discussed with pt recommended compensatory strategies to promote oral and pharyngeal clearance: -Take small bites of food, chew well -Moisten food with sauces and gravies, ensuring sauces are mixed and blended in well with food -Avoid sticky textures and dry foods -Follow each bite with additional dry swallows -Alternate bites of food with sips of liquid -Maintain upright 90 degree position while eating and drinking Further ST intervention is not indicated at this time. Recommend pt to follow-up with [facility]. Recommend pt to continue monitoring her dysphagia. If there are any changes or worsening of symptoms, consult with hospitalist or PCP, at which point a re-evaluation may be indicated. Therapy Recommendations: Therapy will be discontinued Prognosis for Improvement: The prognosis for the patient to meet nutritional needs by mouth is excellent based on degree of impairment. Assessment & Plan Assessment & Plan (1) Oral phase dysphagia: Comment: Worse with liquids Code(s): R13.11 - Dysphagia, oral phase Plan: Today with all of her studies no cause has been found for her swallowing issues, but swallowing continues to be bad with dry or powdery foods and she has to eat very slowly.. Will refer to ENT since her problems are all in the oropharyngeal area. She continues on omeprazole bid, creon, senna, simethicone and coalce with good control. Increasing omeprazole did not effect dysphagia. Cardizem also did not help; will stop this too. ROV 6 mos. (2) Irritable bowel syndrome with both constipation and diarrhea: Code(s): K58.2 - Mixed irritable bowel syndrome (3) GERD (gastroesophageal reflux disease): Code(s): K21.9 - Gastro-esophageal reflux disease without esophagitis Qualifiers: Esophagitis presence: without esophagitis Qualified Code(s): K21.9 - Gastro-esophageal reflux disease without esophagitis Orders: Referrals Ear/Nose/Throat Referral R13.11 - Dysphagia, oral phase Medications: Refilled docusate sodium 100 mg PO DAILY 30 caps 6RF K58.2 - Mixed irritable bowel syndrome simethicone (Gas Relief (simethicone)) 180 mg PO .Q.i.d. PRN 90 caps 6RF abdominal distention R14.0 - Abdominal distension (gaseous) omeprazole 40 mg PO BID 180 caps 6RF K21.9 - Gastro-esophageal reflux disease without esophagitis [id number]-[id number]-nubraje 3,000-9,500- 15,000 unit (Creon) 1 cap PO QID 140 caps 6RF 30 days K21.9 - Gastro-esophageal reflux disease without esophagitis, R11.2 - Nausea with vomiting, unspecified, K58.2 - Mixed irritable bowel syndrome sennosides (Senna Laxative) 17.2 mg (2 x 8.6 mg) PO BEDTIME 60 tabs 6RF K58.2 - Mixed irritable bowel syndrome Discontinued diltiazem HCl Discontinued Reason: Doctor's Order 120 mg PO BEDTIME 90 caps 2RF R13.10 - Dysphagia, unspecified Coding Level of Care Code Est Pt Level 3 (94242) Diagnoses Oral phase dysphagia R13.11 Irritable bowel syndrome with both constipation and diarrhea K58.2 Gastroesophageal reflux disease without esophagitis K21.9 Esophagitis presence: without esophagitis
== END 2022-11-26 11:42 | disposition home or self-care (01) ==
PROVIDERS: PCP Internal Medicine; Visit Provider Nurse Practitioner
DX: R13.11 Dysphagia, oral phase (principal); K58.2 Mixed irritable bowel syndrome; K21.9 Gastro-esophageal reflux disease without esophagitis
CPT/HCPCS: 99213

== ENCOUNTER 2022-12-04 07:40 | Outpatient (AMB) | payer MEDICARE, MEDICAID, SELFPAY ==
--- NOTE | 2022-12-04 08:26 | MHC.OFFVIS ---
Intake Vital Signs 12/04/22 08:28 Height 5 ft 2 in Weight 149 lb 0.52 oz BMI 27.3 BP 120/72 Blood Pressure Location Lt brachial Position Sitting Pulse 88 Intake Visit Reasons: 1 year follow up, after echo Intake Note: 1 year follow up Analysis Consultant Required: No Accompanied by: Self / Same As Patient Allergies oxycodone [Percocet] Adverse Reaction (Unknown, Verified 12/04/22 08:28) chills Medication List - Last Reconciled 12/04/22 by Donovan Barone MD amitriptyline 150 mg PO BEDTIME atorvastatin 20 mg PO BEDTIME blood sugar diagnostic (Freestyle InsuLinx Test Strips) 4x daily cetirizine 10 mg PO DAILY PRN cholecalciferol (vitamin D3) 50 mcg PO DAILY 30 days docusate sodium 100 mg PO DAILY fluticasone propionate 50 mcg/actuation (Allergy Relief (fluticasone)) 1 spray intranasal DAILY glucagon 3 mg/actuation (Baqsimi) 3 mg intranasal ONCE Humalog U-100 Insulin (insulin lispro) Up to 130 units per day via insulin pump subcutaneously subcutaneously; NS lancing device with lancets (Accu-Chek Multiclix Lancet kit) As directed checks 6X/day [id number]-[id number]-[id number] 3,000-9,500- 15,000 unit (Creon) 1 cap PO QID 30 days losartan 25 mg PO DAILY megestrol 40 mg PO DAILY methylcellulose (laxative) (Citrucel) 500 mg PO BID metoprolol succinate ER 50 mg PO DAILY omeprazole 40 mg PO BID sennosides (Senna Laxative) 17.2 mg (2 x 8.6 mg) PO BEDTIME simethicone (Gas Relief (simethicone)) 180 mg PO .Q.i.d. PRN sulfamethoxazole-trimethoprim 800-160 mg (Bactrim DS) 1 tab PO Q12H 7 days HPI HPI Comments History of Present Illness Details Renae returns for follow up regarding mild cardiomyopathy and sinus tachycardia. To recall, she has type 1 diabetes since age of 24. She was complaining of palpitations and Holter showed sinus tachycardia. Then started beta blockers and felt better. More recently, she was apparently having dizziness and after that, her paring machine operator cut back on the beta-diana dosing. She really does not have any clear-cut cardiac symptoms like angina or shortness of breath. Some sensations of heart pounding when she is active which may indicate sinus tachycardia but otherwise she feels fine. [facility] Medical History (Updated 11/26/22 @ 11:30 by GABRIEL Pond) UTI (urinary tract infection) Abnormal Pap smear of cervix Intermittent claudication Sleep behavior disorder, REM Oral phase dysphagia Fibroids Goiter HLD (hyperlipidemia) Hypogonadotropic hypogonadism Premature ovarian failure Sinus tachycardia Nausea and vomiting Amenorrhea Depression Vitamin D deficiency Dyslipidemia Diabetic nephropathy associated with type 1 diabetes mellitus Diabetes type 1, uncontrolled Hypertension Surgical History S/P bunionectomy S/P cataract surgery Hx of esophagogastroduodenoscopy Hx of tubal ligation Family History Father No problems noted. Mother Hypertension Social History Household Members: Children Household Members Other:: 2 children Housing: Apartment Alcohol intake: current Alcohol intake frequency: does not drink Patient Tobacco Use Status: Former Tobacco user Quit Date: 2018 e-Cigarette/Vaping Use: Never Used service: No Current occupational status: unemployed Cognitive needs: No Hearing needs: No Vision needs: No Female Reproductive History Menstrual Age of Menarche: 13 Review of Systems Const Denies weakness ENT Denies dizziness Card Denies chest pain, Denies chest pain with activity, Denies syncope, Denies rapid heart rate, Denies pedal edema, Denies edema, Denies leg edema, Denies lightheadedness, Denies palpitations, Denies dyspnea, Denies dyspnea on exertion and Denies orthopnea Resp Denies cough, Denies dyspnea and Denies dyspnea on exertion GI Denies hematochezia and Denies change in stool character Musc Denies abnormal gait, Denies muscle cramps, Denies muscle weakness, Denies numbness, Denies radiating pain into limb and Denies tingling Neuro Denies abnormal gait, Denies dizziness, Denies syncope, Denies numbness, Denies tingling and Denies weakness Endo Denies palpitations Physical Exam Vital Signs: Last Vital Signs Pulse 88 12/04/22 08:28 BP 120/72 12/04/22 08:28 BMI result Body Mass Index 27.3 Const General: comfortable and no acute distress Orientation/consciousness: patient oriented x3 HEENT Other: Unremarkable Head: Yes normal to inspection Neck Neck: Yes normal visual inspection Chest Chest palpation & inspection: normal inspection of the chest Resp Auscultation: clear to auscultation bilaterally Cardio Palpation: normal PMI Heart sounds: S1 normal heart sound present, S2 normal heart sound present, no gallops, no murmurs and no rubs GI Palpation (GI): Soft to palpation Back/Spine/Pelvis Other: unremarkable Skin General skin exam: no rashes or lesions noted Neuro General: patient oriented x3 Extrem General: Yes normal to inspection Psych Mental Status: mental status grossly normal Assessment & Plan Assessment & Plan (1) Diabetes type 1, uncontrolled: Code(s): E10.65 - Type 1 diabetes mellitus with hyperglycemia Qualifiers: Glycemic state: with hyperglycemia Qualified Code(s): E10.65 - Type 1 diabetes mellitus with hyperglycemia (2) NICM (nonischemic cardiomyopathy): Code(s): I42.8 - Other cardiomyopathies (3) Sinus tachycardia: Code(s): R00.0 - Tachycardia, unspecified Plan Cardiac studies reviewed. In the most recent echocardiogram, LVEF 50%. Prior to that, 45-50%. In the last Holter, she has sinus tachycardia greater than 50% the time. However no other arrhythmias. Based on the stress echocardiogram from 2020, there is no evidence of ischemic heart disease. Suspect some combination of autonomic dysfunction/inappropriate sinus tachycardia/deconditioning. Asymptomatic mild LV dysfunction based on echocardiograms. May remain on beta-blockers no changes. Per patient, dose has been cut back because of dizziness. No changes today. With regard to diabetes, hemoglobin A1c is 7.5%. Remains on insulin. Otherwise stable from cardiac. We will see in 1 year for follow-up. Total time spent including review of data, counseling, documentation, coordination of care-33 minutes. Coding Level of Care Code Est Pt Level 4 (25076) Diagnoses Uncontrolled type 1 diabetes mellitus with hyperglycemia E10.65 Glycemic state: with hyperglycemia NICM (nonischemic cardiomyopathy) I42.8 Sinus tachycardia R00.0
[2022-12-04 08:28] VITALS: BP 120/72; PULSE 88; BMI 27.3
== END 2022-12-04 08:39 | disposition home or self-care (01) ==
PROVIDERS: PCP Internal Medicine; Referring Provider Internal Medicine; Visit Provider Internal Medicine
DX: E10.65 Type 1 diabetes mellitus with hyperglycemia (principal); I42.8 Other cardiomyopathies; R00.0 Tachycardia, unspecified
CPT/HCPCS: 99214

== ENCOUNTER → 2022-12-04 07:40 | Outpatient (BNVA) | payer MEDICARE, MEDICAID, SELFPAY | PROVIDERS: PCP Internal Medicine; Referring Provider Internal Medicine; Visit Provider Internal Medicine | DX: I42.8 Other cardiomyopathies (principal); R00.0 Tachycardia, unspecified; E10.65 Type 1 diabetes mellitus with hyperglycemia | CPT/HCPCS: 99212 ==

== ENCOUNTER 2023-02-03 10:06 | Outpatient (AMB) | payer MEDICARE, MEDICAID, SELFPAY ==
--- NOTE | 2023-02-03 10:26 | MHC.OFFWIV ---
Intake Vital Signs 02/03/23 10:27 Height 5 ft 2 in Weight 145 lb 2 oz BMI 26.5 BP 108/62 Blood Pressure Location Rt brachial Position Sitting Pulse 90 Pulse Source Pulse Oximeter Temp 97.8 F Temp Source Temporal Artery Scan Pulse Oximetry (%) 97 Oxygen Delivery Method Room Air Intake Visit Reasons: EST/bad cough/headache/[phone] Intake Note: pt is here for c/o cough, headache since thursday Patient Tobacco Use Status: Former Tobacco user Quit Date: 2018 Allergies oxycodone [Percocet] Adverse Reaction (Unknown, Verified 02/03/23 10:58) chills Medication List - Last Reconciled 02/03/23 by Bk Drake MD amitriptyline 150 mg PO BEDTIME atorvastatin 20 mg PO BEDTIME blood sugar diagnostic (Freestyle InsuLinx Test Strips) 4x daily cetirizine 10 mg PO DAILY PRN cholecalciferol (vitamin D3) 50 mcg PO DAILY 30 days dicyclomine 20 mg PO QID 30 days docusate sodium 100 mg PO DAILY fluticasone propionate 50 mcg/actuation (Allergy Relief (fluticasone)) 1 spray intranasal DAILY glucagon 3 mg/actuation (Baqsimi) 3 mg intranasal ONCE Humalog U-100 Insulin (insulin lispro) Up to 130 units per day via insulin pump subcutaneously subcutaneously; NS lancing device with lancets (Accu-Chek Multiclix Lancet kit) As directed checks 6X/day lbxwts-bhjgviko-mdekpxl 3,000-9,500- 15,000 unit (Creon) 1 cap PO QID 30 days losartan 25 mg PO DAILY megestrol 40 mg PO DAILY methylcellulose (laxative) (Citrucel) 500 mg PO BID metoprolol succinate ER 50 mg PO DAILY omeprazole 40 mg PO BID sennosides (Senna Laxative) 17.2 mg (2 x 8.6 mg) PO BEDTIME simethicone (Gas Relief (simethicone)) 180 mg PO .Q.i.d. PRN Do you need a note to return to daycare/school/sports/work: Yes HPI EST/bad cough/headache/[phone] HPI Details Patient presents for a sick visit. Reporting symptoms of sinus congestion, sore throat and difficulty swallowing. Low-grade fever. No family member is sick. No recent travel. Patient reports symptoms of malaise and fatigue. [facility] Medical History UTI (urinary tract infection) Abnormal Pap smear of cervix Intermittent claudication Sleep behavior disorder, REM Oral phase dysphagia Fibroids Goiter HLD (hyperlipidemia) Hypogonadotropic hypogonadism Premature ovarian failure Sinus tachycardia Nausea and vomiting Amenorrhea Depression Vitamin D deficiency Dyslipidemia Diabetic nephropathy associated with type 1 diabetes mellitus Diabetes type 1, uncontrolled Hypertension Surgical History S/P bunionectomy S/P cataract surgery Hx of esophagogastroduodenoscopy Hx of tubal ligation Family History Father No problems noted. Mother Hypertension Social History Household Members: Children Household Members Other:: 2 children Housing: Apartment Alcohol intake: current Alcohol intake frequency: does not drink Patient Tobacco Use Status: Former Tobacco user Quit Date: 2018 e-Cigarette/Vaping Use: Never Used service: No Current occupational status: unemployed Cognitive needs: No Hearing needs: No Vision needs: No Female Reproductive History Menstrual Age of Menarche: 13 Physical Exam Vital Signs: Last Vital Signs Temp 97.8 F 02/03/23 10:27 Pulse 90 02/03/23 10:27 BP 108/62 02/03/23 10:27 Pulse Ox 97 02/03/23 10:27 Oxygen Delivery Method Room Air 02/03/23 10:27 BMI result Body Mass Index 26.5 Const General: cooperative and healthy appearing Nutritional Appearance: well nourished Orientation/consciousness: patient oriented x3 Limitations: no limitations HEENT Head: Yes normal to inspection Eyes General: appearance normal, both eyes and all related structures Neck Neck: Yes normal visual inspection Chest Chest palpation & inspection: normal palpation of entire chest wall Resp Effort & Inspection: normal respiratory effort Neuro General: patient oriented x3 Assessment & Plan Assessment & Plan (1) Upper respiratory tract infection: Code(s): J06.9 - Acute upper respiratory infection, unspecified Plan: Antibiotics ordered. Increase fluid intake. Tylenol for aches and pains. If symptoms worsen, follow-up here for a recheck. Coding Level of Care Code Est Pt Level 3 (00544) Diagnoses Upper respiratory tract infection J06.9
[2023-02-03 10:27] VITALS: BP 108/62; PULSE 90; TEMP 36.6; O2SAT 97; BMI 26.5
== END 2023-02-03 11:01 | disposition home or self-care (01) ==
PROVIDERS: PCP Internal Medicine; Visit Provider Internal Medicine
DX: J06.9 Acute upper respiratory infection, unspecified (principal)
CPT/HCPCS: 99213

== ENCOUNTER 2023-03-12 07:58 | Outpatient (AMB) | payer MEDICARE, MEDICAID, SELFPAY ==
[2023-03-12 08:10] VITALS: BP 100/68; PULSE 78; BMI 25.6
--- NOTE | 2023-03-12 08:10 | MHC.OFFVIS ---
Intake Vital Signs 03/12/23 08:10 Height 5 ft 2 in Weight 139 lb 15.896 oz BMI 25.6 BP 100/68 Blood Pressure Location Lt brachial Position Sitting Pulse 78 Pulse Source Pulse Oximeter Intake Visit Reasons: DM-CONFIRMED Intake Note: Patient presents today to follow up on DMT1. Patient receives DME and Pump supplies through [facility]. Last Diabetic Eye exam: approx June or July of 2022 Last Podiatry Visit: Does not see a Manager Bridge Random Glucose: 114 mg/dl HgA1C: 8.0% Magisterial District Judge Required: No Accompanied by: Self / Same As Patient Allergies oxycodone [Percocet] Adverse Reaction (Unknown, Verified 03/12/23 08:18) chills HPI HPI Comments History of Present Illness Details 42 YO F with PMHx T1DM who is seen in F/U for T1DM. Initially diagnosed with T1DM at the age of 24. Current regimen: Humalog via Tandem insulin pump. Pump/Sensor: Currently using the Tandem insulin pump with DEXCOM G6. Basal rate(s) (units/hour) : 12 AM to 12 1.1 units / hr New 12 AM to 4 AM 1.15 units/hr New 4 AM to 8 AM 1.13 units/hr 8 AM to 12 PM ? 1.15 units / hr 12 PM to 4 PM =1.12 4 PM? to 8 PM? 1.13 units / hr 8 PM to 9 PM 1.15 units / hr 9 PM to 12 AM 1.15 units / hr?? Bolus setting Insulin Carbohydrate Ratio (s) 12 AM to 4 AM 1:13 4 AM to 4 PM 1:13 4 PM to 8PM 1:13 8 PM to 9 PM 1:15 9 PM to 12 AM 1:15 Correction Factor / Sensitivity Factor 12 AM to 8 AM 1:50 8 AM to 12 AM 1:40 Active Insulin Time:? 5 hours Target(s): 12 AM to 12 AM 110 mg/dL Duration of insulin action: 5 hours Her average daily dose of insulin is 54.2 units/day, with 61% basal, and 39% bolus. Correction bolus is 98% and Control-IQ order bolus 0.5 % She changes her site every 4 days. She is using the Control IQ setting 95% of the time. 14 days of DEXCOM Data reviewed from 02/27/2023 to 03/12/2023 This reveals an average blood glucose of 205 ., GMI of 7.9 with a range of 53-hi-. She is at goal 40% of the time, above goal 60% of the time, and below goal 0% of the time. Pattern involves rising blood sugars overnight and after dinner Reports low sugars at 4 PM Treats lows with juice and fruit. Checks sugar after to ensure it is rising. Follows the rule of 15's. Does have eyes checked yearly, last eye exam 06/2022 , denies retinopathy Denies neuropathy. Has nephropathy, on Losartan 12.5 mg PO daily. No recent UAC on file. Has HLD, on Atorvastatin 20 mg PO daily. No recent LDL on file. Denies history of CAD. Had diabetes education. Diet/Carb counting: Does not count carbs accurately. had optho appt on 06/02/2022 Labs: Laboratory Tests 06/18/21 06/18/21 06/18/21 10:03 10:03 10:04 Creatinine 1.52 H Estimated GFR 38 Hemoglobin A1c % 8.4 LDL Cholesterol, C alc 59 TSH 1.61 Free T4 1.07 Microalb/Creat Rat io 387.7 PFSH Medical History (Updated 02/12/23 @ 14:08 by GABRIEL Pond) UTI (urinary tract infection) Abnormal Pap smear of cervix Intermittent claudication Sleep behavior disorder, REM Oral phase dysphagia Fibroids Goiter HLD (hyperlipidemia) Hypogonadotropic hypogonadism Premature ovarian failure Sinus tachycardia Nausea and vomiting Amenorrhea Depression Vitamin D deficiency Dyslipidemia Diabetic nephropathy associated with type 1 diabetes mellitus Diabetes type 1, uncontrolled Hypertension Surgical History S/P bunionectomy S/P cataract surgery Hx of esophagogastroduodenoscopy Hx of tubal ligation Family History Father No problems noted. Mother Hypertension Social History Household Members: Children Household Members Other:: 2 children Housing: Apartment Alcohol intake: current Alcohol intake frequency: does not drink Patient Tobacco Use Status: Former Tobacco user Quit Date: 2018 e-Cigarette/Vaping Use: Never Used service: No Current occupational status: unemployed Cognitive needs: No Hearing needs: No Vision needs: No Female Reproductive History Menstrual Age of Menarche: 13 Physical Exam Vital Signs: Last Vital Signs Pulse 78 03/12/23 08:10 BP 100/68 03/12/23 08:10 BMI result Body Mass Index 25.6 Absence of Cushingoid features. Absence of acromegalic features. Neck exam reveals nl size thyroid about 15 gms. No thyroid nodules palpable. No carotid bruits present. Lungs CTA. Heart S1 S2, Reg R/R. No M/R/ G. Skin exam reveals absence of vitiligo or acanthosis nigricans. Abdominal exam reveals Soft NT/ND with NA BS. No organomegaly present. Extrem Other: Visual exam of foot performed. No ulcerations or open lesions. No onchomycosis, no callouses.Pulses 2 + distally. Sensation intact to monofilament exam. Vibratory sensation sensed 10 seconds in right, 10 seconds in left with 128 Hz tuning fork Results AMB Hemoglobin A1c AMB Hemoglobin A1c 8.0 % Last Edit by SUELLEN Dawson on 03/12/23 08:35 Results Reviewed Results Reviewed: Laboratory Last Values Glucose (Clinic) 114 mg/dL (60-115) 03/12/23 08:24 Hgb A1c (Clinic) 8.0 % (4.0-6.0) H 03/12/23 08:27 Assessment & Plan Assessment & Plan (1) Diabetes type 1, uncontrolled: Code(s): E10.65 - Type 1 diabetes mellitus with hyperglycemia Qualifiers: Glycemic state: with hyperglycemia Qualified Code(s): E10.65 - Type 1 diabetes mellitus with hyperglycemia Plan: This is a 41-year-old female with a history of longstanding type 1 diabetes being managed with the tandem pump with less than optimal glycemic control and known microvascular complications namely CKD. The plan is to increase the basal rate at 00:00 to 1.5 units per hr and decrase insulin:carb at 4 PM to 1:14 . Patient was told to call to report frequent episodes of hypoglycemia. She will follow-up with the chemical educator. Will also check microalbumin to creatinine ratio Orders: Orders AMB Hemoglobin A1c Today E10.65 - Type 1 diabetes mellitus with hyperglycemia Microalbumin, Random (w Creat) Today E10.65 - Type 1 diabetes mellitus with hyperglycemia Coding Level of Care Code Est Pt Level 4 (85508) Diagnoses Uncontrolled type 1 diabetes mellitus with hyperglycemia E10.65 Glycemic state: with hyperglycemia
[2023-03-12 08:28] LABS: Glucose, Whole Blood 114 mg/dL (60-115)
== END 2023-03-12 09:06 | disposition home or self-care (01) ==
PROVIDERS: PCP Internal Medicine; Visit Provider Internal Medicine Endocrinology, Diabetes & Metabolism
DX: E10.65 Type 1 diabetes mellitus with hyperglycemia (principal)
CPT/HCPCS: 99214

== ENCOUNTER → 2023-03-12 07:58 | Outpatient (BNVA) | payer MEDICARE, MEDICAID, SELFPAY | PROVIDERS: PCP Internal Medicine; Visit Provider Internal Medicine Endocrinology, Diabetes & Metabolism | DX: Z46.81 Encounter for fitting and adjustment of insulin pump (principal); E10.65 Type 1 diabetes mellitus with hyperglycemia; Z79.4 Long term (current) use of insulin | CPT/HCPCS: 82947; 83036; 99212 ==

== ENCOUNTER 2023-03-27 13:19 | Outpatient (AMB) | payer MEDICARE, MEDICAID, SELFPAY ==
--- NOTE | 2023-03-27 14:13 | MHC.AMDMED ---
Intake Intake Visit Reasons: dm /CONFIRMED Evidence Specialist Required: No Accompanied by: Self / Same As Patient Allergies oxycodone [Percocet] Adverse Reaction (Unknown, Verified 03/12/23 08:18) chills HPI Comprehensive Diabetes Asmnt Most Recent Diabetes Results: Microalb/Creat Ratio 387.7 ug/mg cr 06/18/21 Cholesterol 89 mg/dL 07/31/22 HDL Cholesterol 29 mg/dL 07/31/22 Triglycerides 41 mg/dL 07/31/22 Creatinine 1.20 mg/dL (0.5-1.4) 10/23/22 Blood Urea Nitrogen 19 mg/dL (9-16) H 10/23/22 Sodium 139 mmol/L (135-145) 10/23/22 Potassium 4.0 mmol/L (3.3-5.1) 10/23/22 Chloride 108 mmol/L (96-108) 10/23/22 Carbon Dioxide 23 mmol/L (22-29) 10/23/22 Calcium 8.8 mg/dL (8.4-10.2) 10/23/22 AST 13 U/L (5-31) 07/31/22 ALT 10 U/L (0-31) 07/31/22 Total Protein 6.8 g/dL (6.5-8.0) 07/31/22 Albumin 4.1 g/dL (3.5-5.0) 07/31/22 [facility] Medical History (Updated 02/12/23 @ 14:08 by GABRIEL Pond) UTI (urinary tract infection) Abnormal Pap smear of cervix Intermittent claudication Sleep behavior disorder, REM Oral phase dysphagia Fibroids Goiter HLD (hyperlipidemia) Hypogonadotropic hypogonadism Premature ovarian failure Sinus tachycardia Nausea and vomiting Amenorrhea Depression Vitamin D deficiency Dyslipidemia Diabetic nephropathy associated with type 1 diabetes mellitus Diabetes type 1, uncontrolled Hypertension Surgical History S/P bunionectomy S/P cataract surgery Hx of esophagogastroduodenoscopy Hx of tubal ligation Family History Father No problems noted. Mother Hypertension Social History Household Members: Children Household Members Other:: 2 children Housing: Apartment Alcohol intake: current Alcohol intake frequency: does not drink Patient Tobacco Use Status: Former Tobacco user Quit Date: 2018 e-Cigarette/Vaping Use: Never Used service: No Current occupational status: unemployed Cognitive needs: No Hearing needs: No Vision needs: No Female Reproductive History Menstrual Age of Menarche: 13 Assessment & Plan Assessment & Plan (1) Diabetes type 1, uncontrolled: Code(s): E10.65 - Type 1 diabetes mellitus with hyperglycemia Qualifiers: Glycemic state: with hyperglycemia Qualified Code(s): E10.65 - Type 1 diabetes mellitus with hyperglycemia Plan: Patient presents for pump training for T slim with control IQ and Dexcom G6 The following topics were reviewed today: - T slim updates ?Sensor setting (if applicable) CGM settings ??? High Alert:? 180 mg/dl ??? Low Alert:? 80? mg/dl Patient above target 46% Patient at target 53% Patient below target 1% ?Average glucose for the last 2 weeks is 190 mg/dL Patient continues to have hyperglycemia overnight, this is contributed to patient eating overnight and not bolusing. 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 She has been having some hypoglycemia even with Activity turned on Patient reports she had to use rescue glucose on at work for blood glucose in the 20s Patient reports she carries glucose shots, and glucose gel with her at work Patient will follow-up with Diabetes Education nurse in 6 weeks Safety information Patient understands the basic concepts of pump therapy, how to give insulin for meals and snacks, how to troubleshoot for hyper and hypoglycemia. Setting verified by CDCES,?no changes made to pump settings at today's visit Basal rate(s) (units/hour) : 12 AM to 12 1.5 units / hr New 12 AM to 4 AM 1.6 units/hr 4 AM to 8 AM 1.3 units/hr 8 AM to 4 PM ? 0.7 units / hr 12 PM to 4 PM 1.12 units / hr 4 PM? to 8 PM? 1.5 units / hr New 4 PM? to 8 PM? 1 units / hr 8 PM to 9 PM 1.3 units / hr 9 PM to 12 AM 1.5 units / hr?? Bolus setting Insulin Carbohydrate Ratio (s) 12 AM to 4 AM 1:13 4 AM to 12 PM 1:13 12 PM to 4 PM 1:13 4 PM to 8PM 1:12 New 4 PM to 8PM 1:15 8 PM to 9 PM 1:13 9 PM to 12 AM 1:14 Correction Factor / Sensitivity Factor 12 AM to 8 AM 1:50 8 AM to 12 AM 1:40 Active Insulin Time:? 5 hours Target(s): 12 AM to 12 AM 110 mg/dL Coding Level of Care Code Est Pt Level 1 (25280) Diagnoses Uncontrolled type 1 diabetes mellitus with hyperglycemia E10.65 Glycemic state: with hyperglycemia
== END 2023-03-27 14:31 | disposition home or self-care (01) ==
PROVIDERS: PCP Internal Medicine; Visit Provider Registered Nurse Diabetes Educator
DX: E10.65 Type 1 diabetes mellitus with hyperglycemia (principal)

== ENCOUNTER → 2023-03-27 13:19 | Outpatient (BNVA) | payer MEDICARE, MEDICAID, SELFPAY | PROVIDERS: PCP Internal Medicine; Visit Provider Registered Nurse Diabetes Educator | DX: Z46.81 Encounter for fitting and adjustment of insulin pump (principal); E10.65 Type 1 diabetes mellitus with hyperglycemia | CPT/HCPCS: 99211 ==

== ENCOUNTER 2023-05-12 12:18 | Outpatient (AMB) | payer MEDICARE, MEDICAID, SELFPAY ==
--- NOTE | 2023-05-12 13:03 | A.OFFVIS_ITS ---
Intake Intake Visit Reasons: DM Pump/CONFIRMED Accompanied by: Self / Same As Patient Allergies oxycodone [Percocet] Adverse Reaction (Unknown, Verified 03/12/23 08:18) chills HPI Comprehensive Diabetes Asmnt Most Recent Diabetes Results: Microalb/Creat Ratio 387.7 ug/mg cr 06/18/21 Cholesterol 89 mg/dL 07/31/22 HDL Cholesterol 29 mg/dL 07/31/22 Triglycerides 41 mg/dL 07/31/22 Creatinine 1.20 mg/dL (0.5-1.4) 10/23/22 Blood Urea Nitrogen 19 mg/dL (9-16) H 10/23/22 Sodium 139 mmol/L (135-145) 10/23/22 Potassium 4.0 mmol/L (3.3-5.1) 10/23/22 Chloride 108 mmol/L (96-108) 10/23/22 Carbon Dioxide 23 mmol/L (22-29) 10/23/22 Calcium 8.8 mg/dL (8.4-10.2) 10/23/22 AST 13 U/L (5-31) 07/31/22 ALT 10 U/L (0-31) 07/31/22 Total Protein 6.8 g/dL (6.5-8.0) 07/31/22 Albumin 4.1 g/dL (3.5-5.0) 07/31/22 [facility] Medical History (Updated 02/12/23 @ 14:08 by GABRIEL Pond) UTI (urinary tract infection) Abnormal Pap smear of cervix Intermittent claudication Sleep behavior disorder, REM Oral phase dysphagia Fibroids Goiter HLD (hyperlipidemia) Hypogonadotropic hypogonadism Premature ovarian failure Sinus tachycardia Nausea and vomiting Amenorrhea Depression Vitamin D deficiency Dyslipidemia Diabetic nephropathy associated with type 1 diabetes mellitus Diabetes type 1, uncontrolled Hypertension Surgical History S/P bunionectomy S/P cataract surgery Hx of esophagogastroduodenoscopy Hx of tubal ligation Family History Father No problems noted. Mother Hypertension Social History Household Members: Children Household Members Other:: 2 children Housing: Apartment Alcohol intake: current Alcohol intake frequency: does not drink Patient Tobacco Use Status: Former Tobacco user Quit Date: 2018 e-Cigarette/Vaping Use: Never Used service: No Current occupational status: unemployed Cognitive needs: No Hearing needs: No Vision needs: No Female Reproductive History Menstrual Age of Menarche: 13 Assessment & Plan Assessment & Plan (1) Diabetes type 1, uncontrolled: Code(s): E10.65 - Type 1 diabetes mellitus with hyperglycemia Qualifiers: Glycemic state: with hyperglycemia Qualified Code(s): E10.65 - Type 1 diabetes mellitus with hyperglycemia Plan: Patient presents for pump training for T slim with control IQ and Dexcom G6 The following topics were reviewed today: - T slim updates ?Sensor setting (if applicable) CGM settings ??? High Alert:? 180 mg/dl ??? Low Alert:? 80? mg/dl Patient above target 42% Patient at target 55% Patient below target 3% ?Average glucose for the last 2 weeks is 175 mg/dL Patient continues to have hyperglycemia overnight, this is contributed to patient eating overnight and not bolusing. 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 She has been having some hypoglycemia even with Activity turned on, set up new work profile in patient's insulin pump Patient will follow-up with Diabetes Education nurse in 2 weeks Safety information Patient understands the basic concepts of pump therapy, how to give insulin for meals and snacks, how to troubleshoot for hyper and hypoglycemia. Setting verified by CDCES Basal rate(s) (units/hour) : 2 AM to 4 AM 1.6 units/hr 4 AM to 8 AM 1.3 units/hr 8 AM to 4 PM ? 0.7 units / hr 12 PM to 4 PM 1.12 units / hr 4 PM? to 8 PM? 1 units / hr New Work profile: 4 PM? to 8 PM? 0.5 units / hr instructed patient to use on days that she works 8 PM to 12 AM 1.5 units / hr?? Bolus setting Insulin Carbohydrate Ratio (s) 12 AM to 4 AM 1:13 4 AM to 12 PM 1:13 12 PM to 4 PM 1:13 4 PM to 8PM 1:15 8 PM to 9 PM 1:13 9 PM to 12 AM 1:14 Correction Factor / Sensitivity Factor 12 AM to 8 AM 1:50 8 AM to 12 AM 1:40 Active Insulin Time:? 5 hours Target(s): 12 AM to 12 AM 110 mg/dL Patient Instructions: Patient will follow-up with elementary educator in 2 weeks Coding Level of Care Code Est Pt Level 1 (75708) Diagnoses Uncontrolled type 1 diabetes mellitus with hyperglycemia E10.65 Glycemic state: with hyperglycemia
== END 2023-05-12 13:17 | disposition home or self-care (01) ==
PROVIDERS: PCP Internal Medicine; Visit Provider Registered Nurse Diabetes Educator
DX: E10.65 Type 1 diabetes mellitus with hyperglycemia (principal)

== ENCOUNTER → 2023-05-12 12:18 | Outpatient (BNVA) | payer MEDICARE, MEDICAID, SELFPAY | PROVIDERS: PCP Internal Medicine; Visit Provider Registered Nurse Diabetes Educator | DX: Z46.81 Encounter for fitting and adjustment of insulin pump (principal); E10.65 Type 1 diabetes mellitus with hyperglycemia; Z79.4 Long term (current) use of insulin | CPT/HCPCS: 99211 ==

== ENCOUNTER 2023-05-26 09:16 | Outpatient (AMB) | payer MEDICARE, MEDICAID, SELFPAY ==
--- NOTE | 2023-05-26 09:41 | A.OFFVIS_ITS ---
Intake Intake Visit Reasons: 30 min/CONFIRMED Athletic Training Internship Required: No Accompanied by: Self / Same As Patient Allergies oxycodone [Percocet] Adverse Reaction (Unknown, Verified 03/12/23 08:18) chills HPI Comprehensive Diabetes Asmnt Most Recent Diabetes Results: Microalb/Creat Ratio 387.7 ug/mg cr 06/18/21 Cholesterol 89 mg/dL 07/31/22 HDL Cholesterol 29 mg/dL 07/31/22 Triglycerides 41 mg/dL 07/31/22 Creatinine 1.20 mg/dL (0.5-1.4) 10/23/22 Blood Urea Nitrogen 19 mg/dL (9-16) H 10/23/22 Sodium 139 mmol/L (135-145) 10/23/22 Potassium 4.0 mmol/L (3.3-5.1) 10/23/22 Chloride 108 mmol/L (96-108) 10/23/22 Carbon Dioxide 23 mmol/L (22-29) 10/23/22 Calcium 8.8 mg/dL (8.4-10.2) 10/23/22 AST 13 U/L (5-31) 07/31/22 ALT 10 U/L (0-31) 07/31/22 Total Protein 6.8 g/dL (6.5-8.0) 07/31/22 Albumin 4.1 g/dL (3.5-5.0) 07/31/22 [facility] Medical History (Updated 02/12/23 @ 14:08 by GABRIEL Pond) UTI (urinary tract infection) Abnormal Pap smear of cervix Intermittent claudication Sleep behavior disorder, REM Oral phase dysphagia Fibroids Goiter HLD (hyperlipidemia) Hypogonadotropic hypogonadism Premature ovarian failure Sinus tachycardia Nausea and vomiting Amenorrhea Depression Vitamin D deficiency Dyslipidemia Diabetic nephropathy associated with type 1 diabetes mellitus Diabetes type 1, uncontrolled Hypertension Surgical History S/P bunionectomy S/P cataract surgery Hx of esophagogastroduodenoscopy Hx of tubal ligation Family History Father No problems noted. Mother Hypertension Social History Household Members: Children Household Members Other:: 2 children Housing: Apartment Alcohol intake: current Alcohol intake frequency: does not drink Patient Tobacco Use Status: Former Tobacco user Quit Date: 2018 e-Cigarette/Vaping Use: Never Used service: No Current occupational status: unemployed Cognitive needs: No Hearing needs: No Vision needs: No Female Reproductive History Menstrual Age of Menarche: 13 Assessment & Plan Assessment & Plan (1) Diabetes type 1, uncontrolled: Code(s): E10.65 - Type 1 diabetes mellitus with hyperglycemia Qualifiers: Glycemic state: with hyperglycemia Qualified Code(s): E10.65 - Type 1 diabetes mellitus with hyperglycemia Plan: Patient presents for pump training for T slim with control IQ and Dexcom G7 The following topics were reviewed today: ?Sensor setting (if applicable) CGM settings ??? High Alert:? 180 mg/dl ??? Low Alert:? 80? mg/dl Patient above target 33% Patient at target 65% Patient below target 3% ?Average glucose for the last 2 weeks is 167 mg/dL Patient continues to have hyperglycemia overnight, this is contributed to patient eating overnight and not bolusing. This has been a result medication that she takes for sleep Patient reports a decrease in hypoglycemic events while at work when using new work profile, suggested to patient she increase setting on activity level from 4 hours to 5 hours, this will help with any existing hypoglycemic events in the evenings after work Recommended to patient she call [facility] to make sure that she will receive her new Dexcom G7 sensors on time Patient will follow-up with Diabetes Education nurse in 3 months Safety information Patient understands the basic concepts of pump therapy, how to give insulin for meals and snacks, how to troubleshoot for hyper and hypoglycemia. Setting verified by CDCES Basal rate(s) (units/hour) : 2 AM to 4 AM 1.6 units/hr 4 AM to 8 AM 1.3 units/hr 8 AM to 4 PM ? 0.7 units / hr 12 PM to 4 PM 1.12 units / hr 4 PM? to 8 PM? 1 units / hr Work profile: 4 PM? to 8 PM? 0.5 units / hr instructed patient to use on days that she works 8 PM to 12 AM 1.5 units / hr?? Bolus setting Insulin Carbohydrate Ratio (s) 12 AM to 4 AM 1:13 4 AM to 12 PM 1:13 12 PM to 4 PM 1:13 4 PM to 8PM 1:15 8 PM to 9 PM 1:13 9 PM to 12 AM 1:14 Correction Factor / Sensitivity Factor 12 AM to 8 AM 1:50 8 AM to 12 AM 1:40 Active Insulin Time:? 5 hours Target(s): 12 AM to 12 AM 110 mg/dL Patient Instructions: Contact Diabetes Education nurse questions or concerns Patient will follow-up with Diabetes Education nurse in 3 months Coding Level of Care Code Est Pt Level 1 (46833) Diagnoses Uncontrolled type 1 diabetes mellitus with hyperglycemia E10.65 Glycemic state: with hyperglycemia
== END 2023-05-26 10:02 | disposition home or self-care (01) ==
PROVIDERS: PCP Internal Medicine; Visit Provider Registered Nurse Diabetes Educator
DX: E10.65 Type 1 diabetes mellitus with hyperglycemia (principal)

== ENCOUNTER → 2023-05-26 09:16 | Outpatient (BNVA) | payer MEDICARE, MEDICAID, SELFPAY | PROVIDERS: PCP Internal Medicine; Visit Provider Registered Nurse Diabetes Educator | DX: Z46.81 Encounter for fitting and adjustment of insulin pump (principal); E10.65 Type 1 diabetes mellitus with hyperglycemia; Z79.4 Long term (current) use of insulin | CPT/HCPCS: 99211 ==

== ENCOUNTER 2023-07-02 14:07 | Outpatient (AMB) | payer MEDICARE, MEDICAID, SELFPAY ==
--- NOTE | 2023-07-02 14:48 | A.OFFVIS_ITS ---
Intake Intake Visit Reasons: DM 1 Allergies oxycodone [Percocet] Adverse Reaction (Unknown, Verified 03/12/23 08:18) chills HPI Comprehensive Diabetes Asmnt Most Recent Diabetes Results: Microalb/Creat Ratio 387.7 ug/mg cr 06/18/21 Cholesterol 89 mg/dL 07/31/22 HDL Cholesterol 29 mg/dL 07/31/22 Triglycerides 41 mg/dL 07/31/22 Creatinine 1.20 mg/dL (0.5-1.4) 10/23/22 Blood Urea Nitrogen 19 mg/dL (9-16) H 10/23/22 Sodium 139 mmol/L (135-145) 10/23/22 Potassium 4.0 mmol/L (3.3-5.1) 10/23/22 Chloride 108 mmol/L (96-108) 10/23/22 Carbon Dioxide 23 mmol/L (22-29) 10/23/22 Calcium 8.8 mg/dL (8.4-10.2) 10/23/22 AST 13 U/L (5-31) 07/31/22 ALT 10 U/L (0-31) 07/31/22 Total Protein 6.8 g/dL (6.5-8.0) 07/31/22 Albumin 4.1 g/dL (3.5-5.0) 07/31/22 [facility] Medical History (Updated 02/12/23 @ 14:08 by GABRIEL Pond) UTI (urinary tract infection) Abnormal Pap smear of cervix Intermittent claudication Sleep behavior disorder, REM Oral phase dysphagia Fibroids Goiter HLD (hyperlipidemia) Hypogonadotropic hypogonadism Premature ovarian failure Sinus tachycardia Nausea and vomiting Amenorrhea Depression Vitamin D deficiency Dyslipidemia Diabetic nephropathy associated with type 1 diabetes mellitus Diabetes type 1, uncontrolled Hypertension Surgical History S/P bunionectomy S/P cataract surgery Hx of esophagogastroduodenoscopy Hx of tubal ligation Family History Father No problems noted. Mother Hypertension Social History Household Members: Children Household Members Other:: 2 children Housing: Apartment Alcohol intake: current Alcohol intake frequency: does not drink Patient Tobacco Use Status: Former Tobacco user Quit Date: 2018 e-Cigarette/Vaping Use: Never Used service: No Current occupational status: unemployed Cognitive needs: No Hearing needs: No Vision needs: No Female Reproductive History Menstrual Age of Menarche: 13 Assessment & Plan Assessment & Plan (1) Diabetes type 1, uncontrolled: Code(s): E10.65 - Type 1 diabetes mellitus with hyperglycemia Qualifiers: Glycemic state: with hyperglycemia Qualified Code(s): E10.65 - Type 1 diabetes mellitus with hyperglycemia Plan: Patient presents for pump training for [facility] with control IQ and Dexcom G7 The following topics were reviewed today: ?Sensor setting (if applicable) CGM settings ??? High Alert:? 180 mg/dl ??? Low Alert:? 80? mg/dl Patient above target 41% Patient at target 52% Patient below target 6% ?Average glucose for the last 2 weeks is 177 mg/dL Patient called to complain of increase in hypoglycemic event, after review of patient's downloaded appeared the patient had significantly decreased her insulin sensitivity factor causing pump to increase size of correction boluses Explained to patient if she is going to adjust pump settings if she decreases the basal rate that will give her less insulin. However, if she decreases her insulin to carb ratio and her sensitivity factor, that increases the size of her correction and food boluses which can lead to hypoglycemia. Patient reports a decrease in hypoglycemic events while at work when using new work profile, suggested to patient she increase setting on activity level from 4 hours to 5 hours, this will help with any existing hypoglycemic events in the evenings after work Recommended to patient she call [facility] to make sure that she will receive her new Dexcom G7 sensors on time Patient will follow-up with Diabetes Education nurse in 3 months Safety information Patient understands the basic concepts of pump therapy, how to give insulin for meals and snacks, how to troubleshoot for hyper and hypoglycemia. Setting verified by [facility] Basal rate(s) (units/hour) : 12 AM to 4 AM 0.5 units/hr 4 AM to 8 AM 1.0 units/hr 8 AM to 4 PM ? 0.7 units / hr 12 PM to 4 PM 1.12 units / hr 4 PM? to 8 PM? 1 units / hr Work profile: 4 PM? to 8 PM? 0.5 units / hr instructed patient to use on days that she works 8 PM to 12 AM 1 units / hr?? Bolus setting Insulin Carbohydrate Ratio (s) 12 AM to 4 AM 1:13 4 AM to 12 PM 1:13 12 PM to 3 PM 1:13 3 PM to 8PM 1:15 8 PM to 12 AM 1:15 Correction Factor / Sensitivity Factor 12 AM to 8 AM 1:50 8 AM to 12 AM 1:40 Work profile: New 12 AM to 8 AM 1:60 New 8 AM to 12 AM 1:50 Active Insulin Time:? 5 hours Target(s): 12 AM to 12 AM 110 mg/dL Patient Instructions: Follow-up with adult educator in 2 weeks Coding Level of Care Code Est Pt Level 1 (12479) Diagnoses Uncontrolled type 1 diabetes mellitus with hyperglycemia E10.65 Glycemic state: with hyperglycemia
== END 2023-07-02 15:12 | disposition home or self-care (01) ==
PROVIDERS: PCP Internal Medicine; Visit Provider Registered Nurse Diabetes Educator
DX: E10.65 Type 1 diabetes mellitus with hyperglycemia (principal)

== ENCOUNTER → 2023-07-02 14:07 | Outpatient (BNVA) | payer MEDICARE, MEDICAID, SELFPAY | PROVIDERS: PCP Internal Medicine; Visit Provider Registered Nurse Diabetes Educator | DX: Z46.81 Encounter for fitting and adjustment of insulin pump (principal); E10.65 Type 1 diabetes mellitus with hyperglycemia; Z79.4 Long term (current) use of insulin | CPT/HCPCS: 99211 ==

== ENCOUNTER 2023-07-07 09:49 | Outpatient (AMB) | payer MEDICARE, MEDICAID, SELFPAY ==
[2023-07-07 10:08] VITALS: BP 100/60; BMI 24.9
--- NOTE | 2023-07-07 10:08 | A.OFFVIS_ITS ---
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 No complaints. Last Pap/HPV was ascus/HPV positive in 03/20 followed by colpo/ ECC negative Last Mammogram was BI-RADS 1 in 03/20 [facility] Medical History UTI (urinary tract infection) Abnormal Pap smear of cervix Intermittent claudication Sleep behavior disorder, REM Oral phase dysphagia Fibroids Goiter HLD (hyperlipidemia) Hypogonadotropic hypogonadism Premature ovarian failure Sinus tachycardia Nausea and vomiting Amenorrhea Depression Vitamin D deficiency Dyslipidemia Diabetic nephropathy associated with type 1 diabetes mellitus Diabetes type 1, uncontrolled Hypertension Surgical History S/P bunionectomy S/P cataract surgery Hx of esophagogastroduodenoscopy Hx of tubal ligation Family History Father No problems noted. Mother Hypertension Social History Household Members: Children Household Members Other:: 2 children Housing: Apartment Alcohol intake: current Alcohol intake frequency: does not drink Patient Tobacco Use Status: Former Tobacco user Quit Date: 2018 e-Cigarette/Vaping Use: Never Used service: No Current occupational status: unemployed Cognitive needs: No Hearing needs: No Vision needs: No Female Reproductive History Menstrual Age of Menarche: 13 Duration of menses: 3-5 days control method: permanent sterilization Total pregnancies: 2 Full term: 2 Date of last pap smear: 03/17/22 (neg. previous pap 2018 neg.) History of abnormal pap smear: Yes (CAN II,Leep , 2012) Date of Mammogram: 03/17/22 History of abnormal mammogram: No Review of Systems Const All systems reviewed & are unremarkable except as noted in HPI and below Card Reports as per HPI Resp Reports as per HPI GI Reports as per HPI and Reports no additional complaints Reports as per HPI Physical Exam Vital Signs: Last Vital Signs BP 100/60 07/07/23 10:08 BMI result Body Mass Index 24.9 Const General: cooperative, healthy appearing and comfortable Chest Chest palpation & inspection: normal inspection of the chest and normal palpation of entire chest wall Breast/axilla inspection: normal inspection of the breasts and normal inspection of the axillae Breast/axilla palpation: normal palpation of the breasts, normal palpation of the axillae and no axillary lymphadenopathy Resp Effort & Inspection: normal respiratory effort Auscultation: clear to auscultation bilaterally Percussion: percussion normal Cardio Palpation: normal PMI Rate: regular rate Rhythm: regular rhythm Heart sounds: no murmurs and no rubs Peripheral pulses: Peripheral pulses 2+ throughout GI Inspection: Yes normal to inspection Palpation (GI): Soft to palpation, nontender, no guarding, not rigid and No hepatosplenomegaly present Percussion: Yes normal to percussion Auscultation: normal bowel sounds Rectal Exam - Female: deferred General: Yes bladder normal to palpation External Female Exam: No lesion Speculum Exam - Vagina: normal appearance of the vagina, normal palpation, normal vaginal discharge and not erythematous Speculum Exam - Cervix: normal appearance of the cervix and normal palpation Bimanual exam- vagina & uterus: normal bimanual exam, normal palpation, uterine size normal, bladder normal to palpation, consistency normal and normal palpation Bimanual Exam- Adnexa, other: normal adnexae, no masses and no tenderness Assessment & Plan Assessment & Plan (1) Well woman exam: Code(s): Z01.419 - Encounter for gynecological examination (general) (routine) without abnormal findings Plan: Cotesting done. Mammogram ordered. Counseled the patient about the recommended dietary allowance of 1000 mg of Doug cium & 600 IU of vitamin D. The patient was instructed to perform monthly self-breast exams and to schedule an annual exam in a year; All questions answered and the patient verbalized understanding. Instructed the patient to schedule annual exam in a year Orders: Orders MM screening mammo BI Today Z12.31 - Encounter for screening mammogram for malignant neoplasm of breast Coding Level of Care Code Est Pt Prev Care 40-64y(70684) Diagnoses Well woman exam Z01.419
== END 2023-07-07 11:26 | disposition home or self-care (01) ==
LOC: HO.HWS 09:49
PROVIDERS: PCP Internal Medicine; Visit Provider Obstetrics & Gynecology
DX: Z01.419 Encounter for gynecological examination (general) (routine) without abnormal findings (principal)
CPT/HCPCS: G0101; Q0091

== ENCOUNTER 2023-07-07 09:49 | Outpatient (REF) | payer MEDICARE, MEDICAID, SELFPAY ==
[2023-07-10 21:08] LABS: HPV mRNA E6/E7 rflx Not Detected (Not Detected)
== END 2023-07-07 09:50 | disposition home or self-care (01) ==
LOC: HO.LNP 09:49
PROVIDERS: PCP Internal Medicine; Visit Provider Obstetrics & Gynecology
DX: Z01.419 Encounter for gynecological examination (general) (routine) without abnormal findings (principal); Z12.39 Encounter for other screening for malignant neoplasm of breast
CPT/HCPCS: 87624; 88142; G0101; Q0091

== ENCOUNTER 2023-07-15 09:00 | Outpatient (AMB) | payer MEDICARE, MEDICAID, SELFPAY ==
[2023-07-15 09:03] VITALS: BP 114/78; PULSE 80; BMI 25.5
--- NOTE | 2023-07-15 09:03 | MHC.OFFVIS ---
Intake Vital Signs 07/15/23 09:03 Height 5 ft 2 in Weight 139 lb 5.314 oz BMI 25.5 BP 114/78 Blood Pressure Location Lt brachial Position Sitting Pulse 80 Pulse Source Pulse Oximeter Intake Visit Reasons: [id number] Intake Note: Patient presents today to follow up on D1MT. Last Diabetic Eye exam: 02/2023 Last Podiatry Visit: Doesn't have one Random Glucose: 141 mg/dl HgA1c: 8.3% Property Management Coordinator Required: No Accompanied by: Self / Same As Patient Allergies oxycodone [Percocet] Adverse Reaction (Unknown, Verified 07/15/23 09:08) chills HPI HPI Comments History of Present Illness Details 42 YO F with PMHx T1DM who is seen in F/U for T1DM. Initially diagnosed with T1DM at the age of 24. Current regimen: Humalog via Tandem insulin pump. Pump/Sensor: Currently using the Tandem insulin pump with DEXCOM G6. Basal rate(s) (units/hour) : 12 AM to 4 AM 0.5 units/hr 4 AM to 8 AM 1.0 units/hr 8 AM to 4 PM ? 1.05 units / hr 12 PM to 3 PM 0.5 units / hr 3 PM? to 8 PM? 0.5 units / hr Work profile: 4 PM? to 8 PM? 0.5 units / hr instructed patient to use on days that she works 8 PM to 12 AM 1 units / hr?? Bolus setting Insulin Carbohydrate Ratio (s) 12 AM to 4 AM 1:13 4 AM to 12 PM 1:13 12 PM to 3 PM 1:13 3 PM to 8PM 1:15 8 PM to 12 AM 1:15 Correction Factor / Sensitivity Factor 12 AM to 8 AM 1:50 8 AM to 12 AM 1:40 Work profile: New 12 AM to 8 AM 1:60 New 8 AM to 12 AM 1:50 Active Insulin Time:? 5 hours Target(s): 12 AM to 12 AM 110 mg/dL Her average daily dose of insulin is 40.2 units/day, with 57% basal, and 43% bolus. Correction bolus is 2% She changes her site every 4 days. She is using the Control IQ setting 96% of the time. 14 days of DEXCOM Data reviewed from 07/02/2023 to 07/15/2023 This reveals an average blood glucose of 190 ., GMI of 7.8 . She is at goal 52% of the time, above goal 20% of the time, and below goal 4% of the time. Pattern involves rising blood sugars overnight and after dinner Reports low sugars frequently at 4 PM Treats lows with juice and fruit. Checks sugar after to ensure it is rising. Follows the rule of 15's. Does have eyes checked yearly, last eye exam 02/2023 , denies retinopathy Denies neuropathy. Has nephropathy, on Losartan 12.5 mg PO daily. No recent UAC on file. Has HLD, on Atorvastatin 20 mg PO daily. No recent LDL on file. Denies history of CAD. Had diabetes education. Diet/Carb counting: Does not count carbs accurately. had optho appt on 02/2023 Labs: Laboratory Tests 06/18/21 06/18/21 06/18/21 10:03 10:03 10:04 Creatinine 1.52 H Estimated GFR 38 Hemoglobin A1c % 8.4 LDL Cholesterol, C alc 59 TSH 1.61 Free T4 1.07 Microalb/Creat Rat io 387.7 PFSH Medical History UTI (urinary tract infection) Abnormal Pap smear of cervix Intermittent claudication Sleep behavior disorder, REM Oral phase dysphagia Fibroids Goiter HLD (hyperlipidemia) Hypogonadotropic hypogonadism Premature ovarian failure Sinus tachycardia Nausea and vomiting Amenorrhea Depression Vitamin D deficiency Dyslipidemia Diabetic nephropathy associated with type 1 diabetes mellitus Diabetes type 1, uncontrolled Hypertension Surgical History S/P bunionectomy S/P cataract surgery Hx of esophagogastroduodenoscopy Hx of tubal ligation Family History Father No problems noted. Mother Hypertension Social History Household Members: Children Household Members Other:: 2 children Housing: Apartment Alcohol intake: current Alcohol intake frequency: does not drink Patient Tobacco Use Status: Former Tobacco user Quit Date: 2018 e-Cigarette/Vaping Use: Never Used service: No Current occupational status: unemployed Cognitive needs: No Hearing needs: No Vision needs: No Female Reproductive History Menstrual Age of Menarche: 13 Physical Exam Vital Signs: Last Vital Signs Pulse 80 07/15/23 09:03 BP 114/78 07/15/23 09:03 BMI result Body Mass Index 25.5 Absence of Cushingoid features. Absence of acromegalic features. Neck exam reveals nl size thyroid about 15 gms. No thyroid nodules palpable. No carotid bruits present. Lungs CTA. Heart S1 S2, Reg R/R. No M/R/ G. Skin exam reveals absence of vitiligo or acanthosis nigricans. Abdominal exam reveals Soft NT/ND with NA BS. No organomegaly present. Extrem Other: Visual exam of foot performed. No ulcerations or open lesions. No onchomycosis, no callouses.Pulses 2 + distally. Sensation intact to monofilament exam. Vibratory sensation sensed 10 seconds in right, 10 seconds in left with 128 Hz tuning fork Results AMB Hemoglobin A1c AMB Hemoglobin A1c 8.3 % Last Edit by SUELLEN Cox on 07/15/23 09:36 Results Reviewed Results Reviewed: Laboratory Last Values Glucose (Clinic) 141 mg/dL (60-115) H 07/15/23 09:11 Assessment & Plan Assessment & Plan (1) Diabetes type 1, uncontrolled: Code(s): E10.65 - Type 1 diabetes mellitus with hyperglycemia Qualifiers: Glycemic state: with hyperglycemia Qualified Code(s): E10.65 - Type 1 diabetes mellitus with hyperglycemia Plan: This is a 41-year-old female with a history of longstanding type 1 diabetes being managed with the tandem pump with less than optimal glycemic control and known microvascular complications namely CKD. The plan is to deccrease the basal rate at 04:00 to 0.9 units per hr and reinitate the sleep mode in the evening to stop microboluses which may be causing hypoglycemia . Patient was told to call to report frequent episodes of hypoglycemia. She will follow-up with the perioperative educator today . Will also check microalbumin to creatinine ratio. I also referred the pt to a lead presser Orders: Orders AMB Hemoglobin A1c Today E10.65 - Type 1 diabetes mellitus with hyperglycemia, Z13.9 - Encounter for screening, unspecified Microalbumin, Random (w Creat) Today E10.65 - Type 1 diabetes mellitus with hyperglycemia Referrals Podiatry Referral E10.65 - Type 1 diabetes mellitus with hyperglycemia Medications: Refilled cholecalciferol (vitamin D3) 50 mcg PO DAILY 30 days 30 caps 6RF Coding Level of Care Code Est Pt Level 4 (39221) Diagnoses Uncontrolled type 1 diabetes mellitus with hyperglycemia E10.65 Glycemic state: with hyperglycemia
[2023-07-15 09:15] LABS: Glucose, Whole Blood 141 mg/dL (60-115)
== END 2023-07-15 09:56 | disposition home or self-care (01) ==
PROVIDERS: PCP Internal Medicine; Visit Provider Internal Medicine Endocrinology, Diabetes & Metabolism
DX: Z13.9 Encounter for screening, unspecified (principal); E10.65 Type 1 diabetes mellitus with hyperglycemia
CPT/HCPCS: 99214

== ENCOUNTER → 2023-07-15 09:00 | Outpatient (BNVA) | payer MEDICARE, MEDICAID, SELFPAY | PROVIDERS: PCP Internal Medicine; Visit Provider Internal Medicine Endocrinology, Diabetes & Metabolism | DX: Z46.81 Encounter for fitting and adjustment of insulin pump (principal); E10.65 Type 1 diabetes mellitus with hyperglycemia; Z79.4 Long term (current) use of insulin | CPT/HCPCS: 82947; 83036; 99211; 99212 ==

== ENCOUNTER 2023-07-15 09:57 | Outpatient (AMB) | payer MEDICARE, MEDICAID, SELFPAY ==
--- NOTE | 2023-07-15 12:15 | MHC.AMDMED ---
Intake Intake Visit Reasons: DM1 Allergies oxycodone [Percocet] Adverse Reaction (Unknown, Verified 07/15/23 09:08) chills HPI Comprehensive Diabetes Asmnt Most Recent Diabetes Results: No Data to Display PFSH Medical History UTI (urinary tract infection) Abnormal Pap smear of cervix Intermittent claudication Sleep behavior disorder, REM Oral phase dysphagia Fibroids Goiter HLD (hyperlipidemia) Hypogonadotropic hypogonadism Premature ovarian failure Sinus tachycardia Nausea and vomiting Amenorrhea Depression Vitamin D deficiency Dyslipidemia Diabetic nephropathy associated with type 1 diabetes mellitus Diabetes type 1, uncontrolled Hypertension Surgical History S/P bunionectomy S/P cataract surgery Hx of esophagogastroduodenoscopy Hx of tubal ligation Family History Father No problems noted. Mother Hypertension Social History Household Members: Children Household Members Other:: 2 children Housing: Apartment Alcohol intake: current Alcohol intake frequency: does not drink Patient Tobacco Use Status: Former Tobacco user Quit Date: 2018 e-Cigarette/Vaping Use: Never Used service: No Current occupational status: unemployed Cognitive needs: No Hearing needs: No Vision needs: No Female Reproductive History Menstrual Age of Menarche: 13 Assessment & Plan Assessment & Plan (1) Diabetes type 1, uncontrolled: Code(s): E10.65 - Type 1 diabetes mellitus with hyperglycemia Qualifiers: Glycemic state: with hyperglycemia Qualified Code(s): E10.65 - Type 1 diabetes mellitus with hyperglycemia Plan: Currently using the Tandem insulin pump with DEXCOM G6. Basal rate(s) (units/hour) : 12 AM to 4 AM 0.5 units/hr 4 AM to 8 AM 1.0 units/hr 8 AM to 4 PM ? 1.05 units / hr 12 PM to 3 PM 0.5 units / hr 3 PM? to 8 PM? 0.5 units / hr Work profile: 4 PM? to 8 PM? 0.5 units / hr instructed patient to use on days that she works 8 PM to 12 AM 1 units / hr??New 8 PM to 12 AM 0.5 units / hr Insulin Carbohydrate Ratio (s) 12 AM to 4 AM 1:13 4 AM to 12 PM 1:13 12 PM to 3 PM 1:13 3 PM to 8PM 1:15 8 PM to 12 AM 1:15 Correction Factor / Sensitivity Factor 12 AM to 8 AM 1:50 8 AM to 12 AM 1:40Work profile: 12 AM to 8 AM 1:60 8 AM to 12 AM 1:50 Active Insulin Time:? 5 hours Target(s): 12 AM to 12 AM 110 mg/dL Coding Level of Care Code Est Pt Level 1 (72562) Diagnoses Uncontrolled type 1 diabetes mellitus with hyperglycemia E10.65 Glycemic state: with hyperglycemia Results AMB Hemoglobin A1c AMB Hemoglobin A1c 8.3 % Last Edit by SUELLEN Cox on 07/15/23 09:36
== END 2023-07-15 09:58 | disposition home or self-care (01) ==
LOC: HO.ENCR 09:57
PROVIDERS: PCP Internal Medicine; Visit Provider Registered Nurse Diabetes Educator
DX: E10.65 Type 1 diabetes mellitus with hyperglycemia (principal)

== ENCOUNTER → 2023-07-16 10:00 | Outpatient (BNVA) | payer MEDICARE, MEDICAID, SELFPAY | PROVIDERS: PCP Internal Medicine; Visit Provider Registered Nurse Diabetes Educator | DX: Z46.81 Encounter for fitting and adjustment of insulin pump (principal); E10.65 Type 1 diabetes mellitus with hyperglycemia; Z79.4 Long term (current) use of insulin | CPT/HCPCS: 99211 ==

== ENCOUNTER 2023-09-29 12:02 | Outpatient (AMB) | payer MEDICARE, MEDICAID, SELFPAY ==
--- NOTE | 2023-09-29 12:08 | AM.OFFWIN_ITS ---
Intake Vital Signs 09/29/23 12:10 Height 5 ft 2 in Weight 133 lb BMI 24.3 BP 110/76 Blood Pressure Location Lt brachial Position Sitting Pulse 96 Pulse Source Pulse Oximeter Temp 99.4 F Temp Source Oral Pulse Oximetry (%) 99 Oxygen Delivery Method Room Air Intake Visit Reasons: EP bones aching sore throat Intake Note: pt here c/o sore throat and body aches, fever and cough. Started yesterday Patient Tobacco Use Status: Former Tobacco user Allergies oxycodone [Percocet] Adverse Reaction (Unknown, Verified 09/29/23 12:36) chills Medication List - Last Reconciled 09/29/23 by Erasmo Lyon, SALES ENABLEMENT ANALYST amitriptyline 150 mg PO BEDTIME atorvastatin 20 mg PO BEDTIME benzonatate 100 mg PO BID PRN blood sugar diagnostic (Freestyle [employer] Test Strips) 3x daily cetirizine 10 mg PO DAILY PRN cholecalciferol (vitamin D3) 50 mcg PO DAILY 30 days dicyclomine 20 mg PO QID 30 days diltiazem HCl CD (Cardizem CD) 120 mg PO QAM docusate sodium 100 mg PO DAILY fluticasone propionate 50 mcg/actuation (Allergy Relief (fluticasone)) 1 spray intranasal DAILY glucagon 3 mg/actuation (Baqsimi) 3 mg intranasal ONCE Humalog U-100 Insulin (insulin lispro) Up to 130 units per day via insulin pump subcutaneously subcutaneously; NS lancets (Accu-Chek Fastclix Lancet Drum) As directed tests 3 X/day lancing device with lancets (Accu-Chek Multiclix Lancet kit) As directed checks 6X/day [id number]-kmrnegw 3,000-9,500- 15,000 unit (Creon) 1 cap PO QID 30 days losartan 25 mg PO DAILY methylcellulose (laxative) (Citrucel) 500 mg PO BID metoprolol succinate ER 50 mg PO DAILY omeprazole 40 mg PO BID prednisone 20 mg PO BID sennosides (Senna Laxative) 17.2 mg (2 x 8.6 mg) PO BEDTIME simethicone (Gas Relief (simethicone)) 180 mg PO .Q.i.d. PRN Do you need a note to return to daycare/school/sports/work: Yes HPI HPI Comments History of Present Illness Details Patient is a 42-year-old female in today for sick visit. Patient reports a 1 day prior to this appointment she developed symptoms of sore throat, cough, chills, muscle aches. She has used [id number] medication with little effect. Denies shortness of breath or chest pain, denies dizziness headache or numbness. 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 Will obtain strep swab, obtain URI swab, will obtain chest x-ray [facility] Medical History UTI (urinary tract infection) Abnormal Pap smear of cervix Intermittent claudication Sleep behavior disorder, REM Oral phase dysphagia Fibroids Goiter HLD (hyperlipidemia) Hypogonadotropic hypogonadism Premature ovarian failure Sinus tachycardia Nausea and vomiting Amenorrhea Depression Vitamin D deficiency Dyslipidemia Diabetic nephropathy associated with type 1 diabetes mellitus Diabetes type 1, uncontrolled Hypertension Surgical History S/P bunionectomy S/P cataract surgery Hx of esophagogastroduodenoscopy Hx of tubal ligation Family History Father No problems noted. Mother Hypertension Social History Household Members: Children Household Members Other:: 2 children Housing: Apartment Alcohol intake: current Alcohol intake frequency: does not drink Patient Tobacco Use Status: Former Tobacco user e-Cigarette/Vaping Use: Never Used service: No Current occupational status: unemployed Cognitive needs: No Hearing needs: No Vision needs: No Female Reproductive History Menstrual Age of Menarche: 13 Review of Systems Const All systems reviewed & are unremarkable except as noted in HPI and below Physical Exam Const Other: Appearance: Alert.? Oriented X3.? No acute distress.? Head: Normocephalic. Eyes: Sclera and conjunctiva normal. ? ENT: Pharynx erythema + cobblestoned, no tonsilar exudates. Neck: Normal inspection.? Neck supple.?Full ROM. CVS: Normal heart rate and rhythm.? Pulses normal.? Respiratory: No respiratory distress.? Breath sounds normal.? Abdomen: Soft and nontender.? Neuro: Oriented X 3.? No motor deficit.? No sensory deficit. CN 2-12 intact Results AMB Rapid Strep AMB Rapid Strep Negative Last Edit by Mook Narayan CMA on 09/29/23 12:22 Assessment & Plan Assessment & Plan (1) Chest congestion: Comment: Will give prednisone, will also order chest x-ray. Code(s): R09.89 - Other specified symptoms and signs involving the circulatory and respiratory systems (2) Upper respiratory infection: Comment: Patient given strep swab in office which was negative, also given URI swab will get back to her with results. Patient has been given work note for 2 days. Has been instructed to rest stay hydrated and she can utilize [id number]-[id number] medication but she tolerates Code(s): J06.9 - Acute upper respiratory infection, unspecified Qualifiers: URI type: unspecified URI Qualified Code(s): J06.9 - Acute upper respiratory infection, unspecified Plan: Will follow-up with results Plan Take your medications as prescribed. If you were prescribed antibiotics today, it is important that you take your medication to their entirety, do not skip any doses, do not finish them early. Follow-up with your primary care provider this week. Present to the emergency department with new or worsening symptoms. Such as fevers, chills, chest pain, shortness of breath, nausea, vomiting, dizziness, headache, vision changes, lethargy In case of emergency call 911 Orders: Orders SARS-CoV2/FLU/RSV Today J06.9 - Acute upper respiratory infection, unspecified, R09.89 - Other specified symptoms and signs involving the circulatory and respiratory systems AMB Rapid Strep Screen Today Z13.9 - Encounter for screening, unspecified XR chest 2V Today R09.89 - Other specified symptoms and signs involving the circulatory and respiratory systems Medications: New prednisone 20 mg PO BID 10 tabs 0RF benzonatate 100 mg PO BID PRN 20 caps 0RF cough Discontinued prednisone Discontinued Reason: Order 60 mg (3 x 20 mg) PO DAILY 9 tabs 0RF Coding Level of Care Code Est Pt Level 3 (75808) Diagnoses Chest congestion R09.89 Upper respiratory tract infection, unspecified type J06.9 URI type: unspecified URI Time Spent (min) 27
[2023-09-29 12:10] VITALS: BP 110/76; PULSE 96; TEMP 37.4; O2SAT 99; BMI 24.3
== END 2023-09-29 13:01 | disposition home or self-care (01) ==
PROVIDERS: PCP Internal Medicine; Visit Provider Nurse Practitioner Primary Care
DX: R09.89 Other specified symptoms and signs involving the circulatory and respiratory systems (principal); J06.9 Acute upper respiratory infection, unspecified; J02.9 Acute pharyngitis, unspecified
CPT/HCPCS: 87880; 99213

== ENCOUNTER 2023-09-29 12:33 | Outpatient (REF) | payer MEDICARE, MEDICAID, SELFPAY ==
--- NOTE | ~2023-09-29 | XR_ITS ---
EXAMINATION: XR CHEST CLINICAL INFORMATION: Difficulty breathing COMPARISON: None available. TECHNIQUE: 2 views of the chest were obtained. FINDINGS: Lungs clear. No pleural effusions. Heart and pulmonary vessels are normal. XR/XR chest 2V IMPRESSION: No active disease.
[2023-09-29 17:07] LABS: Influenza A PCR NEGATIVE (Negative); Influenza B PCR NEGATIVE (Negative); Resp Syncy Virus RNA Qual PCR NEGATIVE (Negative); SARS COV2 PCR INHOUSE POSITIVE (Negative)
== END 2023-09-29 12:34 | disposition home or self-care (01) ==
LOC: HO.HMGCX 12:33
PROVIDERS: PCP Internal Medicine; Visit Provider Nurse Practitioner Primary Care
DX: J06.9 Acute upper respiratory infection, unspecified (principal); R09.89 Other specified symptoms and signs involving the circulatory and respiratory systems
CPT/HCPCS: 0241U; 71046

== ENCOUNTER 2023-10-14 12:16 | Outpatient (AMB) | payer MEDICARE, MEDICAID, SELFPAY ==
--- NOTE | 2023-10-14 12:35 | A.OFFVIS_ITS ---
Vital Signs 10/14/23 12:37 Height 5 ft 2 in Weight 130 lb 1.164 oz BMI 23.8 BP 114/68 Blood Pressure Location Rt brachial Position Sitting Pulse 85 Pulse Source Pulse Oximeter Intake Visit Reasons: f/u type 1 dm/CONFIRMED Intake Note: New Patient presents today to establish treatment for Type 1 Diabetes Mellitus: Last Diabetic Eye exam: 09/03/2023, has a coming up appt in [place] Last Podiatry Exam: Does not see a Linux Architect Most recent HbA1c: 9.4%, 10/14/2023 Random Glucose- 183 mg/dL, Today Polysomnographer Required: No Accompanied by: Self / Same As Patient Allergies oxycodone [Percocet] Adverse Reaction (Unknown, Verified 10/14/23 12:58) chills HPI Comments Details: 42 YO F with PMHx T1DM who is seen in F/U for T1DM. Initially diagnosed with T1DM at the age of 24. Last seen by and CDE in June 2023 Treats lows with juice and fruit. Checks sugar after to ensure it is rising. Follows the rule of 15's. Tandem Tslim Dexcom average glucose: [248 ] Glucose Management indicator 9.2% TIme in range: Forty-seven % very high (above 250) 23% high Twenty-eight % in range (70-180]1.1 % low (69-55) [0.5 ] % very low (below 54) [ 102] Standard Deviation Does have eyes checked yearly, last eye exam 08/20 , possible retinopathy will schedule locally after she sees neuro p 3 armament/ordnance ima technician in [place] Denies neuropathy. Has nephropathy, on Losartan 12.5 mg PO daily. No recent UAC on file. Has HLD, on Atorvastatin 20 mg PO daily. No recent LDL on file. Denies history of CAD. Had diabetes education. Diet/Carb counting: She often does not put her carbs in as she is fearful but she might run low. She works Thursday through Thursday 528 and has a separate work profile for this timeframe. Currently using the Tandem insulin pump with DEXCOM G6. Pump profile Basal rate(s) (units/hour) : 12 AM 0.5 unit/hr 4 AM 0.5 units/hr 8 AM 1.15 units / hr 12 PM 1.12 units / hr 4 PM 1.0 units/hr 8 PM 1.15 units/hr 0.5 0.5 1.5 Insulin Carbohydrate Ratio (s) 12 AM to 4 AM 1:13 4 AM to 12 PM 1:13 12 PM to 4 PM 1:15 4 PM to 8PM 1:15 8 PM to 12 AM 1:15 Correction Factor / Sensitivity Factor 12 AM 1:50 4 AM 1:40 8 AM 1:50 12 PM 1:30 4PM 1:30 4-9PM 1:70 work profile changed today 8PM 1:50 12 pm 1:50 Active Insulin Time:? 5 hours Target(s): 12 AM to 12 AM 110 mg/dL PFSH Medical History UTI (urinary tract infection) Abnormal Pap smear of cervix Intermittent claudication Sleep behavior disorder, REM Oral phase dysphagia Fibroids Goiter HLD (hyperlipidemia) Hypogonadotropic hypogonadism Premature ovarian failure Sinus tachycardia Nausea and vomiting Amenorrhea Depression Vitamin D deficiency Dyslipidemia Diabetic nephropathy associated with type 1 diabetes mellitus Diabetes type 1, uncontrolled Hypertension Surgical History S/P bunionectomy S/P cataract surgery Hx of esophagogastroduodenoscopy Hx of tubal ligation Family History Father No problems noted. Mother Hypertension Social History Household Members: Children Household Members Other:: 2 children Housing: Apartment Alcohol intake: current Alcohol intake frequency: does not drink Patient Tobacco Use Status: Former Tobacco user e-Cigarette/Vaping Use: Never Used service: No Current occupational status: unemployed Cognitive needs: No Hearing needs: No Vision needs: No Female Reproductive History Menstrual Age of Menarche: 13 Physical Exam Vital Signs: Last Vital Signs Pulse 85 10/14/23 12:37 BP 114/68 10/14/23 12:37 BMI result Body Mass Index 23.8 Results AMB Hemoglobin A1c AMB Hemoglobin A1c 9.4 % Last Edit by SUELLEN Hackett on 10/14/23 12:59 Results Reviewed Results Reviewed: Laboratory Last Values Glucose (Clinic) 183 mg/dL (60-115) H 10/14/23 12:42 Hgb A1c (Clinic) 9.4 % (4.0-6.0) H 10/14/23 12:58 Laboratory Tests 10/23/22 03/12/23 07/15/23 15:21 08:27 09:14 Potassium 4.0 BUN 19 H Creatinine 1.20 Hgb A1c (Clinic) 8.0 H 8.3 H Assessment & Plan Assessment & Plan (1) Diabetes type 1, uncontrolled: Code(s): E10.65 - Type 1 diabetes mellitus with hyperglycemia Category: Medical Qualifiers: Glycemic state: with hyperglycemia Qualified Code(s): E10.65 - Type 1 diabetes mellitus with hyperglycemia Plan: Type 1 on an insulin pump having significant hyperglycemia as she is not entering [employer] due to fear of running low. Today pump settings were changed to give her less of a correction on her work profile. She was asked to consistently enter her carbohydrates and we will see her back to review results of this. Patient teaching: The patient was counseled to always carry a source of sugar and on the rule of 15's: Take 3 glucose tablets and repeat again in 15 minutes if blood sugar is not in normal range. Continue to repeat every 15 minutes until blood sugar is normal. The patient was counseled to achieve a target A1C of 7% (154 avg). Fasting blood sugars should be 90-130 in the morning and less than 180 two hours after meals. Reviewed the relationship between poor diabetic control and the developement of complications Symptoms of DKA were reviewed: early: frequent urination, dry mouth, ketones in the urine, severe symptoms: abdominal pain, nausea, vomiting and weakness. It is important to hydrate with sugar free liquids every 30 minutes and bring the sugars down to normal levels. Orders: Orders Microalbumin, Random (w Creat) 1 Week - Type 1 diabetes mellitus with hyperglycemia AMB Hemoglobin A1c 10/14/23 E11.9 - Type 2 diabetes mellitus without compl ications Basic Metabolic Panel Fasting 1 Week - Type 1 diabetes mellitus with hyperglycemia Lipid Panel 1 Week - Type 1 diabetes mellitus with hyperglycemia Thyroid Stimulating Hormone 1 Week E10.65 - Type 1 diabetes mellitus with hyperglycemia Medications: New ketone blood test (Precision Xtra B-Ketone strips) As directed prn glucose over 300 signs of dka (nausea/weakness) 25 ea 1RF blood ketone glucose monitor As directed Precision Xtra glucose-ketone monitor prn sugars over 250 1 ea 1RF Coding Level of Care Code Est Pt Level 5 (49371) Complex EM visit Add On G2211 Diagnoses Uncontrolled type 1 diabetes mellitus with hyperglycemia E10.65 Glycemic state: with hyperglycemia Time Spent (min) 50 Comment Time spent reviewing labs/previous provider notes, face to face, chart documentation
--- NOTE | 2023-10-14 12:35 | ...WebTmpl.AM.BPCHK ---
Intake Intake Visit Reasons: f/u type 1 dm/CONFIRMED Allergies oxycodone [Percocet] Adverse Reaction (Unknown, Verified 09/29/23 12:36) chills Coding
[2023-10-14 12:37] VITALS: BP 114/68; PULSE 85; BMI 23.8
[2023-10-14 12:48] LABS: Glucose, Whole Blood 183 mg/dL (60-115)
--- NOTE | 2023-10-14 12:55 | A.OFFVIS_ITS ---
Vital Signs 10/14/23 12:37 Height 5 ft 2 in Weight 130 lb 1.164 oz BMI 23.8 BP 114/68 Blood Pressure Location Rt brachial Position Sitting Pulse 85 Pulse Source Pulse Oximeter Intake Visit Reasons: f/u type 1 dm/CONFIRMED Intake Note: New Patient presents today to establish treatment for Type 1 Diabetes Mellitus: Last Diabetic Eye exam: 09/03/2023, has a coming up appt in [place] Last Podiatry Exam: Does not see a Farmworker Dairy Most recent HbA1c: 9.4%, 10/14/2023 Random Glucose- 183 mg/dL, Today Vice President For Philanthropy Required: No Accompanied by: Self / Same As Patient Allergies oxycodone [Percocet] Adverse Reaction (Unknown, Verified 10/14/23 12:58) chills PFSH Medical History UTI (urinary tract infection) Abnormal Pap smear of cervix Intermittent claudication Sleep behavior disorder, REM Oral phase dysphagia Fibroids Goiter HLD (hyperlipidemia) Hypogonadotropic hypogonadism Premature ovarian failure Sinus tachycardia Nausea and vomiting Amenorrhea Depression Vitamin D deficiency Dyslipidemia Diabetic nephropathy associated with type 1 diabetes mellitus Diabetes type 1, uncontrolled Hypertension Surgical History S/P bunionectomy S/P cataract surgery Hx of esophagogastroduodenoscopy Hx of tubal ligation Family History Father No problems noted. Mother Hypertension Social History Household Members: Children Household Members Other:: 2 children Housing: Apartment Alcohol intake: current Alcohol intake frequency: does not drink Patient Tobacco Use Status: Former Tobacco user e-Cigarette/Vaping Use: Never Used service: No Current occupational status: unemployed Cognitive needs: No Hearing needs: No Vision needs: No Female Reproductive History Menstrual Age of Menarche: 13 Physical Exam Vital Signs: Last Vital Signs Pulse 85 10/14/23 12:37 BP 114/68 10/14/23 12:37 BMI result Body Mass Index 23.8 Results AMB Hemoglobin A1c AMB Hemoglobin A1c 9.4 % Last Edit by SUELLEN Hackett on 10/14/23 12:59 Results Reviewed Results Reviewed: Laboratory Last Values Glucose (Clinic) 183 mg/dL (60-115) H 10/14/23 12:42 Hgb A1c (Clinic) 9.4 % (4.0-6.0) H 10/14/23 12:58 Assessment & Plan Assessment & Plan Orders: Orders Microalbumin, Random (w Creat) 1 Week E10.65 - Type 1 diabetes mellitus with hyperglycemia AMB Hemoglobin A1c Today E11.9 - Type 2 diabetes mellitus without complications Basic Metabolic Panel Fasting 1 Week E10.65 - Type 1 diabetes mellitus with hyperglycemia Lipid Panel 1 Week E10.65 - Type 1 diabetes mellitus with hyperglycemia Thyroid Stimulating Hormone 1 Week E10.65 - Type 1 diabetes mellitus with hyperglycemia Coding
== END 2023-10-14 13:22 | disposition home or self-care (01) ==
PROVIDERS: PCP Internal Medicine; Visit Provider Nurse Practitioner Adult Health
DX: E10.65 Type 1 diabetes mellitus with hyperglycemia (principal)
CPT/HCPCS: 99215; G2211

== ENCOUNTER → 2023-10-14 12:16 | Outpatient (BNVA) | payer MEDICARE, MEDICAID, SELFPAY | PROVIDERS: PCP Internal Medicine; Visit Provider Nurse Practitioner Adult Health | DX: E10.65 Type 1 diabetes mellitus with hyperglycemia (principal); Z96.41 Presence of insulin pump (external) (internal) | CPT/HCPCS: 82947; 83036; 99212 ==

== ENCOUNTER 2023-10-28 11:13 | Outpatient (REF) | payer MEDICARE, MEDICAID, SELFPAY ==
[2023-10-28 13:11] LABS: Creatinine Urine 249.55 mg/dL; Microalbum/Creatinine Ratio Ur 13.6 ug/mg cr (<30)
[2023-10-28 13:15] LABS: Anion Gap 10 (12-20); Blood Urea Nitrogen 13 mg/dL (9-16); Calcium 9.3 mg/dL (8.4-10.2); Carbon Dioxide 31 mmol/L (22-29); Chloride 105 mmol/L (96-108); Cholesterol 109 mg/dL (<200); Estimated Glomerular Filt Rate > 60; Glucose Fasting 108 mg/dL (60-99); HDL Cholesterol 37 mg/dL (>40); LDL Cholesterol Calculated 59 mg/dL (<100); Sodium 142 mmol/L (135-145); Triglycerides 68 mg/dL (<150)
[2023-10-28 13:31] LABS: Thyroid Stimulating Hormone 0.97 uIU/mL (0.32-4.0)
== END 2023-10-28 11:14 | disposition home or self-care (01) ==
LOC: HO.10HDL 11:13
PROVIDERS: Internal Medicine Endocrinology, Diabetes & Metabolism; Visit Provider Nurse Practitioner Adult Health
DX: E10.65 Type 1 diabetes mellitus with hyperglycemia (principal)
CPT/HCPCS: 36415; 80048; 80061; 82043; 82570; 84443

== ENCOUNTER 2023-11-03 09:03 | Outpatient (AMB) | payer MEDICARE, MEDICAID, SELFPAY ==
[2023-11-03 09:24] VITALS: BP 102/76; PULSE 82; BMI 23.8
--- NOTE | 2023-11-03 09:24 | A.OFFVIS_ITS ---
Vital Signs 11/03/23 09:24 Height 5 ft 2 in Weight 130 lb 1.164 oz BMI 23.8 BP 102/76 Blood Pressure Location Rt brachial Position Sitting Pulse 82 Pulse Source Pulse Oximeter Intake Visit Reasons: Type 1 DM/CONFIRMED Intake Note: Patient presents today for a follow-up on Type 1 Diabetes Mellitus: Last Diabetic Eye exam: 09/03/2023, has a coming up appt in [place] Last Podiatry Exam: Does not see a Banquet Kitchen Supervisor Most recent HbA1c: 9.4%, 10/14/2023 Random Glucose- 149mg/dL, Today Cathead Operator Required: No Accompanied by: Self / Same As Patient Allergies oxycodone [Percocet] Adverse Reaction (Unknown, Verified 11/03/23 09:25) chills HPI Comments Details: 42 YO F with PMHx T1DM who is seen in F/U for T1DM. Initially diagnosed with T1DM at the age of 24.Last seen by and CDE in June 2023. She had a pump adjustment several weeks ago as she reported dropping low when she was working after high correction. She has been in work mode a great deal of the time which has lower basal rates and lower corrections. Treats lows with juice and fruit. Checks sugar after to ensure it is rising. Follows the rule of 15's. Tandem Tslim Does have eyes checked yearly, last eye exam 08/20 , possible retinopathy will schedule locally after she sees neuro director corporate compliance in [place] Denies neuropathy. Has nephropathy, on Losartan 12.5 mg PO daily. No recent UAC on file. Has HLD, on Atorvastatin 20 mg PO daily. No recent LDL on file. Denies history of CAD. Had diabetes education. Diet/Carb counting: She often does not put her carbs in as she is fearful but she might run low. She works Thursday through Thursday 3-8 and has a separate work profile for this timeframe. Currently using the Tandem insulin pump with DEXCOM G6. Pump profile Basal rate(s) (units/hour) :work profile 12 AM 0.5 unit/hr 4 AM 1.05 units/hr 8 AM 1.50 units / hr 12 PM 1.5 units / hr 4 PM 0.5 units/hr 9PM 0.5 units hr Insulin Carbohydrate Ratio (s) 12 AM to 4 AM 1:13 4 AM to 12 PM 1:13 12 PM to 4 PM 1:15 4 PM to 8PM 1:15 8 PM to 12 AM 1:15 Correction Factor / Sensitivity Factor 12 AM 1:60 4 AM 1:50 8 AM 1:70 12 PM 1:50 Active Insulin Time:? 5 hours Target(s): 12 AM to 12 AM 110 mg/dL Mryta profile:see scanned pump data Insulin carb ration changed from 12pm-9 from 1:30 to 1:50 PFSH Medical History UTI (urinary tract infection) Abnormal Pap smear of cervix Intermittent claudication Sleep behavior disorder, REM Oral phase dysphagia Fibroids Goiter HLD (hyperlipidemia) Hypogonadotropic hypogonadism Premature ovarian failure Sinus tachycardia Nausea and vomiting Amenorrhea Depression Vitamin D deficiency Dyslipidemia Diabetic nephropathy associated with type 1 diabetes mellitus Diabetes type 1, uncontrolled Hypertension Surgical History S/P bunionectomy S/P cataract surgery Hx of esophagogastroduodenoscopy Hx of tubal ligation Family History Father No problems noted. Mother Hypertension Social History Household Members: Children Household Members Other:: 2 children Housing: Apartment Alcohol intake: current Alcohol intake frequency: does not drink Patient Tobacco Use Status: Former Tobacco user e-Cigarette/Vaping Use: Never Used service: No Current occupational status: unemployed Cognitive needs: No Hearing needs: No Vision needs: No Female Reproductive History Menstrual Age of Menarche: 13 Physical Exam Vital Signs: Last Vital Signs Pulse 82 11/03/23 09:24 BP 102/76 11/03/23 09:24 BMI result Body Mass Index 23.8 Const Orientation/consciousness: patient oriented x3 HEENT Head: Yes normal to inspection Neck Neck: Yes normal visual inspection Cardio Jugular venous distension: no JVD Rate: regular rate Rhythm: regular rhythm Heart sounds: S1 normal heart sound present and S2 normal heart sound present Neuro General: patient oriented x3 Extrem Other: no edema no callous or open areas on feet Results Reviewed Results Reviewed: Laboratory Last Values Glucose (Clinic) 149 mg/dL (60-115) H 11/03/23 09:30 Laboratory Tests 07/31/22 08/06/22 03/12/23 10:45 12:51 08:27 Plt Count 294 Potassium BUN Creatinine Estimated GFR Fasting Glucose Hgb A1c (Clinic) 7.5 H 8.0 H Calcium 9.0 AST 13 ALT 10 Triglycerides Cholesterol LDL Cholesterol, Calc HDL Cholesterol 25-OH Vitamin D Total 42.1 TSH Urine Creatinine Urine Microalbumin Microalb/Creat Ratio 07/15/23 10/14/23 10/28/23 09:14 12:58 11:15 Plt Count Potassium 4.0 BUN 13 Creatinine 0.87 Estimated GFR > 60 Fasting Glucose 108 H Hgb A1c (Clinic) 8.3 H 9.4 H Calcium 9.3 AST ALT Triglycerides 68 Cholesterol 109 LDL Cholesterol, Calc 59 HDL Cholesterol 37 L 25-OH Vitamin D Total TSH 0.97 Urine Creatinine Urine Microalbumin Microalb/Creat Ratio 10/28/23 11:20 Plt Count Potassium BUN Creatinine Estimated GFR Fasting Glucose Hgb A1c (Clinic) Calcium AST ALT Triglycerides Cholesterol LDL Cholesterol, Calc HDL Cholesterol 25-OH Vitamin D Total TSH Urine Creatinine 249.55 Urine Microalbumin 34.0 Microalb/Creat Ratio 13.6 Assessment & Plan Assessment & Plan (1) Diabetes type 1, uncontrolled: Code(s): E10.65 - Type 1 diabetes mellitus with hyperglycemia Category: Medical Qualifiers: Glycemic state: with hyperglycemia Qualified Code(s): E10.65 - Type 1 diabetes mellitus with hyperglycemia Plan: type 1 diabetic with high glucose readings caused by keeping herself in the work mode which has a smaller correction factor. She was having lows in the non work basal/bolus program.Correction factor was changed to give her less insulin with corrections. Coding Level of Care Code Est Pt Level 4 (50991) Diagnoses Uncontrolled type 1 diabetes mellitus with hyperglycemia E10.65 Glycemic state: with hyperglycemia Time Spent (min) 30 Comment face to face, reviewing pump data, documenting
[2023-11-03 09:36] LABS: Glucose, Whole Blood 149 mg/dL (60-115)
== END 2023-11-03 10:25 | disposition home or self-care (01) ==
PROVIDERS: PCP Internal Medicine; Visit Provider Nurse Practitioner Adult Health
DX: E10.65 Type 1 diabetes mellitus with hyperglycemia (principal)
CPT/HCPCS: 99214

== ENCOUNTER → 2023-11-03 09:03 | Outpatient (BNVA) | payer MEDICARE, MEDICAID, SELFPAY | PROVIDERS: PCP Internal Medicine; Visit Provider Nurse Practitioner Adult Health | DX: E10.65 Type 1 diabetes mellitus with hyperglycemia (principal); Z46.81 Encounter for fitting and adjustment of insulin pump; Z79.4 Long term (current) use of insulin | CPT/HCPCS: 82947; 99212 ==

== ENCOUNTER 2023-12-25 10:55 | Outpatient (AMB) | payer MEDICARE, MEDICAID, SELFPAY ==
--- NOTE | 2023-12-25 10:50 | MHC.PC.OV ---
Intake Visit Reasons: discuss ref for ENT andriod [phone] Allergies oxycodone [Percocet] Adverse Reaction (Unknown, Verified 12/25/23 11:04) chills Medication List - Last Reconciled 12/25/23 by Liv Soni MD amitriptyline 150 mg PO BEDTIME atorvastatin 20 mg PO BEDTIME 90 days blood ketone glucose monitor As directed Precision Xtra glucose-ketone monitor prn sugars over 250 blood sugar diagnostic (Freestyle InsuLinx Test Strips) 3x daily cetirizine 10 mg PO DAILY PRN cholecalciferol (vitamin D3) 50 mcg PO DAILY 30 days dicyclomine 20 mg PO QID 30 days diltiazem HCl CD (Cardizem CD) 120 mg PO QAM docusate sodium 100 mg PO DAILY fluticasone propionate 50 mcg/actuation (Allergy Relief (fluticasone)) 1 spray intranasal DAILY glucagon 3 mg/actuation (Baqsimi) 3 mg intranasal ONCE Humalog U-100 Insulin (insulin lispro) Up to 130 units per day via insulin pump subcutaneously subcutaneously; NS ketone blood test (Precision Xtra B-Ketone strips) prn tid if glucose over 300 or nausea vomiting lancets (Accu-Chek Fastclix Lancet Drum) As directed tests 3 X/day lancing device with lancets (Accu-Chek Multiclix Lancet kit) As directed checks 6X/day wiqybi-tuqkqxmz-enmarfo 3,000-9,500- 15,000 unit (Creon) 1 cap PO QID 30 days losartan 25 mg PO DAILY methylcellulose (laxative) (Citrucel) 500 mg PO BID metoprolol succinate ER 50 mg PO DAILY omeprazole 40 mg PO BID sennosides (Senna Laxative) 17.2 mg (2 x 8.6 mg) PO BEDTIME simethicone (Gas Relief (simethicone)) 180 mg PO .Q.i.d. PRN Tobacco use date assessed: 12/25/23 Dental Screening Dental Screen Date: 12/25/23 Did you have a dental visit in the last 12 months?: Yes Did you have a dental problem in the last 6 months where you did not have access to dental care?: Yes Was dental information given to patient?: Patient has dentist HPI discuss ref for ENT andriod [phone] HPI Details 43-year-old lady with past medical history of type 1 diabetes mellitus, hypogonadism, history of nonischemic cardiomyopathy, IBS with both constipation and diarrhea, GERD, dyslipidemia, depression, here today still complaining of dysphagia. Patient states that it feels like there is something stuck in base of her throat whenever she eats or drinks. She is currently being seen for this by [facility], and has been referred to ENT for further evaluation, as her she has had a negative EGD and gastro work up including modified barium swallow and speech therapy. Referral was ordered last 11/16/2022 but patient still has not heard from anybody regarding an appointment with ENT. [facility] Medical History (Updated 12/27/23 @ 15:55 by Liv Soni MD) ASCUS with positive high risk HPV cervical Abnormal Pap smear of cervix Intermittent claudication Sleep behavior disorder, REM Oral phase dysphagia Fibroids Goiter HLD (hyperlipidemia) Hypogonadotropic hypogonadism Premature ovarian failure Sinus tachycardia Nausea and vomiting Amenorrhea Depression Vitamin D deficiency Dyslipidemia Diabetic nephropathy associated with type 1 diabetes mellitus Diabetes type 1, uncontrolled Hypertension Surgical History S/P bunionectomy S/P cataract surgery Hx of esophagogastroduodenoscopy Hx of tubal ligation Family History Father No problems noted. Mother Hypertension Social History Household Members: Children Household Members Other:: 2 children Housing: Apartment Alcohol intake: current Alcohol intake frequency: does not drink Patient Tobacco Use Status: Former Tobacco user e-Cigarette/Vaping Use: Never Used service: No Current occupational status: unemployed Cognitive needs: No Hearing needs: No Vision needs: No Female Reproductive History Menstrual Age of Menarche: 13 Questionnaire PHQ-9 Over the last 2 weeks, how often have you been bothered by any of the following problems? 1. Little interest or pleasure in doing things: not at all 2. Feeling down, depressed, or hopeless: not at all 3. Trouble falling or staying asleep, or sleeping too much: not at all 4. Feeling tired or having little energy: not at all 5. Poor appetite or overeating: not at all 6. Feeling bad about yourself - or that you are a failure or have let yourself or your family down: not at all 7. Trouble concentrating on things, such as reading the newspaper or watching television: not at all 8. Moving or speaking so slowly that other people could have noticed. Or the opposite - being so fidgety or restless that you have been moving around a lot more than usual: not at all 9. Thoughts that you would be better off or of hurting yourself in some way: not at all Total score: 0 Depression Screening Interpretation: Negative Depression Screening Done: Yes 35472 - PHQ-9 Billing: Yes Source: Developed by Drs. Kelton Dixon, Kim Powell, Junior Adan and colleagues, with an educational marlene from [employer]. Thrive Questionnaire Date Thrive assessed: 12/25/23 I am a: Patient What is your living situation today?: I have a steady place to live Within the past 12 months, did the food you bought not last and you didn't have the money to get more?: Never true Within the past 12 months, did you worry whether your food would run out before you got money to buy more?: Never true Do you have trouble paying for medicines?: No Do you have trouble getting transportation to medical appointments?: No Do you have trouble paying your heating and electricity bill?: No Do you have trouble taking care of your child, family member or friend?: No Do you have trouble with day-to-day activities such as bathing, preparing meals, shopping, managing finances, etc.?: No Are you currently unemployed and looking for a job?: No Are you interested in more education?: No THRIVE Score: 0 AUDIT C Alcohol Use Questionnaire (AUDIT-C) 1. How often do you have a drink containing alcohol?: Never 3. How often do you have six or more drinks on one occasion?: Never Total Score: 0 JUVENTINO-7 AMB Questionnaire JUVENTINO-7 Date JUVENTINO - 7 assessed: 12/25/23 Feeling nervous, anxious, or on edge: 0 = Not at all Not being able to stop or control worryin = Not at all Worrying too much about different things: 0 = Not at all Trouble relaxin = Not at all Being so restless that it is hard to sit still: 0 = Not at all Becoming easily annoyed or irritable: 0 = Not at all Feeling afraid as if something awful might happen: 0 = Not at all Total JUVENTINO-7 score (0-4 normal; 5-9 mild; 10-14 moderate; 15-21 severe): 0 Source: Developed by Drs. Kelton Dixon, Kim Powell, Junior Adan and colleagues, with an educational marlene from [employer]. JUVENTINO-7 Assessment Billing JUVENTINO-7 Assessment Tool: JUVENTINO-7 Assessment 83017 Review of Systems Const Denies fatigue, Denies fever(s), Denies night sweats and Denies poor appetite ENT Reports dysphagia, Denies hearing loss, Denies odynophagia, Denies throat swelling and Denies tongue swelling Card Reports no additional complaints Resp Reports no additional complaints GI Denies abdominal pain, Denies melena, Denies bloating, Denies hematochezia, Reports constipation, Reports dysphagia, Denies excessive flatus, Denies early satiety, Denies nausea, Denies odynophagia and Denies hematemesis Reports no additional complaints Musc Reports no additional complaints Neuro Reports no additional complaints Psych Reports no additional complaints Endo Denies fatigue Garry/Lymph Reports no additional complaints Aller/Immun Denies throat swelling and Denies tongue swelling Physical exam (Primary Care) Tobacco/Smoking Status: Tobacco use Status Tobacco use date assessed 12/25/23 12/25/23 10:53 Patient Tobacco Use Status Former Tobacco user 12/25/23 10:53 e-Cigarette/Vaping Use Never Used 12/25/23 10:53 PHQ-9: PHQ-9 Score PHQ-9: Total score 0 12/25/23 11:06 Depression Screening Interpretation: Negative Thrive Assessment: Date of Thrive Assessment Date Thrive assessed 12/25/23 12/25/23 10:54 Telehealth Telehealth Telehealth Platform: [facility] Location of provider rendering services: practice address Location of patient: address on file Patient Identification confirmed using: Name, : Yes Telehealth method: video Patient verbally consented to treatment: Yes Patient verbally consented to billing insurance company: Yes Patient informed of any privacy concerns related to visit: Yes Minutes spent on Phone/Video with Pt.: 15 Assessment and Plan Assessment & Plan (1) Oral phase dysphagia: Comment: Worse with liquids Speech therapy eval This exam revealed mild oropharyngeal phase dysphagia, characterized by mildly prolonged oral preparatory phase and mild oral and pharyngeal residuals, which could be possibly contributing to pt?s complaints of feeling globus sensation. Pt was able to reduce pharyngeal retention with multiple dry swallows and sips of liquid. No evidence of aspiration or penetration during this exam. After the exam, [employer] discussed with pt recommended compensatory strategies to promote oral and pharyngeal clearance: -Take small bites of food, chew well -Moisten food with sauces and gravies, ensuring sauces are mixed and blended in well with food -Avoid sticky textures and dry foods -Follow each bite with additional dry swallows -Alternate bites of food with sips of liquid -Maintain upright 90 degree position while eating and drinking Code(s): R13.11 - Dysphagia, oral phase Plan: Referred to ENT for further evaluation management Orders: Referrals Ear/Nose/Throat Referral R13.11 - Dysphagia, oral phase Coding Level of Care Code Tele Est Pt Level 3 (24598) Diagnoses Oral phase dysphagia R13.11 Additional Codes JUVENTINO-7 Assessment Billing - JUVENTINO-7 Assessment Tool: JUVENTINO-7 Assessment 88929 ([id number])
== END 2023-12-25 13:32 | disposition home or self-care (01) ==
LOC: HO.HMCC 10:55
PROVIDERS: PCP Internal Medicine; Visit Provider Internal Medicine
DX: R13.11 Dysphagia, oral phase (principal)

== ENCOUNTER → 2023-12-25 10:55 | Outpatient (BNVA) | payer MEDICARE, MEDICAID, SELFPAY | PROVIDERS: PCP Internal Medicine; Visit Provider Internal Medicine | DX: R13.11 Dysphagia, oral phase (principal) | CPT/HCPCS: 96127 ==

== ENCOUNTER 2024-03-18 12:53 | Outpatient (AMB) | payer MEDICARE, MEDICAID, SELFPAY ==
--- NOTE | 2024-03-18 12:54 | A.OFFVIS_ITS ---
Vital Signs 03/18/24 13:06 Height 5 ft 2 in Weight 130 lb 1.164 oz BMI 23.8 BP 125/75 Blood Pressure Location Lt brachial Position Sitting Pulse 80 Intake Visit Reasons: Follow up IBS Intake Note: Renae presents in office follow up of IBS. CC: Patient reports that the foods gets her nauseas and she can't keep eating even when she is hungry. She c/o constipation, lower abdominal pain, and heartburn. Patient states that she has an appointment with ENT in June. Pie Cutter Required: No Accompanied by: Self / Same As Patient Allergies oxycodone [Percocet] Adverse Reaction (Unknown, Verified 03/18/24 13:10) chills HPI HPI Follow up IBS: Details: Assessment & Plan (1) Oral phase dysphagia: Comment: Worse with liquids Code(s): R13.11 - Dysphagia, oral phase Plan: Today with all of her studies no cause has been found for her swallowing issues, but swallowing continues to be bad with dry or powdery foods and she has to eat very slowly.. Will refer to ENT since her problems are all in the oropharyngeal area. She continues on omeprazole bid, creon, senna, simethicone and Colace with good control. Increasing omeprazole did not effect dysphagia. Cardizem also did not help; will stop this too. ROV 6 mos. (2) Irritable bowel syndrome with both constipation and diarrhea: Code(s): K58.2 - Mixed irritable bowel syndrome (3) GERD (gastroesophageal reflux disease): Code(s): K21.9 - Gastro-esophageal reflux disease without esophagitis Qualifiers: Esophagitis presence: without esophagitis Qualified Code(s): K21.9 - Gastro-esophageal reflux disease without esophagitis Orders: Referrals Ear/Nose/Throat Referral R13.11 - Dysphagia, oral phase Medications: Refilled docusate sodium 100 mg PO DAILY 30 caps 6RF K58.2 - Mixed irritable bowel syndrome simethicone (Gas Relief (simethicone)) 180 mg PO .Q.i.d. PRN 90 caps 6RF abdominal distention R14.0 - Abdominal distension (gaseous) omeprazole 40 mg PO BID 180 caps 6RF K21.9 - Gastro-esophageal reflux disease without esophagitis kqruvf-dthtwekg-waocewj 3,000-9,500- 15,000 unit (Creon) 1 cap PO QID 140 caps 6RF 30 days K21.9 - Gastro-esophageal reflux disease without esophagitis, R11.2 - Nausea with vomiting, unspecified, K58.2 - Mixed irritable bowel syndrome sennosides (Senna Laxative) 17.2 mg (2 x 8.6 mg) PO BEDTIME 60 tabs 6RF K58.2 - Mixed irritable bowel syndrome Discontinued diltiazem HCl Discontinued Reason: Doctor's Order 120 mg PO BEDTIME 90 caps 2RF R13.10 - Dysphagia, unspecified CORRESPONDENCE On 06/25/23 @ 13:36 KrishnaJune Wrote To Renae Roman You need to have a certain body weight and you need to test for vitamin deficiencies and protein deficiencies usually, On 06/25/23 @ 11:24 Renae Diop (Regarding Self / Same As Patient) Wrote To Keller Hi this is renae i will like to know what blood test i have to get done in order for my primary doctor can prescribe the megastrol medication. Can you put it on here that way i can tell her to look it up in the patient portal . Thank you and have a great day . TODAY'S VISIT The patient has been lost to follow-up since 10/2022 She has what she calls a seasonal thing where she has severe nausea once she puts food in her mouth, even though she would be hungry and look forward to the meal. Then it will upset her stomach and she will at times force herself to vomit. She has had a normal GES in 2019, but given her current uneven control her her diabetes this could be a worsening paresis or it could be multifactorial including metabolic, neurologic or psychogenic. It is also possible that she has some form of intermittent gastroparesis that were not catching in the tests. She has been helped in the past with zofran so we will give her a short supply. I think a repeat of GES and an EGD is in order. There are no new medications or medication that I can see on her list that could be causing this as a s/e. She also was helped in the past with megace, but this is not a good fci option r/t adrenal suppression. Her current BMI is 23 and usually this isn't well covered unless the BMI is under 19. ROV 8 weeks. [facility] Medical History (Updated 03/18/24 @ 13:24 by GABRIEL Pond) Nausea and vomiting ASCUS with positive high risk HPV cervical Abnormal Pap smear of cervix Intermittent claudication Sleep behavior disorder, REM Oral phase dysphagia Fibroids Goiter HLD (hyperlipidemia) Hypogonadotropic hypogonadism Premature ovarian failure Sinus tachycardia Amenorrhea Depression Vitamin D deficiency Dyslipidemia Diabetic nephropathy associated with type 1 diabetes mellitus Diabetes type 1, uncontrolled Hypertension Surgical History S/P bunionectomy S/P cataract surgery Hx of esophagogastroduodenoscopy Hx of tubal ligation Family History Father No problems noted. Mother Hypertension Social History Household Members: Children Household Members Other:: 2 children Housing: Apartment Alcohol intake: current Alcohol intake frequency: does not drink Patient Tobacco Use Status: Former Tobacco user e-Cigarette/Vaping Use: Never Used service: No Current occupational status: unemployed Cognitive needs: No Hearing needs: No Vision needs: No Female Reproductive History Menstrual Age of Menarche: 13 Review of Systems Const Denies fatigue, Denies fever(s), Denies night sweats, Denies poor appetite and Denies weight loss ENT Reports Normal hearing present, Denies dental pain, Denies dysphagia, Denies hearing loss, Denies mouth pain, Denies odynophagia, Denies throat swelling, Denies tongue swelling and Reports other (Dentition adequate) Card Reports no additional complaints Resp Reports no additional complaints GI Details: Denies abdominal pain, Denies melena, Denies bloating, Denies hematochezia, Reports constipation, Reports GI cramping, Denies dysphagia, Denies excessive flatus, Denies early satiety, Reports heartburn, Denies diarrhea, Reports nausea, Denies odynophagia, Reports vomiting and Denies hematemesis Skin/Breast Denies pruritus, Denies lesions, Denies rash and Denies jaundice Neuro Reports Normal hearing present and Denies Abnormal speech present Endo Denies fatigue Aller/Immun Denies throat swelling and Denies tongue swelling Physical Exam Vital Signs: Last Vital Signs Pulse 80 03/18/24 13:06 BP 125/75 03/18/24 13:06 BMI result Body Mass Index 23.8 Const General: cooperative, no acute distress, well developed and well groomed Nutritional Appearance: average body habitus and well nourished Orientation/consciousness: oriented to person, oriented to place and oriented to time Limitations: No language barrier HEENT Head: Yes normocephalic and Yes atraumatic Eyes General: appearance normal, both eyes and all related structures Pupils: Equal, round and reactive pupils present Neck Neck: Yes normal visual inspection and Yes no lymphadenopathy Thyroid: Thyroid normal Resp Effort & Inspection: normal respiratory effort and able to speak in complete sentences Auscultation: clear to auscultation bilaterally Cardio Rate: regular rate Rhythm: regular rhythm Heart sounds: Normal, physiologic split S2 sound present Peripheral pulses: radial pulses present and posterior tibial pulses present GI Inspection: No distended and No Abdominal panniculus present Palpation (GI): Soft to palpation, nontender, no guarding, not rigid and No hepatosplenomegaly present Percussion: Yes normal to percussion Auscultation: normal bowel sounds Rectal Exam - Female: deferred Skin General skin exam: no rashes or lesions noted, turgor normal, skin not dry, no jaundice, No spider nevi and no striae Rashes: no rashes Nails: normal Neuro General: oriented to person, oriented to place and oriented to time Cranial nerves: Yes Equal, round and reactive pupils present and Yes Normal hearing present Speech: No Abnormal speech present Extrem General: Yes normal to inspection, No clubbing, No cyanosis and No edema Psych Appearance: grossly normal and well kempt Mental Status: mental status grossly normal Speech and movement: Normal speech and movement present Affect: normal affect Attitude: cooperative Thought process: Normal thought process present and not confabulating Thought content: Normal thought content present Insight: Limited insight present (Psych) Judgement: Limited judgement present (Psych) Assessment & Plan Assessment & Plan (1) Irritable bowel syndrome with both constipation and diarrhea: Code(s): K58.2 - Mixed irritable bowel syndrome Category: Medical (2) GERD (gastroesophageal reflux disease): Code(s): K21.9 - Gastro-esophageal reflux disease without esophagitis Category: Medical Qualifiers: Esophagitis presence: without esophagitis Qualified Code(s): K21.9 - Gastro-esophageal reflux disease without esophagitis (3) Nausea and vomiting: Comment: Just to review to date she has had a negative EGD, couple of negative gastric em ptying studies, negative CT scans and ultrasounds. It does not appear that there is anyone specific GI pathology causing this so we need to expand her thinking. It is possible that this is a severe reaction to IBS with gas trapping promoting bowel irritability Code(s): R11.2 - Nausea with vomiting, unspecified Category: Medical Plan The patient has been lost to follow-up since 10/2022 She has what she calls a seasonal thing where she has severe nausea once she puts food in her mouth, even though she would be hungry and look forward to the meal. Then it will upset her stomach and she will at times force herself to vomit. She has had a normal GES in 2019, but given her current uneven control her her diabetes this could be a worsening paresis or it could be multifactorial including metabolic, neurologic or psychogenic. It is also possible that she has some form of intermittent gastroparesis that were not catching in the tests. She has been helped in the past with zofran so we will give her a short supply. She continues on her dicyclomine, Colace, senna, and omeprazole. She is no longer taking Creon or simethicone. I think a repeat of GES and an EGD is in order. There are no new medications or medication that I can see on her list that could be causing this as a s/e. She also was helped in the past with megace, but this is not a good fci option r/t adrenal suppression. Her current BMI is 23 and usually this isn't well covered unless the BMI is under 19. ROV 8 weeks. Orders: Orders NM gastric emptying study Today R11.2 - Nausea with vomiting, unspecified EGD - GI Use Only Today R11.2 - Nausea with vomiting, unspecified Comprehensive Met. Panel Today R11.2 - Nausea with vomiting, unspecified Complete Blood Count Auto Diff Today R11.2 - Nausea with vomiting, unspecified Lipase Today R11.2 - Nausea with vomiting, unspecified Medications: New ondansetron HCl 4 mg PO BID-TID PRN 14 tabs 0RF nausea and vomiting 14 days R11.2 - Nausea with vomiting, unspecified Discontinued simethicone (Gas Relief (simethicone)) Discontinued Reason: Doctor's Order 180 mg PO .Q.i.d. PRN 90 caps 6RF abdominal distention R14.0 - Abdominal distension (gaseous) Coding Level of Care Code Est Pt Level 4 (99842) Diagnoses Irritable bowel syndrome with both constipation and diarrhea K58.2 Gastroesophageal reflux disease without esophagitis K21.9 Esophagitis presence: without esophagitis Nausea and vomiting R11.2 Time Spent (min) 33
[2024-03-18 13:06] VITALS: BP 125/75; PULSE 80; BMI 23.8
== END 2024-03-18 13:35 | disposition home or self-care (01) ==
PROVIDERS: PCP Internal Medicine; Visit Provider Nurse Practitioner
DX: K58.2 Mixed irritable bowel syndrome (principal); K21.9 Gastro-esophageal reflux disease without esophagitis; R11.2 Nausea with vomiting, unspecified
CPT/HCPCS: 99214

== ENCOUNTER → 2024-03-18 12:53 | Outpatient (BNVA) | payer MEDICARE, MEDICAID, SELFPAY | PROVIDERS: PCP Internal Medicine; Visit Provider Nurse Practitioner | DX: K58.2 Mixed irritable bowel syndrome (principal); K21.9 Gastro-esophageal reflux disease without esophagitis; R14.0 Abdominal distension (gaseous); R13.10 Dysphagia, unspecified; R11.2 Nausea with vomiting, unspecified | CPT/HCPCS: 99212 ==

== ENCOUNTER → 2024-04-07 08:01 | Outpatient (REF) | payer MEDICARE, MEDICAID, SELFPAY ==
--- NOTE | ~2024-04-07 | NM_ITS ---
EXAMINATION: AL RADIONUCLIDE SOLID FOOD GASTRIC EMPTYING 4-HOUR STUDY CLINICAL INFORMATION: Nausea, vomiting, GERD and diabetes. History of gastroparesis. COMPARISON: None TECHNIQUE: A standard meal consisting of 4 oz of Egg Beaters brand tagged with 0.816 microcuries Tc-99m Sulfur Colloid, 8 oz water and 2 slices of toast with jelly was administered orally to the patient. Images were obtained using a dual head gamma camera in the anterior and posterior projections over of the stomach immediately post ingestion and at hourly intervals up to 4 hours post ingestion. The anterior and posterior counts at each time interval were averaged using the geometric mean and expressed as percentage of the immediate post ingestion counts. FINDINGS: There is good visualization of activity in the stomach immediately post ingestion. As the study progresses, there is good clearance of activity from the stomach and visualization of progressively increasing small bowel activity. By the end of the study, there is almost no retention noted in the stomach. Retention in the stomach at each time interval was: 1 hour 87% (normal 37%-90%) 2 hours 51% (normal 30%-60%) 3 hours 7% 4 hours 2% (normal 0%-10%) AL/AL gastric emptying study IMPRESSION: Normal 4-hour solid food gastric emptying study. For solid meal, rapid gastric emptying is less than 30% at 60 minutes. Delayed gastric emptying criteria is more than 60% remaining at 120 minutes or more than 10% at 240 minutes. The 4-hour value is the best discriminator of a normal or abnormal result). Gastric emptying study grading per JNMT Consensus Recommendations in 2008 (https://tech.snmjournals.org/content/36/1/44) Grade 1 (mild retention): 11-20% at 4h Grade 2 (moderate retention): 21-35% at 4h Grade 3 (severe retention): 36-50% at 4h Grade 4 (very severe retention): >50% retention at 4h Electronically signed by: Yordan Ho MD 04/07/2024 03:[address] [facility]
== END ==
LOC: HO.NUCMED 08:01
PROVIDERS: PCP Internal Medicine; Visit Provider Nurse Practitioner
DX: R11.2 Nausea with vomiting, unspecified (principal)
CPT/HCPCS: 78264; A9541

== ENCOUNTER → 2024-04-07 08:18 | Outpatient (BNV) | payer MEDICARE, MEDICAID, SELFPAY | PROVIDERS: PCP Internal Medicine; Visit Provider Radiology Diagnostic Radiology | DX: R11.2 Nausea with vomiting, unspecified (principal) | CPT/HCPCS: 78264 ==

== ENCOUNTER 2024-04-12 09:46 | Outpatient (AMB) | payer MEDICARE, MEDICAID, SELFPAY ==
--- NOTE | 2024-04-12 09:51 | A.OFFVIS_ITS ---
Vital Signs 04/12/24 09:53 Height 5 ft 2 in Weight 127 lb 13.89 oz BMI 23.4 Blood Pressure Location Rt brachial Position Sitting Pulse Source Pulse Oximeter Intake Visit Reasons: Type 1 DM Intake Note: Patient presents today for a follow-up on Type 1 Diabetes Mellitus: Last Diabetic Eye exam: 09/03/2023, has a coming up appt in [place] Last Podiatry Exam: Does not see a Client Services Specialist Most recent HbA1c: due%, 04/12/2024 Random Glucose- 115 mg/dL, Today Load Haul Dump Operator Required: No Accompanied by: Self / Same As Patient Allergies oxycodone [Percocet] Adverse Reaction (Unknown, Verified 04/12/24 09:58) chills HPI Comments Details: 42 YO F with PMHx T1DM who is seen in F/U for T1DM. Initially diagnosed with T1DM at the age of 24.Last seen by myself in January. She is having difficulty with significant lows when she works 3=7 pm as she is very active and has lows so recenty has been stopping her pump during this time frame. She has tried putting the pump in exercise mode and this had not helped. She will be stating in a new position working same hours but much less active. Babar Craft Does have eyes checked yearly, last eye exam 08/20 , possible retinopathy will schedule locally after [place] neuro small [place]Has nephropathy, on Losartan 12.5 mg PO daily. No recent UAC on file. Has HLD, on Atorvastatin 20 mg PO daily. No recent LDL on file.Denies history of CAD. Had diabetes education. Diet/Carb counting:She often does not put her carbs in as she is fearful but she might run low. She works Thursday through Thursday 3-8 and has a separate work profile for this timeframe. Currently using the Tandem insulin pump with DEXCOM G6. Dexcom average glucose: 232 14 day continuous glucose monitor report reviewed Glucose Managment indicator 8.8 % Days with CGM data 92.9 % TIme in ranges: 40 % very high (above 250) 19 % high ?(181-250) 39 % in range ?(70-180] 1 % low (69-55) 1 % ?very low (below 54) Total daily dose of insulin 33.4 66% basal 21.9 units 34% bolus 11.5 units Control IQ 92% of the time [ ] Standard Deviation Interpretation [ ] Pump profile Basal rate(s) (units/hour) :work profile 12 AM 0.5 unit/hr 4 AM 1.05 units/hr 8 AM 1.50 units / hr 12 PM 1.5 units / hr 4 PM 0.5 units/hr 9PM 0.5 units hr Insulin Carbohydrate Ratio (s) 12 AM to 4 AM 1:13 4 AM to 12 PM 1:13 12 PM to 4 PM 1:15 4 PM to 8PM 1:15 8 PM to 12 AM 1:15 Correction Factor / Sensitivity Factor work12 AM 1:60 8 AM 1:50 4 pm 1:70 12 PM 1:50 Active Insulin Time:? 5 hours Iris profile sensitivity 50 Target(s): 12 AM to 12 AM 110 mg/dLMryta profile:see scanned pump data PFSH Medical History Nausea and vomiting ASCUS with positive high risk HPV cervical Abnormal Pap smear of cervix Intermittent claudication Sleep behavior disorder, REM Oral phase dysphagia Fibroids Goiter HLD (hyperlipidemia) Hypogonadotropic hypogonadism Premature ovarian failure Sinus tachycardia Amenorrhea Depression Vitamin D deficiency Dyslipidemia Diabetic nephropathy associated with type 1 diabetes mellitus Diabetes type 1, uncontrolled Hypertension Surgical History S/P bunionectomy S/P cataract surgery Hx of esophagogastroduodenoscopy Hx of tubal ligation Family History Father No problems noted. Mother Hypertension Social History Household Members: Children Household Members Other:: 2 children Housing: Apartment Alcohol intake: current Alcohol intake frequency: does not drink Patient Tobacco Use Status: Former Tobacco user e-Cigarette/Vaping Use: Never Used service: No Current occupational status: unemployed Cognitive needs: No Hearing needs: No Vision needs: No Female Reproductive History Menstrual Age of Menarche: 13 Physical Exam Vital Signs: BMI result Body Mass Index 23.4 Const Other: Absence of Cushingoid features. Absence of acromegalic features. Neck exam reveals nl size thyroid about 15 gms. No thyroid nodules palpable. Heart S1 S2, Reg R/R. No M/R G. Skin exam reveals absence of vitiligo or acanthosis nigricans. Visual exam of foot performed. No ulcerations or open lesions. No inter digit m aceration or fissuring. No onychomycosis, no callouses. Sensation intact to monofilament exam. Vibratory sensation is normal with 128 Hz tuning fork. Pulses positive good cap refill. areas of dryness Results AMB Hemoglobin A1c AMB Hemoglobin A1c 9.3 % Last Edit by SUELLEN Hackett on 04/12/24 10:17 Results Reviewed Results Reviewed: Laboratory Last Values Glucose (Clinic) 115 mg/dL (60-115) 04/12/24 10:01 Hgb A1c (Clinic) 9.3 % (4.0-6.0) H 04/12/24 10:16 Assessment & Plan Assessment & Plan (1) Diabetes type 1, uncontrolled: Code(s): E10.65 - Type 1 diabetes mellitus with hyperglycemia Category: Medical Qualifiers: Glycemic state: with hyperglycemia Qualified Code(s): E10.65 - Type 1 diabetes mellitus with hyperglycemia Plan: Type 1 diabetic with A1C of 9.3%. She is changing jobs in 2 week to a much less active position and she will no longer be working alone. She will return to clinic in 3 weeks to see the personal development educator for pump adjustment and then I will see her several weeks after that. The patient had an opportunity to ask questions regarding treatment plan. The patient expressed understanding and agreement with the above treatment plan. The patient is aware they should contact our office by phone for worsening glucose readings or for any low blood sugars which may warrant a change in diabetes medication. Compliance is encouraged with medications and any followup testing/consults which may have been ordered. Orders: Orders AMB Hemoglobin A1c Today E10.65 - Type 1 diabetes mellitus with hyperglycemia Creatinine Urine Today E10.65 - Type 1 diabetes mellitus with hyperglycemia Lipid Panel Today E10.65 - Type 1 diabetes mellitus with hyperglycemia Microalbumin, Random (w Creat) Today E10.65 - Type 1 diabetes mellitus with hyperglycemia Basic Metabolic Panel Today E10.65 - Type 1 diabetes mellitus with hy perglycemia Medications: New triamcinolone acetonide 0.5% 1 appl topical BID 30 days 15 grams 1RF acetone (urine) test (Ketone Urine Test strips) As directed tid for glucose over 300 nausea or vomiting 25 ea 0RF Changed From blood ketone glucose monitor As directed Precision Xtra glucose-ketone monitor prn sugars over 250 1 ea 1RF E10.65 - Type 1 diabetes mellitus with hyperglycemia To blood ketone glucose monitor bid prn Precision Xtra glucose-ketone monitor prn sugars over 250 1 ea 1RF E10.65 - Type 1 diabetes mellitus with hyperglycemia Refilled losartan 25 mg PO DAILY 90 tabs 1RF I10 - Essential (primary) hypertension atorvastatin 20 mg PO BEDTIME 90 days 90 tabs 2RF E78.5 - Hyperlipidemia, unspecified Patient Instructions: The patient was counseled to always carry a source of sugar and on the rule of 15's: Take 3 glucose tablets and repeat again in 15 minutes if blood sugar is not in normal range. Continue to repeat every 15 minutes until blood sugar is normal. Troubleshooting after starting new pod or inserting new insulin set: Occlusion, adhesive tape sensitivity, redness Check BG 2 hours after site change Safety information: Importance of a backup plan, for manual injections, proper prescriptions and emergency supplies ketone strips, and rules for testing for ketones Symptoms of DKA (diabetic ketoacidosis): early: frequent urination, dry mouth, fatigue, feeling ill, severe symptoms: ketones in the urine, abdominal pain, nausea, vomiting and weakness. It is important to hydrate with sugar free liquids every 15-30 minutes and bring the sugars down to normal levels. If you are moderate or severe with ketones or unable to bring glucose to less than 200, go to the emergency room. Coding Level of Care Code Est Pt Level 4 (72249) Complex EM visit Add On G2211 Diagnoses Uncontrolled type 1 diabetes mellitus with hyperglycemia E10.65 Glycemic state: with hyperglycemia Time Spent (min) 30 Comment Reviewing labs/provider notes, glucose sensor/pump reports, face to face, chart doc
[2024-04-12 09:53] VITALS: BMI 23.4
[2024-04-12 10:05] LABS: Glucose, Whole Blood 115 mg/dL (60-115)
== END 2024-04-12 10:28 | disposition home or self-care (01) ==
PROVIDERS: PCP Internal Medicine; Visit Provider Nurse Practitioner Adult Health
DX: E10.65 Type 1 diabetes mellitus with hyperglycemia (principal)
CPT/HCPCS: 99214; G2211

== ENCOUNTER → 2024-04-12 09:46 | Outpatient (BNVA) | payer MEDICARE, MEDICAID, SELFPAY | PROVIDERS: PCP Internal Medicine; Visit Provider Nurse Practitioner Adult Health | DX: E10.65 Type 1 diabetes mellitus with hyperglycemia (principal); Z79.4 Long term (current) use of insulin; Z96.41 Presence of insulin pump (external) (internal) | CPT/HCPCS: 82947; 83036; 99212 ==

== ENCOUNTER 2024-05-16 07:35 | Outpatient (REF) | payer MEDICARE, MEDICAID, SELFPAY ==
[2024-05-16 07:47] LABS: MANUAL DIFF FLAG NO
[2024-05-16 08:06] LABS: Basophils Percent Auto 0.6 % (0-2); Eosinophils Absolute Auto 0.3 X10*3/uL (0.0-0.4); Hematocrit 37.2 % (37.0-47.0); Hemoglobin 11.7 g/dl (12.0-16.0); Imm Gran Abs Auto 0.01 X10*3/uL (0.00-0.03); Imm Gran Pct Auto 0.2 % (0.0-0.4); Lymphocytes Absolute Auto 2.7 X10*3/uL (1.2-4.9); Lymphocytes Percent Auto 41.2 % (20-40); Mean Corpuscular HGB Conc 31.5 g/dl (31.0-35.0); Mean Corpuscular Hemoglobin 26.8 pg (27.0-33.0); Mean Corpuscular Volume 85.3 fL (80.0-98.0); Mean Platelet Volume 9.6 fL (9.4-12.3); Monocytes Absolute Auto 0.4 X10*3/uL (0.1-1.2); Monocytes Percent Auto 5.9 % (2-11); Neutrophils Absolute Auto 3.1 x10*3/uL (2.0-8.3); Neutrophils Percent Auto 48.1 % (45-73); Platelet Count 245 X10*3/uL (160-400); Red Blood Count 4.36 X10*6/uL (4.20-5.50); Red Cell Distribution Width 13.8 % (11.0-16.0); White Blood Count 6.4 X10*3/uL (4.8-10.8)
[2024-05-16 08:32] LABS: Creatinine Urine 123.61 mg/dL; Microalbum/Creatinine Ratio Ur 10.5 ug/mg cr (<30)
[2024-05-16 08:33] LABS: Alanine Aminotransferase 23 U/L (0-31); Albumin Level 3.9 g/dL (3.5-5.0); Alkaline Phosphatase 127 U/L (39-117); Anion Gap 10 (12-20); Aspartate Amino Transferase 27 U/L (5-31); Bilirubin Total 0.4 mg/dL (0.0-1.0); Blood Urea Nitrogen 16 mg/dL (9-16); Calcium 8.6 mg/dL (8.4-10.2); Carbon Dioxide 27 mmol/L (22-29); Chloride 106 mmol/L (96-108); Cholesterol 114 mg/dL (<200); Estimated Glomerular Filt Rate > 60; Glucose Random 272 mg/dL (60-115); HDL Cholesterol 41 mg/dL (>40); LDL Cholesterol Calculated 59 mg/dL (<100); Lipase 6 U/L (8-78); Potassium 3.8 mmol/L (3.3-5.1); Sodium 139 mmol/L (135-145); Total Protein 7.1 g/dL (6.5-8.0); Triglycerides 70 mg/dL (<150)
== END 2024-05-16 07:36 | disposition home or self-care (01) ==
LOC: HO.LAB 07:35
PROVIDERS: Absent Provider Nurse Practitioner; PCP Internal Medicine; Visit Provider Nurse Practitioner Adult Health
DX: R11.2 Nausea with vomiting, unspecified (principal); E10.65 Type 1 diabetes mellitus with hyperglycemia
CPT/HCPCS: 36415; 80053; 80061; 82043; 82570; 83690; 85025

== ENCOUNTER 2024-05-17 09:49 | Outpatient (AMB) | payer MEDICARE, MEDICAID, SELFPAY ==
--- NOTE | 2024-05-17 07:06 | A.OFFVIS_ITS ---
Vital Signs 05/17/24 09:54 Height 5 ft 2 in Weight 134 lb 14.766 oz BMI 24.7 BP 104/60 Blood Pressure Location Rt brachial Position Sitting Pulse 84 Pulse Source Pulse Oximeter Pulse Oximetry (%) 96 Oxygen Delivery Method Room Air Intake Visit Reasons: T1DM Intake Note: Patient present today for Type 2 Diabetes Mellitus Last Diabetic eye exam: 06/2023 Last Podiatry Visit: Doesn't have one Random Glucose: 206 mg/dl HgA1C: 9.3% 04/12/24 Printing Plate Setter Required: No Accompanied by: Self / Same As Patient Allergies oxycodone [Percocet] Adverse Reaction (Unknown, Verified 05/17/24 10:00) chills HPI Comments Details: 43 YO F with PMHx T1DM who is seen in F/U for T1DM. Initially diagnosed with T1DM at the age of 24.Last seen by myself in one month ago Babar Craft Does have eyes checked yearly, last eye exam 08/20 has retinopathy she saw a neuroopthamologist Has f/u 07/22 with neuroopthamology Denies neuropathy. Denies numbness, tingling, pain or cramping in the lower extremity. Has nephropathy, on Losartan 12.5 mg PO daily. microalbumin substantially improved over the past 2 years 13.0 eGFR>60 Has HLD, on Atorvastatin 20 mg PO daily. LDL 59 05/16/2024 Denies history of CAD. Had diabetes education. Diet/Carb counting:She often does not put her carbs in as she is fearful but she might run low. She works Thursday through Thursday now and keeps herself in work profile all of the time and often doesn't enter carbs. 12-230and Currently using the Tandem insulin pump with DEXCOM G6 Dexcom average glucose: 229 14 day continuous glucose monitor report reviewed Glucose Managment indicator 8.8 % Days with CGM data 95.6 % TIme in ranges: 38 % very high (above 250) 20 % high ?(181-250) 39 % in range ?(70-180] 2 % low (69-55) 1 % ?very low (below 54) Interpretation [ persistent high after lunches and suppers that she is only entering 5 carbohydrate g Total daily dose of insulin 34.5 62% basal 21.5 38% bolus 13%] settigs not reviewed today Basal rate(s) (units/hour) :work profile 12 AM 0.5 unit/hr 4 AM 1.05 units/hr 8 AM 1.50 units / hr 12 PM 1.5 units / hr 4 PM 0.5 units/hr 9PM 0.5 units hr Insulin Carbohydrate Ratio (s) 12 AM to 4 AM 1:13 4 AM to 12 PM 1:13 12 PM to 4 PM 1:15 4 PM to 8PM 1:15 8 PM to 12 AM 1:15 Correction Factor / Sensitivity Factor work12 AM 1:60 8 AM 1:50 4 pm 1:70 12 PM 1:50 Active Insulin Time:? 5 hours Iris profile sensitivity 50 Target(s): 12 AM to 12 AM 110 mg/dLMryta profile:see scanned pump data PFSH Medical History Nausea and vomiting ASCUS with positive high risk HPV cervical Abnormal Pap smear of cervix Intermittent claudication Sleep behavior disorder, REM Oral phase dysphagia Fibroids Goiter HLD (hyperlipidemia) Hypogonadotropic hypogonadism Premature ovarian failure Sinus tachycardia Amenorrhea Depression Vitamin D deficiency Dyslipidemia Diabetic nephropathy associated with type 1 diabetes mellitus Diabetes type 1, uncontrolled Hypertension Surgical History S/P bunionectomy S/P cataract surgery Hx of esophagogastroduodenoscopy Hx of tubal ligation Family History Father No problems noted. Mother Hypertension Social History Household Members: Children Household Members Other:: 2 children Housing: Apartment Alcohol intake: current Alcohol intake frequency: does not drink Patient Tobacco Use Status: Former Tobacco user e-Cigarette/Vaping Use: Never Used service: No Current occupational status: unemployed Cognitive needs: No Hearing needs: No Vision needs: No Female Reproductive History Menstrual Age of Menarche: 13 Physical Exam Vital Signs: Last Vital Signs Pulse 84 05/17/24 09:54 BP 104/60 05/17/24 09:54 Pulse Ox 96 05/17/24 09:54 Oxygen Delivery Method Room Air 05/17/24 09:54 BMI result Body Mass Index 24.7 Const Other: Absence of Cushingoid features. Absence of acromegalic features. Neck exam reveals nl size thyroid about 15 gms. No thyroid nodules palpable. No carotid bruits present. Lungs CTA. Heart S1 S2, Reg R/R. No M/R G. Skin exam reveals absence of vitiligo or acanthosis nigricans. No edema Visual exam of foot performed. No ulcerations or open lesions. No inter digit maceration or fissuring. No onychomycosis, no callouses. Sensation intact to monofilament exam. Vibratory sensation is normal with 128 Hz tuning fork. good cap refill positive pulses Results Reviewed Results Reviewed: Laboratory Last Values Glucose (Clinic) 206 mg/dL (60-115) H 05/17/24 10:02 Assessment & Plan Assessment & Plan (1) Diabetes type 1, uncontrolled: Code(s): E10.65 - Type 1 diabetes mellitus with hyperglycemia Category: Medical Qualifiers: Glycemic state: with hyperglycemia Qualified Code(s): E10.65 - Type 1 diabetes mellitus with hyperglycemia Plan: 43-year-old type 1 diabetic with improving nephropathy on an insulin pump with most recent A1c 9.3% on 04/12/2023. We discussed the absolute need to improve her glucose readings that she needs to start entering carbohydrates when she eats lunch and supper. She typically skips breakfast and has a small coffee, for lunch has a breakfast sandwich at [employer] and some sort of prepared meal at supper. We discussed the possibility of her switching over to an islet pump if she is out of warranty on the tandem. She has an appointment scheduled with the Althea SCOTT later this week and she will discuss with the she might be eligible for this. In the meantime she will focus on entering her carbohydrates. Her work schedule has changed she is working just 2-1/2 hours during the day in his much less active The patient had an opportunity to ask questions regarding treatment plan. The p atient expressed understanding and agreement with the above treatment plan. The patient is aware they should contact our office by phone for worsening glucose readings or for any low blood sugars which may warrant a change in diabetes medication. Compliance is encouraged with medications and any followup testing/consults which may have been ordered. Patient Instructions: Troubleshooting after starting new pod or inserting new insulin set: Occlusion, adhesive tape sensitivity, redness Check BG 2 hours after site change Safety information: Importance of a backup plan, for manual injections, proper prescriptions and emergency supplies ketone strips, and rules for testing for ketones Symptoms of DKA (diabetic ketoacidosis): early: frequent urination, dry mouth, fatigue, feeling ill, severe symptoms: ketones in the urine, abdominal pain, nausea, vomiting and weakness. It is important to hydrate with sugar free liquids every 15-30 minutes and bring the sugars down to normal levels. If you are moderate or severe with ketones or unable to bring glucose to less than 200, go to the emergency room. The patient was counseled to achieve a target A1C of 7% (154 avg). Fasting blood sugars should be 90-130 in the morning and less than 180 two hours after meals. Reviewed the relationship between poor diabetic control and the development of complications. Take 15 carb carbohydrate grams to treat a low sugar (3-4 glucose tablets, half a glass of juice or 15 carbohydrate grams of soft candy such as gummie snacks). Recheck your sugar in 15 minutes and re-treat again with 15 carbohydrate grams if low or still with symptoms. Do not drive a car or operate machinery if you do not know what your blood sugar is, if it is low or in excess of 300. Check your feet daily looking for any signs of infection, drainage, redness, ulceration and seek medical attention if this occurs. Break in shoes gradually and do not wear open-toed shoes or walk stocking footed or barefooted. Coding Level of Care Code Est Pt Level 4 (30546) Complex EM visit Add On G2211 Diagnoses Uncontrolled type 1 diabetes mellitus with hyperglycemia E10.65 Glycemic state: with hyperglycemia Time Spent (min) 35 Comment Reviewing labs/provider notes, glucose sensor/pump reports, face to face, chart doc
[2024-05-17 09:54] VITALS: BP 104/60; PULSE 84; O2SAT 96; BMI 24.7
[2024-05-17 10:06] LABS: Glucose, Whole Blood 206 mg/dL (60-115)
--- OUTSIDE RECORDS SUMMARY | 2024-05-17 10:33 | XMS_ITS | Clinical Summary ---
Demographics Address [address] [place] [address] Home Phone Email Address Preferred Language en Marital Status Single Baptism Affiliation Unknown Race Unknown Ethnic Group Unknown Author Organization [facility] Facility Address [address] [address] Care Team Providers Care Lead Systems Developer Name Role Phone Rashi Soni MD Primary Care Provider [phone] Allergies Active Allergy Reactions Criticality Noted Date Comments Oxycodone-Acetaminophen Other (see comments) Medications Cholecalciferol 50 MCG (1999) capsule Take 1 capsule by mouth 1 (one) time each day Active amitriptyline (ELAVIL) 150 MG tablet Take 1 tablet by mouth 1 (one) time each day Active atorvastatin (LIPITOR) 20 MG tablet Take 1 tablet by mouth 1 (one) time each day 01/04/2022 Active docusate sodium (COLACE) 100 MG capsule Take 1 capsule by mouth 1 (one) time each day 10/22/2021 Active fluticasone (FLONASE) 50 MCG/ACT nasal spray USE 1 SPRAY IN EACH NOSTRIL TWICE A DAY 12/19/2021 Active HumaLOG 100 UNIT/ML solution Inject 100 Units as directed every 3 (three) days 11/23/2021 Active losartan (COZAAR) 25 MG tablet Take 25 mg by mouth 1 (one) time each day 11/03/2021 Active omeprazole (PriLOSEC) [address] capsule Take 40 mg by mouth 1 (one) time each day 12/20/2021 Active [facility] Senna 8.6 MG tablet Take 2 tablets by mouth every night 12/24/2021 Active megestrol (MEGACE) 40 MG tablet Take 40 mg by mouth 1 (one) time each day Active metoprolol succinate XL (TOPROL XL) 50 MG 24 hr tablet Take 1 tablet (50 mg total) by mouth 1 (one) time each day 30 tablet 2 10/23/2022 Active Active Problems Problem Noted Date Diagnosed Date Oral phase dysphagia 04/22/2023 Urinary tract infection 04/22/2023 Cervical high risk human pap illomavirus (HPV) DNA test positive 04/22/2023 Atypical squamous cells of u ndetermined significance on cytologic smear of cervix (ASC-US) 04/22/2023 History of diabetes mellitus type 1 04/22/2023 Hypogonadotropic hypogonadism 04/22/2023 Gastroesophageal reflux disease 04/22/2023 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 Amenorrhea 04/22/2023 Bunion 07/29/2022 Proteinuria 01/02/2022 Depressive disorder 07/01/2007 Overview (04/22/2023): Severe with suicidal atemps Type 1 diabetes mellitus 07/01/2007 Overview (04/22/2023): Start on 2004 Resolved Problems Problem Noted Date Diagnosed Date Resolved Date Type 2 diabetes mellitus without complication 01/03/20 22 01/21/2022 Family History Medical History Relation Comments Hypertension Mother Relation Status Comments Father Alive Mother Alive Social History Tobacco Use Types Packs/Day Years Used Date Smoking Tobacco: Former Cigarettes Smokeless Tobacco: Never Tobacco Cessation:Counseling Given: Not Answered Alcohol Use Standard Drinks/Week Comments No 0 (1 standard drink = 0.6 oz pur e alcohol) Comments Unknown Sex and Gender Information Value Date Recorded Sex Assigned at Not on file Legal Sex Female 4:53 PM EST Gender Identity Not on file Sexual Orientation Not on file Last Filed Vital Signs Vital Sign Reading Time Taken Comments Blood Pressure 100/62 10/23/2022 2:55 PM EDT Pulse 88 10/23/2022 2:55 PM EDT Temperature - - Respiratory Rate - - Oxygen Saturation 98% 10/23/2022 2:55 PM EDT Inhaled Oxygen Concentration - - Weight 66.2 kg (146 lb) 10/23/2022 2:55 PM EDT Height 157.5 cm (5' 2 ) 10/23/2022 2:55 PM EDT Body Mass Index 26.7 10/23/2022 2:55 PM EDT Plan of Treatment Health Maintenance Due Date Last Done Comments Pneumococcal Vaccine: Pediat rics (0 to 5 Years) and At-Risk Patients (6 to 64 Years) (1 of 2 - PCV) 10/15/1985 Hepatitis B Vaccine (1 of 3 - 19+ 3-dose series) 10/15 Diabetes: Ophthalmology Exam 04/29/2020 Diabetes: Pedal Pulse Checked 04/29/2020 Diabetes: Sensory Foot Exam 04/29/2020 Diabetes: Visual Foot Exam 04/29/2020 Diabetes: Hemoglobin A1C 09/18/2021 06/18/2021 Influenza Vaccine (#1) 2023 Procedures Procedure Name Priority Date/Time Associated Diagnosis Comments EXT RESULT ENTRY Routine 06/18/2021 from Last 3 Months or Most Recently Relevant to Health Maintenance Results * (ABNORMAL) EXT RESULT ENTRY (06/18/2021) Creatinine 1.52(A) 0.50 - 1.10 mg/dL eGFR Non-Afr Gabonese 38 Hemoglobin A1C 8.4(A) 4.0 - 6.0 06/18/2021 us Historical Provider LAB BLOOD ORDERABLES Michelle l Result from Last 3 Months or Most Recently Relevant to Health Maintenance Insurance * Guarantor: Renae Diop Account Type Relation to Patient Date of Phone Billing Address Personal/Family Self 1980 [address] [place] [address] MEDICARE [place]ICAID [place] * Guarantor: Diop, Renae Account Type Relation to Patient Date of Phone Billing Address Personal/Family Self 1980 [address] [place] [address] [place]ARE [place]ID [place] Care Teams Lead Systems Developer Relationship Specialty Start Date End Date Rashi Soni MD [address] [place] [id number] PCP - General Internal Medicine 10/21/21
== END 2024-05-17 10:29 | disposition home or self-care (01) ==
PROVIDERS: PCP Internal Medicine; Visit Provider Nurse Practitioner Adult Health
DX: E10.65 Type 1 diabetes mellitus with hyperglycemia (principal)
CPT/HCPCS: 99214; G2211

== ENCOUNTER → 2024-05-17 09:49 | Outpatient (BNVA) | payer MEDICARE, MEDICAID, SELFPAY | PROVIDERS: PCP Internal Medicine; Visit Provider Nurse Practitioner Adult Health | DX: E10.65 Type 1 diabetes mellitus with hyperglycemia (principal) | CPT/HCPCS: 82947; 99212 ==

== ENCOUNTER 2024-05-19 09:41 | Outpatient (AMB) | payer MEDICARE, MEDICAID, SELFPAY ==
--- NOTE | 2024-05-19 10:20 | A.OFFVIS_ITS ---
Intake Intake Visit Reasons: T1DM Cold Press Loader Required: No Accompanied by: Self / Same As Patient Allergies oxycodone [Percocet] Adverse Reaction (Unknown, Verified 05/17/24 10:00) chills HPI Comprehensive Diabetes Asmnt Most Recent Diabetes Results: Microalb/Creat Ratio 10.5 ug/mg cr (<30) 05/16/24 Cholesterol 114 mg/dL (<200) 05/16/24 HDL Cholesterol 41 mg/dL (>40) 05/16/24 Triglycerides 70 mg/dL (<150) 05/16/24 Creatinine 0.98 mg/dL (0.5-1.4) 05/16/24 Blood Urea Nitrogen 16 mg/dL (9-16) 05/16/24 Sodium 139 mmol/L (135-145) 05/16/24 Potassium 3.8 mmol/L (3.3-5.1) 05/16/24 Chloride 106 mmol/L (96-108) 05/16/24 Carbon Dioxide 27 mmol/L (22-29) 05/16/24 Calcium 8.6 mg/dL (8.4-10.2) 05/16/24 AST 27 U/L (5-31) 05/16/24 ALT 23 U/L (0-31) 05/16/24 Total Protein 7.1 g/dL (6.5-8.0) 05/16/24 Albumin 3.9 g/dL (3.5-5.0) 05/16/24 [facility] Medical History Nausea and vomiting ASCUS with positive high risk HPV cervical Abnormal Pap smear of cervix Intermittent claudication Sleep behavior disorder, REM Oral phase dysphagia Fibroids Goiter HLD (hyperlipidemia) Hypogonadotropic hypogonadism Premature ovarian failure Sinus tachycardia Amenorrhea Depression Vitamin D deficiency Dyslipidemia Diabetic nephropathy associated with type 1 diabetes mellitus Diabetes type 1, uncontrolled Hypertension Surgical History S/P bunionectomy S/P cataract surgery Hx of esophagogastroduodenoscopy Hx of tubal ligation Family History Father No problems noted. Mother Hypertension Social History Household Members: Children Household Members Other:: 2 children Housing: Apartment Alcohol intake: current Alcohol intake frequency: does not drink Patient Tobacco Use Status: Former Tobacco user e-Cigarette/Vaping Use: Never Used service: No Current occupational status: unemployed Cognitive needs: No Hearing needs: No Vision needs: No Female Reproductive History Menstrual Age of Menarche: 13 Assessment & Plan Assessment & Plan (1) Diabetes type 1, uncontrolled: Code(s): E10.65 - Type 1 diabetes mellitus with hyperglycemia Qualifiers: Glycemic state: with hyperglycemia Qualified Code(s): E10.65 - Type 1 diabetes mellitus with hyperglycemia Plan: Pump Assessment: Type of DM: type 1 Dx at age: 24 Previous DKA: yes Current Insulin Rx: Insulin pump therapy Patient takes insulin as prescribed: yes Patient? checks BG with Dexcom G7 Downloaded meter today? no Patient? reports glycemic control as: poor Most recent Hgb A1C: 9.3% 04/12/2024 Frequency of low BG: weekly Low BG treatment: Fruit juice Frequency of high BG: daily Does patient check Ketones? yes Has pt been on a pump in the past? Pt is currently on T-Slim with Dexcom G7 Reviewed insulin pump basics today with Patient. Explained pros and cons of insulin pumps. Showed pt various pumps, infusion sets, and cgms currently available. Reviewed need to wear pump 24/ and need to change infusion set every 3 days. Also stressed importance of frequent BG checks, 4x daily minimum or use pump that is integrated with CGM.? TDD:35 units Patient demonstrated motivation for continued insulin pump education and understands the need to complete education prior to starting insulin pump for best outcome. Patient's current insulin pump is still in warranty until 04/2026. Discussed with patient ordering new iLet if not approved by insurance we can appeal with letter of medical necessity to see if they will cover insulin pump. Portions of this note were created using voice recognition software, please excuse any words or phrases that may have been misinterpreted. Coding Level of Care Code Est Pt Level 1 (79360) Diagnoses Uncontrolled type 1 diabetes mellitus with hyperglycemia E10.65 Glycemic state: with hyperglycemia
--- OUTSIDE RECORDS SUMMARY | 2024-05-19 10:31 | XMS_ITS | Clinical Summary ---
Demographics Address [address] [place] [address] Home Phone Email Address Preferred Language en Marital Status Single Episcopalian Affiliation Unknown Race Unknown Ethnic Group Unknown Author Organization [facility] Facility Address [address] [address] Care Team Providers Care Jewelry Consultant Name Role Phone Rashi Soni MD Primary Care Provider [phone]- [phone] Allergies Active Allergy Reactions Criticality Noted Date [...] 1.52(A) 0.50 - 1.10 mg/dL eGFR Non-Afr Norwegian 38 Hemoglobin A1C 8.4(A) 4.0 - 6.0 06/18/2021 us Historical Provider LAB BLOOD ORDERABLES Michelle l Result from Last 3 Months or Most Recently Relevant to Health Maintenance Insurance * Guarantor: Renae Diop Account Type Relation to Patient Date of Phone Billing Address Personal/Family Self 1980 [address] [place] [address] [place]ICARE [place]ID [place] * Guarantor: Diop, Renae Account Type Relation to Patient Date of Phone Billing Address Personal/Family Self 1980 [address] [place] [address] [place] Care Teams Jewelry Consultant Relationship Specialty Start Date End Date Rashi Soni MD [address] [place] [id number] PCP - General Internal Medicine 10/21/21
== END 2024-05-19 10:23 | disposition home or self-care (01) ==
PROVIDERS: PCP Internal Medicine; Visit Provider Registered Nurse Diabetes Educator
DX: E10.65 Type 1 diabetes mellitus with hyperglycemia (principal)

== ENCOUNTER → 2024-05-19 09:41 | Outpatient (BNVA) | payer MEDICARE, MEDICAID, SELFPAY | PROVIDERS: PCP Internal Medicine; Visit Provider Registered Nurse Diabetes Educator | DX: E10.65 Type 1 diabetes mellitus with hyperglycemia (principal); Z79.4 Long term (current) use of insulin; Z96.41 Presence of insulin pump (external) (internal) | CPT/HCPCS: 99211 ==

== ENCOUNTER 2024-06-13 10:11 | Outpatient (AMB) | payer MEDICARE, MEDICAID, SELFPAY ==
[2024-06-13 10:29] VITALS: BP 100/60; PULSE 82; BMI 24.0
--- NOTE | 2024-06-13 10:29 | A.OFFVIS_ITS ---
Vital Signs 06/13/24 10:29 Height 5 ft 2 in Weight 131 lb 6.328 oz BMI 24.0 BP 100/60 Blood Pressure Location Rt brachial Position Sitting Pulse 82 Intake Visit Reasons: r/s 12/07/23 1 yr followup w/ekg Wire Spring Relay Adjuster Required: No Wire Spring Relay Adjuster Services: Wire Spring Relay Adjuster Offered & Declined Accompanied by: Self / Same As Patient Allergies oxycodone [Percocet] Adverse Reaction (Unknown, Verified 05/17/24 10:00) chills Medication List - Last Reconciled 06/13/24 by Donovan Barone MD acetone (urine) test (Ketone Urine Test strips) As directed tid for glucose over 300 nausea or vomiting amitriptyline 150 mg PO BEDTIME atorvastatin 20 mg PO BEDTIME 90 days blood sugar diagnostic (Freestyle InsuLinx Test Strips) 3x daily cetirizine 10 mg PO DAILY PRN cholecalciferol (vitamin D3) 50 mcg PO DAILY dicyclomine 20 mg PO QID 30 days diltiazem HCl CD 120 mg PO QAM docusate sodium 100 mg PO DAILY fluticasone propionate 50 mcg/actuation (Allergy Relief (fluticasone)) 1 spray intranasal DAILY glucagon 3 mg/actuation (Baqsimi) 3 mg intranasal ONCE Humalog U-100 Insulin (insulin lispro) Up to 130 units per day via insulin pump subcutaneously subcutaneously; NS lancets (Accu-Chek Fastclix Lancet Drum) As directed tests 3 X/day lancing device with lancets (Accu-Chek Multiclix Lancet kit) As directed checks 6X/day losartan 25 mg PO DAILY methylcellulose (laxative) (Citrucel) 500 mg PO BID metoprolol succinate ER 50 mg PO DAILY omeprazole 40 mg PO BID ondansetron HCl 4 mg PO BID-TID PRN 14 days sennosides (Senna Laxative) 17.2 mg (2 x 8.6 mg) PO BEDTIME triamcinolone acetonide 0.5% 1 appl topical BID 30 days HPI Comments Details: Renae returns for follow up regarding mild cardiomyopathy and sinus tachycardia. To recall, she has type 1 diabetes since age of 24. She was complaining of palpitations and Holter showed sinus tachycardia. Then started beta blockers and felt better. More recently, she was apparently having dizziness and after that, her mold cooler cut back on the beta-diana dosing. She really does not have any clear-cut cardiac symptoms like angina or shortness of breath. Some sensations of heart pounding when she is active which may indicate sinus tachycardia but otherwise she feels fine. [facility] Medical History Nausea and vomiting ASCUS with positive high risk HPV cervical Abnormal Pap smear of cervix Intermittent claudication Sleep behavior disorder, REM Oral phase dysphagia Fibroids Goiter HLD (hyperlipidemia) Hypogonadotropic hypogonadism Premature ovarian failure Sinus tachycardia Amenorrhea Depression Vitamin D deficiency Dyslipidemia Diabetic nephropathy associated with type 1 diabetes mellitus Diabetes type 1, uncontrolled Hypertension Surgical History S/P bunionectomy S/P cataract surgery Hx of esophagogastroduodenoscopy Hx of tubal ligation Family History Father No problems noted. Mother Hypertension Social History Household Members: Children Household Members Other:: 2 children Housing: Apartment Alcohol intake: current Alcohol intake frequency: does not drink Patient Tobacco Use Status: Former Tobacco user e-Cigarette/Vaping Use: Never Used service: No Current occupational status: unemployed Cognitive needs: No Hearing needs: No Vision needs: No Female Reproductive History Menstrual Age of Menarche: 13 Review of Systems Const Denies chills, Denies fatigue, Denies fever(s), Denies weight gain and Denies weight loss ENT Denies dizziness Card Denies chest pain, Denies leg edema, Denies lightheadedness, Denies palpitations, Denies dyspnea on exertion, Denies orthopnea and Denies other Resp Denies cough and Denies dyspnea on exertion GI Denies hematochezia and Denies change in stool character Musc Denies abnormal gait, Denies muscle weakness, Denies numbness, Denies radiating pain into limb and Denies tingling Neuro Denies abnormal gait, Denies dizziness, Denies numbness and Denies tingling Endo Denies fatigue and Denies palpitations Physical Exam Vital Signs: Last Vital Signs Pulse 82 06/13/24 10:29 BP 100/60 06/13/24 10:29 BMI result Body Mass Index 24.0 Const General: comfortable and no acute distress Orientation/consciousness: patient oriented x3 HEENT Other: Unremarkable Head: Yes normal to inspection Neck Neck: Yes normal visual inspection Chest Chest palpation & inspection: normal inspection of the chest Resp Auscultation: clear to auscultation bilaterally Cardio Palpation: normal PMI Heart sounds: S1 normal heart sound present, S2 normal heart sound present, no gallops, no murmurs and no rubs GI Palpation (GI): Soft to palpation Back/Spine/Pelvis Other: unremarkable Skin General skin exam: no rashes or lesions noted Neuro General: patient oriented x3 Extrem General: Yes normal to inspection Psych Mental Status: mental status grossly normal Office Procedures EKG Details: EKG with underlying sinus rhythm at 82/Min; no significant ST-T changes and otherwise [place]remark[place] [id number], Complete Assessment & Plan Assessment & Plan (1) Diabetes type 1, uncontrolled: Code(s): E10.65 - Type 1 diabetes mellitus with hyperglycemia Category: Medical Qualifiers: Glycemic state: with hyperglycemia Qualified Code(s): E10.65 - Type 1 diabetes mellitus with hyperglycemia (2) NICM (nonischemic cardiomyopathy): Code(s): I42.8 - Other cardiomyopathies Category: Medical (3) Sinus tachycardia: Code(s): R00.0 - Tachycardia, unspecified Category: Medical Plan Cardiac studies reviewed. In the last echocardiogram, LVEF 50%. Prior to that, 45-50%. In the last Holter, she has sinus tachycardia greater than 50% the time. However no other arrhythmias. Based on the stress echocardiogram from 2020, there is no evidence of ischemic heart disease. Suspect some combination of autonomic dysfunction/inappropriate sinus tachycardia/deconditioning. Asymptomatic mild LV dysfunction based on echocardiograms. She remains on diltiazem CD and metoprolol ER. No changes with that. Diabetes still not well controlled on the last hemoglobin A1c is 9.3%. We discussed about that today. That is certainly contributes to the autonomic dysfunction/tachycardia. We will see her back in one year. Orders: Orders CA echo transthoracic complete 1 Year I42.8 - Other cardiomyopathies ECG 3 day holter monitor 1 Year R00.2 - Palpitations Coding Level of Care Code Est Pt Level 4 (98660) Complex EM visit Add On G2211 Diagnoses Uncontrolled type 1 diabetes mellitus with hyperglycemia E10.65 Glycemic state: with hyperglycemia NICM (nonischemic cardiomyopathy) I42.8 Sinus tachycardia R00.0 CPT Codes EKG - CPT: 00477-[id number], Complete ([id number])
--- OUTSIDE RECORDS SUMMARY | 2024-06-13 11:23 | XMS_ITS | Clinical Summary ---
Demographics Address [address] [place] [address] Home Phone Email Address Preferred Language en Marital Status Single Mosque Affiliation Unknown Race Unknown Ethnic Group Unknown Author Organization [facility] Facility Address [address] [address] Care Team Providers Care Machine Pack Assembler Name Role Phone Rashi Soni MD Primary Care Provider [phone]- [phone] Allergies Active Allergy Reactions Criticality Noted Date [...] 1.52(A) 0.50 - 1.10 mg/dL eGFR Non-Afr Austrian 38 Hemoglobin A1C 8.4(A) 4.0 - 6.0 06/18/2021 us Historical Provider LAB BLOOD ORDERABLES Michelle l Result from Last 3 Months or Most Recently Relevant to Health Maintenance Insurance * Guarantor: Renae Diop Account Type Relation to Patient Date of Phone Billing Address Personal/Family Self 1980 [address] [place] [address] [place]ID [place] * Guarantor: Diop, Renae Account Type Relation to Patient Date of Phone Billing Address Personal/Family Self 1980 [address] [place] [address] [place]ID [place] Care Teams Machine Pack Assembler Relationship Specialty Start Date End Date Rashi Soni MD [address] [place] [id number] PCP - General Internal Medicine 10/21/21
== END 2024-06-13 10:46 | disposition home or self-care (01) ==
LOC: HO.HCS 10:12
PROVIDERS: PCP Internal Medicine; Visit Provider Internal Medicine
DX: E10.65 Type 1 diabetes mellitus with hyperglycemia (principal); I42.8 Other cardiomyopathies; R00.0 Tachycardia, unspecified
CPT/HCPCS: 93010; 99214; G2211

== ENCOUNTER → 2024-06-13 10:11 | Outpatient (BNVA) | payer MEDICARE, MEDICAID, SELFPAY | PROVIDERS: PCP Internal Medicine; Visit Provider Internal Medicine | DX: I42.8 Other cardiomyopathies (principal); E10.65 Type 1 diabetes mellitus with hyperglycemia; R00.0 Tachycardia, unspecified | CPT/HCPCS: 93005; 99212 ==

== ENCOUNTER 2024-06-29 07:14 | Outpatient (AMB) | payer MEDICARE, MEDICAID, SELFPAY ==
--- NOTE | 2024-06-29 08:35 | MHC.AMDMED ---
Intake Intake Visit Reasons: iLet pump Community Health Advocate Required: No Accompanied by: Self / Same As Patient Allergies oxycodone [Percocet] Adverse Reaction (Unknown, Verified 05/17/24 10:00) chills HPI Comprehensive Diabetes Asmnt Most Recent Diabetes Results: Microalb/Creat Ratio 10.5 ug/mg cr (<30) 05/16/24 Cholesterol 114 mg/dL (<200) 05/16/24 HDL Cholesterol 41 mg/dL (>40) 05/16/24 Triglycerides 70 mg/dL (<150) 05/16/24 Creatinine 0.98 mg/dL (0.5-1.4) 05/16/24 Blood Urea Nitrogen 16 mg/dL (9-16) 05/16/24 Sodium 139 mmol/L (135-145) 05/16/24 Potassium 3.8 mmol/L (3.3-5.1) 05/16/24 Chloride 106 mmol/L (96-108) 05/16/24 Carbon Dioxide 27 mmol/L (22-29) 05/16/24 Calcium 8.6 mg/dL (8.4-10.2) 05/16/24 AST 27 U/L (5-31) 05/16/24 ALT 23 U/L (0-31) 05/16/24 Total Protein 7.1 g/dL (6.5-8.0) 05/16/24 Albumin 3.9 g/dL (3.5-5.0) 05/16/24 PFSH Medical History Nausea and vomiting ASCUS with positive high risk HPV cervical Abnormal Pap smear of cervix Intermittent claudication Sleep behavior disorder, REM Oral phase dysphagia Fibroids Goiter HLD (hyperlipidemia) Hypogonadotropic hypogonadism Premature ovarian failure Sinus tachycardia Amenorrhea Depression Vitamin D deficiency Dyslipidemia Diabetic nephropathy associated with type 1 diabetes mellitus Diabetes type 1, uncontrolled Hypertension Surgical History S/P bunionectomy S/P cataract surgery Hx of esophagogastroduodenoscopy Hx of tubal ligation Family History Father No problems noted. Mother Hypertension Social History Household Members: Children Household Members Other:: 2 children Housing: Apartment Alcohol intake: current Alcohol intake frequency: does not drink Patient Tobacco Use Status: Former Tobacco user e-Cigarette/Vaping Use: Never Used service: No Current occupational status: unemployed Cognitive needs: No Hearing needs: No Vision needs: No Female Reproductive History Menstrual Age of Menarche: 13 Assessment & Plan Assessment & Plan (1) Diabetes type 1, uncontrolled: Code(s): E10.65 - Type 1 diabetes mellitus with hyperglycemia Qualifiers: Glycemic state: with hyperglycemia Qualified Code(s): E10.65 - Type 1 diabetes mellitus with hyperglycemia Plan: Patient presents for pump training for iLet pump and DExcom G7 CGM training today. Patient will transition to Delfin 3+, did not have Delfin 3+ running at today's visit so connected to Dexcom G7 sensor The following topics were reviewed today: -Pump therapy basic concepts: Basal/bolus -Device settings: Bluetooth/mobile connection (if applicable), correct date and time, sound volume -CGM settings(if integrated system): CGM graft views and trend arrows, alerts and alarms, Start new sensor Patient instructed to only announce meals that have carbohydrates For the 1st 7 days: Eat meals that have usual amount of carbs for you in announce them as usual Wait at least 4 hours between eating meals with carbs and announcing again If you are eating between meals, low carb snacks are the best option. Announce meal right away when you start eating If you forget and is more than 30 minutes since started eating do not announce Avoid over treating lows, this can cause hyperglycemia, which will initiate pump to deliver correction bolus Always have extra supplies: CGM sensor Supply to refill your insulin cartridge and replace your infusion set Blood glucose and ketone testing supplies Extra insulin Treatment for low blood glucose Emergency contact information Ketone action plan Keep jn open on your phone, keep your ilet paired with the jn Always sink her data before appointments with your healthcare provider BG run mode: You will go into BG mode if not receiving CGM glucose readings You will be required to enter BG into pump every 4 hours after 72 hours insulin delivery will stop In the 1st week of pump therapy you will need to enter BG every hour after 48 hours without CGM in the 1st week insulin delivery will stop Insulin delivery settings Date, time and weight Instructed patient to only use room temperature insulin, how to load cartridge or fill pod, with insulin. Fill tubing and cannula (if applicable) Inserting infusion set or starting pod Troubleshooting after starting new pod or inserting new insulin set: Occlusion, adhesive tape sensitivity, redness Check BG 2 hours after site change Safety information: Importance of a backup plan, for manual injections, proper prescriptions and emergency supplies ketone strips, and rules for testing for ketones Patient reports that insurance would not cover ketone strips, and she was told by pharmacist the ketone strips were over 50 dollars. Showed patient online where she can buy ketone strips for 10 dollars an under, patient agreed to poultry picker ketone strips on her way home after pump training Patient was able to insert insulin set today without difficulty. Patient understands the basic concepts of pump therapy, how to give insulin for meals and snacks, how to troubleshoot for hyper and hypoglycemia. Patient will follow up with [facility] as instructed Patient will contact [facility] with questions or concerns, patient given IT number to support in any technical issues related to insulin pump Portions of this note were created using voice recognition software, please excuse any words or phrases that may have been misinterpreted. Coding Level of Care Code Est Pt Level 1 (51816) Diagnoses Uncontrolled type 1 diabetes mellitus with hyperglycemia E10.65 Glycemic state: with hyperglycemia
== END 2024-06-29 08:42 | disposition home or self-care (01) ==
LOC: HO.ENCR 07:15
PROVIDERS: PCP Internal Medicine; Visit Provider Registered Nurse Diabetes Educator
DX: E10.65 Type 1 diabetes mellitus with hyperglycemia (principal)

== ENCOUNTER → 2024-06-29 07:14 | Outpatient (BNVA) | payer MEDICARE, MEDICAID, SELFPAY | PROVIDERS: PCP Internal Medicine; Visit Provider Registered Nurse Diabetes Educator | DX: E10.65 Type 1 diabetes mellitus with hyperglycemia (principal) | CPT/HCPCS: 99211 ==

== ENCOUNTER 2024-07-15 11:52 | Outpatient (AMB) | payer MEDICARE, MEDICAID, SELFPAY ==
--- NOTE | 2024-07-15 12:18 | MHC.OFFVIS ---
Vital Signs 07/15/24 12:19 Height 5 ft 2 in Weight 131 lb BMI 24.0 BP 120/70 Blood Pressure Location Rt brachial Position Sitting Pulse 88 Pulse Source Pulse Oximeter Pulse Oximetry (%) 97 Oxygen Delivery Method Room Air Intake Visit Reasons: Follow up 4 months Intake Note: ESTABLISHED PATIENT for dyspepsia mgmt. Labs and NM study done. EGD not scheduled yet. Chief Complaint; Pt denies any GI sx at this time and reports current regimen is controlling conditions well. Battery Tester Field Required: No Accompanied by: Self / Same As Patient Allergies oxycodone [Percocet] Adverse Reaction (Unknown, Verified 07/15/24 12:19) chills HPI HPI Follow up 4 months: Details: Assessment & Plan (1) Irritable bowel syndrome with both constipation and diarrhea: Code(s): K58.2 - Mixed irritable bowel syndrome Category: Medical (2) GERD (gastroesophageal reflux disease): Code(s): K21.9 - Gastro-esophageal reflux disease without esophagitis Category: Medical Qualifiers: Esophagitis presence: without esophagitis Qualified Code(s): K21.9 - Gastro-esophageal reflux disease without esophagitis (3) Nausea and vomiting: Comment: Just to review to date she has had a negative EGD, couple of negative gastric emptying studies, negative CT scans and ultrasounds. It does not appear that there is anyone specific GI pathology causing this so we need to expand her thinking. It is possible that this is a severe reaction to IBS with gas trapping promoting bowel irritability Code(s): R11.2 - Nausea with vomiting, unspecified Category: Medical Plan The patient has been lost to follow-up since 10/2022 She has what she calls a seasonal thing where she has severe nausea once she puts food in her mouth, even though she would be hungry and look forward to the meal. Then it will upset her stomach and she will at times force herself to vomit. She has had a normal GES in 2019, but given her current uneven control her her diabetes this could be a worsening paresis or it could be multifactorial including metabolic, neurologic or psychogenic. It is also possible that she has some form of intermittent gastroparesis that were not catching in the tests. She has been helped in the past with zofran so we will give her a short supply. She continues on her dicyclomine, Colace, senna, and omeprazole. She is no longer taking Creon or simethicone. I think a repeat of GES and an EGD is in order. There are no new medications or medication that I can see on her list that could be causing this as a s/e. She also was helped in the past with megace, but this is not a good adjunct faculty for medical terminology option r/t adrenal suppression. Her current BMI is 23 and usually this isn't well covered unless the BMI is under 19. ROV 8 weeks. Orders: Orders NM gastric emptying study Today R11.2 - Nausea with vomiting, unspecified EGD - GI Use Only Today R11.2 - Nausea with vomiting, unspecified Comprehensive Met. Panel Today R11.2 - Nausea with vomiting, unspecified Complete Blood Count Auto Diff Today R11.2 - Nausea with vomiting, unspecified Lipase Today R11.2 - Nausea with vomiting, unspecified Medications: New ondansetron HCl 4 mg PO BID-TID PRN 14 tabs 0RF nausea and vomiting 14 days R11.2 - Nausea with vomiting, unspecified Discontinued simethicone (Gas Relief (simethicone)) Discontinued Reason: Doctor's Order 180 mg PO .Q.i.d. PRN 90 caps 6RF abdominal distention R14.0 - Abdominal distension (gaseous) LABS: Laboratory Tests 05/16/24 07:43 WBC 6.4 Hgb 11.7 L Hct 37.2 Plt Count 245 Estimated GFR > 60 Total Bilirubin 0.4 AST 27 ALT 23 Alkaline Phosphatase 127 H Lipase 6 L GASTRIC EMPTYING STUDY 04/07/2024 IMPRESSION: Normal 4-hour solid food gastric emptying study. EGD BIOPSY TODAY'S VISIT Her nausea tends to only occur change of season and he is generally well controlled with Zofran. Again we found no reason for it yet and she has had no other alarm symptoms such as weight loss rectal bleeding diarrhea or severe vomiting. She does not have associated abdominal pain. We review the labs today and that and the gastric emptying study have not shown us anything revealing. She never was contacted about the endoscopy so I will send another note to the schedulers as I know they are bit behind. She continues on senna, docusate, and dicyclomine. She has been having more esophageal spasm and the feeling of choking which she thought was well served by putting her on diltiazem. She has not been receiving it, probably because I was out on leave, but I will renew it today. She does not feel that the omeprazole providing any relief or benefit so she stopped taking it. Return office visit in 4 months [facility] Medical History Nausea and vomiting ASCUS with positive high risk HPV cervical Abnormal Pap smear of cervix Intermittent claudication Sleep behavior disorder, REM Oral phase dysphagia Fibroids Goiter HLD (hyperlipidemia) Hypogonadotropic hypogonadism Premature ovarian failure Sinus tachycardia Amenorrhea Depression Vitamin D deficiency Dyslipidemia Diabetic nephropathy associated with type 1 diabetes mellitus Diabetes type 1, uncontrolled Hypertension Surgical History S/P bunionectomy S/P cataract surgery Hx of esophagogastroduodenoscopy Hx of tubal ligation Family History Father No problems noted. Mother Hypertension Social History Household Members: Children Household Members Other:: 2 children Housing: Apartment Alcohol intake: current Alcohol intake frequency: does not drink Patient Tobacco Use Status: Former Tobacco user e-Cigarette/Vaping Use: Never Used service: No Current occupational status: unemployed Cognitive needs: No Hearing needs: No Vision needs: No Female Reproductive History Menstrual Age of Menarche: 13 Review of Systems Const Denies fatigue, Denies fever(s), Denies night sweats, Denies poor appetite and Denies weight loss ENT Reports Normal hearing present, Denies dental pain, Reports dysphagia, Denies hearing loss, Denies mouth pain, Denies odynophagia, Denies throat swelling, Denies tongue swelling and Reports other (Dentition adequate) Card Reports no additional complaints Resp Reports no additional complaints GI Details: Denies abdominal pain, Denies melena, Denies bloating, Denies hematochezia, Reports constipation, Reports GI cramping, Reports dysphagia, Denies excessive flatus, Denies early satiety, Denies heartburn, Denies diarrhea, Denies nausea, Denies odynophagia, Denies vomiting and Denies hematemesis Skin/Breast Denies pruritus, Denies lesions, Denies rash and Denies jaundice Neuro Reports Normal hearing present and Denies Abnormal speech present Endo Denies fatigue Aller/Immun Denies throat swelling and Denies tongue swelling Physical Exam Vital Signs: Last Vital Signs Pulse 88 07/15/24 12:19 BP 120/70 07/15/24 12:19 Pulse Ox 97 07/15/24 12:19 Oxygen Delivery Method Room Air 07/15/24 12:19 BMI result Body Mass Index 24.0 Const General: cooperative, no acute distress, well developed and well groomed Nutritional Appearance: average body habitus and well nourished Orientation/consciousness: oriented to person, oriented to place and oriented to time Limitations: No language barrier HEENT Head: Yes normocephalic and Yes atraumatic Eyes General: appearance normal, both eyes and all related structures Pupils: Equal, round and reactive pupils present Neck Neck: Yes normal visual inspection and Yes no lymphadenopathy Thyroid: Thyroid normal Resp Effort & Inspection: normal respiratory effort and able to speak in complete sentences Auscultation: clear to auscultation bilaterally Cardio Rate: regular rate Rhythm: regular rhythm Heart sounds: Normal, physiologic split S2 sound present Peripheral pulses: radial pulses present and posterior tibial pulses present GI Inspection: No distended and No Abdominal panniculus present Palpation (GI): Soft to palpation, nontender, no guarding, not rigid and No hepatosplenomegaly present Percussion: Yes normal to percussion Auscultation: normal bowel sounds Rectal Exam - Female: deferred Skin General skin exam: no rashes or lesions noted, turgor normal, skin not dry, no jaundice, No spider nevi and no striae Rashes: no rashes Nails: normal Neuro General: oriented to person, oriented to place and oriented to time Cranial nerves: Yes Equal, round and reactive pupils present and Yes Normal hearing present Speech: No Abnormal speech present Extrem General: Yes normal to inspection, No clubbing, No cyanosis and No edema Psych Appearance: grossly normal and well kempt Mental Status: mental status grossly normal Speech and movement: Normal speech and movement present Affect: normal affect Attitude: cooperative Thought process: Normal thought process present and not confabulating Thought content: Normal thought content present Insight: Limited insight present (Psych) Judgement: Limited judgement present (Psych) Assessment & Plan Assessment & Plan (1) Oral phase dysphagia: Comment: Worse with liquids Speech therapy eval This exam revealed mild oropharyngeal phase dysphagia, characterized by mildly prolonged oral preparatory phase and mild oral and pharyngeal residuals, which could be possibly contributing to pt?s complaints of feeling globus sensation. Pt was able to reduce pharyngeal retention with multiple dry swallows and sips of liquid. No evidence of aspiration or penetration during this exam. After the exam, CLAY DIGGER discussed with pt recommended compensatory strategies to promote oral and pharyngeal clearance: -Take small bites of food, chew well -Moisten food with sauces and gravies, ensuring sauces are mixed and blended in well with food -Avoid sticky textures and dry foods -Follow each bite with additional dry swallows -Alternate bites of food with sips of liquid -Maintain upright 90 degree position while eating and drinking Code(s): R13.11 - Dysphagia, oral phase Category: Medical (2) GERD (gastroesophageal reflux disease): Code(s): K21.9 - Gastro-esophageal reflux disease without esophagitis Category: Medical Qualifiers: Esophagitis presence: without esophagitis Qualified Code(s): K21.9 - Gastro-esophageal reflux disease without esophagitis (3) Constipation: Code(s): K59.00 - Constipation, unspecified Category: Medical Plan Her nausea tends to only occur change of season and he is generally well controlled with Zofran. Again we found no reason for it yet and she has had no other alarm symptoms such as weight loss rectal bleeding diarrhea or severe vomiting. She does not have associated abdominal pain. We review the labs today and that and the gastric emptying study have not shown us anything revealing. She never was contacted about the endoscopy so I will send another note to the schedulers as I know they are bit behind. She continues on senna, docusate, and dicyclomine. She has been having more esophageal spasm and the feeling of choking which she thought was well served by putting her on diltiazem. She has not been receiving it, probably because I was out on leave, but I will renew it today. She does not feel that the omeprazole providing any relief or benefit so she stopped taking it. Return office visit in 4 months Medications: Refilled diltiazem HCl CD 120 mg PO QAM 30 caps 6RF R13.11 - Dysphagia, oral phase methylcellulose (laxative) (Citrucel) 500 mg PO BID 60 tabs 6RF sennosides (Senna Laxative) 17.2 mg (2 x 8.6 mg) PO BEDTIME 60 tabs 6RF K58.2 - Mixed irritable bowel syndrome dicyclomine 20 mg PO QID 30 days 120 tabs 4RF docusate sodium 100 mg PO DAILY 30 caps 6RF K58.2 - Mixed irritable bowel syndrome Discontinued omeprazole Discontinued Reason: Doctor's Order 40 mg PO BID 180 caps 6RF K21.9 - Gastro-esophageal reflux disease without esophagitis Coding Level of Care Code Est Pt Level 3 (52036) Diagnoses Oral phase dysphagia R13.11 Gastroesophageal reflux disease without esophagitis K21.9 Esophagitis presence: without esophagitis Constipation K59.00
[2024-07-15 12:19] VITALS: BP 120/70; PULSE 88; O2SAT 97; BMI 24.0
--- OUTSIDE RECORDS SUMMARY | 2024-07-15 12:50 | XMS_ITS | Clinical Summary ---
Demographics Address [address] [place] [address] Home Phone Email Address .[employer]iffRaff Preferred Language en Marital Status Single Gnosticism Affiliation Unknown Race Unknown Ethnic Group Unknown Author Organization [facility] Facility Address [address] [address] Care Team Providers Care Director College Name Role Phone Rashi Soni MD Primary Care Provider [phone]- [phone] Allergies Active Allergy Reactions Criticality Noted Date [...] Health Maintenance Due Date Last Done Comments Hepatitis B Vaccine (1 of 3 - 19+ 3-dose series) 10/15 Pneumococcal Vaccine: Peds ( 0 to 5 Years) and At-Risk Patients (6 to 49 Years) (1 of 2 - PCV) 10/15/1998 Diabetes: Ophthalmology Exam 04/29/2020 Diabetes: Pedal Pulse Checked 04/29/2020 Diabetes: Sensory Foot Exam 04/29/2020 Diabetes: Visual Foot Exam 04/29/2020 Diabetes: Hemoglobin A1C 09/18/2021 06/18/2021 Influenza Vaccine (Season Ended) 2024 Procedures Procedure Name Priority Date/Time Associated Diagnosis Comments EXT RESULT ENTRY Routine 06/18/2021 from Last 3 Months or Most Recently Relevant to Health Maintenance Results * (ABNORMAL) EXT RESULT ENTRY (06/18/2021) Creatinine 1.52(A) 0.50 - 1.10 mg/dL eGFR Non-Afr Saudi Arabian 38 Hemoglobin A1C 8.4(A) 4.0 - 6.0 06/18/2021 us Historical Provider LAB BLOOD ORDERABLES Michelle l Result from Last 3 Months or Most Recently Relevant to Health Maintenance Insurance * Guarantor: Renae Diop Account Type Relation to Patient Date of Phone Billing Address Personal/Family Self 1980 [address] [place] [address] Medicare [place] * Guarantor: Diop, Renae Account Type Relation to Patient Date of Phone Billing Address Personal/Family Self 1980 [address] [place] [address] Medicare [place] Care Teams Director College Relationship Specialty Start Date End Date Rashi Soni MD [facility] [place] [address] PCP - General Internal Medicine 10/21/21
== END 2024-07-15 13:22 | disposition home or self-care (01) ==
LOC: HO.HGI 11:52
PROVIDERS: PCP Internal Medicine; Visit Provider Nurse Practitioner
DX: R13.11 Dysphagia, oral phase (principal); K21.9 Gastro-esophageal reflux disease without esophagitis; K59.00 Constipation, unspecified
CPT/HCPCS: 99213

== ENCOUNTER → 2024-07-15 11:52 | Outpatient (BNVA) | payer MEDICARE, MEDICAID, SELFPAY | PROVIDERS: PCP Internal Medicine; Visit Provider Nurse Practitioner | DX: K58.2 Mixed irritable bowel syndrome (principal); K21.9 Gastro-esophageal reflux disease without esophagitis; R11.2 Nausea with vomiting, unspecified; K59.00 Constipation, unspecified | CPT/HCPCS: 99212 ==

== ENCOUNTER 2024-07-19 13:32 | Outpatient (AMB) | payer MEDICARE, MEDICAID, SELFPAY ==
--- NOTE | 2024-07-19 13:22 | A.OFFVIS_ITS ---
Vital Signs 07/19/24 13:34 Height 5 ft 2 in Weight 132 lb 4.438 oz BMI 24.2 BP 114/76 Blood Pressure Location Rt brachial Position Sitting Pulse 82 Pulse Source Pulse Oximeter Pulse Oximetry (%) 96 Oxygen Delivery Method Room Air Intake Visit Reasons: DM Intake Note: Patient presents today for a follow-up on Type 1 Diabetes Mellitus, Patient on insulin Pump: Last Diabetic eye exam was on: 02/21/2024, [facility]. Last Podiatry exam was on: Patient does not see a Pet Care Associate Most recent HbA1c: 8.8%, 07/19/2024 Random Glucose- 316 mg/dL, Today Metal Coater Required: No Accompanied by: Self / Same As Patient Allergies oxycodone [Percocet] Adverse Reaction (Unknown, Verified 07/19/24 13:41) chills HPI Comments Details: 43 YO F with PMHx T1DM who is seen in F/U for T1DM. Initially diagnosed with T1DM at the age of 24.Last seen in Endo clinic two months ago. She is now on an ilet insulin pump as of 06/29/24. Does have eyes checked yearly, last eye exam 08/20 has retinopathy she saw a neuroopthamologist Has f/u 07/22 with neuroopthamology Denies neuropathy. Denies numbness, tingling, pain or cramping in the lower extremity. Has nephropathy, on Losartan 12.5 mg PO daily. microalbumin substantially improved over the past 2 years 13.0 eGFR>60 Has HLD, on Atorvastatin 20 mg PO daily. LDL 59 05/16/2024 Denies history of CAD. Has ongoing diabetes education. [employer] delfin 3+ average glucose: 163 14 day continuous glucose monitor report reviewed Glucose Managment indicator 7.2 % TIme in ranges: Ten % very high (above 250) 20 % high ?(181-250) 66 % in range ?(70-180] 2.3 % low (69-55) 0.6 % ?very low (below 54) Interpretation: Overall glucose average is substantially improved since when she was on a tandem pump. She has a history of severe lows in his been switched over to a freestyle Delfin 3+ meter which we will give her read out every 1 minute. In the past she was found with a Dexcom read out every 5 minutes she often we will be dropping substantially between the 5 minutes. She is only announcing 0.4 meals per day. She has lows before lunch and for the most part does not not announce lunch and has postprandial hyperglycemia. [facility] Medical History Nausea and vomiting ASCUS with positive high risk HPV cervical Abnormal Pap smear of cervix Intermittent claudication Sleep behavior disorder, REM Oral phase dysphagia Fibroids Goiter HLD (hyperlipidemia) Hypogonadotropic hypogonadism Premature ovarian failure Sinus tachycardia Amenorrhea Depression Vitamin D deficiency Dyslipidemia Diabetic nephropathy associated with type 1 diabetes mellitus Diabetes type 1, uncontrolled Hypertension Surgical History S/P bunionectomy S/P cataract surgery Hx of esophagogastroduodenoscopy Hx of tubal ligation Family History Father No problems noted. Mother Hypertension Social History Household Members: Children Household Members Other:: 2 children Housing: Apartment Alcohol intake: current Alcohol intake frequency: does not drink Patient Tobacco Use Status: Former Tobacco user e-Cigarette/Vaping Use: Never Used service: No Current occupational status: unemployed Cognitive needs: No Hearing needs: No Vision needs: No Female Reproductive History Menstrual Age of Menarche: 13 Physical Exam Const Other: Absence of Cushingoid features. Absence of acromegalic features. Neck exam reveals nl size thyroid about 15 gms. No thyroid nodules palpable. Heart S1 S2, Reg R/R. No M/R G. Skin exam reveals absence of vitiligo or acanthosis nigricans. Visual exam of foot performed. No ulcerations or open lesions. No inter digit maceration or fissuring. No onychomycosis, no callouses. Sensation intact to monofilament exam. Vibratory sensation is normal with 128 Hz tuning fork. Results AMB Hemoglobin A1c AMB Hemoglobin A1c 8.8 % Last Edit by SUELLEN Hackett on 07/19/24 13:48 Assessment & Plan Assessment & Plan (1) Diabetes type 1, uncontrolled: Code(s): E10.65 - Type 1 diabetes mellitus with hyperglycemia Category: Medical Qualifiers: Glycemic state: with hyperglycemia Qualified Code(s): E10.65 - Type 1 diabetes mellitus with hyperglycemia Plan: 43-year-old type 1 diabetic with nephropathy and retinopathy on an ilet pump with the an A1c of 8.8% after several weeks on ilet pump. 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 She is having some post prandial highs after lunch, She is meeting with CDE in two weeks and could consider a factory reset before attempting to start annoncing meals on a regular basis. She has a history of severe lows in the past and would highly recommend that she be switched over to Delfin 3+ sensor as this gives a read out every 1 minute ins tead of every 5 minute. The patient had an opportunity to ask questions regarding treatment plan. The patient expressed understanding and agreement with the above treatment plan. The patient is aware they should contact our office by phone for worsening glucose readings or for any low blood sugars which may warrant a change in diabetes medication. Compliance is encouraged with medications and any followup testing/consults which may have been ordered. Orders: Orders AMB Hemoglobin A1c Today E10.65 - Type 1 diabetes mellitus with hyperglycemia Patient Instructions: Troubleshooting after starting new pod or inserting new insulin set: Occlusion, adhesive tape sensitivity, redness Check BG 2 hours after site change Safety information: Importance of a backup plan, for manual injections, proper prescriptions and emergency supplies ketone strips, and rules for testing for ketones she has backup glucometer test strips and lancets isn't aware of the pump will not operate if she is not pared to a sensor. The patient was counseled to achieve a target A1C of 7% (154 avg). Fasting blood sugars should be 90-130 in the morning and less than 180 two hours after meals. Reviewed the relationship between poor diabetic control and the development of complications. Could care Coding Level of Care Code Est Pt Level 4 (59607) Complex EM visit Add On G2211 Diagnoses Uncontrolled type 1 diabetes mellitus with hyperglycemia E10.65 Glycemic state: with hyperglycemia Time Spent (min) 30 Comment Reviewing labs/provider notes, glucose sensor/pump reports, face to face, chart doc
[2024-07-19 13:34] VITALS: BP 114/76; PULSE 82; O2SAT 96; BMI 24.2
[2024-07-19 13:43] LABS: Glucose, Whole Blood 316 mg/dL (60-115)
--- OUTSIDE RECORDS SUMMARY | 2024-07-19 16:03 | XMS_ITS | Clinical Summary ---
Demographics Address [address] [place] [address] Home Phone Email Address Preferred Language en Marital Status Single Sabianism Affiliation Unknown Race Unknown Ethnic Group Unknown Author Organization [facility] Facility Address [address] [address] Care Team Providers Care Petroleum Supply Specialist Name Role Phone Rashi Soni MD Primary Care Provider +1- [phone] Allergies Active Allergy Reactions Criticality Noted Date [...] 1.52(A) 0.50 - 1.10 mg/dL eGFR Non-Afr Tajik 38 Hemoglobin A1C 8.4(A) 4.0 - 6.0 06/18/2021 us Historical Provider LAB BLOOD ORDERABLES Michelle l Result from Last 3 Months or Most Recently Relevant to Health Maintenance Insurance * Guarantor: Renae Diop Account Type Relation to Patient Date of Phone Billing Address Personal/Family Self 1980 [address] [place] [address] Medicare [place] * Guarantor: Diop, Renae Account Type Relation to Patient Date of Phone Billing Address Personal/Family Self 1980 [address] [place] [address] Medicare [place] Care Teams Petroleum Supply Specialist Relationship Specialty Start Date End Date Rashi Soni MD [facility] [place] [address] PCP - General Internal Medicine 10/21/21
== END 2024-07-19 14:07 | disposition home or self-care (01) ==
LOC: HO.ENCR 13:33
PROVIDERS: PCP Internal Medicine; Visit Provider Nurse Practitioner Adult Health
DX: E10.65 Type 1 diabetes mellitus with hyperglycemia (principal)
CPT/HCPCS: 99214; G2211

== ENCOUNTER → 2024-07-19 13:32 | Outpatient (BNVA) | payer MEDICARE, MEDICAID, SELFPAY | PROVIDERS: PCP Internal Medicine; Visit Provider Nurse Practitioner Adult Health | DX: E10.65 Type 1 diabetes mellitus with hyperglycemia (principal); Z79.4 Long term (current) use of insulin | CPT/HCPCS: 82947; 83036; 99212 ==

== ENCOUNTER 2024-07-25 12:10 | Outpatient (REF) | payer MEDICARE, MEDICAID, SELFPAY ==
[2024-07-25 14:00] LABS: Anion Gap 14 (12-20); Blood Urea Nitrogen 19 mg/dL (9-16); Calcium 9.3 mg/dL (8.4-10.2); Carbon Dioxide 28 mmol/L (22-29); Chloride 107 mmol/L (96-108); Estimated Glomerular Filt Rate > 60; Glucose Fasting 95 mg/dL (60-99); Potassium 3.9 mmol/L (3.3-5.1); Sodium 145 mmol/L (135-145)
--- OUTSIDE RECORDS SUMMARY | 2024-07-25 14:32 | XMS_ITS | Clinical Summary ---
Demographics Address [address] [place] [address] Home Phone Email Address Preferred Language en Marital Status Single Mandaeism Affiliation Unknown Race Unknown Ethnic Group Unknown Author Organization [facility] Facility Address [address] [address] Care Team Providers Care Division Toll Wire Chief Name Role Phone Rashi Soni MD Primary Care Provider +1- [phone] Allergies Active Allergy Reactions Criticality Noted Date [...] 1.52(A) 0.50 - 1.10 mg/dL eGFR Non-Afr Sammarinese 38 Hemoglobin A1C 8.4(A) 4.0 - 6.0 06/18/2021 us Historical Provider LAB BLOOD ORDERABLES Michelle l Result from Last 3 Months or Most Recently Relevant to Health Maintenance Insurance * Guarantor: Renae Diop Account Type Relation to Patient Date of Phone Billing Address Personal/Family Self 1980 [address] [place] [address] Medicare [place] * Guarantor: Diop, Renae Account Type Relation to Patient Date of Phone Billing Address Personal/Family Self 1980 [address] [place] [address] Medicare [place] Care Teams Division Toll Wire Chief Relationship Specialty Start Date End Date Rashi Soni MD [facility] [place] [address] PCP - General Internal Medicine 10/21/21
== END 2024-07-25 12:11 | disposition home or self-care (01) ==
LOC: HO.10HDL 12:10
PROVIDERS: Visit Provider Nurse Practitioner Adult Health
DX: E10.65 Type 1 diabetes mellitus with hyperglycemia (principal)
CPT/HCPCS: 36415; 80048

== ENCOUNTER 2024-08-02 10:54 | Outpatient (AMB) | payer MEDICARE, MEDICAID, SELFPAY ==
--- NOTE | 2024-08-02 11:27 | A.OFFVIS_ITS ---
Intake Intake Visit Reasons: DM Family Consumer Science Fcs Teacher Required: No Accompanied by: Self / Same As Patient Allergies oxycodone [Percocet] Adverse Reaction (Unknown, Verified 07/19/24 13:41) chills HPI Comprehensive Diabetes Asmnt Most Recent Diabetes Results: 2 Creatinine 0.95 mg/dL (0.5-1.4) 07/25/24 Blood Urea Nitrogen 19 mg/dL (9-16) H 07/25/24 Sodium 145 mmol/L (135-145) 07/25/24 Potassium 3.9 mmol/L (3.3-5.1) 07/25/24 Chloride 107 mmol/L (96-108) 07/25/24 Carbon Dioxide 28 mmol/L (22-29) 07/25/24 Calcium 9.3 mg/dL (8.4-10.2) 07/25/24 PFSH Medical History Nausea and vomiting ASCUS with positive high risk HPV cervical Abnormal Pap smear of cervix Intermittent claudication Sleep behavior disorder, REM Oral phase dysphagia Fibroids Goiter HLD (hyperlipidemia) Hypogonadotropic hypogonadism Premature ovarian failure Sinus tachycardia Amenorrhea Depression Vitamin D deficiency Dyslipidemia Diabetic nephropathy associated with type 1 diabetes mellitus Diabetes type 1, uncontrolled Hypertension Surgical History S/P bunionectomy S/P cataract surgery Hx of esophagogastroduodenoscopy Hx of tubal ligation Family History Father No problems noted. Mother Hypertension Social History Household Members: Children Household Members Other:: 2 children Housing: Apartment Alcohol intake: current Alcohol intake frequency: does not drink Patient Tobacco Use Status: Former Tobacco user e-Cigarette/Vaping Use: Never Used service: No Current occupational status: unemployed Cognitive needs: No Hearing needs: No Vision needs: No Female Reproductive History Menstrual Age of Menarche: 13 Assessment & Plan Assessment & Plan (1) Diabetes type 1, uncontrolled: Code(s): E10.65 - Type 1 diabetes mellitus with hyperglycemia Qualifiers: Glycemic state: with hyperglycemia Qualified Code(s): E10.65 - Type 1 diabetes mellitus with hyperglycemia Plan: Patient presents for pump training for iLet pump and CGM training today. The following topics were reviewed today: -Pump therapy basic concepts: Basal/bolus -For most effective glucose control bolus prior to meals - Off pump backup insulin plan iLet Alerts: ??? High Alert: 300 mg/dl ??? Low Alert: 75 mg/dl Patient has been not been announcing meals. She was under the impression if she did not announce before and remembered while she was eating she could not announce that meal. Reinforced with patient that she can announce her meals either right before or during the meal. If she has forgotten to announce a meal and it is greater than 15-20 minutes after meal she should not announce that meal. Patient went to get lab drawn but C-peptide was not entered with fasting glucose. Message sent to Dr. Eaton to enter C-peptide and fasting glucose so patient can get pump supplies. Instructed patient to only use room temperature insulin, how to load cartridge or fill pod, with insulin. Fill tubing and cannula (if applicable) Troubleshooting after starting new pod or inserting new insulin set: Occlusion, adhesive tape sensitivity, redness Check BG 2 hours after site change Patient understands the basic concepts of pump therapy, how to give insulin for meals and snacks, how to troubleshoot for hyper and hypoglycemia. Patient will follow up with [facility] as instructed Patient will contact [facility] with questions or concerns, patient given IT number to support in any technical issues related to insulin pump Portions of this note were created using voice recognition software, please excuse any words or phrases that may have been misinterpreted. Coding Level of Care Code Est Pt Level 1 (48758) Diagnoses Uncontrolled type 1 diabetes mellitus with hyperglycemia E10.65 Glycemic state: with hyperglycemia
--- OUTSIDE RECORDS SUMMARY | 2024-08-02 12:38 | XMS_ITS | Data Portability ---
Author Organization [place] - [facility], Allergy Address [address] [place] [id number] Care Team Providers Care Screw Machine Set Up Operator Name Role Phone LORE GRIGGS Primary Care Provider LORE GRIGGS Referring Provider Assessment No assessment recorded. Plan of Treatment Reminders Order Date Submit Date Provider Last Modified By Organization Details Last Modified Time Details Appointments None recorded. Lab None recorded. Referral None recorded. Procedures None recorded. Surgeries None recorded. Imaging [place], modified barium swallow study - evaluate dysphagia 2024 025 [facility], [address] [place] [address], [facility] [address], [place], [address], 5 15:58:58 Medication Orders None recorded. Patient TargetsNo targets recorded. Patient InstructionsNo instructions recorded. Reason for Referral None Reported. Problems Name Problem SNOMED Code Status Onset Date Resolution Date Notes Provider Name and Address Organization Details Recorded Time Oropharyngeal dysphagia 22600948 Active 2024 REAL Griffin MD [address] [place] [address], [place], [address], [facility] 5 15:49:47 Gastroesophage al reflux disease without esophagitis 868482117 Active 2024 REAL Griffin MD [address] [place] [address] [place], [address], [facility] 5 15:49:52 Problem Notes None recorded. Procedures Surgical History Date Name Laterality Status Provider Name and Address Organization Details Recorded Time 07/26/2024 FFL_RE completed REAL PIZARRO MD [address] [place], [place] [address], [place], [address], [facility] - [facility] 07/26/2024 15:49:58 Imaging Results None recorded. Procedure Notes None recorded. Medical Equipment None Reported. Medications Name Sig Start Date Stop Date Status Note LastModified by Organization Details LastModified Time atorvastatin 20 mg tablet TAKE 1 TABLET BY MOUTH EVERYDAY AT BEDTIME active Not Available Not Available No t Available triamcinolon e acetonide 0.5 % topical cream APPLY TOPICALLY 2 TIMES A DAY FOR 30 DAYS active Not Available Not Available Not Available amitriptylin e 150 mg tablet TAKE 1 TABLET BY MOUTH AT BEDTIME. active Not Available Not Available No t Available metoprolol succinate ER 50 mg tablet,exten ded release 24 hr TAKE 1 TABLET (50MG) BY MOUTH DAILY active Not Available Not Available Not Available senna 8.6 mg tablet TAKE 2 TABLETS BY MOUTH EVERY DAY AT BEDTIME active Not Available Not Available No t Available ondansetron HCl 4 mg tablet 4 MG ORALLY 2 TO 3 TIMES A DAY NEEDED FOR NAUSEA AND VOMITING FOR 14 DAYS active Not Available Not Available Not Available prednisone 20 mg tablet TAKE 1 TABLET BY MOUTH TWICE A DAY active Not Available Not Available No t Available omeprazole 40 mg capsule,emery yed release TAKE 1 CAPSULE BY MOUTH TWICE A DAY active Not Available Not Available No t Available dicyclomine 20 mg tablet TAKE 1 TABLET BY MOUTH FOUR TIMES A DAY active Not Available Not Available Not Available Humalog U-100 Insulin 100 unit/mL subcutaneous solution UP TO 130 UNITS PER DAY VIA INSULIN PUMP SUBCUTANEOU SLY SUBCUTANEOU SLY active Not Available Not Available No t Available benzonatate 100 mg capsule TAKE 1 CAPSULE BY MOUTH TWICE A DAY NEEDED FOR COUGH active Not Available Not Available No t Available losartan 25 mg tablet TAKE 1 TABLET BY MOUTH EVERY DAY active Not Available Not Available No t Available docusate sodium 100 mg capsule TAKE 1 CAPSULE BY MOUTH EVERY DAY active Not Available Not Available No t Available diltiazem CD 120 mg capsule,exte nded release 24 hr TAKE 1 CAPSULE BY MOUTH EVERY MORNING active Not Available Not Available No t Available cholecalcife rol (vitamin D3) 50 mcg (2,000 unit) capsule TAKE 1 CAPSULE BY MOUTH EVERY DAY active Not Available Not Available No t Available Freestyle InsuLinx strips USE TO TEST 3 TIMES DAILY active Not Available Not Available No t Available Baqsimi 3 mg/actuation nasal spray SPRAY 3 MG INTRANASALL Y ONCE active Not Available Not Available No t Available Vitals Date Recorded Body height Body mass index (BMI) Body weight Provider Name and Address Organization Details Last Updated DateTime 07/26/2024 165.1 cm 25 kg/m2 53757.86 g Briandaramiro Martinez [place] - [facility] 07/26/2024 15:11:46 Social History None recorded. Functional Status None recorded. Mental Status None recorded. Family History Nothing Reported. Medical History No medical history recorded. Gynecological HistoryNo gynecological history recorded. Obstetrics History GPAL:G 0 P 0 0 0 0 Past Encounters Encounter ID Performer Location Encounter Start Date Encounter Closed Date Diagnosis/Indication Diagnosis SNOMED-CT Code Diagnosis ICD10 Code Diagnosis Note [id number] REAL PIZARRO MD [facility] [address] [id number] 07/26/2024 14:54:37 07/26/2024 15:55:38 Oropharyngeal dysphagia 65621333 R13.12 Laryngosco py was normal. It has been over a year since her last swallow study and she reports her swallowing is worse. I recommend an modified barium swallow to assess her swallowing . I would like to assess whether it is oropharyng eal or more esophageal . I will consider GI referral pending the result versus swallow therapy. Gastroesop hageal reflux disease without esophagitis [id number] K21.9 Continue omeprazole . Health Concerns Section Related Observation LastModified by Organization Detai ls LastModified Time None Recorded Concern Status LastModified by Organization Details LastModified Time None Recorded Advance Directives Directive None Recorded Payers Encounter Date Sequence Insurance Name Policy Number Policy Costello Covered Member ID Costello Member ID Guarantor Name 07/26/2024 1 MEDICARE B-[place]: [employer] Renae Marie Diop Shahab [id number] Renae Gudino Notes Date Note Type Note Provider Name and Address Organization Details Recorded Time 07/26/2024 text/html She reports on a daily basis she feels like her throat closes and food gets stuck. She sometimes vomits. She denies trouble breathing. When she drinks thin liquids especially if cold she will cough. She had a swallow study at [facility] a year ago. She said her swallowing is worse now. She does not smoke. Quit smoking 5 years ago. She endorse heartburn and takes omeprazole. It is hard for her to burp. She has seen GI and had an EGD over 5 years ago. REAL PIZARRO MD [address] [place] [address], [place], [address], [facility] - [facility] 07/26/2024 15:57:06 OBGyn Episode No OBEpisode recorded.
--- OUTSIDE RECORDS SUMMARY | 2024-08-02 12:38 | XMS_ITS | Clinical Summary ---
Demographics Address [address] [place] [address] Home Phone Email Address Preferred Language en Marital Status Single Baptist Affiliation Unknown Race Unknown Ethnic Group Unknown Author Organization [facility] Address [address] [address] Care Team Providers Care Basket Assembler Name Role Phone Rashi Soni MD Primary Care Provider +1- [phone] Allergies Active Allergy Reactions Criticality Noted Date [...] 1.52(A) 0.50 - 1.10 mg/dL eGFR Non-Afr [place]er 38 Hemoglobin A1C 8.4(A) 4.0 - 6.0 06/18/2021 us Historical Provider LAB BLOOD ORDERABLES Michelle l Result from Last 3 Months or Most Recently Relevant to Health Maintenance Insurance * Guarantor: Renae Diop Account Type Relation to Patient Date of Phone Billing Address Personal/Family Self 1980 [address] [place] [address] Medicare [place] * Guarantor: Diop, Renae Account Type Relation to Patient Date of Phone Billing Address Personal/Family Self 1980 [address] [place] [address] Medicare [place] Care Teams Basket Assembler Relationship Specialty Start Date End Date Rashi Soni MD [place] [address] PCP - General Internal Medicine 10/21/21
== END 2024-08-02 11:31 | disposition home or self-care (01) ==
LOC: HO.ENCR 10:55
PROVIDERS: PCP Internal Medicine; Visit Provider Registered Nurse Diabetes Educator
DX: E10.65 Type 1 diabetes mellitus with hyperglycemia (principal)

== ENCOUNTER → 2024-08-02 10:54 | Outpatient (BNVA) | payer MEDICARE, MEDICAID, SELFPAY | PROVIDERS: PCP Internal Medicine; Visit Provider Registered Nurse Diabetes Educator | DX: E10.65 Type 1 diabetes mellitus with hyperglycemia (principal) | CPT/HCPCS: 99211 ==

== ENCOUNTER 2024-08-18 08:23 | Outpatient (REF) | payer MEDICARE, MEDICAID, SELFPAY ==
--- OUTSIDE RECORDS SUMMARY | 2024-08-18 08:35 | XMS_ITS | Clinical Summary ---
Demographics Address [address] [place] [address] Home Phone Email Address Preferred Language en Marital Status Single Anglican Affiliation Unknown Race Unknown Ethnic Group Unknown Author Organization [facility] Facility Address [address] [address] Care Team Providers Care Silver Solderer Name Role Phone Rashi Soni MD Primary Care Provider +1- [phone] Allergies Active Allergy Reactions Criticality Noted Date [...] 1.52(A) 0.50 - 1.10 mg/dL eGFR Non-Afr Faroese 38 Hemoglobin A1C 8.4(A) 4.0 - 6.0 06/18/2021 us Historical Provider LAB BLOOD ORDERABLES Michelle l Result from Last 3 Months or Most Recently Relevant to Health Maintenance Insurance * Guarantor: Renae Diop Account Type Relation to Patient Date of Phone Billing Address Personal/Family Self 1980 [address] [place] [address] Medicare [place] * Guarantor: Diop, Renae Account Type Relation to Patient Date of Phone Billing Address Personal/Family Self 1980 [address] [place] [address] Medicare [place] Care Teams Silver Solderer Relationship Specialty Start Date End Date Rashi Soni MD [facility] [place] [address] PCP - General Internal Medicine 10/21/21
[2024-08-18 10:55] LABS: Glucose Fasting 115 mg/dL (60-99)
[2024-08-21 07:04] LABS: C Peptide 0.32 ng/mL (0.80-3.85)
== END 2024-08-18 08:24 | disposition home or self-care (01) ==
LOC: HO.10HDL 08:23
PROVIDERS: Visit Provider Internal Medicine Endocrinology, Diabetes & Metabolism
DX: E10.65 Type 1 diabetes mellitus with hyperglycemia (principal)
CPT/HCPCS: 36415; 82947; 84681

== ENCOUNTER → 2024-08-30 11:00 | Outpatient (BNVA) | payer MEDICARE, MEDICAID, SELFPAY | PROVIDERS: PCP Internal Medicine; Visit Provider Nurse Practitioner Adult Health | DX: E10.65 Type 1 diabetes mellitus with hyperglycemia (principal); Z79.4 Long term (current) use of insulin; Z96.41 Presence of insulin pump (external) (internal) | CPT/HCPCS: 99212 ==

== ENCOUNTER 2024-09-06 12:24 | Outpatient (AMB) | payer MEDICARE, MEDICAID, SELFPAY ==
--- NOTE | 2024-09-06 07:32 | A.OFFVIS_ITS ---
Vital Signs 09/06/24 12:36 Height 5 ft 2 in Weight 138 lb 14.259 oz BMI 25.4 BP 122/72 Blood Pressure Location Rt brachial Position Sitting Pulse 93 Pulse Source Pulse Oximeter Pulse Oximetry (%) 98 Oxygen Delivery Method Room Air Intake Visit Reasons: DM Intake Note: Patient presents today for a follow-up on Type 1 Diabetes Mellitus, Patient on insulin Pump: Last Diabetic eye exam was on: 02/21/2024 Last Podiatry exam was on: Patient does not see a Cnc Operator Most recent HbA1c: 8.8%, 07/19/2024 Random Glucose- 333 mg/dL, Today Allergies oxycodone [Percocet] Adverse Reaction (Unknown, Verified 07/19/24 13:41) chills HPI Comments Details: 43 YO F with PMHx T1DM who is seen in F/U for T1DM. Initially diagnosed with T1DM at the age of 24.Last seen in Endo clinic last month. She is now on an ilet insulin pump as of 06/29/24.Does have eyes checked yearly, last eye exam 08/20 has retinopathy she saw a neuro-opthamologist Has f/u 10/21 with neuro-opthamology. Last visit in June. Was evaluated due to slow pupillary reaction. She wears polarized glasses. Denies neuropathy. Denies numbness, tingling, pain or cramping in the lower extremity.Has nephropathy, on Losartan 12.5 mg PO daily. microalbumin substanti ally improved over the past 2 years 13.0 eGFR>60 Has HLD, on Atorvastatin 20 mg PO daily. LDL 59 05/16/2024Denies history of CAD.Has ongoing diabetes education. Glucose Management indicator: Total average cut off from page daily averages have been 156-172 TIme in ranges: 11.3 % very high (above 250) 27 % high (181-250) 53 point 3 % in range (70-180] 2.6 % low (69-55) 0.8 % very low (below 54) Interpretation of CGMS ; greatly improved numbers, much less hypoglycemia Interpretation: Overall glucose average is substantially improved since when she was on a tandem pump. PFSH Medical History Nausea and vomiting ASCUS with positive high risk HPV cervical Abnormal Pap smear of cervix Intermittent claudication Sleep behavior disorder, REM Oral phase dysphagia Fibroids Goiter HLD (hyperlipidemia) Hypogonadotropic hypogonadism Premature ovarian failure Sinus tachycardia Amenorrhea Depression Vitamin D deficiency Dyslipidemia Diabetic nephropathy associated with type 1 diabetes mellitus Diabetes type 1, uncontrolled Hypertension Surgical History S/P bunionectomy S/P cataract surgery Hx of esophagogastroduodenoscopy Hx of tubal ligation Family History Father No problems noted. Mother Hypertension Social History Household Members: Children Household Members Other:: 2 children Housing: Apartment Alcohol intake: current Alcohol intake frequency: does not drink Patient Tobacco Use Status: Former Tobacco user e-Cigarette/Vaping Use: Never Used service: No Current occupational status: unemployed Cognitive needs: No Hearing needs: No Vision needs: No Female Reproductive History Menstrual Age of Menarche: 13 Physical Exam Vital Signs: Last Vital Signs Pulse 93 09/06/24 12:36 BP 122/72 09/06/24 12:36 Pulse Ox 98 09/06/24 12:36 Oxygen Delivery Method Room Air 09/06/24 12:36 BMI result Body Mass Index 25.4 Const Other: Absence of Cushingoid features. Absence of acromegalic features. Neck exam reveals nl size thyroid about 15 gms. No thyroid nodules palpable. Heart S1 S2, Reg R/R. No M/R G. Skin exam reveals absence of vitiligo or acanthosis nigricans. No edema Foot exam declined today Results Reviewed Results Reviewed: Laboratory Last Values Glucose (Clinic) 333 mg/dL (60-115) H 09/06/24 12:40 Assessment & Plan Assessment & Plan (1) Diabetes type 1, uncontrolled: Code(s): E10.65 - Type 1 diabetes mellitus with hyperglycemia Category: Medical Qualifiers: Glycemic state: with hyperglycemia Qualified Code(s): E10.65 - Type 1 diabetes mellitus with hyperglycemia Plan: 43-year-old type 1 diabetic with greatly improved glucose readings on an islet pump with freestyle Delfin 3 plus. She is stable retinopathy. Nephropathy has improved over the past few years with better glycemic control. Today we reviewed pump trouble shooting and the necessity to alwasy have back up supplies her sensors not pared with her pump. She reports that her insurance did not cover a PRN prescription for Lantus so we will send out in an alternative. She understands that she needs to cover her meals with a Humalog if she is off the pump and once ailybasal. Medications: New insulin glargine (Lantus Solostar U-100 Insulin) 20 units (0.2 mL) subcut QAM PRN 6 mL 1RF pump failure 30 days MDD 20 units pen needle, diabetic As directed daily prn pump failure 50 ea 6RF Discontinued blood sugar diagnostic (Freestyle InsuLinx Test Strips) Discontinued Reason: Doctor's Order 3x daily 200 ea 11RF E10.9 - Type 1 diabetes mellitus without complications Coding Level of Care Code Est Pt Level 4 (67943) Complex EM visit Add On G2211 Diagnoses Uncontrolled type 1 diabetes mellitus with hyperglycemia E10.65 Glycemic state: with hyperglycemia
[2024-09-06 12:36] VITALS: BP 122/72; PULSE 93; O2SAT 98; BMI 25.4
[2024-09-06 12:44] LABS: Glucose, Whole Blood 333 mg/dL (60-115)
--- OUTSIDE RECORDS SUMMARY | 2024-09-06 14:37 | XMS_ITS | Clinical Summary ---
Demographics Address [address] [place] [address] Home Phone Email Address Preferred Language en Marital Status Single Sikhism Affiliation Unknown Race Unknown Ethnic Group Unknown Author Organization [facility] Address [address] [address] Care Team Providers Care Repossessor Name Role Phone Rashi Soni MD Primary Care Provider +1- [phone] Allergies Active Allergy Reactions Criticality Noted Date [...] 1.52(A) 0.50 - 1.10 mg/dL eGFR Non-Afr [place] 38 Hemoglobin A1C 8.4(A) 4.0 - 6.0 06/18/2021 us Historical Provider LAB BLOOD ORDERABLES Michelle l Result from Last 3 Months or Most Recently Relevant to Health Maintenance Insurance * Guarantor: Renae Diop Account Type Relation to Patient Date of Phone Billing Address Personal/Family Self 1980 [address] [place] [address] Medicare [place] * Guarantor: Diop, Renae Account Type Relation to Patient Date of Phone Billing Address Personal/Family Self 1980 [address] [place] [address] Medicare [place] Care Teams Repossessor Relationship Specialty Start Date End Date Rashi Soni MD [facility] [place] [address] PCP - General Internal Medicine 10/21/21
== END 2024-09-06 13:11 | disposition home or self-care (01) ==
LOC: HO.ENCR 12:25
PROVIDERS: PCP Internal Medicine; Visit Provider Nurse Practitioner Adult Health
DX: E10.65 Type 1 diabetes mellitus with hyperglycemia (principal)
CPT/HCPCS: 99214; G2211

== ENCOUNTER → 2024-09-06 12:24 | Outpatient (BNVA) | payer MEDICARE, MEDICAID, SELFPAY | PROVIDERS: PCP Internal Medicine; Visit Provider Nurse Practitioner Adult Health | DX: E10.65 Type 1 diabetes mellitus with hyperglycemia (principal); Z96.41 Presence of insulin pump (external) (internal) | CPT/HCPCS: 82947; 99212 ==

== ENCOUNTER 2024-10-04 10:54 | Outpatient (AMB) | payer MEDICARE, MEDICAID, SELFPAY ==
--- NOTE | 2024-10-04 11:24 | MHC.AMDMED ---
Intake Intake Visit Reasons: 60 min Automation Tester Required: No Accompanied by: Self / Same As Patient Allergies oxycodone (Percocet) Adverse Reaction (Unknown, Verified 07/19/24 13:41) chills HPI Comprehensive Diabetes Asmnt Most Recent Diabetes Results: Microalb/Creat Ratio, (<30) 10.5 ug/mg cr 05/16/24 Cholesterol, (<200) 114 mg/dL 05/16/24 HDL Cholesterol, (>40) 41 mg/dL 05/16/24 Triglycerides, (<150) 70 mg/dL 05/16/24 Creatinine, (0.5-1.4) 0.95 mg/dL 07/25/24 BUN, (9-16) 19 mg/dL H 07/25/24 Sodium, (135-145) 145 mmol/L 07/25/24 Potassium, (3.3-5.1) 3.9 mmol/L 07/25/24 Chloride, (96-108) 107 mmol/L 07/25/24 Carbon Dioxide, (22-29) 28 mmol/L 07/25/24 Calcium, (8.4-10.2) 9.3 mg/dL Δ 07/25/24 AST, (5-31) 27 U/L 05/16/24 ALT, (0-31) 23 U/L 05/16/24 Total Protein, (6.5-8.0) 7.1 g/dL 05/16/24 Albumin, (3.5-5.0) 3.9 g/dL 05/16/24 PFSH Medical History Nausea and vomiting ASCUS with positive high risk HPV cervical Abnormal Pap smear of cervix Intermittent claudication Sleep behavior disorder, REM Oral phase dysphagia Fibroids Goiter HLD (hyperlipidemia) Hypogonadotropic hypogonadism Premature ovarian failure Sinus tachycardia Amenorrhea Depression Vitamin D deficiency Dyslipidemia Diabetic nephropathy associated with type 1 diabetes mellitus Diabetes type 1, uncontrolled Hypertension Surgical History S/P bunionectomy S/P cataract surgery Hx of esophagogastroduodenoscopy Hx of tubal ligation Family History Father No problems noted. Mother Hypertension Social History Household Members: Children Household Members Other:: 2 children Housing: Apartment Alcohol intake: current Alcohol intake frequency: does not drink Patient Tobacco Use Status: Former Tobacco user e-Cigarette/Vaping Use: Never Used service: No Current occupational status: unemployed Cognitive needs: No Hearing needs: No Vision needs: No Female Reproductive History Menstrual Age of Menarche: 13 Assessment & Plan Assessment & Plan (1) Diabetes type 1, uncontrolled: Code(s): E10.65 - Type 1 diabetes mellitus with hyperglycemia Qualifiers: Glycemic state: with hyperglycemia Qualified Code(s): E10.65 - Type 1 diabetes mellitus with hyperglycemia Plan: Patient presents for pump training for iLet pump and CGM training today. Patient has not been announcing meals in the last 2 weeks. Prior to that she was using the breakfast less than option frequently because of concerns over hypoglycemia. Explained to patient, the importance of announcing meals and how eating carbs without announcing can lead to over-correction from insulin pump that could cause hypoglycemia. At today's visit we decided to do factory reset, patient agreed to start announcing meals. The following topics were reviewed today: -Pump therapy basic concepts: Basal/bolus -Device settings: Bluetooth/mobile connection (if applicable), correct date and time, sound volume -CGM settings(if integrated system): CGM graft views and trend arrows, alerts and alarms, Start new sensor Patient instructed to only announce meals that have carbohydrates For the 1st 7 days: Eat meals that have usual amount of carbs for you in announce them as usual Wait at least 4 hours between eating meals with carbs and announcing again If you are eating between meals, low carb snacks are the best option. Announce meal right away when you start eating If you forget and is more than 30 minutes since started eating do not announce Avoid over treating lows, this can cause hyperglycemia, which will initiate pump to deliver correction bolus Always have extra supplies: CGM sensor Supply to refill your insulin cartridge and replace your infusion set Blood glucose and ketone testing supplies Extra insulin Treatment for low blood glucose Emergency contact information Ketone action plan Keep jn open on your phone, keep your ilet paired with the jn Always sink her data before appointments with your healthcare provider BG run mode: You will go into BG mode if not receiving CGM glucose readings You will be required to enter BG into pump every 4 hours after 72 hours insulin delivery will stop In the 1st week of pump therapy you will need to enter BG every hour after 48 hours without CGM in the 1st week insulin delivery will stop Insulin delivery settings Date, time and weight Instructed patient to only use room temperature insulin, how to load cartridge or fill pod, with insulin. Fill tubing and cannula (if applicable) Inserting infusion set or starting pod Troubleshooting after starting new pod or inserting new insulin set: Occlusion, adhesive tape sensitivity, redness Check BG 2 hours after site change Safety information: Importance of a backup plan, for manual injections, proper prescriptions and emergency supplies ketone strips, and rules for testing for ketones Patient was able to insert insulin set today without difficulty. Patient understands the basic concepts of pump therapy, how to give insulin for meals and snacks, how to troubleshoot for hyper and hypoglycemia. Patient will follow up with [facility] as instructed Patient will contact [facility] with questions or concerns, patient given IT number to support in any technical issues related to insulin pump Portions of this note were created using voice recognition software, please excuse any words or phrases that may have been misinterpreted. Patient Instructions: With Diabetes Education nurse in 1 Coding Level of Care Code Est Pt Level 1 (16842) Diagnoses Uncontrolled type 1 diabetes mellitus with hyperglycemia E10.65 Glycemic state: with hyperglycemia
--- OUTSIDE RECORDS SUMMARY | 2024-10-04 11:58 | XMS_ITS | Data Portability ---
Author Organization [place] - [facility], Allergy Address [address] [place] [address] Care Team Providers Care Service Technician Copier Name Role Phone LORE GRIGGS Primary Care Provider [phone] LORE GRIGGS Referring Provider [phone] Assessment No assessment recorded. Plan of Treatment Reminders Order Date Submit Date Provider Last Modified By Organization Details Last Modified Time Details Appointments None recorded. Lab None recorded. Referral None recorded. Procedures None recorded. Surgeries None recorded. Imaging [place], modified barium swallow study - evaluate dysphagia 2024 025 [facility], [address], [address], [place], [address], 16:56:45 Medication Orders None recorded. Patient TargetsNo targets recorded. Patient InstructionsNo instructions recorded. Reason for Referral None Reported. Results Created Date Observation Date Name Description Value Unit Range Abnormal Flag Note LastModifiedBy Organization Detail LastModifiedTime 08/20/19 25 08/18/2024 [place], modif ied filippo mccall study No observ ation record ed. [facility] [address], [place], [address], 08/23/2024 12:28:01 Result Notes None recorded. Problems Name Problem SNOMED Code Status Onset Date Resolution Date Notes Provider Name and Address Organization Details Recorded Time Oropharyngeal dysphagia 71792781 Active 2024 REAL Griffin MD [address], [place], [address] , [facility] - [facility] 5 15:49:47 Gastroesophage al reflux disease without esophagitis 105900926 Active 2024 REAL Griffin MD [address], [place], [address], [facility] - [facility] 15:49:52 Problem Notes None recorded. Procedures Surgical History Date Name Laterality Status Provider Name and Address Organization Details Recorded Time 07/26/2024 FFL_RE completed REAL PIZARRO MD [address] [address], [place], [address], [facility] - [facility] 07/26/2024 15:49:58 Imaging Results None recorded. Procedure [...] Updated DateTime 07/26/2024 165.1 cm 25 kg/m2 31623.86 g Arianna Martinez [place] - [facility] 07/26/2024 15:11:46 Social History None recorded. Functional Status None recorded. Mental Status None recorded. Family History Nothing Reported. Medical History No medical history recorded. Gynecological HistoryNo gynecological history recorded. Obstetrics History GPAL:G 0 P 0 0 0 0 Past Encounters Encounter ID Performer Location Encounter Start Date Encounter Closed Date Diagnosis/Indication Diagnosis SNOMED-CT Code Diagnosis ICD10 Code Diagnosis Note [id number] REAL PIZARRO MD [facility] [address] [address] 07/26/2024 14:54:37 07/26/2024 15:55:38 Oropharyngeal dysphagia 31398063 R13.12 Laryngosco py was normal. It has [...] therapy. Gastroesop hageal reflux disease without esophagitis 654191037 K21.9 Continue omeprazole . Health Concerns Section Related Observation LastModified by Organization Detai ls LastModified Time None Recorded Concern Status LastModified by Organization Details LastModified Time None Recorded Advance Directives Directive None Recorded Payers Insurance Date Sequence Insurance Name Policy Number Policy Costello Covered Member ID Costello Member ID Guarantor Name 07/26/2024 1 MEDICARE B-[place]: [facility] Renae Gudino [id number] Renae Gudino 08/17/2024 2 [place] [facility] Renae Gudino [id number] Renae Gudino Notes Date Note Type Note Provider Name and Address Organization Details Recorded Time 07/26/2024 text/html She reports on a daily basis she feels like her throat closes and food gets stuck. She sometimes vomits. She denies trouble breathing. When she drinks thin liquids especially if cold she will cough. She had a swallow study at [facility] a year ago. She said her swallowing is worse now. She does not smoke. Quit smoking 5 years ago. She endorse heartburn and takes omeprazole. It is hard for her to burp. She has seen GI and had an EGD over 5 years ago. REAL PIZARRO MD [address] [place] [address], [phone], [facility] - [facility] 07/26/2024 15:57:06 OBGyn Episode No OBEpisode recorded.
--- OUTSIDE RECORDS SUMMARY | 2024-10-04 11:58 | XMS_ITS | Clinical Summary ---
Demographics Address [address] [address] [address] Home Phone Email Address Preferred Language en Marital Status Single Latter-Day Affiliation Unknown Race Unknown Ethnic Group Unknown Author Organization [facility] Facility Address [address] [address] Care Team Providers Care Stone Cutter Name Role Phone Rashi Soni MD Primary Care Provider [phone] Allergies Active Allergy Reactions Criticality Noted Date [...] Hemoglobin A1C 09/18/2021 06/18/2021 Influenza Vaccine (#1) 2024 Procedures Procedure Name Priority Date/Time Associated Diagnosis Comments EXT RESULT ENTRY Routine 06/18/2021 from Last 3 Months or Most Recently Relevant to Health Maintenance Results * (ABNORMAL) EXT RESULT ENTRY (06/18/2021) Creatinine 1.52(A) 0.50 - 1.10 mg/dL eGFR Non-Afr Indonesian 38 Hemoglobin A1C 8.4(A) 4.0 - 6.0 06/18/2021 us Historical Provider LAB BLOOD ORDERABLES Michelle l Result from Last 3 Months or Most Recently Relevant to Health Maintenance Insurance * Guarantor: Renae Diop Account Type Relation to Patient Date of Phone Billing Address Personal/Family Self 1980 [address] [place] [address] Medicare Medicaid [place] * Guarantor: Diop, Renae Account Type Relation to Patient Date of Phone Billing Address Personal/Family Self 1980 [address] [place] [address] Medicare Medicaid [place] Care Teams Stone Cutter Relationship Specialty Start Date End Date Rashi Soni MD [facility] [place] [address] PCP - General Internal Medicine 10/21/21
== END 2024-10-04 11:47 | disposition home or self-care (01) ==
LOC: HO.ENCR 10:55
PROVIDERS: PCP Internal Medicine; Visit Provider Registered Nurse Diabetes Educator
DX: E10.65 Type 1 diabetes mellitus with hyperglycemia (principal)

== ENCOUNTER → 2024-10-04 10:54 | Outpatient (BNVA) | payer MEDICARE, MEDICAID, SELFPAY | PROVIDERS: PCP Internal Medicine; Visit Provider Registered Nurse Diabetes Educator | DX: E10.65 Type 1 diabetes mellitus with hyperglycemia (principal); Z96.41 Presence of insulin pump (external) (internal) | CPT/HCPCS: 99211 ==

== ENCOUNTER 2024-11-15 09:27 | Outpatient (AMB) | payer MEDICARE, MEDICAID, SELFPAY ==
--- NOTE | 2024-11-15 09:29 | MHC.OFFVIS ---
Vital Signs 11/15/24 09:31 Height 5 ft 2 in Weight 136 lb 10.986 oz BMI 25.0 BP 119/73 Blood Pressure Location Lt brachial Position Sitting Pulse 80 Intake Visit Reasons: 4 mo f/u N/V seasonal , Gerd , CIC Intake Note: Renae presents in the office as a 4 month follow up for N/V, CIC and GERD. CC: She states that she is feeling okay and not having any concerns. Landmen Required: No Allergies oxycodone (Percocet) Adverse Reaction (Unknown, Verified 07/19/24 13:41) chills HPI HPI 4 mo f/u N/V seasonal , Gerd , CIC: Details: Assessment & Plan (1) Oral phase dysphagia: Comment: Worse with liquids Speech therapy eval This exam revealed mild oropharyngeal phase dysphagia, characterized by mildly prolonged oral preparatory phase and mild oral and pharyngeal residuals, which could be possibly contributing to pt?s complaints of feeling globus sensation. Pt was able to reduce pharyngeal retention with multiple dry swallows and sips of liquid. No evidence of aspiration or penetration during this exam. After the exam, TECHNICAL SERVICES REPRESENTATIVE discussed with pt recommended compensatory strategies to promote oral and pharyngeal clearance: -Take small bites of food, chew well -Moisten food with sauces and gravies, ensuring sauces are mixed and blended in well with food -Avoid sticky textures and dry foods -Follow each bite with additional dry swallows -Alternate bites of food with sips of liquid -Maintain upright 90 degree position while eating and drinking Code(s): R13.11 - Dysphagia, oral phase Category: Medical (2) GERD (gastroesophageal reflux disease): Code(s): K21.9 - Gastro-esophageal reflux disease without esophagitis Category: Medical Qualifiers: Esophagitis presence: without esophagitis Qualified Code(s): K21.9 - Gastro-esophageal reflux disease without esophagitis (3) Constipation: Code(s): K59.00 - Constipation, unspecified Category: Medical Plan Her nausea tends to only occur change of season and he is generally well controlled with Zofran. Again we found no reason for it yet and she has had no other alarm symptoms such as weight loss rectal bleeding diarrhea or severe vomiting. She does not have associated abdominal pain. We review the labs today and that and the gastric emptying study have not shown us anything revealing. She never was contacted about the endoscopy so I will send another note to the schedulers as I know they are bit behind. She continues on senna, docusate, and dicyclomine. She has been having more esophageal spasm and the feeling of choking which she thought was well served by putting her on diltiazem. She has not been receiving it, probably because I was out on leave, but I will renew it today. She does not feel that the omeprazole providing any relief or benefit so she stopped taking it. Return office visit in 4 months Medications: Refilled diltiazem HCl CD 120 mg PO QAM 30 caps 6RF R13.11 - Dysphagia, oral phase methylcellulose (laxative) (Citrucel) 500 mg PO BID 60 tabs 6RF sennosides (Senna Laxative) 17.2 mg (2 x 8.6 mg) PO BEDTIME 60 tabs 6RF K58.2 - Mixed irritable bowel syndrome dicyclomine 20 mg PO QID 30 days 120 tabs 4RF docusate sodium 100 mg PO DAILY 30 caps 6RF K58.2 - Mixed irritable bowel syndrome Discontinued omeprazole Discontinued Reason: Doctor's Order 40 mg PO BID 180 caps 6RF K21.9 - Gastro-esophageal reflux disease without esophagitis TODAY'S VISIT Her current GI regimen consists of senna, Colace, dicyclomine, a fiber supplement, and diltiazem for esophageal spasm. [facility] Medical History Nausea and vomiting ASCUS with positive high risk HPV cervical Abnormal Pap smear of cervix Intermittent claudication Sleep behavior disorder, REM Oral phase dysphagia Fibroids Goiter HLD (hyperlipidemia) Hypogonadotropic hypogonadism Premature ovarian failure Sinus tachycardia Amenorrhea Depression Vitamin D deficiency Dyslipidemia Diabetic nephropathy associated with type 1 diabetes mellitus Diabetes type 1, uncontrolled Hypertension Surgical History S/P bunionectomy S/P cataract surgery Hx of esophagogastroduodenoscopy Hx of tubal ligation Family History Father No problems noted. Mother Hypertension Social History Household Members: Children Household Members Other:: 2 children Housing: Apartment Alcohol intake: current Alcohol intake frequency: does not drink Patient Tobacco Use Status: Former Tobacco user e-Cigarette/Vaping Use: Never Used service: No Current occupational status: unemployed Cognitive needs: No Hearing needs: No Vision needs: No Female Reproductive History Menstrual Age of Menarche: 13 Review of Systems Const Denies fatigue, Denies fever(s), Denies night sweats, Denies poor appetite and Denies weight loss ENT Details: Upper esophageal spasm sensation in the area of the voice box Reports Normal hearing present, Denies dental pain, Reports dysphagia, Denies hearing loss, Denies mouth pain, Reports odynophagia, Denies throat swelling, Denies tongue swelling and Reports other (Dentition adequate) Card Reports no additional complaints Resp Reports no additional complaints GI Details: Denies abdominal pain, Denies melena, Denies bloating, Denies hematochezia, Reports constipation, Denies GI cramping, Reports dysphagia, Denies excessive flatus, Denies early satiety, Reports heartburn, Denies diarrhea, Denies nausea, Reports odynophagia, Denies vomiting and Denies hematemesis Skin/Breast Denies pruritus, Denies lesions, Denies rash and Denies jaundice Neuro Reports Normal hearing present and Denies Abnormal speech present Endo Denies fatigue Aller/Immun Denies throat swelling and Denies tongue swelling Physical Exam Vital Signs: Last Vital Signs Pulse 80 11/15/24 09:31 BP 119/73 11/15/24 09:31 BMI result Body Mass Index 25.0 Const General: cooperative, no acute distress, well developed and well groomed Nutritional Appearance: well nourished Orientation/consciousness: oriented to person, oriented to place and oriented to time Limitations: language barrier HEENT Head: Yes normocephalic and Yes atraumatic Eyes General: appearance normal, both eyes and all related structures Pupils: Equal, round and reactive pupils present Neck Neck: Yes normal visual inspection and Yes no lymphadenopathy Thyroid: Thyroid normal Resp Effort & Inspection: normal respiratory effort and able to speak in complete sentences Auscultation: clear to auscultation bilaterally Cardio Rate: regular rate Rhythm: regular rhythm Heart sounds: Normal, physiologic split S2 sound present Peripheral pulses: radial pulses present and posterior tibial pulses present GI Inspection: No distended and No Abdominal panniculus present Palpation (GI): Soft to palpation, nontender, no guarding, not rigid and No hepatosplenomegaly present Percussion: Yes normal to percussion Auscultation: normal bowel sounds Rectal Exam - Female: deferred Skin General skin exam: no rashes or lesions noted, turgor normal, skin not dry, no jaundice, No spider nevi and no striae Rashes: no rashes Nails: normal Neuro General: oriented to person, oriented to place and oriented to time Cranial nerves: Yes Equal, round and reactive pupils present and Yes Normal hearing present Speech: No Abnormal speech present Extrem General: Yes normal to inspection, No clubbing, No cyanosis and No edema Psych Appearance: grossly normal and well kempt Mental Status: mental status grossly normal Speech and movement: Normal speech and movement present Affect: normal affect Attitude: cooperative Thought process: Normal thought process present and not confabulating Thought content: Normal thought content present Insight: Fair insight present (Psych) Judgement: Fair judgement present (Psych) Assessment & Plan Assessment & Plan (1) Nausea and vomiting: Comment: Just to review to date she has had a negative EGD, couple of negative gastric emptying studies, negative CT scans and ultrasounds. It does not appear that there is anyone specific GI pathology causing this so we need to expand her thinking. It is possible that this is a severe reaction to IBS with gas trapping promoting bowel irritability-aeb Code(s): R11.2 - Nausea with vomiting, unspecified Category: Medical (2) Irritable bowel syndrome with both constipation and diarrhea: Code(s): K58.2 - Mixed irritable bowel syndrome Category: Medical (3) Constipation: Code(s): K59.00 - Constipation, unspecified Category: Medical (4) Esophageal spasm: Code(s): K22.4 - Dyskinesia of esophagus Category: Medical Plan History of Present Illness - The patient is a 44-year-old female presenting with difficulty swallowing and chronic constipation. - Symptoms originate from intermittent esophageal spasms causing a sensation of throat twisting, affecting swallowing primarily when supine. - Troubles swallowing improved with diltiazem; however, the patient continues to experience esophageal spasms, sensation of gas, and occasional pain but only when she looks down with chin to chest. - Multiple evaluations were conducted, including laryngoscopy and speech therapy, both identifying mild irregularities but no significant pathological causes thus far. - Previous ENT assessments recommended further investigative but then they did not give her a follow-up. I encouraged her to call them an advocate for herself and get a follow-up to complete the workup. Especially true because she thinks they told her they ?saw something? somewhere during the laryngoscopic that was not normal in her throat. - Present gastrointestinal issues are mostly related to chronic constipation and esophageal spasms, with current medication providing adequate relief for constipation. - The patient's dysphagia was significantly improved with Cardizem 120 mg daily, and her cab supervisor or hypertension prescribe a reduce the dose of her metoprolol to avoid orthostatic hypotension. Nutrition The patient's diet includes measures to aid bowel regularity, involving fiber laxatives and other gastrointestinal medications. The patient is on a regimen including dicyclomine, Colace (docusate), Citrucel, Deandra, and Creon, although detailed dietary restrictions or food allergies are not reported. Review of Systems - Gastrointestinal: Reports difficulty swallowing, sensation of throat twisting when lying down, improved constipation with medication, and occasional bloating and gas. Denies new abdominal pain. - Cardiovascular: Denies dizziness currently; adjusts cleared standing with metoprolol dosage reduced. - Neurological: Denies syncope or persistent dizziness. Physical Exam Results-pulled from [facility] website (printed and scanned into chart) - Tests: The speech therapy evaluation showed mild base of tongue residuals with thicker consistencies and piecemeal swallowing pattern with solids and purees. There was no laryngeal penetration or subglottic aspiration observed. - Diagnostics: Barium swallow indicated coordinated oral and pharyngeal phases without laryngeal penetration or aspiration during swallowing. Plan We will continue the treatment plan for the patient's symptoms, specifically focusing on dysphagia and potential esophageal spasm. The ENT follow-up is necessary to assess for any structural issues needing upper endoscopy. Current therapies with dicyclomine, Colace, Citrucel, Wisdom, and diltiazem will be maintained. The patient should call the ENT for follow-up appointments to ensure all necessary evaluations are completed. If ENT evaluations indicate no organic causes, management of possible anxiety-related symptoms could be the underlying cause and should be considered. The therapy with Creon will continue for bloating. I have stressed the importance of ongoing symptom monitoring and regular reassessment post-ENT evaluation. We will reconvene after ENT assessments or if new symptoms develop, provisionally scheduled in three months. Patient was informed and verbally consented to the use of an ambient scribe for clinic note documentation during this visit. Patient Instructions - Continue current medications as prescribed without interruption. - Contact the ENT office to schedule a follow-up to complete the ENT workup. - Monitor for any new symptoms or worsening of current symptoms. - Follow your ENT and our medical advice to manage swallowing symptoms. - her current GI regimen consists of Cardizem 120 mg q.d., dicyclomine 20 mg 4 times a day p.r.n., Colace once a day, Creon 2 caps twice a day, and senna for constipation. - Maintain your regular diet and include fiber as recommended to manage constipation. - Symptoms of syncope/presyncope were reviewed in case the patient develops this while being treated with Cardizem for her esophageal spasm. - Return for a follow-up appointment in three months or sooner if new symptoms develop. Medications: New [id number]-[id number] 3,000-9,500- 15,000 unit (Creon) do not exceed 10,000 unit/kg lipase per 24 hrs 2 caps PO BID 360 caps 1RF 90 days K59.04 - Chronic idiopathic constipation Refilled docusate sodium 100 mg PO DAILY 30 caps 6RF K58.2 - Mixed irritable bowel syndrome diltiazem HCl CD 120 mg PO QAM 30 caps 6RF R13.11 - Dysphagia, oral phase dicyclomine 20 mg PO QID 360 tabs 1RF methylcellulose (laxative) (Citrucel) 500 mg PO BID 60 tabs 6RF sennosides (Senna Laxative) 17.2 mg (2 x 8.6 mg) PO BEDTIME 60 tabs 6RF K58.2 - Mixed irritable bowel syndrome Coding Level of Care Code New Pt Level 4 (94080) Diagnoses Nausea and vomiting R11.2 Irritable bowel syndrome with both constipation and diarrhea K58.2 Constipation K59.00 Esophageal spasm K22.4 Time Spent (min) 38
[2024-11-15 09:31] VITALS: BP 119/73; PULSE 80; BMI 25.0
--- OUTSIDE RECORDS SUMMARY | 2024-11-15 10:30 | XMS_ITS | Encounter Summary ---
Author Organization [facility] Address [address] [place] [id number] Phone Care Team Providers Care Breeding Technician Name Role Phone Liv Soni MD Primary Care Provider Encounter Details Date Type Department Care Team (Late st Contact Info) Description 08/11/2022 Procedure Pass OR Admitting Dept - Virtual Department [address] [place] [address] Social History Tobacco Use Types Packs/Day Years Used Date Smoking Tobacco: Former Cigarettes Q uit: 2020 Smokeless Tobacco: Never Alcohol Use Standard Drinks/Week Comments Never 0 (1 standard drink = 0.6 oz pur e alcohol) Education Answer Date Recorded Are you interested in more education? Not on navarro e 07/25/2022 Are you concerned about learning? Not on file 07/25/2022 No 07/25/2022 No 07/25/2022 Comments No Sex and Gender Information Value Date Recorded Sex Assigned at Not on file Legal Sex Female 10:29 PM EDT Gender Identity Not on file Sexual Orientation Not on file documented as of this encounter Plan of Treatment Not on file documented as of this encounter Visit Diagnoses Not on filedocumented in this encounter Care Teams Breeding Technician Relationship Specialty Start Date End Date Liv Soni MD [facility] [place] [address] PCP - General Internal Medicine 07/01/22 documented as of this encounter Additional Source Comments The information contained in this document represents components of the legal health record. It is not the complete legal health record.[facility]
--- OUTSIDE RECORDS SUMMARY | 2024-11-15 10:30 | XMS_ITS | Clinical Summary ---
Demographics Address [address] [place] [address] Home Phone Email Address Preferred Language en Marital Status Single Sikh Affiliation Unknown Race Unknown Ethnic Group Unknown Author Organization [facility] Address [address] [address] Care Team Providers Care Checker/Stocker Name Role Phone Rashi Soni MD Primary Care Provider [phone] Allergies Active Allergy Reactions Criticality Noted Date [...] 1.52(A) 0.50 - 1.10 mg/dL eGFR Non-Afr Ecuadorean 38 Hemoglobin A1C 8.4(A) 4.0 - 6.0 06/18/2021 us Historical Provider LAB BLOOD ORDERABLES Michelle l Result from Last 3 Months or Most Recently Relevant to Health Maintenance Insurance * Guarantor: Renae Diop Account Type Relation to Patient Date of Phone Billing Address Personal/Family Self 1980 [address] [place] [address] Medicare [place] * Guarantor: Diop, Renae Account Type Relation to Patient Date of Phone Billing Address Personal/Family Self 1980 [address] [place] [address] Medicare [place] Care Teams Checker/Stocker Relationship Specialty Start Date End Date Rashi Soni MD [facility] [place] [address] PCP - General Internal Medicine 10/21/21
== END 2024-11-15 10:00 | disposition home or self-care (01) ==
LOC: HO.HGI 09:28
PROVIDERS: PCP Internal Medicine; Visit Provider Nurse Practitioner
DX: R11.2 Nausea with vomiting, unspecified (principal); K58.2 Mixed irritable bowel syndrome; K22.4 Dyskinesia of esophagus
CPT/HCPCS: 99214

== ENCOUNTER → 2024-11-15 09:27 | Outpatient (BNVA) | payer MEDICARE, MEDICAID, SELFPAY | PROVIDERS: PCP Internal Medicine; Visit Provider Nurse Practitioner | DX: K58.2 Mixed irritable bowel syndrome (principal); R11.2 Nausea with vomiting, unspecified; K59.00 Constipation, unspecified; K22.4 Dyskinesia of esophagus | CPT/HCPCS: 99212 ==

== ENCOUNTER 2024-12-16 07:59 | Outpatient (AMB) | payer MEDICARE, MEDICAID, SELFPAY ==
--- OUTSIDE RECORDS SUMMARY | 2024-12-16 08:02 | XMS_ITS | Encounter Summary ---
Author Organization [facility] Address [address] [place] [address] Phone Care Team Providers Care Crop And Soil Technician Name Role Phone Liv Soni MD Primary Care Provider Encounter Details Date Type Department Care Team ([facility] st Contact Info) Description 07/22/2022 Prep for Surgery [facility] Pod[facility] [address] [place] [address] Tacho Shea DPM [address] [facility] [address] [place] [address] [email or web address] Bunion (Primary Dx) Social History Tobacco Use Types Packs/Day Years Used Date Smoking Tobacco: Former Cigarettes Smokeless Tobacco: Never Alcohol Use Standard Drinks/Week Comments Not Currently 0 (1 standard drink = 0.6 oz pur e alcohol) Education Answer Date Recorded Are you interested in more education? Not on navarro e 07/25/2022 Are you concerned about learning? Not on file 07/25/2022 No 07/25/2022 No 07/25/2022 Comments Unknown Sex and Gender Information Value Date Recorded Sex Assigned at Not on file Legal Sex Female 10:29 PM EDT Gender Identity Not on file Sexual Orientation Not on file documented as of this encounter Plan of Treatment Not on file documented as of this encounter Results * XR FOOT 3 OR MORE VIEWS (RIGHT) (09/08/2022 11:07 AM EDT) Anatomical Region Laterality Modality Foot Right Computed Radiogr aphy 09/11/2022 8:47 AM EDT Impressions 09/11/2022 8:48 AM EDT Routine healing of osteotomy to correct bunion deformity. Narrative 09/11/2022 8:48 AM EDT XR FOOT 3 OR MORE VIEWS (RIGHT) COMPARISON: XR FOOT 3 OR MORE VIEWS (RIGHT) dated 26 Aug 2022 FINDINGS: Continued healing of osteotomy to correct bunion deformity to the right first metatarsophalangeal joint. Soft tissue shadow suggests no postoperative dressing intact. Soft tissue swelling has reduced; though still present over the dorsum of the forefoot. Subcutaneous gas in the tissue has resolved postoperatively. Procedure Note Tacho Shea DPM - 09/11/2022 XR FOOT 3 OR MORE VIEWS (RIGHT) COMPARISON: XR FOOT 3 OR MORE VIEWS (RIGHT) dated 26 Aug 2022 FINDINGS: Continued healing of osteotomy to correct bunion deformity to the rightfirst metatarsophalangeal joint. Soft tissue shadow suggests nopostoperative dressing intact. Soft tissue swelling has reduced; thoughstill present over the dorsum of the forefoot. Subcutaneous gas in thetissue has resolved postoperatively. IMPRESSION: Routine healing of osteotomy to correct bunion deformity. Tacho Shea DPM IMG XR LOWER EXTRE MITY Final Result * XR FOOT 3 OR MORE VIEWS (RIGHT) (08/26/2022 11:02 AM EDT) Anatomical Region Laterality Modality Foot Right Computed Radiogr aphy 08/27/2022 1:49 PM EDT Impressions 08/27/2022 1:51 PM EDT Continued healing of bunion correction of the head of the right first metatarsal. Narrative 08/27/2022 1:51 PM EDT XR FOOT 3 OR MORE VIEWS (RIGHT) COMPARISON: XR FOOT 3 OR MORE VIEWS (RIGHT) dated 18 Aug 2022. FINDINGS: Compared to previous films there has been continued consolidation of the osteotomy at the head of the first metatarsal. There has been near complete resolution of subcutaneous gas in the tissue. Soft tissue shadow suggests intact postoperative dressing. There has been some resolution of forefoot edema noted lucency at the head of the first metatarsal may represent radiolucent implant is position of lucency and density of lucency remains relatively unchanged since previous view. Procedure Note Tacho Shea DPM - 08/27/2022 XR FOOT 3 OR MORE VIEWS (RIGHT) COMPARISON: XR FOOT 3 OR MORE VIEWS (RIGHT) dated 18 Aug 2022. FINDINGS: Compared to previous films there has been continued consolidation of theosteotomy at the head of the first metatarsal. There has been nearcomplete resolution of subcutaneous gas in the tissue. Soft tissue shadowsuggests intact postoperative dressing. There has been some resolution offorefoot edema noted lucency at the head of the first metatarsal mayrepresent radiolucent implant is position of lucency and density oflucency remains relatively unchanged since previous view. IMPRESSION: Continued healing of bunion correction of the head of the right firstmetatarsal. Tacho Shea DPM IMG XR LOWER EXTRE MITY Final Result * XR FOOT 3 OR MORE VIEWS (RIGHT) (08/18/2022 11:06 AM EDT) Anatomical Region Laterality Modality Foot Right Computed Radiogr aphy 08/27/2022 1:47 PM EDT Impressions 08/27/2022 1:49 PM EDT Uneventful healing of bunion correction, first digit. Narrative 08/27/2022 1:49 PM EDT XR FOOT 3 OR MORE VIEWS (RIGHT) COMPARISON: XR FOOT 3 OR MORE VIEWS (RIGHT) dated 11 Aug 2022 FINDINGS: Compared to previous films there has been continued healing of bunion correction to the right first digit. Soft tissue shadow suggests intact postoperative dressing. There is been some resolution of subcutaneous gas in the tissue. Osteotomy site continues to consolidate in. Soft tissue shadow suggests continued edema at the forefoot. Procedure Note Tacho Shea DPM - 08/27/2022 XR FOOT 3 OR MORE VIEWS (RIGHT) COMPARISON: XR FOOT 3 OR MORE VIEWS (RIGHT) dated 11 Aug 2022 FINDINGS: Compared to previous films there has been continued healing of bunioncorrection to the right first digit. Soft tissue shadow suggests intactpostoperative dressing. There is been some resolution of subcutaneous gasin the tissue. Osteotomy site continues to consolidate in. Soft tissueshadow suggests continued edema at the forefoot. IMPRESSION: Uneventful healing of bunion correction, first digit. Tacho Shea DPM IMG XR LOWER EXTRE MITY Final Result documented in this encounter Visit Diagnoses Diagnosis Bunion- Primary Bunion Bunion Bunion documented in this encounter Care Teams Crop And Soil Technician Relationship Specialty Start Date End Date Liv Soni MD [facility] [place] [address] [place] [address] PCP - General Internal Medicine 07/01/22 documented as of this encounter Additional Source Comments The information contained in this document represents components of the legal health record. It is not the complete legal health record.[facility]
--- OUTSIDE RECORDS SUMMARY | 2024-12-16 08:02 | XMS_ITS | Encounter Summary ---
Author Organization [facility] Address [address] [place] [address] Phone Care Team Providers Care Creasing Machine Operator Name Role Phone Liv Soni MD Primary Care Provider Encounter Details Date Type Department Care Team (Late st Contact Info) Description 09/06/2022 Ophth Exam [facility] [place] [address] [place] [address] Val Leong MD [email or web address] [email or web address] Social History Tobacco Use Types Packs/Day Years Used Date Smoking Tobacco: Former Cigarettes Q uit: 2020 Smokeless Tobacco: Never Alcohol Use Standard Drinks/Week Comments Never 0 (1 standard drink = 0.6 oz pur e alcohol) Education Answer Date Recorded Are you interested in more education? Not on navarro e 07/25/2022 Are you concerned about learning? Not on file 07/25/2022 No 07/25/2022 No 07/25/2022 Digital Access Answer Date Recorded No 08/20/2022 No 08/20/2022 Reliable internet access at home? Not on file 08/20/2022 Device with a working camera? Not on file Intimate Partner Violence Answer Date R ecorded Are you denied basic needs s uch as food, clothing, or medical care? No 09/06/2022 In the past 12 months have y ou been in a relationship with a person who hurts, threatens, or tries to control you? No 09/06/2022 Are you denied basic needs s uch as food, clothing, or medical care? No 09/06/2022 In the past 12 months have y ou been in a relationship with a person who hurts, threatens, or tries to control you? No 09/06/2022 Comments No Sex and Gender Information Value Date Recorded Sex Assigned at Not on file Legal Sex Female 10:29 PM EDT Gender Identity Not on file Sexual Orientation Not on file documented as of this encounter Functional Status * Calculated C-SSRS Risk Score (Lifetime/Recent) Answer Date of Assessment Author No Risk Indicated 09/06/2022 1:43 PM EDT David Rhodes RN * [place] Suicide Severity Rating Scale (Screener/Recent Self-Report) Question Answer Date of Assessment Author 1. Wish to be (Past 1 Month) No 09/06/2022 1:43 PM EDT David Rhodes RN 2. Non-Specific Active Suicidal Thoughts (Past 1 Month) No 09/06/2022 1:43 PM EDT David Rhodes RN 6. Suicidal Behavior (Lifetime) No 09/06/2022 1:43 PM EDT David Rhodes RN documented as of this encounter Plan of Treatment Not on file documented as of this encounter Visit Diagnoses Not on filedocumented in this encounter Care Teams Creasing Machine Operator Relationship Specialty Start Date End Date Liv Soni MD [facility] [place] [address] PCP - General Internal Medicine 07/01/22 documented as of this encounter Additional Source Comments The information contained in this document represents components of the legal health record. It is not the complete legal health record.[facility]
--- OUTSIDE RECORDS SUMMARY | 2024-12-16 08:02 | XMS_ITS | Clinical Summary ---
Demographics Address [address] [place] [address] Home Phone Email Address Preferred Language en Marital Status Single Temple Affiliation Unknown Race Unknown Ethnic Group Unknown Author Organization [facility] Facility Address [address] [address] Care Team Providers Care Body Mechanic Apprentice Name Role Phone Rashi Soni MD Primary Care Provider +1- [phone] Allergies Active Allergy Reactions Criticality Noted Date [...] 1.52(A) 0.50 - 1.10 mg/dL eGFR Non-Afr Guatemalan 38 Hemoglobin A1C 8.4(A) 4.0 - 6.0 06/18/2021 us Historical Provider LAB BLOOD ORDERABLES Michelle l Result from Last 3 Months or Most Recently Relevant to Health Maintenance Insurance * Guarantor: Renae Diop Account Type Relation to Patient Date of Phone Billing Address Personal/Family Self 1980 [address] [place] [address] Medicare [place] * Guarantor: Diop, Renae Account Type Relation to Patient Date of Phone Billing Address Personal/Family Self 1980 [address] [place] [address] Medicare [place] Care Teams Body Mechanic Apprentice Relationship Specialty Start Date End Date Rashi Soni MD [facility] [place] [address] PCP - General Internal Medicine 10/21/21
--- OUTSIDE RECORDS SUMMARY | 2024-12-16 08:02 | XMS_ITS | Encounter Summary ---
Author Organization [facility] Address [address] [place] [address] Phone Care Team Providers Care Supervisor Finishing Room Name Role Phone Liv Soni MD Primary Care Provider Encounter Details Date Type Department Care Team (Late st Contact Info) Description 08/11/2022 Procedure Pass OR Admitting Dept - Virtual Department [address] [place] [address] Social History Tobacco Use Types Packs/Day Years [...] on filedocumented in this encounter Care Teams Supervisor Finishing Room Relationship Specialty Start Date End Date Liv Soni MD [facility] [place] [address] PCP - General Internal Medicine 07/01/22 documented as of this encounter Additional Source Comments The information contained in this document represents components of the legal health record. It is not the complete legal health record.[facility]
--- OUTSIDE RECORDS SUMMARY | 2024-12-16 08:02 | XMS_ITS | Clinical Summary ---
Demographics Address [address] [facility] [address] [address] Mobile Phone Home Phone Home Phone Email Address Preferred Language Chinese Marital Status Unknown Judaism Affiliation Unknown Race Other Race Ethnic Group or Author Organization [facility] Address [address] [place] [address] Phone Care Team Providers Care Hydrocrane Operator Name Role Phone Liv Soni MD Primary Care Provider Allergies Active Allergy Reactions Criticality Noted Date Comments Oxycodone-Acetaminophen Other (See Comments) Medications senna (SENOKOT) 8.6 mg tablet [facility] SENNA LAXATIVE 8.6 MG TAB, 0 Refills, Maintenance, 04/23/22 8:02:00 EST 3 Active dilTIAZem 120 mg 24hr Take 120 mg by mouth daily. 3 Active metoprolol succinate (TOPROL-XL) 100 MG 24 hr tablet Take 100 mg by mouth daily. 3 Active amitriptyline (ELAVIL) 150 MG tablet Take 150 mg by mouth daily. 3 Active atorvastatin (LIPITOR) 20 MG tablet Take 20 mg by mouth daily. 2 Active blood sugar diagnostic (FREESTYLE INSULINX) Strp strips Active blood-glucose Misc meter Active blood-glucose sensor (DEXCOM G6 SENSOR) Jayla Acti ve cetirizine (ZYRTEC) 10 mg capsule Take 10 mg by mouth daily. Active cholecalciferol , vitamin D3, 50 mcg (2,000 unit) Chew Active docusate sodium (COLACE) 100 MG capsule Take 1 capsule by mouth every morning. 3 Active fluticasone propion-salmete roL (ADVAIR DISKUS) 100-50 mcg/dose DISKUS Acti ve fluticasone propionate (FLONASE) 50 mcg/actuation nasal spray 0 Refills, Maintenance, 04/23/22 8:03:00 EST, Partial fill upon patient request if the prescription is for a schedule II opioid drug. 2 Active glucagon (BAQSIMI) 3 mg/actuation Show Low 0 Refills, Maintenance, 04/23/22 8:02:00 EST, Partial fill upon patient request if the prescription is for a schedule II opioid drug. 3 Active glucagon (GLUCAGEN HYPOKIT INJ) Active insulin lispro (HUMALOG U-100 INSULIN) 100 unit/mL injection vial 100 Units. ss 2 Active insulin lispro-aabc 100 unit/mL InPn Active ketorolac (ACULAR) 0.5 % ophthalmic solution INSTILL 1 DROP IN AFFECTED EYE 3 TIMES A DAY START 2 DAYS PRIOR TO EACH SURGERY. TAPER DIRECTED 3 Active pancrelipase, lipase-protease -amylase, (CREON) 3,000-9,500- 15,[address] capsule Take 3,000 units of lipase by mouth daily. 3 Active losartan (COZAAR) 25 MG tablet Take 1 tablet by mouth every morning. 3 Active megestroL (MEGACE) 40 MG tablet Take 1 tablet by mouth every morning. 3 Active omeprazole (PRILOSEC) 40 MG capsule Take 1 capsule by mouth 2 (two) times a day. 3 Active Active Problems Problem Noted Date Diagnosed Date Bunion 07/29/2022 Social History Tobacco Use Types Packs/Day Years Used Date Smoking Tobacco: Former Cigarettes Q uit: 2019 Smokeless Tobacco: Never Tobacco Cessation:Counseling Given: Not Answered Alcohol Use Standard Drinks/Week Comments Never 0 [...] Sign Reading Time Taken Comments Blood Pressure 109/75 09/06/2022 1:38 PM EDT Pulse 95 09/06/2022 1:38 PM EDT Temperature 36.4 C (97.6 F) 09/06/2022 1:38 PM EDT Respiratory Rate 18 09/06/2022 1:38 PM EDT Oxygen Saturation 95% 09/06/2022 1:38 PM EDT Inhaled Oxygen Concentration - - Weight 63.5 kg (140 lb) 09/09/2022 2:03 PM EDT Height 157.5 cm (5' 2 ) 09/09/2022 2:03 PM EDT Body Mass Index 25.61 09/09/2022 2:03 PM EDT Plan of Treatment Health Maintenance Due Date Last Done Comments CREATININE LEVEL 1980 LIPID PANEL 1979 POTASSIUM LEVEL 1979 DEPRESSION SCREENING 1991 SMOKING Hx and SMOKELESS TOBACCO SCREENING 10/15/1992 HEPATITIS C SCREENING 10/15/1997 HIV ONE-TIME SCREENING (18-6 5 YEARS) 10/15/1997 SCREENING FOR DIABETES 10/15/2014 MAMMOGRAM 2019 COLOGUARD 10/15/2024 COLONOSCOPY 10/15/2024 COLORECTAL CANCER SCREENING 10/15/2024 FIT TEST 10/15/2024 FOBT 10/15/2024 SIGMOIDOSCOPY 10/15/2024 VIRTUAL COLONOSCOPY 10/15/2024 INFLUENZA VACCINE (#1) 2024 COVID-19 VACCINE (3 - 2024-2 6 season) 2024 11/25/2020, 10/28/2020 Adult Td,Tdap Booster 05/02/2032 05/02/2022 , 03/30/2006 PNEUMOCOCCAL VACCINES (0-49 years) Aged Out 09/04/2016 No longer eligible b ased on patient's age to complete this topic HEPATITIS A VACCINES Aged Out No long er eligible based on patient's age to complete this topic HIB VACCINES Aged Out No longer eligi ble based on patient's age to complete this topic MENINGOCOCCAL VACCINES (ACWY) Aged Out No longer eligible based on patient's age to complete this topic MENINGOCOCCAL VACCINES (B) Aged Out N o longer eligible based on patient's age to complete this topic Medical Devices Implanted Type Area Photographer Device Identifier Shelf Expiration Date Model / Serial / Lot Lens Lens Right: Eye Pin Bioresorable 26mm - [id number] Implanted:Qty: 2 on 08/11/2022 by Tacho Shea DPM at [facility] Right: Toe [employer] 05/22/2023 [id number] / / [id number] Description:Right great toe Insurance [facility] 1/[address] [address] [place] [id number] [facility] /[address] [address] MEDICARE PART A & B [facility] 1/[address] [address] [place]IC[place] [facility] /[address] [address] MEDICARE [place] [facility] 1/[address] [address] MEDICARE PART [place] 4 /[address] [address] [facility] A & B * Guarantor: Renae Roman Account Type Relation to Patient Date of Phone Billing Address Personal/Family Self 1980 [address] [facility] [address] [place] [address], [place] [address] * Guarantor: Renae Roman Account Type Relation to Patient Date of Phone Billing Address Personal/Family Self 1980 [address] [facility] [address] [place] [address], [place] [address] * Guarantor: Renae Roman Account Type Relation to Patient Date of Phone Billing Address Personal/Family Self 1980 [address] [birth year][address] [facility] [address] [place] [address], [place] [address] , [place] [address] , [place] [address] * Guarantor: Renae Roman Account Type Relation to Patient Date of Phone Billing Address Personal/Family Self 1980 4 [address] [facility] [address] [place] [address], [place] [address] * Guarantor: Renae Roman Account Type Relation to Patient Date of Phone Billing Address Personal/Family Self 1980 [address] [facility] [address] [place] [address], [place] [address] [address] [facility] [address] [place] [address] [address] Care Teams Hydrocrane Operator Relationship Specialty Start Date End Date Liv Soni MD [address] [place] [address] PCP - General Internal Medicine 07/01/22 Additional Source Comments The information contained in this document represents components of the legal health record. It is not the complete legal health record.[facility]
--- NOTE | 2024-12-16 08:07 | A.OFFVIS_ITS ---
Vital Signs 3 12/16/24 08:11 Height 5 ft 2 in Weight 136 lb BMI 24.9 BP 90/62 Blood Pressure Location Rt brachial Position Sitting Pulse 79 Pulse Source Pulse Oximeter Pulse Oximetry (%) 95 Oxygen Delivery Method Room Air Intake Visit Reasons: T1DM Intake Note: Patient present today for Type 1 Diabetes Mellitus Last Diabetic eye exam: Last exam was in August 2024 Last Podiatry Visit: Doesn't have one but would like a referral Random Glucose: 283 mg/dl HgA1C: 7.8% Community Center Director Required: No Accompanied by: Self / Same As Patient Allergies oxycodone (Percocet) Adverse Reaction (Unknown, Verified 12/16/24 08:14) chills Medication List - Last Reconciled 12/16/24 by Lila Costello MD acetone (urine) test (Ketone Urine Test strips) As directed tid for glucose over 300 nausea or vomiting amitriptyline 150 mg PO BEDTIME atorvastatin 20 mg PO BEDTIME 90 days blood-glucose sensor (FreeStyle Delfin 3 Plus Sensor device) As directed every 15 days cetirizine 10 mg PO DAILY PRN cholecalciferol (vitamin D3) 50 mcg PO DAILY dicyclomine 20 mg PO QID diltiazem HCl CD 120 mg PO QAM docusate sodium 100 mg PO DAILY fluticasone propionate 50 mcg/actuation (Allergy Relief (fluticasone)) 1 spray intranasal DAILY glucagon 3 mg/actuation (Baqsimi) 3 mg intranasal ONCE Humalog U-100 Insulin (insulin lispro) Up to 130 units per day via insulin pump subcutaneously subcutaneously; 30 days NS insulin glargine (Lantus Solostar U-100 Insulin) 20 units (0.2 mL) subcut QAM PRN 30 days MDD 20 units lancets (Accu-Chek Fastclix Lancet Drum) As directed tests 3 X/day lancing device with lancets (Accu-Chek Multiclix Lancet kit) As directed checks 6X/day [id number]-[id number]-qbweckt 3,000-9,500- 15,000 unit (Creon) 2 caps PO BID 90 days losartan 25 mg PO DAILY methylcellulose (laxative) (Citrucel) 500 mg PO BID metoprolol succinate ER 50 mg PO DAILY ondansetron HCl 4 mg PO BID-TID PRN 14 days pen needle, diabetic As directed daily prn pump failure sennosides (Senna Laxative) 17.2 mg (2 x 8.6 mg) PO BEDTIME triamcinolone acetonide 0.5% 1 appl topical BID 30 days HPI Comments Details: 44 YO F with with type 1 diabetes mellitus on islet insulin pump with freestyle Delfin 3+ coming in today for follow up with complications of retinopathy, nephropathy/microalbuminuria. History of diabetes Initially diagnosed with T1DM at the age of 24. Last seen August 2024 by Kamilla Evangelista APRN Was on tandem previously. on an ilet insulin pump as of 06/29/24. Random Glucose: 283 mg/dl A1c 12/16/2024 POC: 7.8% 07/22:8.8% Now on islet insulin pump with freestyle Deflin 3+ with Humalog U 100 I let pump report with freestyle Delfin 3+ downloaded from November 18 12/16/2024 Average glucose 174 mg/dL Coefficient of variation 44.8% Within target range 56% High 22.7% Very high 15.3% Los 3.9% Very low 1.2% G DC 7.5% Total daily basal dose: 23.4 units per day Total daily dose 42.1 units per day She is not making meal announce movements resulting in postprandial hyperglycemia so that when she would announce occasionally, it would result in hypoglycemia after. In September when she saw Althea, she did a factory reset as patient had decided to then announce meals. Complications Does have eyes checked yearly, last eye exam 10/21 has retinopathy she saw a neuro-opthamologist Last visit in July 21. Was evaluated due to slow pupillary reaction. She wears polarized glasses. Denies neuropathy. Denies numbness, tingling, pain or cramping in the lower extremity. Has history of nephropathy, on Losartan 12.5 mg PO daily. microalbumin substantially improved over the past 2 years April 2024 urine microalbumin ratio 13.June eGFR>60 Has HLD, on Atorvastatin 20 mg PO daily. LDL 59 05/16/2024 Denies history of CAD. Has ongoing diabetes education. Physical exam General: sitting comfortably in no acute distress HEENT: normocephalic/atraumatic, Neck: supple, Cardiac: normal heart sounds Pulm: normal breath sounds B/L, no added breath sounds Abd: not distended, Laboratory Tests 05/16/24 05/16/24 07/25/24 07:43 07:46 12:14 Hgb 11.7 L Hct 37.2 RDW 13.8 Creatinine 0.95 Estimated GFR > 60 Glucose (Clinic) Fasting Glucose C-Peptide AST 27 ALT 23 Triglycerides 70 Cholesterol 114 LDL Cholesterol, Calc 59 HDL Cholesterol 41 Urine Creatinine 123.61 Urine Microalbumin 13.0 Microalb/Creat Ratio 10.5 08/18/24 09/06/24 08:27 12:40 Hgb Hct RDW Creatinine Estimated GFR Glucose (Clinic) 333 H Fasting Glucose 115 H C-Peptide 0.32 L AST ALT Triglycerides Cholesterol LDL Cholesterol, Calc HDL Cholesterol Urine Creatinine Urine Microalbumin Microalb/Creat Ratio [facility] Medical History (Updated 12/16/24 @ 08:33 by Lila Costello MD) Insulin pump in place Nausea and vomiting ASCUS with positive high risk HPV cervical Abnormal Pap smear of cervix Intermittent claudication Sleep behavior disorder, REM Oral phase dysphagia Fibroids Goiter HLD (hyperlipidemia) Hypogonadotropic hypogonadism Premature ovarian failure Sinus tachycardia Amenorrhea Depression Vitamin D deficiency Dyslipidemia Diabetic nephropathy associated with type 1 diabetes mellitus Diabetes type 1, uncontrolled Hypertension Surgical History S/P bunionectomy S/P cataract surgery Hx of esophagogastroduodenoscopy Hx of tubal ligation Family History Father No problems noted. Mother Hypertension Social History Household Members: Children Household Members Other:: 2 children Housing: Apartment Alcohol intake: current Alcohol intake frequency: does not drink Patient Tobacco Use Status: Former Tobacco user e-Cigarette/Vaping Use: Never Used service: No Current occupational status: unemployed Cognitive needs: No Hearing needs: No Vision needs: No Female Reproductive History Menstrual Age of Menarche: 13 Physical Exam Vital Signs: Last Vital Signs Pulse 79 12/16/24 08:11 BP 90/62 12/16/24 08:11 Pulse Ox 95 12/16/24 08:11 Oxygen Delivery Method Room Air 12/16/24 08:11 BMI result Body Mass Index 24.9 Office Procedures Glucose Monitoring Details Details: See [facility] [id number] - Glucose monitoring, continuous-physician I&R Procedure code (CPT) selection complete Results AMB Hemoglobin A1c 2 AMB Hemoglobin A1c 7.8 % Last Edit by SUELLEN Cox on 12/16/24 08:26 Results Reviewed Results Reviewed: Laboratory Last Values Glucose (Clinic) 283 mg/dL (60-115) H 12/16/24 08:16 Hgb A1c (Clinic) 7.8 % (4.0-6.0) H 12/16/24 08:21 Assessment & Plan Assessment & Plan (1) Diabetes type 1, uncontrolled: Code(s): E10.65 - Type 1 diabetes mellitus with hyperglycemia Category: Medical Qualifiers: Glycemic state: with hyperglycemia Qualified Code(s): E10.65 - Type 1 diabetes mellitus with hyperglycemia Plan: 44 YO F with with type 1 diabetes mellitus on islet insulin pump with freestyle Delfin 3+ coming in today for follow up with complications of retinopathy, nephropathy/microalbuminuria. She is stable retinopathy. Nephropathy has improved over the past few years with better glycemic control. A1c 12/16/2024 POC improved to 7.8% from 8.8% in June 2024. She is not making meal announce movements resulting in postprandial hyperglycemia so that when she would announce occasionally, it would result in hypoglycemia after. In September when she saw Althea, she did a factory reset as patient had decided to then announce meals. I discussed with patient importance of announcing meals to prevent hypoglycemia. Plan: -continue islet insulin pump with freestyle Delfin 3+ -blood work and urine test ordered to be done prior to next visit -follow up in 2-3 months (2) Insulin pump in place: Code(s): Z96.41 - Presence of insulin pump (external) (internal) Category: Medical Plan: On I let insulin pump with freestyle Delfin 3+ with the Humalog U 100 Has backup Lantus: Backup failure plan: To inject 20 units of Lantus with usual doses of Humalog pre meals Has ketone strips Has nasal Baqsimi Plan I spent 30 minutes in reviewing the record, seeing the patient and documenting in the medical record. Orders: Orders 2 TSH reflex Free T4 6 Weeks E10.65 - Type 1 diabetes mellitus with hyperglycemia, E78.5 - Hyperlipidemia, unspecified Complete Blood Count no Diff 6 Weeks E10.65 - Type 1 diabetes mellitus with hyperglycemia, E78.5 - Hyperlipidemia, unspecified Creatinine 6 Weeks E10. - Type 1 diabetes mellitus with hyperglycemia, E78.5 - Hyperlipidemia, unspecified AMB Glucose Monitoring Today E10. - Type 1 diabetes mellitus with hyperglycemia Microalbumin, Random (w Creat) 6 Weeks E10. - Type 1 diabetes mellitus with hyperglycemia, E78.5 - Hyperlipidemia, unspecified Lipid Panel 6 Weeks E10. - Type 1 diabetes mellitus with hyperglycemia, E78.5 - Hyperlipidemia, unspecified Aspartate Amino Transferase 6 Weeks E10. - Type 1 diabetes mellitus with hyperglycemia, E78.5 - Hyperlipidemia, unspecified Alanine Aminotransferase 6 Weeks E10. - Type 1 diabetes mellitus with hyperglycemia, E78.5 - Hyperlipidemia, unspecified AMB Hemoglobin A1c Today E10. - Type 1 diabetes mellitus with hyperglycemia, Z13.9 - Encounter for screening, unspecified Patient Instructions: do fasting blood work and urine test prior to next appointment Coding Level of Care Code Est Pt Level 4 (74861) Diagnoses Uncontrolled type 1 diabetes mellitus with hyperglycemia Glycemic state: with hyperglycemia Insulin pump in place Z96.41 CPT Codes Details - CPT: 88298 - Glucose monitoring, continuous-physician I&R ([id number]) Time Spent (min) 30
[2024-12-16 08:11] VITALS: BP 90/62; PULSE 79; O2SAT 95; BMI 24.9
[2024-12-16 08:20] LABS: Glucose, Whole Blood 283 mg/dL (60-115)
== END 2024-12-16 08:30 | disposition home or self-care (01) ==
LOC: HO.ENCR 07:59
PROVIDERS: PCP Internal Medicine; Visit Provider Student in an Organized Health Care Education/Training Program
DX: Z13.9 Encounter for screening, unspecified (principal); E10.65 Type 1 diabetes mellitus with hyperglycemia; Z96.41 Presence of insulin pump (external) (internal)
CPT/HCPCS: 95251; 99214

== ENCOUNTER → 2024-12-16 07:59 | Outpatient (BNVA) | payer MEDICARE, MEDICAID, SELFPAY | PROVIDERS: PCP Internal Medicine; Visit Provider Student in an Organized Health Care Education/Training Program | DX: E10.65 Type 1 diabetes mellitus with hyperglycemia (principal); Z96.41 Presence of insulin pump (external) (internal); Z79.4 Long term (current) use of insulin | CPT/HCPCS: 82947; 83036; 99212 ==

== ENCOUNTER 2025-02-20 12:28 | Outpatient (REF) | payer MEDICARE, MEDICAID, SELFPAY ==
[2025-02-20 13:25] LABS: Hematocrit 38.9 % (37.0-47.0); Hemoglobin 11.8 g/dl (12.0-16.0); Mean Corpuscular HGB Conc 30.3 g/dl (31.0-35.0); Mean Corpuscular Hemoglobin 26.0 pg (27.0-33.0); Mean Corpuscular Volume 85.7 fL (80.0-98.0); NRBC Abs Auto 0.000 X10*3/uL (0.0-0.012); NRBC Pct Auto 0.0 /100WBC (0.0-0.2); Platelet Count 253 X10*3/uL (160-400); Red Blood Count 4.54 X10*6/uL (4.20-5.50); White Blood Count 5.6 X10*3/uL (4.8-10.8)
[2025-02-20 14:59] LABS: Alanine Aminotransferase 18 U/L (0-31); Aspartate Amino Transferase 27 U/L (5-31); Cholesterol 106 mg/dL (<200); Estimated Glomerular Filt Rate 57; HDL Cholesterol 39 mg/dL (>40); Triglycerides 88 mg/dL (<150)
--- OUTSIDE RECORDS SUMMARY | 2025-02-20 16:34 | XMS_ITS | Data Portability ---
Author Organization [place] - [facility] Address [address] [place] [address] Care Team Providers Care Laboratory Courier Name Role Phone LORE GRIGGS Primary Care Provider LORE GRIGGS Referring Provider [phone] Assessment No assessment recorded. Plan of Treatment Reminders Order Date Submit Date Provider Last Modified By Organization Details Last Modified Time Details Appointments None recorded. Lab None recorded. Referral None recorded. Procedures None recorded. Surgeries None recorded. Imaging [place], modified barium swallow study - evaluate dysphagia 2024 025 [facility], [address], [place], [address], 16:56:45 Medication Orders None recorded. Patient TargetsNo targets recorded. Patient InstructionsNo instructions recorded. Reason for Referral None Reported. Results Created Date Observation Date Name Description Value Unit Range Abnormal Flag Note LastModifiedBy Organization Detail LastModifiedTime 08/20/19 25 08/18/2024 [place], modif ied filippo mccall study No observ ation record ed. [facility] [address], [place], [address], 08/23/2024 12:28:01 Result Notes None recorded. Problems Name Problem SNOMED Code Status Onset Date Resolution Date Notes Provider Name and Address Organization Details Recorded Time Oropharyngeal dysphagia 35783680 Active 2024 REAL Griffin MD [address], [place], [address] , [facility] - [facility] 5 15:49:47 Gastroesophage al reflux disease without esophagitis 209700698 Active 2024 REAL Griffin MD [address], [place], [address], [facility] - [facility] 15:49:52 Problem Notes None recorded. Procedures Surgical History Date Name Laterality Status Provider Name and Address Organization Details Recorded Time 07/26/2024 FFL_RE completed REAL PIZARRO MD [address] [address], [place], [address], [facility] - [facility] 07/26/2024 15:49:58 Imaging Results None recorded. Procedure [...] Updated DateTime 07/26/2024 165.1 cm 25 kg/m2 44622.86 g Arianna Martinez [place] - [facility] 07/26/2024 15:11:46 Social History None recorded. Functional Status None recorded. Mental Status None recorded. Family History Nothing Reported. Medical History No medical history recorded. Gynecological HistoryNo gynecological history recorded. Obstetrics History GPAL:G 0 P 0 0 0 0 Past Encounters Encounter ID Performer Location Encounter Start Date Encounter Closed Date Diagnosis/Indication Diagnosis SNOMED-CT Code Diagnosis ICD10 Code Diagnosis IMO Codes Diagnosis Note [id number] REAL PIZARRO MD [facility] [address] [address] 07/26/2024 14:54:37 07/26/2024 15:55:38 Oropharyngeal dysphagia 38615200 R13.12 Laryngosco py was normal. It has [...] therapy. Gastroesop hageal reflux disease without esophagitis 081814992 K21.9 Continue omeprazole . Health Concerns Section Related Observation LastModified by Organization Detai ls LastModified Time None Recorded Concern Status LastModified by Organization Details LastModified Time None Recorded Advance Directives Directive None Recorded Payers Insurance Date Sequence Insurance Name Policy Number Policy Costello Covered Member ID Costello Member ID Guarantor Name 07/26/2024 1 [place]ARE B-[place]: [facility] Renae Gudino [id number] Renae Gudino 08/17/2024 2 [place] [facility] Renae Gudino [id number] Renae Gudino Notes Date Note Type Note Provider Name and Address Organization Details Recorded Time 07/26/2024 text/html ROS as noted in the HPI She reports on a daily basis she feels like her throat closes and food gets stuck. She sometimes vomits. She denies trouble breathing. When she drinks thin liquids especially if cold she will cough. She had a swallow study at [facility] a year ago. She said her swallowing is worse now. She does not smoke. Quit smoking 5 years ago. She endorse heartburn and takes omeprazole. It is hard for her to burp. She has seen GI and had an EGD over 5 years ago. REAL PIZARRO MD [address] [place] [address], [place], [address], [facility] - [facility] 07/26/2024 15:57:06 OBGyn Episode No OBEpisode recorded.
== END 2025-02-20 12:29 | disposition home or self-care (01) ==
LOC: HO.10HDL 12:28
PROVIDERS: Visit Provider Student in an Organized Health Care Education/Training Program
DX: Z00.01 Encounter for general adult medical examination with abnormal findings (principal); E10.65 Type 1 diabetes mellitus with hyperglycemia; E78.5 Hyperlipidemia, unspecified; N63.20 Unspecified lump in the left breast, unspecified quadrant; K21.9 Gastro-esophageal reflux disease without esophagitis
CPT/HCPCS: 36415; 80061; 82565; 84443; 84450; 84460; 85027; 96127; 99396

== ENCOUNTER 2025-02-20 14:48 | Outpatient (AMB) | payer MEDICARE, MEDICAID, SELFPAY ==
[2025-02-20 15:09] VITALS: BP 102/64; PULSE 85; RESP 15; TEMP 36.8; O2SAT 98; BMI 26.0
--- NOTE | 2025-02-20 15:09 | MHC.PC.OV ---
Vital Signs 02/20/25 15:09 Height 5 ft 2 in Weight 142 lb BMI 26.0 BP 102/64 Blood Pressure Location Rt brachial Position Sitting Respiration 15 Pulse 85 Pulse Source Pulse Oximeter Temp 98.2 F Temp Source Oral Pulse Oximetry (%) 98 Oxygen Delivery Method Room Air Intake Visit Reasons: Annual PE Intake Note: Pt is here today for her PE: Mammogram 03/19/22, papsmear 07/08/23 Allergies oxycodone (Percocet) Adverse Reaction (Unknown, Verified 02/27/25 01:33) chills Medication List - Last Reconciled 02/20/25 by Liv Soni MD acetone (urine) test (Ketone Urine Test strips) As directed tid for glucose over 300 nausea or vomiting amitriptyline 150 mg PO BEDTIME atorvastatin 20 mg PO BEDTIME 90 days blood-glucose sensor (FreeStyle Delfin 3 Plus Sensor device) As directed every 15 days cetirizine 10 mg PO DAILY PRN cholecalciferol (vitamin D3) 50 mcg PO DAILY dicyclomine 20 mg PO QID diltiazem HCl CD 120 mg PO QAM docusate sodium 100 mg PO DAILY fluticasone propionate 50 mcg/actuation (Allergy Relief (fluticasone)) 1 spray intranasal DAILY glucagon 3 mg/actuation (Baqsimi) 3 mg intranasal ONCE Humalog U-100 Insulin (insulin lispro) Up to 130 units per day via insulin pump subcutaneously subcutaneously; 30 days NS insulin glargine (Lantus Solostar U-100 Insulin) 20 units (0.2 mL) subcut QAM PRN 30 days MDD 20 units lancets (Accu-Chek Fastclix Lancet Drum) As directed tests 3 X/day lancing device with lancets (Accu-Chek Multiclix Lancet kit) As directed checks 6X/day bpshds-ghsvoiza-qqonhla (pork) 3,000-9,500- 15,000 unit (Creon) 2 caps PO BID 90 days losartan 25 mg PO DAILY methylcellulose (laxative) (Citrucel) 500 mg PO BID metoprolol succinate ER 50 mg PO DAILY ondansetron HCl 4 mg PO BID-TID PRN 14 days pen needle, diabetic As directed daily prn pump failure sennosides (Senna Laxative) 17.2 mg (2 x 8.6 mg) PO BEDTIME triamcinolone acetonide 0.5% 1 appl topical BID 30 days Tobacco use date assessed: 02/20/25 Dental Screening Dental Screen Date: 02/20/25 Did you have a dental visit in the last 12 months?: Yes Did you have a dental problem in the last 6 months where you did not have access to dental care?: No Was dental information given to patient?: Patient has dentist HPI Annual PE HPI Details The patient is a 44 year old individual presenting for her physical exam. She reports a lump in the left breast, which was evaluated with a mammogram and ultrasound in February 2022 that were negative for any mass. The patient states the lump's size increases with weight gain and can become hard and painful, but it resolves with weight loss. 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 The patient uses a [facility] glucose monitor. The patient also has diabetic retinopathy, which was confirmed by an dairy associate, and receives eye care at [facility]. Based on recent lab results, the patient has mild anemia and fluctuating kidney function, with an eGFR that has varied between 49 and 60. Cholesterol levels are noted to be good. The patient takes atorvastatin for hypercholesterolemia, an antidepressant, and vitamin D. Regarding health maintenance, the patient is overdue for a mammogram but is currently refusing it. The patient is up-to-date with Pap smears and has an appointment scheduled for next month. The patient is due for a colonoscopy and has an upcoming appointment for an upper endoscopy for abdominal pain on February [address] Mcmanus. The patient declined the flu shot but is up-to-date on tetanus and pneumonia immunizations and has received two COVID-19 vaccines. [facility]LY [facility], [facility] Medical History Insulin pump in place Nausea and vomiting ASCUS with positive high risk HPV cervical Abnormal Pap smear of cervix Intermittent claudication Sleep behavior disorder, REM Oral phase dysphagia Fibroids Goiter HLD (hyperlipidemia) Hypogonadotropic hypogonadism Premature ovarian failure Sinus tachycardia Amenorrhea Depression Vitamin D deficiency Dyslipidemia Diabetic nephropathy associated with type 1 diabetes mellitus Diabetes type 1, uncontrolled Hypertension Surgical History S/P bunionectomy S/P cataract surgery Hx of esophagogastroduodenoscopy Hx of tubal ligation Family History Father No problems noted. Mother Hypertension Social History Household Members: Children Household Members Other:: 2 children Housing: Apartment Alcohol intake: current Alcohol intake frequency: does not drink Patient Tobacco Use Status: Former Tobacco user e-Cigarette/Vaping Use: Never Used service: No Current occupational status: unemployed Cognitive needs: No Hearing needs: No Vision needs: No Female Reproductive History Menstrual Age of Menarche: 13 Questionnaire PHQ-9 Over the last 2 weeks, how often have you been bothered by any of the following problems? 1. Little interest or pleasure in doing things: not at all 2. Feeling down, depressed, or hopeless: not at all 3. Trouble falling or staying asleep, or sleeping too much: not at all 4. Feeling tired or having little energy: not at all 5. Poor appetite or overeating: not at all 6. Feeling bad about yourself - or that you are a failure or have let yourself or your family down: not at all 7. Trouble concentrating on things, such as reading the newspaper or watching television: several days 8. Moving or speaking so slowly that other people could have noticed. Or the opposite - being so fidgety or restless that you have been moving around a lot more than usual: not at all 9. Thoughts that you would be better off or of hurting yourself in some way: not at all Total score: 1 Depression Screening Interpretation: Negative Depression Screening Done: Yes [address]5811 - PHQ-9 Billing: Yes Source: Developed by Drs. Kelton Dixon, Kim Powell, Junior Adan and colleagues, with an educational marlene from [employer]. Thrive Questionnaire Date Thrive assessed: 02/20/25 I am a: Patient What is your living situation today?: I have a steady place to live Within the past 12 months, did the food you bought not last and you didn't have the money to get more?: Never true Within the past 12 months, did you worry whether your food would run out before you got money to buy more?: Never true Do you have trouble paying for medicines?: No Do you have trouble getting transportation to medical appointments?: No Do you have trouble paying your heating and electricity bill?: No Do you have trouble taking care of your child, family member or friend?: No Do you have trouble with day-to-day activities such as bathing, preparing meals, shopping, managing finances, etc.?: No Are you currently unemployed and looking for a job?: No Are you interested in more education?: No Please select the resources that you would like help with: None Currently or been in a relationship where the following occur: No concerns reported THRIVE Score: 0 AUDIT C Alcohol Use Questionnaire (AUDIT-C) 1. How often do you have a drink containing alcohol?: Never 3. How often do you have six or more drinks on one occasion?: Never Total Score: 0 Score Reviewed/Action Taken: Yes JUVENTINO-7 AMB Questionnaire JUVENTINO-7 Date JUVENTINO - 7 assessed: 02/20/25 Feeling nervous, anxious, or on edge: 0 = Not at all Not being able to stop or control worryin = Not at all Worrying too much about different things: 0 = Not at all Trouble relaxin = Not at all Being so restless that it is hard to sit still: 1 = Several days Becoming easily annoyed or irritable: 0 = Not at all Feeling afraid as if something awful might happen: 0 = Not at all Total JUVENTINO-7 score (0-4 normal; 5-9 mild; 10-14 moderate; 15-21 severe): 1 Source: Developed by Drs. Kelton Dixon, Kim Powell, Junior Adan and colleagues, with an educational marlene from [employer]. JUVENTINO-7 Assessment Billing JUVENTINO-7 Assessment Tool: JUVENTINO-7 Assessment 16417 Review of Systems Const Denies fatigue, Denies fever(s), Denies night sweats and Denies poor appetite Eyes Details: Goes to [facility], positive retinopathy seen, copy of report requested Reports as per HPI ENT Denies hearing loss and Denies throat swelling Card Reports no additional complaints Resp Reports no additional complaints GI Denies abdominal pain, Denies melena, Denies bloating, Denies hematochezia, Denies early satiety and Denies nausea Reports no additional complaints Musc Reports no additional complaints Skin/Breast Reports as per HPI Neuro Reports no additional complaints Psych Reports no additional complaints Endo Denies fatigue Garry/Lymph Reports no additional complaints Aller/Immun Denies throat swelling Physical exam (Primary Care) Vital Signs: Last Vital Signs Temp 98.2 F 02/20/25 15:09 Pulse 85 02/20/25 15:09 Resp 15 02/20/25 15:09 BP 102/64 02/20/25 15:09 Pulse Ox 98 02/20/25 15:09 Oxygen Delivery Method Room Air 02/20/25 15:09 BMI result Body Mass Index 26.0 Tobacco/Smoking Status: Tobacco use Status Tobacco use date assessed 02/20/25 02/20/25 15:14 Patient Tobacco Use Status Former Tobacco user 02/20/25 15:11 e-Cigarette/Vaping Use Never Used 02/20/25 15:11 PHQ-9: PHQ-9 Score PHQ-9: Total score 1 02/20/25 15:22 Depression Screening Interpretation: Negative Thrive Assessment: Date of Thrive Assessment Date Thrive assessed 02/20/25 02/20/25 15:14 Currently or been in a relationship where the following occur: No concerns reported Const Other: Alert oriented x3, no acute distress noted ambulatory with normal gait [facility] Mouth: Normal oral and palatal mucosa present and moist mucous membranes Eyes General: appearance normal, both eyes and all related structures Neck Neck: Yes full ROM, Yes no lymphadenopathy and Yes supple Chest Other: Palpation of the left breast/axillary area reveals a fatty collection. - No discrete lump is appreciated. Chest palpation & inspection: normal inspection of the chest Breast/axilla palpation: normal palpation of the breasts Resp Auscultation: clear to auscultation bilaterally Cardio Other: S1-S2 present regular rate and rhythm GI Palpation (GI): Soft to palpation, nontender and no guarding General: Yes no CVA tenderness Back/Spine/Pelvis Back: no CVA tenderness and No back tenderness Skin General skin exam: no rashes or lesions noted Neuro General: gait normal, moves all extremities, Normal light touch and pain sensation, no focal motor deficits and CN's II-XI intact bilaterally Extrem Other: Bunion right big toe General: Yes full ROM, Yes no pedal edema, Yes no calf tenderness and Yes normal gait Psych Appearance: grossly normal and well kempt Mental Status: mental status grossly normal Speech and movement: Normal speech and movement present Affect: normal affect Coding Level of Care Code Est Pt Prev Care 40-64y(45599) Diagnoses Uncontrolled type 1 diabetes mellitus with hyperglycemia E10.65 Glycemic state: with hyperglycemia Annual visit for general adult medical examination with abnormal findings Z00.01 Dyslipidemia E78.5 Gastroesophageal reflux disease without esophagitis K21.9 Esophagitis presence: without esophagitis Additional Codes JUVENTINO-7 Assessment Billing - JUVENTINO-7 Assessment Tool: JUVENTINO-7 Assessment 57376 ([id number]) PHQ-9 - 43093 - PHQ-9 Billing: Yes ([id number]) Assessment & Plan Assessment & Plan (1) Diabetes type 1, uncontrolled: Code(s): E10.65 - Type 1 diabetes mellitus with hyperglycemia Category: Medical Qualifiers: Glycemic state: with hyperglycemia Qualified Code(s): E10.65 - Type 1 diabetes mellitus with hyperglycemia (2) Annual visit for general adult medical examination with abnormal findings: Code(s): Z00.01 - Encounter for general adult medical examination with abnormal findings (3) Dyslipidemia: Code(s): E78.5 - Hyperlipidemia, unspecified Category: Medical (4) GERD (gastroesophageal reflux disease): Code(s): K21.9 - Gastro-esophageal reflux disease without esophagitis Category: Medical Qualifiers: Esophagitis presence: without esophagitis Qualified Code(s): K21.9 - Gastro-esophageal reflux disease without esophagitis Plan 1. Diabetes Mellitus The patient's most recent A1c was 7.8 in November and the patient uses a Freestyle Delfin for glucose monitoring. The patient has an upcoming endocrinology appointment in February. Plan: Continue current management and follow up with endocrinology as scheduled. She has a known history of retinopathy and has been seen by ophthalmology this year, though the most recent report on file is from last year. A release form was signed to request the recent records from [facility]. advised of available podiatry services if needed in the future 2. Annual visit for general medical examination with abnormal findings The patient is 44 years old and due for a screening colonoscopy. She is scheduled for an upper endoscopy for abdominal pain. The patient will discuss the possibility of using Cologuard as an alternative to colonoscopy with the open hearth furnace operator, Dr. Mcmanus, due to the difficulty of fasting with diabetes. The patient has a palpable area in the left breast/axilla that, on exam, is consistent with a fatty collection related to weight gain. An evaluation in February 2022 with mammogram and ultrasound showed no mass. The patient is overdue for a screening mammogram and declines it at this time. She is up-to-date with Pap smears and has a follow-up appointment scheduled for next month. The patient is up-to-date on tetanus and pneumonia vaccines but has declined the influenza vaccine due to prior adverse reactions. 3. Hypercholesterolemia The patient is taking atorvastatin and recent labs show cholesterol is well-controlled. Patient was informed and verbally consented to the use of an ambient scribe for clinic note documentation during this visit. Medications: Refilled cholecalciferol (vitamin D3) 50 mcg PO DAILY 90 caps 2RF
--- OUTSIDE RECORDS SUMMARY | 2025-02-20 19:37 | XMS_ITS | Encounter Summary ---
Author Organization [employer] Formerly [facility] Address [address] [place] [address] Phone Care Team Providers Care Production Sorter Name Role Phone Liv Soni MD Primary Care Provider Encounter Details Date Type Department Care Team (Late st Contact Info) Description 09/06/2022 Ophth Exam [facility] Emergency Department [address] [place] [address] Val Leong MD [email or web address] Social History Tobacco Use Types Packs/Day Years [...] 1:43 PM EDT David Rhodes RN * [place]t Suicide Severity Rating Scale (Screener/Recent Self-Report) Question [...] on filedocumented in this encounter Care Teams Production Sorter Relationship Specialty Start Date End Date Liv Soni MD [facility] [place] [address] PCP - General Internal Medicine 07/01/22 documented as of this encounter Additional Source Comments The information contained in this document represents components of the legal health record. It is not the complete legal health record.[facility]
--- OUTSIDE RECORDS SUMMARY | 2025-02-20 19:37 | XMS_ITS | Clinical Summary ---
Author Organization [employer] [facility] Address [address] [place] [address] Phone Care Team Providers Care Coin Box Inspector Name Role Phone Liv Soni MD Primary [...] drug. 2 Active glucagon (BAQSIMI) 3 mg/actuation [place] 0 Refills, Maintenance, 04/23/22 8:02:00 EST, Partial [...] this topic Medical Devices Implanted Type Area Insole Reinforcer Device Identifier Shelf Expiration Date Model / Serial / Lot Lens Lens Right: Eye Pin Bio[employer] 26mm - [id number] Implanted:Qty: 2 on 08/11/2022 by Tacho Shea DPM at [facility] Right: Toe [employer] 05/22/2023 [id number] / / [id number] Description:Right great toe Insurance [facility] 1/[address] [address] [place] [id number] [facility] /[address] [address] MEDICARE PART A & B [facility] 1/[address] [address] MEDICARE [place] [facility] /[address] [address] MEDICARE PART A [place] B [place] [facility] 1/[address] [address] MEDICARE PART A [place] B [place] 4 /[address] [address] [facility] A & B * Guarantor: Renae Roman Account Type Relation to Patient Date of Phone Billing Address Personal/Family Self 1980 714 /2 [facility] [address] [place] [address], [place] [address] * Guarantor: Renae Roman Account Type Relation to Patient Date of Phone Billing Address Personal/Family Self 1980 714 /2 [facility] [address] [place] [address], [place] [address] * Guarantor: Renae Roman Account Type Relation to Patient Date of Phone Billing Address Personal/Family Self 1980 4 03/31 [facility] [address] [place] [address], [place] [address] , [place] [address] , [place] [address] * Guarantor: Renae Roman Account Type Relation to Patient Date of Phone Billing Address Personal/Family Self 1980 4 /2 [facility] [address] [place] [address], [place] [address] * Guarantor: Renae Roman Account Type Relation to Patient Date of Phone Billing Address Personal/Family Self 1980 714 /[address] [facility] [address] [place] [address], [place] [address] 714 1/2 [facility] [address] [place] [address] Care Teams Coin Box Inspector Relationship Specialty Start Date End Date Liv Soni MD [address] [facility] [place] [address] PCP - General Internal Medicine 07/01/22 Additional Source Comments The information contained in this document represents components of the legal health record. It is not the complete legal health record.[facility]
--- OUTSIDE RECORDS SUMMARY | 2025-02-20 19:37 | XMS_ITS | Encounter Summary ---
Author Organization [employer] [facility] Address [address] [employer] [address] [place] [address] Phone Care Team Providers Care Gelatin Dynamite Packing Operator Name Role Phone Liv Soni MD Primary Care Provider Encounter Details Date Type Department Care Team (Late st Contact Info) Description 08/11/2022 Procedure Pass OR Admitting Dept - Virtual Department [address] [place] [address] Social History Tobacco Use Types Packs/Day Years [...] on filedocumented in this encounter Care Teams Gelatin Dynamite Packing Operator Relationship Specialty Start Date End Date Liv Soni MD [facility] [place] [address] PCP - General Internal Medicine 07/01/22 documented as of this encounter Additional Source Comments The information contained in this document represents components of the legal health record. It is not the complete legal health record.[facility]
--- OUTSIDE RECORDS SUMMARY | 2025-02-20 19:37 | XMS_ITS | Encounter Summary ---
Author Organization [facility] Address [address] [place] [address] Phone Care Team Providers Care Calciner Operator Name Role Phone Liv Soni MD Primary Care Provider Encounter Details Date Type Department Care Team ([facility] st Contact Info) Description 07/22/2022 Prep for Surgery [facility] [address] [place] [address] Tacho Shea DPM [address] [facility] [address] [place] [address] [email or web address] [place] (Primary Dx) Social History Tobacco Use Types [...] Bunion documented in this encounter Care Teams Calciner Operator Relationship Specialty Start Date End Date Liv Soni MD [facility] [place] [address] PCP - General Internal Medicine 07/01/22 documented as of this encounter Additional Source Comments The information contained in this document represents components of the legal health record. It is not the complete legal health record.[facility]
== END 2025-02-20 15:51 | disposition home or self-care (01) ==
LOC: HO.HMCC 14:48
PROVIDERS: PCP Internal Medicine; Visit Provider Internal Medicine
DX: Z00.01 Encounter for general adult medical examination with abnormal findings (principal); E10.65 Type 1 diabetes mellitus with hyperglycemia; E78.5 Hyperlipidemia, unspecified; K21.9 Gastro-esophageal reflux disease without esophagitis

== ENCOUNTER 2025-02-21 06:07 | Day surgery (SDC) | payer MEDICARE, MEDICAID, SELFPAY ==
--- OUTSIDE RECORDS SUMMARY | 2025-01-23 13:03 | XMS_ITS | Encounter Summary ---
Author Organization [facility] Address [address] [place] [address] Phone Care Team Providers Care Proj Mgr Name Role Phone Liv Soni MD Primary Care Provider Encounter Details Date Type Department Care Team ([facility] st Contact Info) Description 07/22/2022 Prep for Surgery [facility] Pod[facility]ry [address] [place] [address] Tacho Shea DPM [address] [facility] [address] [place] [address] [email or web address] Bunion (Primary Dx) Social History Tobacco Use [...] Bunion documented in this encounter Care Teams Proj Mgr Relationship Specialty Start Date End Date Liv Soni MD [facility] [place] [address] PCP - General Internal Medicine 07/01/22 documented as of this encounter Additional Source Comments The information contained in this document represents components of the legal health record. It is not the complete legal health record.[facility]
--- OUTSIDE RECORDS SUMMARY | 2025-01-23 13:03 | XMS_ITS | Clinical Summary ---
Demographics Address [address] [place] [address] Home Phone Email Address Preferred Language en Marital Status Single Mu-Ism Affiliation Unknown Race Unknown Ethnic Group Unknown Author Organization [facility] Facility Address [address] [address] Care Team Providers Care Invoice Coder Name Role Phone Rashi Soni MD Primary Care Provider +1- [phone] Allergies Active Allergy Reactions Criticality Noted Date [...] 1.52(A) 0.50 - 1.10 mg/dL eGFR Non-Afr Maltese 38 Hemoglobin A1C 8.4(A) 4.0 - 6.0 06/18/2021 us Historical Provider LAB BLOOD ORDERABLES Michelle l Result from Last 3 Months or Most Recently Relevant to Health Maintenance Insurance * Guarantor: Renae Diop Account Type Relation to Patient Date of Phone Billing Address Personal/Family Self 1980 [address] [place] [address] Medicare [place] * Guarantor: Diop, Renae Account Type Relation to Patient Date of Phone Billing Address Personal/Family Self 1980 [address] [place] [address] Medicare Medicaid [place] Care Teams Invoice Coder Relationship Specialty Start Date End Date Rashi Soni MD [facility] [place] [address] PCP - General Internal Medicine 10/21/21
--- OUTSIDE RECORDS SUMMARY | 2025-01-23 13:03 | XMS_ITS | Encounter Summary ---
Author Organization [facility] Address [address] [place] [address] Phone Care Team Providers Care Investment Banker Name Role Phone Liv Soni MD Primary Care Provider Encounter Details Date Type Department Care Team (Late st Contact Info) Description 08/11/2022 Procedure Pass OR Admitting Dept - Virtual Department [address] [place] [address] Social History Tobacco Use Types Packs/Day Years [...] on filedocumented in this encounter Care Teams Investment Banker Relationship Specialty Start Date End Date Liv Soni MD [facility] [address] PCP - General Internal Medicine 07/01/22 documented as of this encounter Additional Source Comments The information contained in this document represents components of the legal health record. It is not the complete legal health record.[facility]
--- OUTSIDE RECORDS SUMMARY | 2025-01-23 13:03 | XMS_ITS | Encounter Summary ---
Author Organization [employer] [facility] Address [address] [place] [address] Phone Care Team Providers Care Equipment Operator Intermodal Yard Name Role Phone Liv Soni MD Primary Care Provider Encounter Details Date Type Department Care Team (Late st Contact Info) Description 09/06/2022 [place]am [facility] [address] [place] [address] Val Leong MD [email or web address] Social History Tobacco Use Types [...] 1:43 PM EDT David Rhodes RN * Fleming Suicide Severity Rating Scale (Screener/Recent Self-Report) Question [...] on filedocumented in this encounter Care Teams Equipment Operator Intermodal Yard Relationship Specialty Start Date End Date Liv Soni MD [facility] [place] [address] PCP - General Internal Medicine 07/01/22 documented as of this encounter Additional Source Comments The information contained in this document represents components of the legal health record. It is not the complete legal health record.[facility]
--- OUTSIDE RECORDS SUMMARY | 2025-01-23 13:04 | XMS_ITS | Clinical Summary ---
Author Organization [employer] [facility] Address [address] [place] [address] Phone Care Team Providers Care Electrical Engineering Intern Name Role Phone Liv Soni MD Primary [...] drug. 2 Active glucagon (BAQSIMI) 3 mg/actuation [place] 0 Refills, Maintenance, 04/23/22 8:02:00 EST, Partial [...] this topic Medical Devices Implanted Type Area Assistant Public Defender Device Identifier Shelf Expiration Date Model / Serial / Lot Lens Lens Right: Eye Pin Biores[employer] 26mm - [id number] Implanted:Qty: 2 on 08/11/2022 by Tacho Shea DPM at [facility] Right: Toe [employer] 05/22/2023 [id number] / / [id number] Description:Right great toe Insurance [facility] 1/[address] [address] MED[place] PART [place] [id number] [facility] /[address] [address] MEDICARE PART A & B [facility]14 1/[address] [address] MEDICARE PART A & [place] [facility] /[address] [address] [place] [facility] 1/[address] [address] [place]ICARE PART [place] 4 /[address] [address] [facility] A & B * Guarantor: Renae Roman Account Type Relation to Patient Date of Phone Billing Address Personal/Family Self 1980 714 /2 [facility] [address] [place] [address], [place] [address] * Guarantor: Renae Roman Account Type Relation to Patient Date of Phone Billing Address Personal/Family Self 1980 714 /2 [facility] [address] [place] [address], [place] [address] * Guarantor: Renae Roman Account Type Relation to Patient Date of Phone Billing Address Personal/Family Self 1980 4 03/31 [facility] [address] [place] [address], [place] [address] , [place] [address] , [place] [address] * Guarantor: Renae Roman Account Type Relation to Patient Date of Phone Billing Address Personal/Family Self 1980 4 /2 [facility] [address] [place] [address], [place] [address] * Guarantor: Renae Roman Account Type Relation to Patient Date of Phone Billing Address Personal/Family Self 1980 [address]14 /[address] [facility] [address] [address] [place] [address], [place] [address] 714 1/2 [facility] [address] [place] [address] Care Teams Electrical Engineering Intern Relationship Specialty Start Date End Date Liv Soni MD [address] [facility] [place] [address] PCP - General Internal Medicine 07/01/22 Additional Source Comments The information contained in this document represents components of the legal health record. It is not the complete legal health record.Loc[facility]
[2025-02-17 14:22] VITALS: BMI 25.1
[2025-02-21 06:32] VITALS: BMI 26.1
--- NOTE | 2025-02-21 06:40 | P.HPSUR_ITS ---
Pre-Procedural Eval Section A - 24 Hr Update-Section A only Date of Service: 02/21/25 Section B - Complete if H&P > 30 days Chief Complaint: Upper abdominal pain Relevant Family History (Specify if Yes): No Relevant Social History: None Present Medications: see Short Stay Collaborative assessment Medical History: Significant History (Insulin pump in place Nausea and vomiting ASCUS with positive high risk HPV cervical Abnormal Pap smear of cervix Intermittent claudication Sleep behavior disorder, REM Oral phase dysphagia Fibroids Goiter HLD (hyperlipidemia) Hypogonadotropic hypogonadism Premature ov juan jose failure Sinus tachycardia) History of Previous Operations: Relevant previous surgery/procedure and date(s) ( S/P bunionectomy S/P cataract surgery Hx of esophagogastroduodenoscopy Hx of tubal ligation) Allergies: Allergies Allergy/AdvReac Type Severity Reaction Status Date / Time oxycodone (Percocet) AdvReac Unknown chills Verified 02/21/25 06:31 Review of Systems Sugical H&P ROS: Negative: Constitution, Cardiovascular, Respiratory, Neurologic al, Psychiatric, Hem-Onc, Allergic/Immunologic, Gastrointestinal, Genitourinary, Musculoskeletal, Integumentary, Endocrine and Eyes/Ears/Nose/Throat Exam Surgical H&P Exam: Normal: HEENT, Normal: Heart, Normal: Lungs, Normal: Extremities, Normal: Abdomen, Normal: Skin and Normal: Neurological Plan Diagnosis/Plan: Unchanged I have reviewed the history and physical and performed a pertinent physical examination on my patient. No changes have occurred unless specified. Time Spent With Patient Time: Total time managing care of this patient today ____ minutes.
[2025-02-21 06:45] LABS: Glucose, Whole Blood 267 mg/dL (60-115)
[2025-02-21] MEDS: Lactated Ringers 1,000 ML 100 ML IVCONT (06:46)
[2025-02-21 06:47] VITALS: BP 128/70; PULSE 79; RESP 16; TEMP 36.2; O2SAT 96
--- NOTE | 2025-02-21 07:25 | P.CONAN_ITS ---
Documented by User: Era Marvin NP 02/20/25 13:52 HPI - Anesthesia Eval Consult details Narrative: 44 yr old female for upper endoscopy Type 2 DM: on insulin pump, 11/2024 A1C 7.8% Nonischemic mild cardiomyopathy: Follows [facility] cardiology, last visit 05/2024, echo to updated prior to next visit, echo from 2022 below [facility] Active Problems Active Problems: All Active Problems (Updated 12/16/24 @ 08:33 by Lila Costello MD) Insulin pump in place (Acute) Esophageal spasm (Acute) Constipation (Acute) Nausea and vomiting (Acute) Oral phase dysphagia (Acute) Intermittent claudication (Acute) Diabetes type 1, uncontrolled (Acute) Fibroids (Acute) Hypogonadotropic hypogonadism (Acute) NICM (nonischemic cardiomyopathy) (Acute) Irritable bowel syndrome with both constipation and diarrhea (Acute) GERD (gastroesophageal reflux disease) (Acute) Amenorrhea (Acute) Depression (Acute) Dyslipidemia (Acute) Past Medical History Medical History Insulin pump in place Nausea and vomiting ASCUS with positive high risk HPV cervical Abnormal Pap smear of cervix Intermittent claudication Sleep behavior disorder, REM Oral phase dysphagia Fibroids Goiter HLD (hyperlipidemia) Hypogonadotropic hypogonadism Premature ovarian failure Sinus tachycardia Amenorrhea Depression Vitamin D deficiency Dyslipidemia Diabetic nephropathy associated with type 1 diabetes mellitus Diabetes type 1, uncontrolled Hypertension Family History Family History Father No problems noted. Mother Hypertension Surgical History Surgical History S/P bunionectomy S/P cataract surgery Hx of esophagogastroduodenoscopy Hx of tubal ligation Social History Social History Household Members: Children Household Members Other:: 2 children Housing: Apartment Alcohol intake: current Alcohol intake frequency: does not drink Patient Tobacco Use Status: Former Tobacco user Smoked in Last 30 Days: No e-Cigarette/Vaping Use: Never Used Use of substances other than those prescribed or required for medical reasons: No Have you been hit, kicked, punched, or otherwise hurt by someone within the past year? If so, by whom?: No Are you DNR?: No Advance Directives: No Advance Directives Information Provided: Yes Patient : No (tubal ligation) service: No Current occupational status: unemployed Cognitive needs: No Hearing needs: No Vision needs: No Meds Allergies Allergy/AdvReac Type Severity Reaction Status Date / Time oxycodone (Percocet) AdvReac Unknown chills Verified 02/21/25 06:31 Home Medications ?Medication ?Instructions ?Recorded ?Confirmed ?Last Taken ?Type fluticasone propionate 50 1 spray intranasal DAILY 11/1702/21/25 Unknown History mcg/actuation nasal spray,suspension (Allergy Relief (fluticasone)) cetirizine 10 mg tablet 10 mg PO DAILY PRN allergies 08/15/20 02/21/25 Unknown History Exam Height,Weight and Vital Signs: Height 5 ft 2 in Weight 62.142 kg Narrative Narrative: ECHO 2022 Conclusions: - The left ventricular systolic function is mildly decreased. The calculated ejection fraction is 50% by biplane method. - No obvious valvular pathology seen on this study. EKG 05/2024 NSR rate 82 Documented by User: Iram Mayo DO 02/21/25 07:40 PMFSH Past Medical History Medical History Insulin pump in place Nausea and vomiting ASCUS with positive high risk HPV cervical Abnormal Pap smear of cervix Intermittent claudication Sleep behavior disorder, REM Oral phase dysphagia Fibroids Goiter HLD (hyperlipidemia) Hypogonadotropic hypogonadism Premature ovarian failure Sinus tachycardia Amenorrhea Depression Vitamin D deficiency Dyslipidemia Diabetic nephropathy associated with type 1 diabetes mellitus Diabetes type 1, uncontrolled Hypertension Family History Family History Father No problems noted. Mother Hypertension Family history of problems with anesthesia: No Surgical History Surgical History S/P bunionectomy S/P cataract surgery Hx of esophagogastroduodenoscopy Hx of tubal ligation History of Problems with Anesthesia: No Social History Social History Household Members: Children Household Members Other:: 2 children Housing: Apartment Alcohol intake: current Alcohol intake frequency: does not drink Patient Tobacco Use Status: Former Tobacco user Smoked in Last 30 Days: No e-Cigarette/Vaping Use: Never Used Use of substances other than those prescribed or required for medical reasons: No Have you been hit, kicked, punched, or otherwise hurt by someone within the past year? If so, by whom?: No Are you DNR?: No Advance Directives: No Advance Directives Information Provided: Yes Patient : No (tubal ligation) service: No Current occupational status: unemployed Cognitive needs: No Hearing needs: No Vision needs: No Meds Allergies Allergy/AdvReac Type Severity Reaction Status Date / Time oxycodone (Percocet) AdvReac Unknown chills Verified 02/21/25 06:31 Home Medications ?Medication ?Instructions ?Recorded ?Confirmed ?Last Taken ?Type fluticasone propionate 50 1 spray intranasal DAILY 11/1702/21/25 Unknown History mcg/actuation nasal spray,suspension (Allergy Relief (fluticasone)) cetirizine 10 mg tablet 10 mg PO DAILY PRN allergies 08/15/20 02/21/25 Unknown History Exam Exam Date and Time: 02/21/25 0725 Height,Weight and Vital Signs: Height 5 ft 2 in Weight 62.142 kg Vital Signs Temperature 97.2 F 02/21/25 06:47 Pulse Rate 79 02/21/25 06:47 Respiratory Rate 16 02/21/25 06:47 Blood Pressure 128/70 02/21/25 06:47 Pulse Oximetry 96 02/21/25 06:47 Oxygen Delivery Method Room Air 02/21/25 06:47 Temperature 97.2 F 02/21/25 06:47 Pulse Rate 79 02/21/25 06:47 Respiratory Rate 16 02/21/25 06:47 Blood Pressure 128/70 02/21/25 06:47 Pulse Oximetry 96 02/21/25 06:47 Oxygen Delivery Method Room Air 02/21/25 06:47 Airway Mallampati Class: I TM Dist: >3cm Neck ROM: Full Denture: Upper and Lower Heart: S1S2 Lungs: CTAB Assessment and Plan Assessment Anesthesia Assessment: Anesthesia Plan Discussed and Chart Reviewed Final Anesthetic Review Family History of Problems with Anesthesia: No History of Problems with Anesthesia: No NPO: Yes ASA Class: III Final Preanesthetic Review: No Changes in Pt Med Stat, Meds/Allgs Chart Reviewed, Consent Obtained/Reviewed and Anes Risks/Benef Reviewed Patient Risk: Intermediate Procedure Risk: Low Anesthetic Plan Anesthetic Plan: MAC: and Agree w/ Assess. and Plan Disposition: Standard PACU
--- NOTE | 2025-02-21 07:51 | PC.NURSE ---
anesthesiologist and CLINICAL INFORMATICS MANAGER aware that patient has dentures in that she glued in this morning and cannot get out. Denture cup given to CLINICAL INFORMATICS MANAGER.
--- NOTE | 2025-02-21 08:06 | W.PM.OPN ---
Operative Note Operative Note Date of Service: 02/21/25 Narrative: Procedure Description: EGD Indication: dysphagia Anesthesia: MAC FLEXIBLE TRANSORAL UPPER GASTROINTESTINAL ENDOSCOPY UPPER ENDOSCOPY Consent: Indications for the procedure and potential complications of bleeding, perforation, reaction to medications and missed diagnosis were discussed with the patient and informed consent was obtained. Instrument: Olympus GIF H 190 J mid size upper endoscope Monitoring: Vital signs and clinical assessment, continuous EKG monitoring, Pulse oximetry, Carbon Dioxide monitoring and blood pressure monitoring were done throughout the procedure. Procedure: The patient was placed in the left lateral decubitis position and pre-procedure medications were administered and a bite block was placed. The endoscope was inserted into the mouth and advanced under direct vision to the third part of duodenum. A careful inspection was made as the upper endoscope was withdrawn including a retroflexed examination of the proximal stomach; Findings and interventions are described below. Findings: Larynx:normal Esophagus: GE junction at 35 cm, diaphragm hiatus at 35 cm, normal mucosa --balloon dilation done to 20 mm at UES and LES with slight tear seen at UES, bx also taken from distal and proximal esophagus Stomach: full of food, . Biopsies were obtained. Grade 2 flap valve on retroflexed examination of the cardia. Duodenum: Normal bulb and descending duodenum, Intervention: Biopsies as noted above, balloon dilation Impression/Findings: gastroparesis esophageal stricture PLAN: can consider trial of PPI and reglan --will await bx GERD precautions
[2025-02-21 08:16] VITALS: BP 106/65; PULSE 74; RESP 12; TEMP 36.4; O2SAT 100
[2025-02-21 08:20] VITALS: BP 96/57; PULSE 76; RESP 10; O2SAT 97
[2025-02-21 08:25] VITALS: BP 110/56; PULSE 77; RESP 14; O2SAT 97
[2025-02-21 08:30] VITALS: BP 118/72; PULSE 74; RESP 14; O2SAT 98
[2025-02-21 08:35] VITALS: BP 116/72; PULSE 73; RESP 15; TEMP 36.3; O2SAT 99
== END 2025-02-21 09:16 | disposition home or self-care (01) ==
PROVIDERS: PCP Internal Medicine; Visit Provider Internal Medicine Gastroenterology
PROC: 0DJ08ZZ Inspection of Upper Intestinal Tract, Via Natural or Artificial Opening Endoscopic (ICD-10-PCS; CPT 43235; principal; 2025-02-21 07:30)
DX: R10.10 Upper abdominal pain, unspecified (principal); R13.11 Dysphagia, oral phase; K21.00 Gastro-esophageal reflux disease with esophagitis, without bleeding; K59.00 Constipation, unspecified; K31.84 Gastroparesis; K22.2 Esophageal obstruction
CPT/HCPCS: 43239; 43249; 82947; 88305; 88313; 88342; C1726; J0330; J2003; J2704

== ENCOUNTER → 2025-02-21 06:07 | Outpatient (BNV) | payer MEDICARE, MEDICAID, SELFPAY | PROVIDERS: PCP Internal Medicine; Visit Provider Internal Medicine Gastroenterology | DX: R13.10 Dysphagia, unspecified (principal); K22.2 Esophageal obstruction; K31.84 Gastroparesis | CPT/HCPCS: 43239; 43249 ==

== ENCOUNTER 2025-03-15 13:01 | Outpatient (AMB) | payer MEDICARE, MEDICAID, SELFPAY ==
--- NOTE | 2025-03-15 13:15 | A.OFFVIS_ITS ---
Vital Signs 3 03/15/25 13:19 Height 5 ft 2 in Weight 141 lb 1.533 oz BMI 25.8 BP 100/60 Blood Pressure Location Rt brachial Position Sitting Pulse 74 Pulse Source Pulse Oximeter Pulse Oximetry (%) 96 Oxygen Delivery Method Room Air Intake Visit Reasons: T1DM Intake Note: Patient presents today for a follow-up on Type 1 Diabetes Mellitus Patient on insulin Pump: Glucose data available (sensor/reader/meter/pump): Yes / No Last Diabetic eye exam was on: 02/21/2024??? in August? Last Podiatry exam was on: Patient does not see a Brick Stacker Most recent HbA1c: 7.9%, 03/15/2025 Random Glucose- 159 mg/dL, Today Bottle Booth Attendant Required: No Accompanied by: Self / Same As Patient Allergies oxycodone (Percocet) Adverse Reaction (Unknown, Verified 03/15/25 13:21) chills HPI Comments Details: 44 YO F with with type 1 diabetes mellitus on islet insulin pump with freestyle Delfin 3+ coming in today for follow up with complications of retinopathy, nephropathy/microalbuminuria. History of diabetes Initially diagnosed with T1DM at the age of 24. Last seen by Dr. Costello on 12/16/2024, this is my 1st time seeing this patient. Was on tandem previously. on an ilet insulin pump as of 06/29/24. Random Glucose: 283 mg/dl A1c 12/16/2024 POC: 7.8% 07/22:8.8% Now on islet insulin pump with freestyle Delfin 3+ with Humalog U 100 She is not making meal announce movements resulting in postprandial hyperglycemia so that when she would announce occasionally, it would result in hypoglycemia after. In September when she saw Althea, she did a factory reset as patient had decided to then announce meals. Complications Does have eyes checked yearly, last eye exam 10/21 has retinopathy she saw a neuro-opthamologist Last visit in July 21. Was evaluated due to slow pupillary reaction. She wears polarized glasses. Denies neuropathy. Denies numbness, tingling, pain or cramping in the lower extremity. Has history of nephropathy, on Losartan 12.5 mg PO daily. microalbumin substantially improved over the past 2 years April 2024 urine microalbumin ratio 13.June eGFR>60 Has HLD, on Atorvastatin 20 mg PO daily. LDL 59 05/16/2024 Denies history of CAD. Has ongoing diabetes education. CGM/Pump data Interpretation: Postprandial hyperglycemia in the setting of non announcing meals. She is also noticed to have sporadic hypoglycemia. Interval history: She has not being announcing meals She reports that her weight been variable She stops bolus when she is doing a moderate-high intensity activity as otherwise she goes low Normal appetite Early AM lows could be from previous habit of late eating, but she has not been using it Physical exam: General: Well appearing. Neck/Thyroid: Thyroid not palpable, no nodules. CV: RRR, no murmur. No edema. Resp:Lungs clear to auscultation bilaterally Abdomen: Soft, nontender. nondistended Extremities/Neuro: No weakness or tremor of outstretched hands Laboratory Tests 03/15/25 03/15/25 13:16 13:23 Glucose (Clinic) 159 H Hgb A1c (Clinic) 7.9 H Laboratory Tests 02/20/25 12:33 Creatinine 1.05 Estimated GFR 57 AST 27 ALT 18 Triglycerides 88 Cholesterol 106 LDL Cholesterol, Calc 50 HDL Cholesterol 39 L TSH 0.90 Laboratory Tests 05/16/24 05/16/24 07/25/24 07:43 07:46 12:14 Hgb 11.7 L Hct 37.2 RDW 13.8 Creatinine 0.95 Estimated GFR > 60 Glucose (Clinic) Fasting Glucose C-Peptide AST 27 ALT 23 Triglycerides 70 Cholesterol 114 LDL Cholesterol, Calc 59 HDL Cholesterol 41 Urine Creatinine 123.61 Urine Microalbumin 13.0 Microalb/Creat Ratio 10.5 08/18/24 09/06/24 08:27 12:40 Hgb Hct RDW Creatinine Estimated GFR Glucose (Clinic) 333 H Fasting Glucose 115 H C-Peptide 0.32 L AST ALT Triglycerides Cholesterol LDL Cholesterol, Calc HDL Cholesterol Urine Creatinine Urine Microalbumin Microalb/Creat Ratio [facility] Medical History Insulin pump in place Nausea and vomiting ASCUS with positive high risk HPV cervical Abnormal Pap smear of cervix Intermittent claudication Sleep behavior disorder, REM Oral phase dysphagia Fibroids Goiter HLD (hyperlipidemia) Hypogonadotropic hypogonadism Premature ovarian failure Sinus tachycardia Amenorrhea Depression Vitamin D deficiency Dyslipidemia Diabetic nephropathy associated with type 1 diabetes mellitus Diabetes type 1, uncontrolled Hypertension Surgical History S/P bunionectomy S/P cataract surgery Hx of esophagogastroduodenoscopy Hx of tubal ligation Family History Father No problems noted. Mother Hypertension Social History Household Members: Children Household Members Other:: 2 children Housing: Apartment Alcohol intake: current Alcohol intake frequency: does not drink Patient Tobacco Use Status: Former Tobacco user e-Cigarette/Vaping Use: Never Used service: No Current occupational status: unemployed Cognitive needs: No Hearing needs: No Vision needs: No Female Reproductive History Menstrual Age of Menarche: 13 Physical Exam Vital Signs: Last Vital Signs Pulse 74 03/15/25 13:19 BP 100/60 03/15/25 13:19 Pulse Ox 96 03/15/25 13:19 Oxygen Delivery Method Room Air 03/15/25 13:19 BMI result Body Mass Index 25.8 Office Procedures Glucose Monitoring Details Details: See HPI 64209 - Glucose Monitoring, continuous Procedure code (CPT) selection complete Results AMB Hemoglobin A1c 2 AMB Hemoglobin A1c 7.9 % Last Edit by SUELLEN Hackett on 03/15/25 13:32 Results Reviewed Results Reviewed: Laboratory Last Values Glucose (Clinic) 159 mg/dL (60-115) H 03/15/25 13:23 Assessment & Plan Assessment & Plan (1) Diabetes type 1, uncontrolled: Code(s): E10.65 - Type 1 diabetes mellitus with hyperglycemia Category: Medical Qualifiers: Glycemic state: with hyperglycemia Qualified Code(s): E10.65 - Type 1 diabetes mellitus with hyperglycemia Plan: 44 YO F with with type 1 diabetes mellitus on islet insulin pump with freestyle Delfin 3+ coming in today for follow up with complications of retinopathy, nephropathy/microalbuminuria. She is stable retinopathy. Nephropathy has improved over the past few years with better glycemic control. A1c 12/16/2024 POC improved to 7.8% from 8.8% in June 2024. She is not making meal announce movements resulting in postprandial hyperglycemia so that when she would announce occasionally, it would result in hypoglycemia after. In September when she saw Althea, she did a factory reset as patient had decided to then announce meals. I discussed with patient importance of announcing meals to prevent hypoglycemia. Her main issue is that she does not have an eating pattern. She was previously in the tandem and she was always either high or low. Plan: -continue islet insulin pump with freestyle Delfin 3+ -Discussed importance of dietary consistentcy, having a steady schedule and announcing meals -Discussed need for supplies (insulin, ketone strips, baqsimi), she has enough -follow up in 2-3 months (2) Insulin pump in place: Code(s): Z96.41 - Presence of insulin pump (external) (internal) Category: Medical Plan: On I let insulin pump with freestyle Delfin 3+ with the Humalog U 100 Has backup Lantus: Backup failure plan: To inject 20 units of Lantus with usual doses of Humalog pre meals Has ketone strips Has nasal Baqsimi Plan I spent 30 minutes in reviewing the record, seeing the patient and documenting in the medical record. Orders: Orders 2 AMB Glucose Monitoring Today E10.65 - Type 1 diabetes mellitus with hyperglycemia, Z96.41 - Presence of insulin pump (external) (internal) AMB Hemoglobin A1c Today E10.65 - Type 1 diabetes mellitus with hyperglycemia Coding Level of Care Code Est Pt Level 4 (47554) Add On Problem Visit Only Diagnoses Uncontrolled type 1 diabetes mellitus with hyperglycemia E10.65 Glycemic state: with hyperglycemia Insulin pump in place Z96.41 CPT Codes Details - CPT: 30106 - Glucose Monitoring, continuous ([id number])
[2025-03-15 13:19] VITALS: BP 100/60; PULSE 74; O2SAT 96; BMI 25.8
[2025-03-15 13:27] LABS: Glucose, Whole Blood 159 mg/dL (60-115)
--- OUTSIDE RECORDS SUMMARY | 2025-03-15 17:07 | XMS_ITS | Encounter Summary ---
Author Organization [facility] Address [address] [place] [address] Phone Care Team Providers Care Trailhead Construction Worker Name Role Phone Liv Soni MD Primary Care Provider Encounter Details Date Type Department Care Team (Late st Contact Info) Description 08/11/2022 Procedure Pass OR Admitting Dept - Virtual Department [address] [place] [address] Social History Tobacco Use Types Packs/Day Years [...] on filedocumented in this encounter Care Teams Trailhead Construction Worker Relationship Specialty Start Date End Date Liv Soni MD [facility] [place] [address] PCP - General Internal Medicine 07/01/22 documented as of this encounter Additional Source Comments The information contained in this document represents components of the legal health record. It is not the complete legal health record.[facility]
--- OUTSIDE RECORDS SUMMARY | 2025-03-15 17:08 | XMS_ITS | Clinical Summary ---
Author Organization [facility] Address [address] [place] [address] Phone Care Team Providers Care Press Hand Name Role Phone Liv Soni MD Primary [...] drug. 2 Active glucagon (BAQSIMI) 3 mg/actuation [place] 0 Refills, Maintenance, 04/23/22 8:02:00 EST, Partial [...] this topic Medical Devices Implanted Type Area Payment Poster Device Identifier Shelf Expiration Date Model / Serial / Lot Lens Lens Right: Eye Pin Bio[employer] 26mm - [id number] Implanted:Qty: 2 on 08/11/2022 by Tacho Shea DPM at [facility] Right: Toe [employer] 05/22/2023 [id number] / / [id number] Description:Right great toe Insurance [facility] 1/[address] [address] MED[place]ARE [place] A [place] [id number] [facility] 714 /[address] [address] MEDICARE PART A & B [facility] 714 1/[address] [address] [place]ICARE [place] A [place] [facility] /[address] [address] MEDICARE [place] A [place] [facility] 1/[address] [address] MEDICARE PART A [place] 4 /[address] [address] [facility] A & B * Guarantor: Renae Roman Account Type Relation to Patient Date of Phone Billing Address Personal/Family Self 1980 714 /[address] [facility] [address] [place] [address], [place] [address] * Guarantor: Renae Roman Account Type Relation to Patient Date of Phone Billing Address Personal/Family Self 1980 714 /2 [facility] [address] [place] [address], [place] [address] * Guarantor: Renae Roman Account Type Relation to Patient Date of Phone Billing Address Personal/Family Self 1980 4 03/31 [facility] [address] [place] [address], [place] [address] , [place] [address] , [place] [address] * Guarantor: Renae Roman Account Type Relation to Patient Date of Phone Billing Address Personal/Family Self 1980 4 /2 [facility] [address] [place] [address], [place] [address] * Guarantor: Renae Roman Account Type Relation to Patient Date of Phone Billing Address Personal/Family Self 1980 714 /[address] [facility] [address] [place] [address], [place] [address] 714 1/[address] [facility] [address] [place] [address] Care Teams Press Hand Relationship Specialty Start Date End Date Liv Soni MD [address] [facility] [place] [address] PCP - General Internal Medicine 07/01/22 Additional Source Comments The information contained in this document represents components of the legal health record. It is not the complete legal health record.[facility]
--- OUTSIDE RECORDS SUMMARY | 2025-03-15 17:08 | XMS_ITS | Encounter Summary ---
Author Organization [facility] Address [address] [place] [address] Phone Care Team Providers Care Lead Painter Name Role Phone Liv Soni MD Primary Care Provider Encounter Details Date Type Department Care Team ([facility] st Contact Info) Description 07/22/2022 Prep for Surgery [facility] [address] [place] [address] Tacho Shea DPM [address] [facility] [address] [place] [address] [email or web address] Bunion (Primary Dx) Social History Tobacco Use [...] Bunion documented in this encounter Care Teams Lead Painter Relationship Specialty Start Date End Date Liv Soni MD [facility] [place] [address] PCP - General Internal Medicine 07/01/22 documented as of this encounter Additional Source Comments The information contained in this document represents components of the legal health record. It is not the complete legal health record.[facility]
--- OUTSIDE RECORDS SUMMARY | 2025-03-15 17:08 | XMS_ITS | Encounter Summary ---
Author Organization [employer] [facility] Address [address] [place] [address] Phone Care Team Providers Care Senior Product Designer Name Role Phone Liv Soni MD Primary Care Provider Encounter Details Date Type Department Care Team (Late st Contact Info) Description 09/06/2022 Ophth Exam [facility] Emergency Department [address] [place] [address] Val Leong MD [email or web address] Social History Tobacco Use Types Packs/Day Years [...] 1:43 PM EDT David Rhodes RN * [place] Suicide Severity Rating Scale (Screener/Recent Self-Report) Question [...] on filedocumented in this encounter Care Teams Senior Product Designer Relationship Specialty Start Date End Date Liv Soni MD [facility] [place] [address] PCP - General Internal Medicine 07/01/22 documented as of this encounter Additional Source Comments The information contained in this document represents components of the legal health record. It is not the complete legal health record.[facility]
== END 2025-03-15 14:05 | disposition home or self-care (01) ==
LOC: HO.ENCR 13:02
PROVIDERS: PCP Internal Medicine; Visit Provider Student in an Organized Health Care Education/Training Program
DX: E10.65 Type 1 diabetes mellitus with hyperglycemia (principal); Z96.41 Presence of insulin pump (external) (internal)
CPT/HCPCS: 99214; G2211

== ENCOUNTER → 2025-03-15 13:01 | Outpatient (BNVA) | payer MEDICARE, MEDICAID, SELFPAY | PROVIDERS: PCP Internal Medicine; Visit Provider Student in an Organized Health Care Education/Training Program | DX: K31.84 Gastroparesis (principal); K22.4 Dyskinesia of esophagus; R13.11 Dysphagia, oral phase; R11.0 Nausea; K21.9 Gastro-esophageal reflux disease without esophagitis; Z98.890 Other specified postprocedural states; E10.319 Type 1 diabetes mellitus with unspecified diabetic retinopathy without macular edema; E10.65 Type 1 diabetes mellitus with hyperglycemia; E10.21 Type 1 diabetes mellitus with diabetic nephropathy; Z96.41 Presence of insulin pump (external) (internal) | CPT/HCPCS: 82947; 83036; 95250; 99212 ==

== ENCOUNTER 2025-03-15 14:11 | Outpatient (AMB) | payer MEDICARE, MEDICAID, SELFPAY ==
[2025-03-15 14:15] VITALS: BP 101/64; PULSE 86; BMI 25.9
--- NOTE | 2025-03-15 14:15 | MHC.OFFVIS ---
Vital Signs 03/15/25 14:15 Height 5 ft 2 in Weight 141 lb 8.588 oz BMI 25.9 BP 101/64 Blood Pressure Location Rt brachial Position Sitting Pulse 86 Intake Visit Reasons: s/p EGD Intake Note: Renae presents to in office follow up s/p EGD. CC: Patient reports that her throat hurts and it's been like that since after procedure. Leasing Assistant Required: No Accompanied by: Self / Same As Patient Allergies oxycodone (Percocet) Adverse Reaction (Unknown, Verified 03/15/25 14:19) chills HPI HPI s/p EGD: Details: Assessment & Plan (1) Nausea and vomiting: Comment: Just to review to date she has had a negative EGD, couple of negative gastric emptying studies, negative CT scans and ultrasounds. It does not appear that there is anyone specific GI pathology causing this so we need to expand her thinking. It is possible that this is a severe reaction to IBS with gas trapping promoting bowel irritability-aeb Code(s): R11.2 - Nausea with vomiting, unspecified Category: Medical (2) Irritable bowel syndrome with both constipation and diarrhea: Code(s): K58.2 - Mixed irritable bowel syndrome Category: Medical (3) Constipation: Code(s): K59.00 - Constipation, unspecified Category: Medical (4) Esophageal spasm: Code(s): K22.4 - Dyskinesia of esophagus Category: Medical Plan History of Present Illness - The patient is a 44-year-old female presenting with difficulty swallowing and chronic constipation. - Symptoms originate from intermittent esophageal spasms causing a sensation of throat twisting, affecting swallowing primarily when supine. - Troubles swallowing improved with diltiazem; however, the patient continues to experience esophageal spasms, sensation of gas, and occasional pain but only when she looks down with chin to chest. - Multiple evaluations were conducted, including laryngoscopy and speech therapy, both identifying mild irregularities but no significant pathological causes thus far. - Previous ENT assessments recommended further investigative but then they did not give her a follow-up. I encouraged her to call them an advocate for herself and get a follow-up to complete the workup. Especially true because she thinks they told her they ?saw something? somewhere during the laryngoscopic that was not normal in her throat. - Present gastrointestinal issues are mostly related to chronic constipation and esophageal spasms, with current medication providing adequate relief for constipation. - The patient's dysphagia was significantly improved with Cardizem 120 mg daily, and her chief business officer or hypertension prescribe a reduce the dose of her metoprolol to avoid orthostatic hypotension. Nutrition The patient's diet includes measures to aid bowel regularity, involving fiber laxatives and other gastrointestinal medications. The patient is on a regimen including dicyclomine, Colace (docusate), Citrucel, Deandra, and Creon, although detailed dietary restrictions or food allergies are not reported. Review of Systems - Gastrointestinal: Reports difficulty swallowing, sensation of throat twisting when lying down, improved constipation with medication, and occasional bloating and gas. Denies new abdominal pain. - Cardiovascular: Denies dizziness currently; adjusts cleared standing with metoprolol dosage reduced. - Neurological: Denies syncope or persistent dizziness. Physical Exam Results-pulled from [facility] website (printed and scanned into chart) - Tests: The speech therapy evaluation showed mild base of tongue residuals with thicker consistencies and piecemeal swallowing pattern with solids and purees. There was no laryngeal penetration or subglottic aspiration observed. - Diagnostics: Barium swallow indicated coordinated oral and pharyngeal phases without laryngeal penetration or aspiration during swallowing. Plan We will continue the treatment plan for the patient's symptoms, specifically focusing on dysphagia and potential esophageal spasm. The ENT follow-up is necessary to assess for any structural issues needing upper endoscopy. Current therapies with dicyclomine, Colace, Citrucel, Deandra, and diltiazem will be maintained. The patient should call the ENT for follow-up appointments to ensure all necessary evaluations are completed. If ENT evaluations indicate no organic causes, management of possible anxiety-related symptoms could be the underlying cause and should be considered. The therapy with Creon will continue for bloating. I have stressed the importance of ongoing symptom monitoring and regular reassessment post-ENT evaluation. We will reconvene after ENT assessments or if new symptoms develop, provisionally scheduled in three months. Patient was informed and verbally consented to the use of an ambient scribe for clinic note documentation during this visit. Patient Instructions - Continue current medications as prescribed without interruption. - Contact the ENT office to schedule a follow-up to complete the ENT workup. - Monitor for any new symptoms or worsening of current symptoms. - Follow your ENT and our medical advice to manage swallowing symptoms. - her current GI regimen consists of Cardizem 120 mg q.d., dicyclomine 20 mg 4 times a day p.r.n., Colace once a day, Creon 2 caps twice a day, and senna for constipation. - Maintain your regular diet and include fiber as recommended to manage constipation. - Symptoms of syncope/presyncope were reviewed in case the patient develops this while being treated with Cardizem for her esophageal spasm. - Return for a follow-up appointment in three months or sooner if new symptoms develop. Medications: New puyzmh-mnbghukt-rdlammc 3,000-9,500- 15,000 unit (Creon) do not exceed 10,000 unit/kg lipase per 24 hrs 2 caps PO BID 360 caps 1RF 90 days K59.04 - Chronic idiopathic constipation Refilled docusate sodium 100 mg PO DAILY 30 caps 6RF K58.2 - Mixed irritable bowel syndrome diltiazem HCl CD 120 mg PO QAM 30 caps 6RF R13.11 - Dysphagia, oral phase dicyclomine 20 mg PO QID 360 tabs 1RF methylcellulose (laxative) (Citrucel) 500 mg PO BID 60 tabs 6RF sennosides (Senna Laxative) 17.2 mg (2 x 8.6 mg) PO BEDTIME 60 tabs 6RF K58.2 - Mixed irritable bowel syndrome EGD 02/21/25 Findings: Larynx:normal Esophagus: GE junction at 35 cm, diaphragm hiatus at 35 cm, normal mucosa --balloon dilation done to 20 mm at UES and LES with slight tear seen at UES, bx also taken from distal and proximal esophagus Stomach: full of food, . Biopsies were obtained. Grade 2 flap valve on retroflexed examination of the cardia. Duodenum: Normal bulb and descending duodenum, Intervention: Biopsies as noted above, balloon dilation Impression/Findings: gastroparesis esophageal stricture PLAN: can consider trial of PPI and reglan --will await bx GERD precautions BIOPSY Received: 02/21/25 Diagnosis A. Stomach, biopsy: Oxyntic mucosa with mild chronic inactive inflammation; no Helicobacter organisms seen. B. Esophagus, distal, biopsy: Squamous epithelium within normal limits; no inflammation seen. C. Esophagus, proximal, biopsy: Active esophagitis (maximum eosinophil count 1 per high powered field TODAYS VISIT [facility] Medical History Insulin pump in place Nausea and vomiting ASCUS with positive high risk HPV cervical Abnormal Pap smear of cervix Intermittent claudication Sleep behavior disorder, REM Oral phase dysphagia Fibroids Goiter HLD (hyperlipidemia) Hypogonadotropic hypogonadism Premature ovarian failure Sinus tachycardia Amenorrhea Depression Vitamin D deficiency Dyslipidemia Diabetic nephropathy associated with type 1 diabetes mellitus Diabetes type 1, uncontrolled Hypertension Surgical History S/P bunionectomy S/P cataract surgery Hx of esophagogastroduodenoscopy Hx of tubal ligation Family History Father No problems noted. Mother Hypertension Social History Household Members: Children Household Members Other:: 2 children Housing: Apartment Alcohol intake: current Alcohol intake frequency: does not drink Patient Tobacco Use Status: Former Tobacco user e-Cigarette/Vaping Use: Never Used service: No Current occupational status: unemployed Cognitive needs: No Hearing needs: No Vision needs: No Female Reproductive History Menstrual Age of Menarche: 13 Review of Systems Const Denies fatigue, Denies fever(s), Denies night sweats, Denies poor appetite and Denies weight loss ENT Reports Normal hearing present, Denies dental pain, Reports dysphagia, Denies hearing loss, Denies mouth pain, Denies odynophagia, Denies throat swelling, Denies tongue swelling and Reports other (Dentition adequate) Card Reports no additional complaints Resp Reports no additional complaints GI Details: Denies abdominal pain, Denies melena, Reports bloating, Denies hematochezia, Reports constipation, Denies GI cramping, Reports dysphagia, Denies excessive flatus, Reports early satiety, Denies heartburn, Denies diarrhea, Reports nausea, Denies odynophagia, Denies vomiting and Denies hematemesis Skin/Breast Denies pruritus, Denies lesions, Denies rash and Denies jaundice Neuro Reports Normal hearing present and Denies Abnormal speech present Endo Denies fatigue Aller/Immun Denies throat swelling and Denies tongue swelling Physical Exam Vital Signs: Last Vital Signs Pulse 86 03/15/25 14:15 BP 101/64 03/15/25 14:15 BMI result Body Mass Index 25.9 Const General: cooperative, no acute distress, well developed and well groomed Nutritional Appearance: well nourished and overweight Orientation/consciousness: oriented to person, oriented to place and oriented to time Limitations: No language barrier HEENT Head: Yes normocephalic and Yes atraumatic Eyes General: appearance normal, both eyes and all related structures Pupils: Equal, round and reactive pupils present Neck Neck: Yes normal visual inspection and Yes no lymphadenopathy Thyroid: Thyroid normal Resp Effort & Inspection: normal respiratory effort and able to speak in complete sentences Auscultation: clear to auscultation bilaterally Cardio Rate: regular rate Rhythm: regular rhythm Heart sounds: Normal, physiologic split S2 sound present Peripheral pulses: radial pulses present and posterior tibial pulses present GI Inspection: No distended, No Abdominal panniculus present and Yes obesity Palpation (GI): Soft to palpation, nontender, no guarding, not rigid and No hepatosplenomegaly present Percussion: Yes normal to percussion Auscultation: normal bowel sounds Rectal Exam - Female: deferred Skin General skin exam: no rashes or lesions noted, turgor normal, skin not dry, no jaundice, No spider nevi and no striae Rashes: no rashes Nails: normal Neuro General: oriented to person, oriented to place and oriented to time Cranial nerves: Yes Equal, round and reactive pupils present and Yes Normal hearing present Speech: No Abnormal speech present Extrem General: Yes normal to inspection, No clubbing, No cyanosis and No edema Psych Appearance: grossly normal and well kempt Mental Status: mental status grossly normal Speech and movement: Normal speech and movement present Affect: normal affect Attitude: cooperative Thought process: Normal thought process present and not confabulating Thought content: Normal thought content present Insight: Good insight present (Psych) Judgement: Good judgement present (Psych) Results AMB Hemoglobin A1c AMB Hemoglobin A1c 7.9 % Last Edit by SUELLEN Hackett on 03/15/25 13:32 Results Reviewed Results Reviewed: EGD 02/21/25 Findings: Larynx:normal Esophagus: GE junction at 35 cm, diaphragm hiatus at 35 cm, normal mucosa --balloon dilation done to 20 mm at UES and LES with slight tear seen at UES, bx also taken from distal and proximal esophagus Stomach: full of food, . Biopsies were obtained. Grade 2 flap valve on retroflexed examination of the cardia. Duodenum: Normal bulb and descending duodenum, Intervention: Biopsies as noted above, balloon dilation Impression/Findings: gastroparesis esophageal stricture PLAN: can consider trial of PPI and reglan --will await bx GERD precautions BIOPSY Received: 02/21/25 Diagnosis A. Stomach, biopsy: Oxyntic mucosa with mild chronic inactive inflammation; no Helicobacter organisms seen. B. Esophagus, distal, biopsy: Squamous epithelium within normal limits; no inflammation seen. C. Esophagus, proximal, biopsy: Active esophagitis (maximum eosinophil count 1 per high powered f Assessment & Plan Assessment & Plan (1) Gastroparesis: Code(s): K31.84 - Gastroparesis Category: Medical (2) Esophageal spasm: Code(s): K22.4 - Dyskinesia of esophagus Category: Medical (3) Oral phase dysphagia: Comment: Worse with liquids Speech therapy eval This exam revealed mild oropharyngeal phase dysphagia, characterized by mildly prolonged oral preparatory phase and mild oral and pharyngeal residuals, which could be possibly contributing to pt?s complaints of feeling globus sensation. Pt was able to reduce pharyngeal retention with multiple dry swallows and sips of liquid. No evidence of aspiration or penetration during this exam. After the exam, RETAIL PERFORMANCE SPECIALIST discussed with pt recommended compensatory strategies to promote oral and pharyngeal clearance: -Take small bites of food, chew well -Moisten food with sauces and gravies, ensuring sauces are mixed and blended in well with food -Avoid sticky textures and dry foods -Follow each bite with additional dry swallows -Alternate bites of food with sips of liquid -Maintain upright 90 degree position while eating and drinking Code(s): R13.11 - Dysphagia, oral phase Category: Medical (4) Nausea and vomiting: Comment: Just to review to date she has had a negative EGD, couple of negative gastric emptying studies, negative CT scans and ultrasounds. It does not appear that there is anyone specific GI pathology causing this so we need to expand her thinking. It is possible that this is a severe reaction to IBS with gas trapping promoting bowel irritability-aeb Code(s): R11.2 - Nausea with vomiting, unspecified Category: Medical (5) GERD (gastroesophageal reflux disease): Code(s): K21.9 - Gastro-esophageal reflux disease without esophagitis Category: Medical Qualifiers: Esophagitis presence: without esophagitis Qualified Code(s): K21.9 - Gastro-esophageal reflux disease without esophagitis (6) Diabetes type 1, uncontrolled: Code(s): E10.65 - Type 1 diabetes mellitus with hyperglycemia Category: Medical Qualifiers: Glycemic state: with hyperglycemia Qualified Code(s): E10.65 - Type 1 diabetes mellitus with hyperglycemia Plan Her current GI regimen consists of dicyclomine, Colace and senna, and Creon. We are restarting simethicone and if it is not covered by insurance she should buy it [id number]. Subjective Patient presents for review of recent endoscopy and ongoing upper GI symptoms. Reports persistent dysphagia and significant difficulty belching; describes needing to hit chest to be able to burp. Notes nausea without vomiting. Prior Gas-X helped while taking it, but she did not receive refills. Bowel movements are regular on current regimen. Discussed that at time of endoscopy there was retained food in the stomach, and dilation of the distal esophagus was not performed. History notable for diabetes. Relevant Past Medical, Social, and Family History Diabetes mellitus. Current medications include pancreatic enzyme replacement (Creon), senna, and docusate. Objective - Endoscopy: Incomplete visualization of stomach due to retained gastric contents; dilation of distal esophagus not performed. - Prior gastric emptying study reportedly normal per patient description. Assessment & Plan Suspected diabetic gastroparesis with associated dysphagia, bloating, and impaired belching: Clinical picture notable for retained gastric contents at endoscopy and postprandial upper GI symptoms in the context of diabetes, consistent with gastroparesis. Prior gastric emptying study was reportedly normal, but findings and symptom profile are discordant. - Start metoclopramide 5 mg by mouth four times daily (breakfast, lunch, supper, bedtime) regardless of meals to promote gastric motility. - Reviewed potential adverse effects: tremor and motor restlessness/akathisia; instructed to stop medication and notify me immediately if these occur. - Restart simethicone (Gas-X) as needed for gas/belching; if not covered by insurance, use the least expensive [id number] option. - Swallowing precautions reviewed; advised careful eating to reduce choking risk. - Continue current Creon, senna, and docusate regimens. - Consider repeat endoscopy if symptoms persist after medical therapy. - Follow-up after June 13 per patient?s travel schedule to reassess response to therapy. Medications: New metoclopramide HCl (Reglan) 5 mg PO QIDACHS 120 tabs 6RF K31.84 - Gastroparesis simethicone (Gas Relief (simethicone)) 125 mg PO TID PRN 90 tabs 6RF abdominal distention Refilled dicyclomine 20 mg PO QID 360 tabs 1RF docusate sodium 100 mg PO DAILY 30 caps 6RF K58.2 - Mixed irritable bowel syndrome stirmx-yplapivb-fktdabm (pork) 3,000-9,500- 15,000 unit (Creon) do not exceed 10,000 unit/kg lipase per 24 hrs 2 caps PO BID 360 caps 1RF 90 days K59.04 - Chronic idiopathic constipation sennosides (Senna Laxative) 17.2 mg (2 x 8.6 mg) PO BEDTIME 60 tabs 6RF K58.2 - Mixed irritable bowel syndrome Coding Level of Care Code Est Pt Level 4 (84737) Diagnoses Gastroparesis K31.84 Esophageal spasm K22.4 Oral phase dysphagia R13.11 Nausea and vomiting R11.2 Gastroesophageal reflux disease without esophagitis K21.9 Esophagitis presence: without esophagitis Uncontrolled type 1 diabetes mellitus with hyperglycemia E10.65 Glycemic state: with hyperglycemia Time Spent (min) 36
--- OUTSIDE RECORDS SUMMARY | 2025-03-15 18:56 | XMS_ITS | Data Portability ---
Author Organization [place] - [facility], Allergy Address [address] [place] [address] Care Team Providers Care Pcmh Specialist Name Role Phone LORE GRIGGS Primary Care Provider LORE GRIGGS Referring Provider Assessment No assessment recorded. Plan of Treatment Reminders Order Date Submit Date Provider Last Modified By Organization Details Last Modified Time Details Appointments None recorded. Lab None recorded. Referral None recorded. Procedures None recorded. Surgeries None recorded. Imaging [place], modified barium swallow study - evaluate dysphagia 2024 025 [facility], [address], [place], [address], 16:56:45 Medication Orders None recorded. Patient TargetsNo targets recorded. Patient InstructionsNo instructions recorded. Reason for Referral None Reported. Results Created Date Observation Date Name Description Value Unit Range Abnormal Flag Note LastModifiedBy Organization Detail LastModifiedTime 08/20/19 25 08/18/2024 [place], modif ied filippo mccall study No observ ation record ed. [facility] [address], [place], [address], 08/23/2024 12:28:01 Result Notes None recorded. Problems Name Problem SNOMED Code Status Onset Date Resolution Date Notes Provider Name and Address Organization Details Recorded Time Oropharyngeal dysphagia 65635800 Active 2024 REAL Griffin MD [address], [place], [address] , [facility] - [facility] 5 15:49:47 Gastroesophage al reflux disease without esophagitis 215473970 Active 2024 REAL Griffin MD [address] [facility] [address], [place], [address], [facility] - [facility] 15:49:52 Problem Notes None recorded. Procedures Surgical History Date Name Laterality Status Provider Name and Address Organization Details Recorded Time 07/26/2024 FFL_RE completed REAL PIZARRO MD [address] [address], [place], [address], [facility] - [facility] 07/26/2024 15:49:58 Imaging Results None recorded. [...] Updated DateTime 07/26/2024 165.1 cm 25 kg/m2 57283.86 g Arianna Martinez [place] - [facility] 07/26/2024 15:11:46 Social History None recorded. Functional Status None recorded. Mental Status None recorded. Family History Nothing Reported. Medical History No medical history recorded. Gynecological HistoryNo gynecological history recorded. Obstetrics History GPAL:G 0 P 0 0 0 0 Past Encounters Encounter ID Performer Location Encounter Start Date Encounter Closed Date Diagnosis/Indication Diagnosis SNOMED-CT Code Diagnosis ICD10 Code Diagnosis IMO Codes Diagnosis Note [id number] REAL PIZARRO MD [facility] [address] [address] 07/26/2024 14:54:37 07/26/2024 15:55:38 Oropharyngeal dysphagia 77839178 R13.12 Laryngosco py was normal. It has [...] therapy. Gastroesop hageal reflux disease without esophagitis 023500904 K21.9 Continue omeprazole . Health Concerns Section Related Observation LastModified by Organization Detai ls LastModified Time None Recorded Concern Status LastModified by Organization Details LastModified Time None Recorded Advance Directives Directive None Recorded Payers Insurance Date Sequence Insurance Name Policy Number Policy Costello Covered Member ID Costello Member ID Guarantor Name 07/26/2024 1 MEDICARE [place]: [facility] Renae Gudino [id number] Renae Gudino 08/17/2024 2 [place] [facility] Renae Gudino [id number] Renae Gudino Notes Date Note Type Note Provider Name and Address Organization Details Recorded Time 07/26/2024 text/html ROS as noted in the HPI She reports on a daily basis she feels like her throat closes and food gets stuck. She sometimes vomits. She denies trouble breathing. When she drinks thin liquids especially if cold she will cough. She had a swallow study at [facility] a year ago. She said her swallowing is worse now. She does not smoke. Quit smoking 5 years ago. She endorse heartburn and takes omeprazole. It is hard for her to burp. She has seen GI and had an EGD over 5 years ago. REAL PIZARRO MD [address] [place] [address], [place], [address], [facility] - [facility] 07/26/2024 15:57:06 OBGyn Episode No OBEpisode recorded.
== END 2025-03-15 14:50 | disposition home or self-care (01) ==
LOC: HO.HGI 14:12
PROVIDERS: PCP Internal Medicine; Visit Provider Nurse Practitioner
DX: K31.84 Gastroparesis (principal); K22.4 Dyskinesia of esophagus; R13.11 Dysphagia, oral phase; R11.2 Nausea with vomiting, unspecified; K21.9 Gastro-esophageal reflux disease without esophagitis; E10.65 Type 1 diabetes mellitus with hyperglycemia
CPT/HCPCS: 99214

== ENCOUNTER 2025-03-21 09:25 | Outpatient (AMB) | payer MEDICARE, MEDICAID, SELFPAY ==
[2025-03-21 09:31] VITALS: BP 110/66; BMI 26.2
--- NOTE | 2025-03-21 09:31 | MHC.OFFVIS ---
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 Allergies oxycodone (Percocet) Adverse Reaction (Unknown, Verified 03/21/25 09:32) chills Medication List - Last Reconciled 03/21/25 by Nerissa Castañeda CNM acetone (urine) test (Ketone Urine Test strips) As directed tid for glucose over 300 nausea or vomiting amitriptyline 150 mg PO BEDTIME atorvastatin 20 mg PO BEDTIME 90 days blood-glucose sensor (FreeStyle Delfin 3 Plus Sensor device) As directed every 15 days cetirizine 10 mg PO DAILY PRN cholecalciferol (vitamin D3) 50 mcg PO DAILY dicyclomine 20 mg PO QID diltiazem HCl CD 120 mg PO QAM docusate sodium 100 mg PO DAILY fluticasone propionate 50 mcg/actuation (Allergy Relief (fluticasone)) 1 spray intranasal DAILY glucagon 3 mg/actuation (Baqsimi) 3 mg intranasal ONCE Humalog U-100 Insulin (insulin lispro) Up to 130 units per day via insulin pump subcutaneously subcutaneously; 30 days NS insulin glargine (Lantus Solostar U-100 Insulin) 20 units (0.2 mL) subcut QAM PRN 30 days MDD 20 units lancets (Accu-Chek Fastclix Lancet Drum) As directed tests 3 X/day lancing device with lancets (Accu-Chek Multiclix Lancet kit) As directed checks 6X/day qmbhdw-vkxghclv-mudensu (pork) 3,000-9,500- 15,000 unit (Creon) 2 caps PO BID 90 days losartan 25 mg PO DAILY methylcellulose (laxative) (Citrucel) 500 mg PO BID metoclopramide HCl (Reglan) 5 mg PO QIDACHS metoprolol succinate ER 50 mg PO DAILY ondansetron HCl 4 mg PO BID-TID PRN 14 days pen needle, diabetic As directed daily prn pump failure sennosides (Senna Laxative) 17.2 mg (2 x 8.6 mg) PO BEDTIME simethicone (Gas Relief (simethicone)) 125 mg PO TID PRN triamcinolone acetonide 0.5% 1 appl topical BID 30 days HPI Comments Details: Pt presents today for ANNUAL exam She is in a relationship x 4yrs. She denies any issues of DV Exercise: limited due to hypoglycemic episodes Nutrition/calcium: adequate Contraception: tubal ( suspected early menopause) Last Pap: 2023 , Results: Neg Last mammo: 2021, Results Birads 1 The patient is a 44 year old female presenting for her annual gynecological examination. She reports no acute concerns today but requests screening for sexually transmitted diseases, stating it has been a while since her last test. The patient reports a history of amenorrhea since approximately 2018. The cessation of her menses occurred after a laparoscopic procedure performed around 2019 to investigate suspected endometriosis, which was prompted by heavy, painful periods with left-sided pain radiating to her leg and dyspareunia. She reports spotting for a few days post-procedure and then no further periods. She denies any associated menopausal symptoms such as hot flashes. She currently experiences a significant amount of vaginal discharge, which is non-odorous and non-pruritic. Her medical history is significant for diabetes mellitus, for which she uses an insulin pump, and reports labile blood sugar levels, particularly hypoglycemia with exercise. She also has diagnoses of hypertension, hyperlipidemia, gastroesophageal reflux, anxiety, and constipation, for which she takes various medications including metoprolol. Her past surgical history includes a tubal ligation, cataract surgery, bunion removal, and a breast biopsy. Her mother has high blood pressure, and there is no family history of breast or ovarian cancer. The patient is a former smoker, having quit five years ago, and denies alcohol or illicit substance use. She is in a monogamous relationship with a male partner for four years and feels safe. She is disabled and lives with her two adult children. [facility] Medical History Insulin pump in place Nausea and vomiting ASCUS with positive high risk HPV cervical Abnormal Pap smear of cervix Intermittent claudication Sleep behavior disorder, REM Oral phase dysphagia Fibroids Goiter HLD (hyperlipidemia) Hypogonadotropic hypogonadism Premature ovarian failure Sinus tachycardia Amenorrhea Depression Vitamin D deficiency Dyslipidemia Diabetic nephropathy associated with type 1 diabetes mellitus Diabetes type 1, uncontrolled Hypertension Surgical History S/P bunionectomy S/P cataract surgery Hx of esophagogastroduodenoscopy Hx of tubal ligation Family History Father No problems noted. Mother Hypertension Social History (Updated 03/21/25 @ 09:48 by Nerissa Castañeda CNM) Household Members: Children Household Members Other:: 2 children Housing: Apartment Alcohol intake: current Alcohol intake frequency: does not drink Patient Tobacco Use Status: Former Tobacco user e-Cigarette/Vaping Use: Never Used service: No Current occupational status: unemployed and disabled Cognitive needs: No Hearing needs: No Vision needs: No Female Reproductive History Menstrual Age of Menarche: 13 control method: permanent sterilization Permanent Sterilization: BTL Total pregnancies: 2 Number of Living Children: 2 Date of last pap smear: 07/08/23 Date of Mammogram: 03/19/22 Review of Systems Const Reports no additional complaints Eyes Reports no additional complaints ENT Reports no additional complaints Card Reports no additional complaints Resp Reports no additional complaints GI Reports no additional complaints Reports as per HPI Skin/Breast Reports system reviewed and no additional complaints, except as documented Physical Exam Vital Signs: Last Vital Signs BP 110/66 03/21/25 09:31 BMI result Body Mass Index 26.2 Const General: cooperative, healthy appearing and no acute distress Orientation/consciousness: patient oriented x3 HEENT Head: Yes normal to inspection and Yes normocephalic Neck Neck: Yes normal visual inspection Chest Breast/axilla inspection: normal inspection of the breasts (biopsy scar right breast RU outer quad), normal inspection of the axillae and Other (No skin changes, peau d orange, or nipple discharge noted) Breast/axilla palpation: normal palpation of the breasts, normal palpation of the axillae and no axillary lymphadenopathy Resp Effort & Inspection: normal respiratory effort and able to speak in complete sentences GI Inspection: No distended Palpation (GI): Soft to palpation, nontender and no masses Percussion: Yes normal to percussion Rectal Exam - Female: No External hemorrhoid(s) present External Female Exam: normal external appearance and normal appearance of the urethra Speculum Exam - Vagina: normal appearance of the vagina and normal vaginal discharge (appears physiologic, will send swab) Speculum Exam - Cervix: normal appearance of the cervix and normal palpation (neg CMT) Bimanual exam- vagina & uterus: normal bimanual exam, normal palpation (neg CMT), uterine mobility normal and non-tender Bimanual Exam- Adnexa, other: no masses and No adnexal tenderness Skin Other: generalized tattoos General skin exam: no rashes or lesions noted Neuro General: patient oriented x3 and moves all extremities Extrem General: Yes full ROM Psych Speech and movement: Normal speech and movement present Affect: normal affect Attitude: cooperative Thought process: Normal thought process present Assessment & Plan Assessment & Plan (1) Well woman exam with routine gynecological exam: Code(s): Z01.419 - Encounter for gynecological examination (general) (routine) without abnormal findings Plan: During the visit, the following areas of concern were addressed: Regular exercise Healthy lifestyle Domestic violence Health Maintenance and Screening -Reviewed ASCCP guidelines for Paps and yearly (bi-yearly ) pelvic exam. -Reviewed and encouraged diet and exercise for cardiovascular and bone health -Reviewed breast self-awareness. Importance of yearly mammogram after age 40 (earlier if first-degree relative with breast cancer at a younger age ) Discuss use of 3 times per week weight-bearing exercise, vitamin D3 and servings of dietary calcium daily for bone health. -continue to follow with PCP for general medical care, immunizations. Family and personal history of cancer reviewed. Genetic screening- not indicated The patient has BMI: 26 Approaches towards weight loss are discussed including burning more calories than one takes in by frequent, small meals, portion control, avoiding eating before bedtime, regular exercise with endocrine clearance RTO one year or sooner prelsi Castañeda CNM Note about provider documentation : If you or the patient named in this chart and are reviewing your medical notes, please note that medical documentation is often written with abbreviations and medical terminology, and directed for other providers who may be involved in your care as well. Documentation is critical to record what has happened, what tests were ordered, and so they are interpreted with the resulting diagnoses. These notes have been made available for patient review but not specifically written for the patient. Important health information is always given to my patients in clinical instructions. Please review your after visit summary and our contact our clinical staff if you have any questions. (2) Screening breast examination: Code(s): Z12.39 - Encounter for other screening for malignant neoplasm of breast (3) Encounter for screening examination for sexually transmitted disease: Code(s): Z11.3 - Encounter for screening for infections with a predominantly sexual mode of transmission (4) Amenorrhea: Code(s): N91.2 - Amenorrhea, unspecified Category: Medical Plan 1. Annual Health Maintenance The patient is a 44-year-old female here for a routine annual exam. Her last Pap smear was normal. She has previously declined a mammogram but its importance was discussed, and an order will be placed for her to have it done annually. 2. Amenorrhea of uncertain etiology The patient reports amenorrhea since a laparoscopic procedure around 2019. The differential includes premature ovarian failure versus an iatrogenic cause from her prior surgery . She denies classic menopausal symptoms. Plan is to check hormone levels (FSH) to evaluate menopausal status. A medical release will be obtained to request surgical records from [facility] to clarify the details of the procedure. 3. Vaginal Discharge The patient reports a large amount of vaginal discharge, which was confirmed on exam. While she denies odor or pruritus, the volume is notable, especially in the context of possible menopause where dryness is expected. Plan includes swabs for gonorrhea, chlamydia, bacterial vaginosis, and yeast to rule out infectious causes. 4. Request for STD Screening Despite being in a long-term, monogamous relationship, the patient requests screening. Plan for serum testing including HIV and obtain swabs for gonorrhea and chlamydia as discussed. 5. Chronic Medical Conditions The patient's diabetes, hypertension, hyperlipidemia, GERD, and anxiety are noted. Her medications were reconciled. She is followed by her primary care physician for these issues. Orders: Orders MM tomosynthesis screening BI 1 Month Z01.419 - Encounter for gynecological examination (general) (routine) without abnormal findings, Z12.39 - Encounter for other screening for malignant neoplasm of breast HIV Ab/Ag Today B96.89 - Other specified bacterial agents as the cause of diseases classified elsewhere, N76.0 - Acute vaginitis, Z11.3 - Encounter for screening for infections with a predominantly sexual mode of transmission Syphilis Screen Today B96.89 - Other specified bacterial agents as the cause of diseases classified elsewhere, N76.0 - Acute vaginitis, Z11.3 - Encounter for screening for infections with a predominantly sexual mode of transmission Bacterial Vaginosis Panel Today Z01.419 - Encounter for gynecological examination (general) (routine) without abnormal findings, Z11.3 - Encounter for screening for infections with a predominantly sexual mode of transmission CT NG by PCR Vag/Cerv Today Z01.419 - Encounter for gynecological examination (general) (routine) without abnormal findings, Z11.3 - Encounter for screening for infections with a predominantly sexual mode of transmission Hepatitis B Surface Antigen Today B96.89 - Other specified bacterial agents as the cause of diseases classified elsewhere, N76.0 - Acute vaginitis, Z11.3 - Encounter for screening for infections with a predominantly sexual mode of transmission Hepatitis C Antibody Today B96.89 - Other specified bacterial agents as the cause of diseases classified elsewhere, N76.0 - Acute vaginitis, Z11.3 - Encounter for screening for infections with a predominantly sexual mode of transmission Follicle Stimulating Hormone Today N91.2 - Amenorrhea, unspecified Coding Level of Care Code Est Pt Prev Care 40-64y([address]09) Diagnoses Well woman exam with routine gynecological exam Z01.419 Screening breast examination Z12.39 Encounter for screening examination for sexually transmitted disease Z11.3 Amenorrhea N91.2
--- OUTSIDE RECORDS SUMMARY | 2025-03-21 10:07 | XMS_ITS | Encounter Summary ---
Author Organization [employer] [facility] [employer] [facility] Address [address] [place] [address] Phone Care Team Providers Care Township Supervisor Name Role Phone Liv Soni MD Primary Care Provider Encounter Details Date Type Department Care Team (Late st Contact Info) Description 09/06/2022 Ophth Exam [facility] [address] [place] [address] Val Leong MD [email or web address] Social History Tobacco Use Types Packs/Day [...] on filedocumented in this encounter Care Teams Township Supervisor Relationship Specialty Start Date End Date Liv Soni MD [address] [facility] [place] [address] PCP - General Internal Medicine 07/01/22 documented as of this encounter Additional Source Comments The information contained in this document represents components of the legal health record. It is not the complete legal health record.[facility]
--- OUTSIDE RECORDS SUMMARY | 2025-03-21 10:07 | XMS_ITS | Data Portability ---
Author Organization [place] - [facility], [facility] Address [address] [place] [address] Care Team Providers Care Laborer Powerhouse Name Role Phone LORE GRIGGS Primary Care Provider [phone] LORE GRIGGS Referring Provider Assessment No assessment recorded. Plan of Treatment Reminders Order Date Submit Date Provider Last Modified By Organization Details Last Modified Time Details Appointments None recorded. Lab None recorded. Referral None recorded. Procedures None recorded. Surgeries None recorded. Imaging [place], modified barium swallow study - evaluate dysphagia 2024 025 [facility], [address], [place], [address], 16:56:45 Medication Orders None recorded. Patient TargetsNo targets recorded. Patient InstructionsNo instructions recorded. Reason for Referral None Reported. Results Created Date Observation Date Name Description Value Unit Range Abnormal Flag Note LastModifiedBy Organization Detail LastModifiedTime 08/20/19 25 08/18/2024 [place], modif ied filippo mccall study No observ ation record ed. [facility]pp[facility]er [facility] [address], [place], [address], 08/23/2024 12:28:01 Result Notes None recorded. Problems Name Problem SNOMED Code Status Onset Date Resolution Date Notes Provider Name and Address Organization Details Recorded Time Oropharyngeal dysphagia 65803235 Active 2024 REAL Griffin MD [address], [place], [address] , [facility] - [facility] 5 15:49:47 Gastroesophage al reflux disease without esophagitis 451327717 Active 2024 REAL Griffin MD [address] [facility] [address], [place], [address], [facility] - [facility] 15:49:52 Problem Notes None recorded. Procedures Surgical History Date Name Laterality Status Provider Name and Address Organization Details Recorded Time 07/26/2024 FFL_RE completed REAL PIZARRO MD [address] [address], [place], [address], [facility] - [facility] 07/26/2024 15:49:58 Imaging Results None recorded. [...] Updated DateTime 07/26/2024 165.1 cm 25 kg/m2 68546.86 g Arianna Martinez [place] - [facility] 07/26/2024 15:11:46 Social History None recorded. Functional Status None recorded. Mental Status None recorded. Family History Nothing Reported. Medical History No medical history recorded. Gynecological HistoryNo gynecological history recorded. Obstetrics History GPAL:G 0 P 0 0 0 0 Past Encounters Encounter ID Performer Location Encounter Start Date Encounter Closed Date Diagnosis/Indication Diagnosis SNOMED-CT Code Diagnosis ICD10 Code Diagnosis IMO Codes Diagnosis Note [id number] REAL PIZARRO MD [facility] [address] [address] 07/26/2024 14:54:37 07/26/2024 15:55:38 Oropharyngeal dysphagia 88861928 R13.12 Laryngosco py was normal. It has [...] therapy. Gastroesop hageal reflux disease without esophagitis 390141888 K21.9 Continue omeprazole . Health Concerns Section Related Observation LastModified by Organization Detai ls LastModified Time None Recorded Concern Status LastModified by Organization Details LastModified Time None Recorded Advance Directives Directive None Recorded Payers Insurance Date Sequence Insurance Name Policy Number Policy Costello Covered Member ID Costello Member ID Guarantor Name 07/26/2024 1 MEDICARE [place]: [facility] Renae Gudino [id number] Renae Gudino 08/17/2024 2 [place] [facility] Renae Gudino [id number] Renae Gudino Notes Date Note Type Note Provider Name and Address Organization Details Recorded Time 07/26/2024 text/html ROS as noted in the HPI She reports on a daily basis she feels like her throat closes and food gets stuck. She sometimes vomits. She denies trouble breathing. When she drinks thin liquids especially if cold she will cough. She had a swallow study at [facility] a year ago. She said her swallowing is worse now. She does not smoke. Quit smoking 5 years ago. She endorse heartburn and takes omeprazole. It is hard for her to burp. She has seen GI and had an EGD over 5 years ago. REAL PIZARRO MD [address] [place] [address], [place], [address], [facility] - [facility] 07/26/2024 15:57:06 OBGyn Episode No OBEpisode recorded.
--- OUTSIDE RECORDS SUMMARY | 2025-03-21 10:07 | XMS_ITS | Clinical Summary ---
Demographics Address [address] [place] [address] Home Phone Email Address Preferred Language en Marital Status Single Temple Affiliation Unknown Race Unknown Ethnic Group Unknown Author Organization [facility] Facility Address [address] [address] Care Team Providers Care Shipping Lead Name Role Phone Rashi Soni MD Primary Care Provider +1- [phone] Allergies Active Allergy Reactions Criticality Noted Date [...] 1.52(A) 0.50 - 1.10 mg/dL eGFR Non-Afr [place] 38 Hemoglobin A1C 8.4(A) 4.0 - 6.0 06/18/2021 us Historical Provider LAB BLOOD ORDERABLES Michelle l Result from Last 3 Months or Most Recently Relevant to Health Maintenance Insurance * Guarantor: Renae Diop Account Type Relation to Patient Date of Phone Billing Address Personal/Family Self 1980 [address] [place] [address] Medicare [place] * Guarantor: Renae Diop Account Type Relation to Patient Date of Phone Billing Address Personal/Family Self 1980 [address] [place] [address] Medicare [place] Care Teams Shipping Lead Relationship Specialty Start Date End Date Rashi Soni MD PCP - General Internal Medicine 10/21/21
--- OUTSIDE RECORDS SUMMARY | 2025-03-21 10:07 | XMS_ITS | Clinical Summary ---
Demographics Address [address] [place] [address] [place] [address] Home Phone Mobile Phone Preferred Language Guatemalan Marital Status Worship Affiliation Unknown Race Other Race Ethnic Group or Author Organization [facility] Address [address] [place] [address] Care Team Providers Care Doula Name Role Phone Liv Soni Bhupinder Cerna Primary Care Provider [phone]- [phone] Social History Tobacco Use Types Packs/Day Years Used Date Smoking Tobacco: Never Assessed Comments Unknown Sex and Gender Information Value Date Recorded Sex Assigned at Female 07/28/2022 11:07 AM EDT Legal Sex Female 11:01 AM EDT Gender Identity Female 07/28/2022 11:07 AM EDT Sexual Orientation Not on file Plan of Treatment Health Maintenance Due Date Last Done Comments Blood Pressure 1980 Lipid Panel 1979 Depression Screening 1991 Hepatitis C Screening 10/15/1997 DTaP,Tdap,and Td Vaccines (1 - Tdap) 10/15/1998 Pap Smear 10/15/2000 Cervical Cancer Screening 10/15/2009 HPV/Cotest 10/15/2009 Medicare Initial AWV [id number] 09/28/2015 Breast Cancer Screening 2019 CT Colonography 10/15/2024 Colonoscopy 10/15/2024 Colorectal Cancer Screening 10/15/2024 FIT 10/15/2024 FOBT 10/15/2024 Multitarget Stool DNA (Cologuard) 10/15/2024 Sigmoidoscopy 10/15/2024 COVID-19 Vaccine (2024-2 6 season) 2024 Influenza Vaccine (#1) 2024 Meningococcal B Vaccines Aged Out No longer eligible based on patient's age to complete this topic Meningococcal Vaccines Aged Out No lo nger eligible based on patient's age to complete this topic Pneumococcal Vaccine Aged Out No long er eligible based on patient's age to complete this topic Insurance [facility] 03/[address] [address] [facility] MEDICARE Care Teams Doula Relationship Specialty Start Date End Date Liv Soni [address] [place] [address] PCP - General 07/28/22
--- OUTSIDE RECORDS SUMMARY | 2025-03-21 10:07 | XMS_ITS | Encounter Summary ---
Author Organization [facility] Address [address] [place] [address] Phone Care Team Providers Care Phlebotomist Lab Assistant Name Role Phone Liv Soni MD Primary Care Provider Encounter Details Date Type Department Care Team ([facility] st Contact Info) Description 07/22/2022 Prep for Surgery [facility] [address] [place] [address] Tacho Shea DPM [address] [place] [address] [email or web address] Bunion (Primary Dx) Social History Tobacco Use [...] Bunion documented in this encounter Care Teams Phlebotomist Lab Assistant Relationship Specialty Start Date End Date Liv Soni MD [facility] [place] [address] PCP - General Internal Medicine 07/01/22 documented as of this encounter Additional Source Comments The information contained in this document represents components of the legal health record. It is not the complete legal health record.[facility]
--- OUTSIDE RECORDS SUMMARY | 2025-03-21 10:07 | XMS_ITS | Clinical Summary ---
Author Organization [facility] Address [address] [place] [address] Phone Care Team Providers Care Human Resources Associate Name Role Phone Liv Soni MD Primary [...] drug. 2 Active glucagon (BAQSIMI) 3 mg/actuation [place] 0 Refills, Maintenance, 04/23/22 8:02:00 EST, Partial [...] this topic Medical Devices Implanted Type Area Video Control Operator Device Identifier Shelf Expiration Date Model / Serial / Lot Lens Lens Right: Eye Pin [employer] 26mm - [id number] Implanted:Qty: 2 on 08/11/2022 by Tacho Shea DPM at [facility] Right: Toe [employer] 05/22/2023 [id number] / / [id number] Description:Right great toe Insurance [facility] 1/[address] [address] [place] [id number] [facility] /[address] [address] MEDICARE PART A & B [facility]14 1[address] [address] MEDICARE PART A & [place] [facility] /[address] [address] MEDICARE PART A [place] [facility] 1/[address] [address] MEDICARE PART A & B [place] 4 /[address] [address] [facility] & B * Guarantor: Renae Roman Account Type Relation to Patient Date of Phone Billing Address Personal/Family Self 1980 [address] [facility] [address] [place] [address], [place] [address] * Guarantor: Renae Roman Account Type Relation to Patient Date of Phone Billing Address Personal/Family Self 1980 [address] [facility] [address] [place] [address], [place] [address] * Guarantor: Renae Roman Account Type Relation to Patient Date of Phone Billing Address Personal/Family Self 1980 4 [birth year][address] [facility] [address] [place] [address], [place] [address] , [place] [address] , [place] [address] * Guarantor: Renae Roman Account Type Relation to Patient Date of Phone Billing Address Personal/Family Self 1980 4 [address] [facility] [address] [place] [address], [place] [address] * Guarantor: Renae Roman Account Type Relation to Patient Date of Phone Billing Address Personal/Family Self 1980 [address] [facility] [address] [place] [address], [place] [address] [address] [facility] [address] [place] [address] Care Teams Human Resources Associate Relationship Specialty Start Date End Date Liv Soni MD [address] [facility] [place] [address] PCP - General Internal Medicine 07/01/22 Additional Source Comments The information contained in this document represents components of the legal health record. It is not the complete legal health record.[facility]
--- OUTSIDE RECORDS SUMMARY | 2025-03-21 10:07 | XMS_ITS | Encounter Summary ---
Author Organization [employer] [facility] Address [address] [place] [address] Phone Care Team Providers Care Cota Name Role Phone Liv Soni MD Primary Care Provider Encounter Details Date Type Department Care Team (Late st Contact Info) Description 08/11/2022 Procedure Pass OR Admitting Dept - Virtual Department [address] [place] [address] Social History Tobacco Use Types Packs/Day Years [...] on filedocumented in this encounter Care Teams Cota Relationship Specialty Start Date End Date Liv Soni MD [facility] [place] [address] PCP - General Internal Medicine 07/01/22 documented as of this encounter Additional Source Comments The information contained in this document represents components of the legal health record. It is not the complete legal health record.[facility]
== END 2025-03-21 10:11 | disposition home or self-care (01) ==
LOC: HO.HWSM 09:25
PROVIDERS: PCP Internal Medicine; Visit Provider Advanced Practice Midwife
DX: Z01.419 Encounter for gynecological examination (general) (routine) without abnormal findings (principal); Z12.39 Encounter for other screening for malignant neoplasm of breast; Z11.3 Encounter for screening for infections with a predominantly sexual mode of transmission; N91.2 Amenorrhea, unspecified
CPT/HCPCS: G0101; Q0091

== ENCOUNTER 2025-03-21 09:25 | Outpatient (REF) | payer MEDICARE, MEDICAID, SELFPAY ==
[2025-03-21 12:20] LABS: HBsAGNum1 0.30 S/CO (0.00-0.99); HIV Num 1 0.07 S/CO (0.00-0.99); Hepatitis B Surface Antigen Negative (Negative); ~HepC Num1 0.21 S/CO (0.00-0.79); ~Hepatitis C Antibody Nonreactive (Nonreactive)
[2025-03-21 12:37] LABS: Microalbum/Creatinine Ratio Ur 7.4 ug/mg cr (<30)
[2025-03-21 12:46] LABS: Syphilis Screen Nonreactive (Nonreactive)
[2025-03-21 22:32] LABS: Bacterial Vaginosis PCR NEGATIVE (Negative); Candida Group PCR NOT DETECTED (Not Detect); Candida glab krusei PCR NOT DETECTED (Not Detect); Trichomonas vaginalis PCR NOT DETECTED (Not Detect)
[2025-03-21 23:03] LABS: CT PCR NOT DETECTED (Not Detect.); NG PCR NOT DETECTED (Not Detect.)
[2025-03-22 06:34] LABS: Follicle Stimulating Hormone 107.8 mIU/mL
== END 2025-03-21 09:26 | disposition home or self-care (01) ==
LOC: HO.LNP 09:25
PROVIDERS: Student in an Organized Health Care Education/Training Program; PCP Internal Medicine; Visit Provider Advanced Practice Midwife
DX: Z01.419 Encounter for gynecological examination (general) (routine) without abnormal findings (principal); N76.0 Acute vaginitis; B96.89 Other specified bacterial agents as the cause of diseases classified elsewhere; N91.2 Amenorrhea, unspecified; E10.65 Type 1 diabetes mellitus with hyperglycemia; E78.5 Hyperlipidemia, unspecified; Z20.2 Contact with and (suspected) exposure to infections with a predominantly sexual mode of transmission; Z11.59 Encounter for screening for other viral diseases; Z01.84 Encounter for antibody response examination; Z11.4 Encounter for screening for human immunodeficiency virus [HIV]; Z98.51 Tubal ligation status
CPT/HCPCS: 81515; 82043; 82570; 83001; 86780; 86803; 87340; 87389; 87491; 87591